=== PATIENT | female | born 2005 | race Caucasian/White ===

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

== ENCOUNTER 2023-10-24 21:51 | Emergency (ER) | payer MEDICAID, SELFPAY ==
--- NOTE | ~2023-10-24 | XR_ITS ---
EXAMINATION: XR CHEST CLINICAL INFORMATION: Pain with deep breath. COMPARISON: None available. TECHNIQUE: Frontal view of the chest was obtained. FINDINGS: No significant abnormality is noted involving the heart, lungs, mediastinum, bony thorax or soft tissues. XR/XR chest 1V IMPRESSION: Unremarkable examination.
[2023-10-24 22:23] VITALS: BP 118/72; BP 127/88; PULSE 84; PULSE 85; RESP 16; TEMP 37.2; O2SAT 97; BMI 29.0
[2023-10-24 22:45] LABS: Basophils Absolute Auto 0.1 X10*3/uL (0.0-0.2); Basophils Percent Auto 0.9 % (0-2); Eosinophils Absolute Auto 0.1 X10*3/uL (0.0-0.4); Eosinophils Percent Auto 2.2 % (0-4); Hematocrit 33.9 % (37.0-47.0); Imm Gran Abs Auto 0.02 X10*3/uL (0.00-0.03); Imm Gran Pct Auto 0.3 % (0.0-0.4); Lymphocytes Absolute Auto 2.6 X10*3/uL (1.2-4.9); MANUAL DIFF FLAG NO; Mean Corpuscular HGB Conc 32.4 g/dl (31.0-35.0); Mean Corpuscular Hemoglobin 27.2 pg (27.0-33.0); Mean Corpuscular Volume 83.9 fL (80.0-98.0); Mean Platelet Volume 10.7 fL (9.4-12.3); Monocytes Absolute Auto 0.6 X10*3/uL (0.1-1.2); Monocytes Percent Auto 8.6 % (2-11); Platelet Count 305 X10*3/uL (160-400); Red Blood Count 4.04 X10*6/uL (4.20-5.50); White Blood Count 6.4 X10*3/uL (4.8-10.8)
[2023-10-24 22:59] LABS: Alanine Aminotransferase 18 U/L (0-31); Alkaline Phosphatase 99 U/L (39-117); Anion Gap 14 (12-20); Aspartate Amino Transferase 21 U/L (5-31); Beta-Hydroxybutyrate 0.18 mmol/L (0.02-0.27); Bilirubin Total 0.6 mg/dL (0.0-1.0); Blood Urea Nitrogen 7 mg/dL (9-16); Calcium 9.4 mg/dL (8.4-10.2); Carbon Dioxide 23 mmol/L (22-29); Chloride 107 mmol/L (96-108); Creatinine Clr Calc Pharmacy 90.9; Estimated Glomerular Filt Rate > 60; Glucose Random 305 mg/dL (60-115); Potassium 4.6 mmol/L (3.3-5.1); Sodium 139 mmol/L (135-145); Total Protein 7.1 g/dL (6.5-8.0)
--- NOTE | 2023-10-25 00:20 | ED.GENADULT ---
HPI - General Adult General Chief complaint: Recheck/Abnormal Lab/Rx Stated complaint: out of insulin, BGL 246 Time Seen by Provider: 10/25/23 00:07 Source: patient Mode of arrival: ambulatory Limitations: no limitations History of Present Illness ED Provider: marisa QUINONEZ narrative: Patient is type 1 diabetic ran out of her Lantus 2 days ago and Humalog last night as he moved out of her mom's house in [place] and does not have any access to her medications patient has been feeling thirsty and urinating a lot PCP attempted to get her insulin but she did not cover Related Data Home Medications ?Medication ?Instructions ?Recorded ?Confirmed fluoxetine 10 mg tablet 30 mg PO DAILY 10/13/22 10/13/22 hydroxyzine HCl 25 mg tablet 25 mg PO DAILY 10/13/22 10/13/22 hydroxyzine pamoate 25 mg capsule 25 mg PO Q4H PRN Anxiety 10/13/22 10/13/22 (Vistaril) lamotrigine 25 mg tablet (Lamictal) 50 mg PO DAILY 10/13/22 10/13/22 lisinopril 10 mg tablet 10 mg PO DAILY 10/13/22 10/13/22 melatonin 5 mg tablet 5 mg PO BEDTIME PRN Sleep 10/13/22 10/13/22 Previous Rx's ?Medication ?Instructions ?Recorded alcohol swabs 1 pad topical QIDACHS #100 ea 10/16/22 blood sugar diagnostic (FreeStyle #100 ea 10/16/22 Lite Strips) blood-glucose meter (FreeStyle #1 ea 10/16/22 Lite Meter kit) cholecalciferol (vitamin D3) 25 25 mcg PO DAILY 30 days #30 tabs 10/16/22 mcg (1,000 unit) tablet (Vitamin D3) insulin glargine 100 unit/mL (3 35 unit (0.35 mL) subcut QAM #15 mL 10/16/22 mL) subcutaneous pen (Lantus Solostar U-100 Insulin) insulin lispro 100 unit/mL 1 sliding scale dose subcut 10/16/22 subcutaneous pen (Humalog KwikPen QIDACHS #15 mL (U-100) Insulin) lancets 28 gauge (FreeStyle #100 ea 10/16/22 Lancets) pen needle, diabetic 32 gauge x #100 ea 10/16/2205/18 insulin glargine 100 unit/mL 54 unit (0.54 mL) subcut DAILY #10 10/25/23 subcutaneous solution (Lantus mL U-100 Insulin) insulin lispro 100 unit/mL 1 sliding scale dose subcut 10/25/23 subcutaneous solution (Humalog USEASDIRECTD #10 mL U-100 Insulin) Allergies Allergy/AdvReac Type Severity Reaction Status Date / Time No Known Allergies Allergy Verified 10/24/23 22:28 Review of Systems Review of Systems: Yes all other systems are reviewed and are negative [facility] Social History Social History Household Members: Family Housing: Apartment Alcohol intake: never Patient Tobacco Use Status: Never used Tobacco Smoked in Last 30 Days: No Use of substances other than those prescribed or required for medical reasons: No Advance Directives: No Advance Directives Information Provided: No Patient : No service: No Current occupational status: unemployed Physical Exam ED Vital Signs: Vital Signs - 24 hr 10/24/23 22:23 10/25/23 00:34 10/25/23 00:40 Temperature 98.9 F 98 F Pulse Rate 85 78 Respiratory Rate 16 18 Blood Pressure 127/88 127/88 127/88 Pulse Oximetry 97 98 Oxygen Delivery Method Room Air BMI result Body Mass Index 29.0 Appearance: Alert. Oriented X3. No acute distress. Eyes: no pallor ENT: Pharynx normal. Oral Mucosa moist Neck: Normal inspection. Neck supple. CVS: Normal heart rate and rhythm. Pulses normal. Respiratory: No respiratory distress. Equal air entry bilateral, no wheezing/rales/rhonchi Abdomen: Soft and nontender. Bowel sounds are present, no mass palpable, no CVA tenderness Skin: Skin warm and dry. Normal skin color. Normal skin turgor. Extremities: No lower extremity edema. No calf tenderness Neuro: Oriented X 3. Medications Administered Discontinued Medications Generic Name Dose Route Start Last Admin Trade Name Freq PRN Reason Stop Dose Admin Insulin Glargine 54 unit 10/25/23 00:27 10/25/23 00:34 Insulin Glargine,Hum.Rec.Anlog 100 Unit/Ml 10 Ml Vial SUBCUT 10/25/23 00:28 54 unit ONCE ONE Administration Insulin Human Lispro 8 unit 10/25/23 00:27 10/25/23 00:34 Insulin Lispro 100 Unit/Ml 3 Ml Vial SUBCUT 10/25/23 00:28 8 unit ONCE ONE Administration Lisinopril 10 mg 10/25/23 00:29 10/25/23 00:34 Lisinopril 10 Mg Tablet PO 10/25/23 00:30 10 mg ONCE ONE Administration Protocol Medical Decision Making Medical Decision Making [facility] Narrative: Patient has hyperglycemia type 1 diabetes not ketoacidosis insulin was given in the ER and prescription was given to the patient to get the insulin Differential Diagnosis Differential Diagnoses: The differential diagnosis associated with the presentation includes Lab Data [facility] Lab Attestation statement: I reviewed the patient's lab results. 10/24/23 22:40 10/24/23 22:40 Labs: Lab Results 10/24/23 Range/Units 22:40 WBC 6.4 (4.8-10.8) X10*3/uL RBC 4.04 L (4.20-5.50) X10*6/uL Hgb 11.0 L (12.0-16.0) g/dl Hct 33.9 L (37.0-47.0) % MCV 83.9 (80.0-98.0) fL MCH 27.2 (27.0-33.0) pg MCHC 32.4 (31.0-35.0) g/dl RDW 14.0 (11.0-16.0) % Plt Count 305 (160-400) X10*3/uL MPV 10.7 (9.4-12.3) fL Immature Gran % (Auto) 0.3 (0.0-0.4) % Neut % (Auto) 47.0 (45-73) % Lymph % (Auto) 41.0 H (20-40) % [place] % (Auto) 8.6 (2-11) % Eos % (Auto) 2.2 (0-4) % Baso % (Auto) 0.9 (0-2) % Lymph # (Auto) 2.6 (1.2-4.9) X10*3/uL [place] # (Auto) 0.6 (0.1-1.2) X10*3/uL Eos # (Auto) 0.1 (0.0-0.4) X10*3/uL Baso # (Auto) 0.1 (0.0-0.2) X10*3/uL Abs Immat Gran (auto) 0.02 (0.00-0.03) X10*3/uL Absolute Neuts (auto) 3.0 (2.0-8.3) x10*3/uL Absolute Nucleated RBC 0.000 (0.0-0.012) X10*3/uL Nucleated RBC % (auto) 0.0 (0.0-0.2) /100WBC Sodium 139 (135-145) mmol/L Potassium 4.6 (3.3-5.1) mmol/L Chloride 107 (96-108) mmol/L Carbon Dioxide 23 (22-29) mmol/L Anion Gap 14 (12-20) BUN 7 L (9-16) mg/dL Creatinine 0.74 (0.5-1.4) mg/dL Estim Creat Clear Calc 90.9 Estimated GFR > 60 Random Glucose 305 H (60-115) mg/dL Calcium 9.4 (8.4-10.2) mg/dL Total Bilirubin 0.6 (0.0-1.0) mg/dL AST 21 (5-31) U/L ALT 18 (0-31) U/L Alkaline Phosphatase 99 (39-117) U/L Total Protein 7.1 (6.5-8.0) g/dL Albumin 4.0 (3.5-5.0) g/dL Beta-Hydroxybutyrate 0.18 (0.02-0.27) mmol/L Discharge Plan Discharge Clinical Impression: Diabetes mellitus with hyperglycemia Patient Disposition: Home, Self-Care Instructions: Diabetic Hyperglycemia (ED) Additional Instructions: Take your insulin and other medications as prescribed by your PCP Prescriptions: New insulin glargine [Lantus U-100 Insulin] 100 unit/mL solution 54 unit subcut DAILY Qty: 10 2RF insulin lispro [Humalog U-100 Insulin] 100 unit/mL solution 1 sliding scale dose subcut USEASDIRECTD Qty: 10 2RF Rx Instructions: BG <111 0 units, 111-150 - 0 units, 151-200 2 units, 201-250 4 units, 251-300 6 units, 301-350 8 units, >350 10 units No Action fluoxetine 10 mg Tablet 30 mg PO DAILY Hold Instructions: hasn't been taking lamotrigine [Lamictal] 25 mg Tablet 50 mg PO DAILY Hold Instructions: hasn't been taking lisinopril 10 mg Tablet 10 mg PO DAILY Hold Instructions: bp on lower side hold until follow up with PCP hydroxyzine HCl 25 mg Tablet 25 mg PO DAILY Hold Instructions: hasn't been taking hydroxyzine pamoate [Vistaril] 25 mg Capsule 25 mg PO Q4H PRN (Reason: Anxiety) Hold Instructions: hasn't been taking melatonin 5 mg Tablet 5 mg PO BEDTIME PRN (Reason: Sleep) cholecalciferol (vitamin D3) [Vitamin D3] 25 mcg (1,000 unit) Tablet 25 mcg PO DAILY 30 Days Qty: 30 0RF (DME) FreeStyle Lite Strips Strip Qty: 100 0RF Rx Instructions: Test four times a day or as directed. (DME) blood-glucose meter [FreeStyle Lite Meter] Kit Qty: 1 0RF Rx Instructions: As Directed alcohol swabs Pads, Medicated 1 pad TOPICAL QIDACHS Qty: 100 0RF Rx Instructions: Use four times a day or as directed. insulin lispro [Humalog KwikPen Insulin] 100 unit/mL insulin pen 1 sliding scale dose SUBCUT QIDACHS MDD 50 units Qty: 15 1RF Rx Instructions: Blood Sugar: <150 - 0 units 151-200 - 2 units 201-250 - 4 units 251-300 - 6 units 301-350 - 8 units >350 - 10 units (DME) pen needle, diabetic 32 gauge x 1/4 needle Qty: 100 0RF Rx Instructions: Use four times a day or as directed. (DME) lancets [FreeStyle Lancets] 28 gauge misc Qty: 100 0RF Rx Instructions: Test four times a day or as directed. insulin glargine [Lantus Solostar U-100 Insulin] 100 unit/mL (3 mL) Insulin Pen 35 unit SUBCUT QAM Qty: 15 1RF Interventions: ED Discharge Assessment Last Done: 10/25/23 00:40 Discharge Date/Time: 10/25/23 00:41 Print Language: [place] Citizen
[2023-10-25 00:34] VITALS: BP 127/88
[2023-10-25] MEDS: lisinopriL 10 MG TABLET PO (00:34)
[2023-10-25] MEDS: Insulin Glargine,Hum.rec.anlog 100 UNIT/ML 10 ML VIAL 54 UNIT SUBCUT (00:34)
[2023-10-25] MEDS: Insulin Lispro 100 UNIT/ML 3 ML VIAL 8 UNIT SUBCUT (00:34)
[2023-10-25 00:40] VITALS: BP 127/88; PULSE 78; RESP 18; TEMP 36.6; O2SAT 98
[2023-10-25 07:38] LABS: Estimated Average Glucose 214 mg/dL; Hemoglobin A1c % 9.1 % (<6.0)
== END 2023-10-25 00:41 | disposition home or self-care (01) ==
PROVIDERS: Emergency Provider Internal Medicine
DX: E11.65 Type 2 diabetes mellitus with hyperglycemia (principal); R07.1 Chest pain on breathing; Z79.899 Other long term (current) drug therapy
CPT/HCPCS: 36415; 71045; 80053; 82010; 83036; 85025; 99284

== ENCOUNTER 2024-04-30 03:24 | Inpatient (IN) | payer MEDICAID, SELFPAY ==
[2024-04-30] VITALS (7 sets, daily range): BP systolic 81–117; BP diastolic 46–82; PULSE 83–120; RESP 13–20; TEMP 36.6–37.1; O2SAT 95–100; BMI 28.9
--- NOTE | 2024-04-30 03:31 | ECG_ITS ---
Test Reason : HYPERGLYCEMIC Blood Pressure : / mmHG Vent. Rate : 123 BPM Atrial Rate : 123 BPM P-R Int : 132 ms QRS Dur : 078 ms QT Int : 316 ms P-R-T Axes : 058 055 035 degrees QTc Int : 452 ms Sinus tachycardia Otherwise normal ECG When compared with ECG of 13-OCT-2022 17:21, No significant change was found Referred By: Generic ED Physician Electronically Signed By:RORO CARLISLE
[2024-04-30 03:46] LABS: Glucose, Whole Blood 588 mg/dL (60-115)
[2024-04-30 03:51] LABS: Basophils Absolute Auto 0.1 X10*3/uL (0.0-0.2); Basophils Percent Auto 0.5 % (0-2); Eosinophils Absolute Auto 0.1 X10*3/uL (0.0-0.4); Eosinophils Percent Auto 0.6 % (0-4); Hematocrit 35.4 % (37.0-47.0); Hemoglobin 11.3 g/dl (12.0-16.0); Imm Gran Abs Auto 0.04 X10*3/uL (0.00-0.03); Imm Gran Pct Auto 0.3 % (0.0-0.4); Lymphocytes Absolute Auto 2.8 X10*3/uL (1.2-4.9); Lymphocytes Percent Auto 24.7 % (20-40); MANUAL DIFF FLAG NO; Mean Corpuscular HGB Conc 31.9 g/dl (31.0-35.0); Mean Corpuscular Hemoglobin 26.2 pg (27.0-33.0); Mean Corpuscular Volume 81.9 fL (80.0-98.0); Mean Platelet Volume 10.7 fL (9.4-12.3); Monocytes Percent Auto 8.7 % (2-11); Neutrophils Absolute Auto 7.5 x10*3/uL (2.0-8.3); Neutrophils Percent Auto 65.2 % (45-73); Platelet Count 377 X10*3/uL (160-400); Red Blood Count 4.32 X10*6/uL (4.20-5.50); Red Cell Distribution Width 14.3 % (11.0-16.0); White Blood Count 11.4 X10*3/uL (4.8-10.8)
[2024-04-30 03:53] LABS: Venous Blood Gas Refer to POC result
[2024-04-30 03:54] LABS: VBG Base Excess -11.6 mmol/L; VBG HCO3 13 mmol/L (22-26); VBG pCO2 27 mmHg; VBG pH 7.28 (7.32-7.43); VBG pO2 62 mmHg
[2024-04-30 04:05] LABS: Appearance Urine Clear; Color Urine Yellow; Glucose Urine UA >=1000 mg/dL (Negative); Leukocyte Esterase Urine Negative (Negative); Nitrite Urine Negative (Negative); Specific Gravity - Urine >= 1.030 (1.005-1.025); UMIC TRIGGER UACC YES; Urine Blood Negative (Negative); Urine Ketones >=160 mg/dL (Negative); Urine Protein Negative (Neg-Trace)
[2024-04-30 04:10] LABS: Bacteria Urine None Seen (None Seen); Hyaline Casts Urine 0-2 /LPF (0-2); RBC Urine 0-2 /HPF (0-2); Squamous Epithelial Cell Urine 0-2 /HPF (0-2); WBC Urine 0-5 /HPF (0-5)
--- NOTE | 2024-04-30 04:13 | ED.GENADULT ---
HPI - General Adult General Chief complaint: General Medical Stated complaint: Hyperglycemia, n/v, weak, dizzy Time Seen by Provider: 04/30/24 04:13 History of Present Illness ED Provider: Marie QUINONEZ narrative: The patient is a 18-year-old female with a history of type 1 diabetes. She takes lispro insulin and also Lantus insulin. The patient says that she was feeling me in her usual health yesterday during the day. She took her insulin as she usually does. She was not having any unusual readings on her blood sugars. She does not have a Dexcom device but has to check her blood sugars by fingerstick. Fairly late in the evening she measured her blood sugar and it was high. At 23:00 it was 400. She gave herself some additional rapid acting insulin and waited for awhile. However her blood sugar continued to remain quite high and ultimately she called an ambulance and was brought to the hospital. The patient is not able to identify any particular symptoms or events that might have predispose her too high blood sugars tonight. She says she has not had any fever, sweats, chills. No cough or sputum. No abdominal pain. She has had some nausea. She says that she feels some discomfort in both of her kidneys. She has had this kind of discomfort when she has had DKA before. The patient says she does not have an disability examiner at the moment. Related Data Home Medications ?Medication ?Instructions ?Recorded ?Confirmed fluoxetine 10 mg tablet 30 mg PO DAILY 10/13/22 10/13/22 hydroxyzine HCl 25 mg tablet 25 mg PO DAILY 10/13/22 10/13/22 hydroxyzine pamoate 25 mg capsule 25 mg PO Q4H PRN Anxiety 10/13/22 10/13/22 (Vistaril) lamotrigine 25 mg tablet (Lamictal) 50 mg PO DAILY 10/13/22 10/13/22 lisinopril 10 mg tablet 10 mg PO DAILY 10/13/22 10/13/22 melatonin 5 mg tablet 5 mg PO BEDTIME PRN Sleep 10/13/22 10/13/22 Previous Rx's ?Medication ?Instructions ?Recorded alcohol swabs 1 pad topical QIDACHS #100 ea 10/16/22 blood sugar diagnostic (FreeStyle #100 ea 10/16/22 Lite Strips) blood-glucose meter (FreeStyle #1 ea 10/16/22 Lite Meter kit) cholecalciferol (vitamin D3) 25 25 mcg PO DAILY 30 days #30 tabs 10/16/22 mcg (1,000 unit) tablet (Vitamin D3) insulin glargine 100 unit/mL (3 35 unit (0.35 mL) subcut QAM #15 mL 10/16/22 mL) subcutaneous pen (Lantus Solostar U-100 Insulin) insulin lispro 100 unit/mL 1 sliding scale dose subcut 10/16/22 subcutaneous pen (Humalog KwikPen QIDACHS #15 mL (U-100) Insulin) lancets 28 gauge (FreeStyle #100 ea 10/16/22 Lancets) pen needle, diabetic 32 gauge x #100 ea 10/16/2205/18 insulin glargine 100 unit/mL 54 unit (0.54 mL) subcut DAILY #10 10/25/23 subcutaneous solution (Lantus mL U-100 Insulin) insulin lispro 100 unit/mL 1 sliding scale dose subcut 10/25/23 subcutaneous solution (Humalog USEASDIRECTD #10 mL U-100 Insulin) Allergies Allergy/AdvReac Type Severity Reaction Status Date / Time No Known Allergies Allergy Verified 04/30/24 03:42 Review of Systems Review of Systems: Yes all other systems are reviewed and are negative [facility] Social History Social History Household Members: Family Housing: Apartment Alcohol intake: never Patient Tobacco Use Status: Never used Tobacco Smoked in Last 30 Days: No Use of substances other than those prescribed or required for medical reasons: No Advance Directives: No Advance Directives Information Provided: Yes Do you have a plan to hurt others: No Plan Patient : No service: No Current occupational status: unemployed Physical Exam ED Vital Signs: Vital Signs - 24 hr 04/30/24 03:38 04/30/24 06:21 04/30/24 08:50 Temperature 98.2 F 98.7 F 98.5 F Pulse Rate 120 H 106 H 113 H Respiratory Rate 16 20 18 Blood Pressure 117/82 96/57 L 92/49 L Pulse Oximetry 100 98 97 Oxygen Delivery Method Room Air Room Air Room Air 04/30/24 09:37 04/30/24 10:42 04/30/24 10:53 Temperature 97.9 F 98.7 F 98.0 F Pulse Rate 101 H 90 83 Respiratory Rate 18 18 13 Blood Pressure 81/47 L 96/51 L 93/46 L Pulse Oximetry 98 99 95 Oxygen Delivery Method Room Air Room Air Room Air 04/30/24 11:16 Temperature Pulse Rate Respiratory Rate Blood Pressure 98/63 Pulse Oximetry Oxygen Delivery Method BMI result Body Mass Index 28.9 Const Other: The patient is awake and alert. She looks slightly pale but not acutely ill otherwise. No Kussmaul breathing. HENMT Other: Face is symmetrical. Mucous membranes were not obviously dry. Posterior pharynx is unremarkable. Eyes Other: Pupils are round equal, conjunctivae clear, extraocular movements intact. Neck Neck: Yes full ROM and Yes no lymphadenopathy Resp Effort & Inspection: normal respiratory effort Auscultation: clear to auscultation bilaterally Cardio Rate: regular rate Heart sounds: S1 normal heart sound present and S2 normal heart sound present GI Other: The abdomen was soft and nontender. Back/Spine/Pelvis Other: No CVA percussion tenderness Skin Other: Skin is pale and dry Neuro Other: The patient is awake and alert. She looks somewhat fatigued but had a normal mental status. Cranial nerves are grossly intact. She moves her extremities normally. She seems grossly neurologically Extrem Other: No peripheral edema. No calf swelling or tenderness. No asymmetry. Medications Administered Generic Name Dose Route Start Last Admin Trade Name Freq PRN Reason Stop Dose Admin Insulin Human Regular 100 unit in 100 mls @ 6 mls/hr 04/30/24 04:30 04/30/24 08:51 Myxredlin IVCONT 0 unit/hr .[id number] CAROLINE 0 mls/hr Titration Protocol 6 UNIT/HR Discontinued Medications Generic Name Dose Route Start Last Admin Trade Name Freq PRN Reason Stop Dose Admin Lactated Ringer's 1,000 mls @ 999 mls/hr 04/30/24 04:30 04/30/24 05:53 Lr IV 04/30/24 05:30 Infused .Q1H1M CAROLINE Infusion Lactated Ringer's 1,000 mls @ 999 mls/hr 04/30/24 06:30 04/30/24 06:39 Lr IV 04/30/24 07:30 999 mls/hr .Q1H1M CAROLINE Administration Lactated Ringer's 1,000 mls @ 999 mls/hr 04/30/24 09:30 04/30/24 09:35 Lr IV 04/30/24 10:30 999 mls/hr .Q1H1M CAROLINE Administration Insulin Glargine 30 unit 04/30/24 09:41 04/30/24 10:40 Insulin Glargine,Hum.Rec.Anlog 100 Unit/Ml 10 Ml Vial SUBCUT 04/30/24 09:42 30 unit ONCE ONE Administration Insulin Human Lispro 8 unit 04/30/24 08:53 04/30/24 09:34 Insulin Lispro 100 Unit/Ml 3 Ml Vial SUBCUT 04/30/24 08:54 8 unit ONCE ONE Administration Insulin Human Regular 5 unit 04/30/24 04:17 04/30/24 04:43 Insulin Regular, Human 100 Unit/Ml 10 Ml Vial IVPUSH 04/30/24 04:18 5 unit ONCE ONE Administration Morphine Sulfate 4 mg 04/30/24 04:56 04/30/24 05:02 Morphine Sulfate 4 Mg/Ml Cartridge IVPUSH 04/30/24 04:57 4 mg ONCE ONE Administration Protocol Ondansetron HCl 4 mg 04/30/24 04:25 04/30/24 04:41 Ondansetron Hcl 4 Mg/2 Ml Vial IVPUSH 04/30/24 04:26 4 mg ONCE ONE Administration Medical Decision Making Medical Decision Making [facility] Narrative: The patient is a 18-year-old female with a history of type 2 diabetes who presents with hyperglycemia that she says started just a few hours prior to arrival. She has been feeling well during most of the day yesterday. She does not describe having any bizarre other infectious symptoms. She says that she feels similar to how she felt when she was hospitalized here last year for DKA although at that previous episode she was feeling worse than she is feeling tonight. Denies any change in her insulin regimen. The patient looks mildly unwell but not severely unwell. She was given IV fluids. Labs were suggestive of mild to moderate DKA. She was started on an insulin drip. Our ICU had no beds available for admission. She was therefore kept in the emergency room on an insulin drip for several hours in hopes of improvement. My overall impression was that neither her clinical appearance nor her laboratory values suggested a severe case of DKA that clearly would indicate a need for transfer to another hospital. The patient received a total of the 3 L of lactated Ringer's and her blood sugars improved significantly on an insulin drip. Repeat labs after several hours showed resolution of her anion gap with improvement in her carbon dioxide and her pH. Ultimately the patient's blood sugar came down as low as 169 by fingerstick. At that point I asked the insulin drip to be stopped. The patient had gotten a small amount of a D5 as part of the insulin drip protocol. Her blood sugar went up fairly quickly to 281. His that point she was given 6 units of lispro which she said was what she would give herself at home with NovoLog at that level. Additionally she has been given 30 units of Lantus insulin (this is a smaller dose than she typically gives herself. She says she normally himself 54 units once a day in the afternoon). Lab Data 04/30/24 03:47 04/30/24 07:17 Labs: Lab Results 04/30/24 04/30/24 04/30/24 Range/Units 03:40 03:47 03:50 WBC 11.4 H (4.8-10.8) X10*3/uL RBC 4.32 (4.20-5.50) X10*6/uL Hgb 11.3 L (12.0-16.0) g/dl Hct 35.4 L (37.0-47.0) % MCV 81.9 (80.0-98.0) fL MCH 26.2 L (27.0-33.0) pg MCHC 31.9 (31.0-35.0) g/dl RDW 14.3 (11.0-16.0) % Plt Count 377 (160-400) X10*3/uL MPV 10.7 (9.4-12.3) fL Immature Gran % (Auto) 0.3 (0.0-0.4) % Neut % (Auto) 65.2 (45-73) % Lymph % (Auto) 24.7 (20-40) % [place] % (Auto) 8.7 (2-11) % Eos % (Auto) 0.6 (0-4) % Baso % (Auto) 0.5 (0-2) % Lymph # (Auto) 2.8 (1.2-4.9) X10*3/uL [place] # (Auto) 1.0 (0.1-1.2) X10*3/uL Eos # (Auto) 0.1 (0.0-0.4) X10*3/uL Baso # (Auto) 0.1 (0.0-0.2) X10*3/uL Abs Immat Gran (auto) 0.04 H (0.00-0.03) X10*3/uL Absolute Neuts (auto) 7.5 (2.0-8.3) x10*3/uL Absolute Nucleated RBC 0.000 (0.0-0.012) X10*3/uL Nucleated RBC % (auto) 0.0 (0.0-0.2) /100WBC VBG pH 7.28 L (7.32-7.43) VBG pCO2 27 mmHg VBG pO2 62 mmHg VBG HCO3 13 L (22-26) mmol/L VBG O2 Saturation 87.0 % VBG Base Excess -11.6 mmol/L Sodium 131 L (135-145) mmol/L Potassium 5.1 (3.3-5.1) mmol/L Chloride 98 (96-108) mmol/L Carbon Dioxide 13 L (22-29) mmol/L Anion Gap 25 H (12-20) BUN 13 (9-16) mg/dL Creatinine 1.04 (0.5-1.4) mg/dL Estim Creat Clear Calc 64.4 Estimated GFR > 60 POC Glucose 588 H* (60-115) mg/dL Random Glucose 630 H* (60-115) mg/dL Calcium 9.0 (8.4-10.2) mg/dL Magnesium (1.6-2.6) mg/dL Total Bilirubin 0.7 (0.0-1.0) mg/dL AST 32 H (5-31) U/L ALT 17 (0-31) U/L Alkaline Phosphatase 102 (39-117) U/L C-Reactive Protein 0.80 H (< or = 0.50) mg/dL Total Protein 6.9 (6.5-8.0) g/dL Albumin 3.8 (3.5-5.0) g/dL Beta-Hydroxybutyrate 5.70 H (0.02-0.27) mmol/L Beta HCG, Quant < 2 mIU/mL Urine Color Urine Appearance Urine pH (5.0-9.0) Ur Specific [place] (1.005-1.025) Urine Protein (Neg-Trace) mg/dL Urine Glucose (UA) (Negative) mg/dL Urine Ketones (Negative) mg/dL Urine Blood (Negative) Urine Nitrite (Negative) Ur Leukocyte Esterase (Negative) Urine RBC (0-2) /HPF Urine WBC (0-5) /HPF Ur Squamous Epith Cells (0-2) /HPF Urine Bacteria (None Seen) Hyaline Casts (0-2) /LPF Urine Opiates Screen (Not Detect) Ur Buprenorphine Scrn (Not Detect) ng/mL Ur Oxycodone Screen (Not Detect) ng/mL Urine Methadone Screen (Not Detect) ng/mL Urine Fentanyl Screen (Not Detect) Ur Barbiturates Screen (Not Detect) Ur Phencyclidine Scrn (Not Detect) Ur Amphetamines Screen (Not Detect) U Benzodiazepines Scrn (Not Detect) Urine Cocaine Screen (Not Detect) U Marijuana (THC) Screen (Not Detect) Ethyl Alcohol < 10 mg/dL 04/30/24 04/30/24 04/30/24 Range/Units 03:59 04:43 05:47 WBC (4.8-10.8) X10*3/uL RBC (4.20-5.50) X10*6/uL Hgb (12.0-16.0) g/dl Hct (37.0-47.0) % MCV (80.0-98.0) fL MCH (27.0-33.0) pg MCHC (31.0-35.0) g/dl RDW (11.0-16.0) % Plt Count (160-400) X10*3/uL MPV (9.4-12.3) fL Immature Gran % (Auto) (0.0-0.4) % Neut % (Auto) (45-73) % Lymph % (Auto) (20-40) % [place] % (Auto) (2-11) % Eos % (Auto) (0-4) % Baso % (Auto) (0-2) % Lymph # (Auto) (1.2-4.9) X10*3/uL [place] # (Auto) (0.1-1.2) X10*3/uL Eos # (Auto) (0.0-0.4) X10*3/uL Baso # (Auto) (0.0-0.2) X10*3/uL Abs Immat Gran (auto) (0.00-0.03) X10*3/uL Absolute Neuts (auto) (2.0-8.3) x10*3/uL Absolute Nucleated RBC (0.0-0.012) X10*3/uL Nucleated RBC % (auto) (0.0-0.2) /100WBC VBG pH (7.32-7.43) VBG pCO2 mmHg VBG pO2 mmHg VBG HCO3 (22-26) mmol/L VBG O2 Saturation % VBG Base Excess mmol/L Sodium (135-145) mmol/L Potassium (3.3-5.1) mmol/L Chloride (96-108) mmol/L Carbon Dioxide (22-29) mmol/L Anion Gap (12-20) BUN (9-16) mg/dL Creatinine (0.5-1.4) mg/dL Estim Creat Clear Calc Estimated GFR POC Glucose 550 H* 340 H (60-115) mg/dL Random Glucose (60-115) mg/dL Calcium (8.4-10.2) mg/dL Magnesium (1.6-2.6) mg/dL Total Bilirubin (0.0-1.0) mg/dL AST (5-31) U/L ALT (0-31) U/L Alkaline Phosphatase (39-117) U/L C-Reactive Protein (< or = 0.50) mg/dL Total Protein (6.5-8.0) g/dL Albumin (3.5-5.0) g/dL Beta-Hydroxybutyrate (0.02-0.27) mmol/L Beta HCG, Quant mIU/mL Urine Color Yellow Urine Appearance Clear Urine pH 5.0 (5.0-9.0) Ur Specific [place] >= 1.030 H (1.005-1.025) Urine Protein Negative (Neg-Trace) mg/dL Urine Glucose (UA) >=1000 H (Negative) mg/dL Urine Ketones >=160 (Negative) mg/dL Urine Blood Negative (Negative) Urine Nitrite Negative (Negative) Ur Leukocyte Esterase Negative (Negative) Urine RBC 0-2 (0-2) /HPF Urine WBC 0-5 (0-5) /HPF Ur Squamous Epith Cells 0-2 (0-2) /HPF Urine Bacteria None Seen (None Seen) Hyaline Casts 0-2 (0-2) /LPF Urine Opiates Screen Not Detected (Not Detect) Ur Buprenorphine Scrn Not Detected (Not Detect) ng/mL Ur Oxycodone Screen Not Detected (Not Detect) ng/mL Urine Methadone Screen Not Detected (Not Detect) ng/mL Urine Fentanyl Screen Not Detected (Not Detect) Ur Barbiturates Screen Not Detected (Not Detect) Ur Phencyclidine Scrn Not Detected (Not Detect) Ur Amphetamines Screen Not Detected (Not Detect) U Benzodiazepines Scrn Not Detected (Not Detect) Urine Cocaine Screen Not Detected (Not Detect) U Marijuana (THC) Screen Not Detected (Not Detect) Ethyl Alcohol mg/dL 04/30/24 04/30/24 04/30/24 Range/Units 06:53 07:17 07:20 WBC (4.8-10.8) X10*3/uL RBC (4.20-5.50) X10*6/uL Hgb (12.0-16.0) g/dl Hct (37.0-47.0) % MCV (80.0-98.0) fL MCH (27.0-33.0) pg MCHC (31.0-35.0) g/dl RDW (11.0-16.0) % Plt Count (160-400) X10*3/uL MPV (9.4-12.3) fL Immature Gran % (Auto) (0.0-0.4) % Neut % (Auto) (45-73) % Lymph % (Auto) (20-40) % [place] % (Auto) (2-11) % Eos % (Auto) (0-4) % Baso % (Auto) (0-2) % Lymph # (Auto) (1.2-4.9) X10*3/uL [place] # (Auto) (0.1-1.2) X10*3/uL Eos # (Auto) (0.0-0.4) X10*3/uL Baso # (Auto) (0.0-0.2) X10*3/uL Abs Immat Gran (auto) (0.00-0.03) X10*3/uL Absolute Neuts (auto) (2.0-8.3) x10*3/uL Absolute Nucleated RBC (0.0-0.012) X10*3/uL Nucleated RBC % (auto) (0.0-0.2) /100WBC VBG pH 7.30 L (7.32-7.43) VBG pCO2 32 mmHg VBG pO2 49 mmHg VBG HCO3 16 L (22-26) mmol/L VBG O2 Saturation 76.0 % VBG Base Excess -8.9 mmol/L Sodium 135 (135-145) mmol/L Potassium 4.1 (3.3-5.1) mmol/L Chloride 105 (96-108) mmol/L Carbon Dioxide 16 L (22-29) mmol/L Anion Gap 18 (12-20) BUN 9 (9-16) mg/dL Creatinine 0.79 (0.5-1.4) mg/dL Estim Creat Clear Calc 84.9 Estimated GFR > 60 POC Glucose 221 H (60-115) mg/dL Random Glucose 201 H (60-115) mg/dL Calcium 8.7 (8.4-10.2) mg/dL Magnesium 1.5 L (1.6-2.6) mg/dL Total Bilirubin (0.0-1.0) mg/dL AST (5-31) U/L ALT (0-31) U/L Alkaline Phosphatase (39-117) U/L C-Reactive Protein (< or = 0.50) mg/dL Total Protein (6.5-8.0) g/dL Albumin (3.5-5.0) g/dL Beta-Hydroxybutyrate (0.02-0.27) mmol/L Beta HCG, Quant mIU/mL Urine Color Urine Appearance Urine pH (5.0-9.0) Ur Specific [place] (1.005-1.025) Urine Protein (Neg-Trace) mg/dL Urine Glucose (UA) (Negative) mg/dL Urine Ketones (Negative) mg/dL Urine Blood (Negative) Urine Nitrite (Negative) Ur Leukocyte Esterase (Negative) Urine RBC (0-2) /HPF Urine WBC (0-5) /HPF Ur Squamous Epith Cells (0-2) /HPF Urine Bacteria (None Seen) Hyaline Casts (0-2) /LPF Urine Opiates Screen (Not Detect) Ur Buprenorphine Scrn (Not Detect) ng/mL Ur Oxycodone Screen (Not Detect) ng/mL Urine Methadone Screen (Not Detect) ng/mL Urine Fentanyl Screen (Not Detect) Ur Barbiturates Screen (Not Detect) Ur Phencyclidine Scrn (Not Detect) Ur Amphetamines Screen (Not Detect) U Benzodiazepines Scrn (Not Detect) Urine Cocaine Screen (Not Detect) U Marijuana (THC) Screen (Not Detect) Ethyl Alcohol mg/dL 04/30/24 04/30/24 04/30/24 Range/Units 07:55 08:49 10:15 WBC (4.8-10.8) X10*3/uL RBC (4.20-5.50) X10*6/uL Hgb (12.0-16.0) g/dl Hct (37.0-47.0) % MCV (80.0-98.0) fL MCH (27.0-33.0) pg MCHC (31.0-35.0) g/dl RDW (11.0-16.0) % Plt Count (160-400) X10*3/uL MPV (9.4-12.3) fL Immature Gran % (Auto) (0.0-0.4) % Neut % (Auto) (45-73) % Lymph % (Auto) (20-40) % [place] % (Auto) (2-11) % Eos % (Auto) (0-4) % Baso % (Auto) (0-2) % Lymph # (Auto) (1.2-4.9) X10*3/uL [place] # (Auto) (0.1-1.2) X10*3/uL Eos # (Auto) (0.0-0.4) X10*3/uL Baso # (Auto) (0.0-0.2) X10*3/uL Abs Immat Gran (auto) (0.00-0.03) X10*3/uL Absolute Neuts (auto) (2.0-8.3) x10*3/uL Absolute Nucleated RBC (0.0-0.012) X10*3/uL Nucleated RBC % (auto) (0.0-0.2) /100WBC VBG pH (7.32-7.43) VBG pCO2 mmHg VBG pO2 mmHg VBG HCO3 (22-26) mmol/L VBG O2 Saturation % VBG Base Excess mmol/L Sodium (135-145) mmol/L Potassium (3.3-5.1) mmol/L Chloride (96-108) mmol/L Carbon Dioxide (22-29) mmol/L Anion Gap (12-20) BUN (9-16) mg/dL Creatinine (0.5-1.4) mg/dL Estim Creat Clear Calc Estimated GFR POC Glucose 169 H 281 H 241 H (60-115) mg/dL Random Glucose (60-115) mg/dL Calcium (8.4-10.2) mg/dL Magnesium (1.6-2.6) mg/dL Total Bilirubin (0.0-1.0) mg/dL AST (5-31) U/L ALT (0-31) U/L Alkaline Phosphatase (39-117) U/L C-Reactive Protein (< or = 0.50) mg/dL Total Protein (6.5-8.0) g/dL Albumin (3.5-5.0) g/dL Beta-Hydroxybutyrate (0.02-0.27) mmol/L Beta HCG, Quant mIU/mL Urine Color Urine Appearance Urine pH (5.0-9.0) Ur Specific [place] (1.005-1.025) Urine Protein (Neg-Trace) mg/dL Urine Glucose (UA) (Negative) mg/dL Urine Ketones (Negative) mg/dL Urine Blood (Negative) Urine Nitrite (Negative) Ur Leukocyte Esterase (Negative) Urine RBC (0-2) /HPF Urine WBC (0-5) /HPF Ur Squamous Epith Cells (0-2) /HPF Urine Bacteria (None Seen) Hyaline Casts (0-2) /LPF Urine Opiates Screen (Not Detect) Ur Buprenorphine Scrn (Not Detect) ng/mL Ur Oxycodone Screen (Not Detect) ng/mL Urine Methadone Screen (Not Detect) ng/mL Urine Fentanyl Screen (Not Detect) Ur Barbiturates Screen (Not Detect) Ur Phencyclidine Scrn (Not Detect) Ur Amphetamines Screen (Not Detect) U Benzodiazepines Scrn (Not Detect) Urine Cocaine Screen (Not Detect) U Marijuana (THC) Screen (Not Detect) Ethyl Alcohol mg/dL 04/30/24 Range/Units 11:14 WBC (4.8-10.8) X10*3/uL RBC (4.20-5.50) X10*6/uL Hgb (12.0-16.0) g/dl Hct (37.0-47.0) % MCV (80.0-98.0) fL MCH (27.0-33.0) pg MCHC (31.0-35.0) g/dl RDW (11.0-16.0) % Plt Count (160-400) X10*3/uL MPV (9.4-12.3) fL Immature Gran % (Auto) (0.0-0.4) % Neut % (Auto) (45-73) % Lymph % (Auto) (20-40) % [place] % (Auto) (2-11) % Eos % (Auto) (0-4) % Baso % (Auto) (0-2) % Lymph # (Auto) (1.2-4.9) X10*3/uL [place] # (Auto) (0.1-1.2) X10*3/uL Eos # (Auto) (0.0-0.4) X10*3/uL Baso # (Auto) (0.0-0.2) X10*3/uL Abs Immat Gran (auto) (0.00-0.03) X10*3/uL Absolute Neuts (auto) (2.0-8.3) x10*3/uL Absolute Nucleated RBC (0.0-0.012) X10*3/uL Nucleated RBC % (auto) (0.0-0.2) /100WBC VBG pH (7.32-7.43) VBG pCO2 mmHg VBG pO2 mmHg VBG HCO3 (22-26) mmol/L VBG O2 Saturation % VBG Base Excess mmol/L Sodium (135-145) mmol/L Potassium (3.3-5.1) mmol/L Chloride (96-108) mmol/L Carbon Dioxide (22-29) mmol/L Anion Gap (12-20) BUN (9-16) mg/dL Creatinine (0.5-1.4) mg/dL Estim Creat Clear Calc Estimated GFR POC Glucose 133 H (60-115) mg/dL Random Glucose (60-115) mg/dL Calcium (8.4-10.2) mg/dL Magnesium (1.6-2.6) mg/dL Total Bilirubin (0.0-1.0) mg/dL AST (5-31) U/L ALT (0-31) U/L Alkaline Phosphatase (39-117) U/L C-Reactive Protein (< or = 0.50) mg/dL Total Protein (6.5-8.0) g/dL Albumin (3.5-5.0) g/dL Beta-Hydroxybutyrate (0.02-0.27) mmol/L Beta HCG, Quant mIU/mL Urine Color Urine Appearance Urine pH (5.0-9.0) Ur Specific [place] (1.005-1.025) Urine Protein (Neg-Trace) mg/dL Urine Glucose (UA) (Negative) mg/dL Urine Ketones (Negative) mg/dL Urine Blood (Negative) Urine Nitrite (Negative) Ur Leukocyte Esterase (Negative) Urine RBC (0-2) /HPF Urine WBC (0-5) /HPF Ur Squamous Epith Cells (0-2) /HPF Urine Bacteria (None Seen) Hyaline Casts (0-2) /LPF Urine Opiates Screen (Not Detect) Ur Buprenorphine Scrn (Not Detect) ng/mL Ur Oxycodone Screen (Not Detect) ng/mL Urine Methadone Screen (Not Detect) ng/mL Urine Fentanyl Screen (Not Detect) Ur Barbiturates Screen (Not Detect) Ur Phencyclidine Scrn (Not Detect) Ur Amphetamines Screen (Not Detect) U Benzodiazepines Scrn (Not Detect) Urine Cocaine Screen (Not Detect) U Marijuana (THC) Screen (Not Detect) Ethyl Alcohol mg/dL Critical Care Time Critical Care Time Critical Care Time: Yes Total Critical Care Time: 35 Attestation: The patient was critically ill with a high probability of imminent or life-threatening deterioration. ?I spent greater than 30 minutes of discontinuous time evaluating the patient, delivering critical care at the bedside, discussing evaluating data with consultants. ?Critical care time does not include time spent performing separately billable procedures or teaching. ?Time spent performing critical care with 35 minutes. Discharge Plan Discharge Patient Disposition: Admitted As Inpatient Prescriptions: No Action insulin glargine [Lantus U-100 Insulin] 100 unit/mL solution 54 unit subcut DAILY Qty: 10 2RF insulin lispro [Humalog U-100 Insulin] 100 unit/mL solution 1 sliding scale dose subcut USEASDIRECTD Qty: 10 2RF Rx Instructions: BG <111 0 units, 111-150 - 0 units, 151-200 2 units, 201-250 4 units, 251-300 6 units, 301-350 8 units, >350 10 units fluoxetine 10 mg Tablet 30 mg PO DAILY lamotrigine [Lamictal] 25 mg Tablet 50 mg PO DAILY lisinopril 10 mg Tablet 10 mg PO DAILY hydroxyzine HCl 25 mg Tablet 25 mg PO DAILY hydroxyzine pamoate [Vistaril] 25 mg Capsule 25 mg PO Q4H PRN (Reason: Anxiety) melatonin 5 mg Tablet 5 mg PO BEDTIME PRN (Reason: Sleep) cholecalciferol (vitamin D3) [Vitamin D3] 25 mcg (1,000 unit) Tablet 25 mcg PO DAILY 30 Days Qty: 30 0RF (DME) FreeStyle Lite Strips Strip Qty: 100 0RF Rx Instructions: Test four times a day or as directed. (DME) blood-glucose meter [FreeStyle Lite Meter] Kit Qty: 1 0RF Rx Instructions: As Directed alcohol swabs Pads, Medicated 1 pad TOPICAL QIDACHS Qty: 100 0RF Rx Instructions: Use four times a day or as directed. insulin lispro [Humalog KwikPen Insulin] 100 unit/mL insulin pen 1 sliding scale dose SUBCUT QIDACHS MDD 50 units Qty: 15 1RF Rx Instructions: Blood Sugar: <150 - 0 units 151-200 - 2 units 201-250 - 4 units 251-300 - 6 units 301-350 - 8 units >350 - 10 units (DME) pen needle, diabetic 32 gauge x 1/4 needle Qty: 100 0RF Rx Instructions: Use four times a day or as directed. (DME) lancets [FreeStyle Lancets] 28 gauge misc Qty: 100 0RF Rx Instructions: Test four times a day or as directed. insulin glargine [Lantus Solostar U-100 Insulin] 100 unit/mL (3 mL) Insulin Pen 35 unit SUBCUT QAM Qty: 15 1RF Print Language: [place]ese
[2024-04-30 04:18] LABS: Alanine Aminotransferase 17 U/L (0-31); Albumin Level 3.8 g/dL (3.5-5.0); Alkaline Phosphatase 102 U/L (39-117); Anion Gap 25 (12-20); Aspartate Amino Transferase 32 U/L (5-31); Bilirubin Total 0.7 mg/dL (0.0-1.0); Blood Urea Nitrogen 13 mg/dL (9-16); Carbon Dioxide 13 mmol/L (22-29); Chloride 98 mmol/L (96-108); Creatinine Clr Calc Pharmacy 64.4; Estimated Glomerular Filt Rate > 60; Glucose Random 630 mg/dL (60-115); Potassium 5.1 mmol/L (3.3-5.1); Sodium 131 mmol/L (135-145); Total Protein 6.9 g/dL (6.5-8.0)
[2024-04-30] MEDS: ondansetron HCL 4 MG/2 ML VIAL IVPUSH (04:41)
[2024-04-30] MEDS: Insulin Regular, Human 100 UNIT/ML 10 ML VIAL IVPUSH (04:43)
[2024-04-30] MEDS: Lactated Ringers 1,000 ML 999 ML IV ×3 (04:48→09:35)
[2024-04-30] MEDS: Insulin Regular/NS 100 UNIT/100 ML PLAST..BAG 6 UNIT IVCONT (04:48)
[2024-04-30] MEDS: Morphine Sulfate 4 MG/ML CARTRIDGE IVPUSH (05:02)
[2024-04-30 05:10] LABS: Glucose, Whole Blood 550 mg/dL (60-115)
[2024-04-30 05:28] LABS: HCG Quantitative < 2 mIU/mL
[2024-04-30 05:51] LABS: Glucose, Whole Blood 340 mg/dL (60-115)
[2024-04-30 06:57] LABS: Glucose, Whole Blood 221 mg/dL (60-115)
[2024-04-30 07:25] LABS: Venous Blood Gas Refer to POC result
[2024-04-30 07:26] LABS: VBG Base Excess -8.9 mmol/L; VBG HCO3 16 mmol/L (22-26); VBG pCO2 32 mmHg; VBG pO2 49 mmHg
[2024-04-30 07:34] LABS: Ethanol < 10 mg/dL
[2024-04-30 07:59] LABS: Glucose, Whole Blood 169 mg/dL (60-115)
[2024-04-30 08:43] LABS: Anion Gap 18 (12-20); Blood Urea Nitrogen 9 mg/dL (9-16); Calcium 8.7 mg/dL (8.4-10.2); Carbon Dioxide 16 mmol/L (22-29); Chloride 105 mmol/L (96-108); Creatinine Clr Calc Pharmacy 84.9; Estimated Glomerular Filt Rate > 60; Glucose Random 201 mg/dL (60-115); Magnesium 1.5 mg/dL (1.6-2.6); Potassium 4.1 mmol/L (3.3-5.1); Sodium 135 mmol/L (135-145)
[2024-04-30 08:54] LABS: Glucose, Whole Blood 281 mg/dL (60-115)
[2024-04-30 09:29] LABS: Amphetamine Screen Urine Not Detected (Not Detect); Barbiturates, Urine Not Detected (Not Detect); Benzodiazepines Screen Urine Not Detected (Not Detect); Buprenorphine Scr Not Detected (Not Detect); Cannabinoid Screen Urine Not Detected (Not Detect); Cocaine Screen Urine Not Detected (Not Detect); Fentanyl, urine Not Detected (Not Detect); Methadone Screen, Urine Not Detected (Not Detect); Opiate Screen Urine Not Detected (Not Detect); Oxycodone Screen Urine Not Detected (Not Detect); Phencyclidine Screen Urine Not Detected (Not Detect)
[2024-04-30] MEDS: Insulin Lispro 100 UNIT/ML 3 ML VIAL 8 UNIT SUBCUT (09:34)
--- NOTE | 2024-04-30 09:36 | PC.NURSE ---
Pt had d5 1/2 NS running w/o an order for aprox 30 min 8:15-8:45. DR fernandes was aware. Insulin drip held entirely by and attempt to switch to SQ insulin. Pt has low BPs but no change in mentaiton. pain in lois flanks
[2024-04-30 10:18] LABS: Glucose, Whole Blood 241 mg/dL (60-115)
[2024-04-30] MEDS: Insulin Glargine,Hum.rec.anlog 100 UNIT/ML 10 ML VIAL 30 UNIT SUBCUT (10:40)
--- NOTE | 2024-04-30 10:41 | PC.NURSE ---
BPs improving. never any MS change. pt aware of plan for admission
[2024-04-30 11:18] LABS: Glucose, Whole Blood 133 mg/dL (60-115)
--- NOTE | 2024-04-30 12:22 | P.HPHOSP_ITS ---
History of Present Illness Date of Service: 04/30/24 Chief Complaint: hyperglycemia 18F PMH diabetes type 1 with proteinuria, mood disorder presented with nausea vomiting and hyperglycemia. Symptoms began day prior to admission, inability to take p.o., patient states she was taking her insulin regularly and did take her long-acting in the early afternoon. Was unable to control sugars with short- acting medication. So she came to the ED. in ED found to have diabetic ketoacidosis. Glucose of 630, carbon dioxide 13, pH 7.27, hydroxybutyrate 5.7. Patient was treated with insulin drip and anion gap closed, glucose better controlled, Review of Systems 2 Review of Systems: Yes all other systems are reviewed and are negative [facility] Medical History (Updated 04/30/24 @ 12:24 by Ruben Jimenez MD) Diabetes Social History Household Members: Family Housing: Apartment Alcohol intake: never Patient Tobacco Use Status: Never used Tobacco Smoked in Last 30 Days: No Use of substances other than those prescribed or required for medical reasons: No Advance Directives: No Advance Directives Information Provided: Yes Do you have a plan to hurt others: No Plan Patient : No service: No Current occupational status: unemployed Meds Allergies Allergy/AdvReac Type Severity Reaction Status Date / Time No Known Allergies Allergy Verified 04/30/24 03:42 Active Medications: Current Medications Glucose (Glucose Gel 15 Gm Gel..Gram.) 15 gm PO Q15M PRN; Protocol PRN Reason: per Hypoglycemia Standing Ord. Dextrose (D10) 250 mls @ 750 mls/hr IV Q15M PRN; Protocol PRN Reason: per Hypoglycemia Standing Ord. Lactated Ringer's (Lr) 1,000 mls @ 80 mls/hr IVCONT .[id number] REPLACED BY [facility] Insulin Glargine (Insulin Glargine,Hum.Rec.Anlog 100 Unit/Ml 10 Ml Vial) 25 unit SUBCUT BID REPLACED BY [facility] Insulin Human Lispro (Insulin Lispro 100 Unit/Ml 3 Ml Vial) 0 unit SUBCUT QIDACHS REPLACED BY [facility]; Protocol Home Medications ?Medication ?Instructions ?Recorded ?Confirmed ?Last Taken ?Type fluoxetine 10 mg tablet 30 mg PO DAILY 10/13/22 10/13/22 Unknown History hydroxyzine HCl 25 mg tablet 25 mg PO DAILY 10/13/22 10/13/22 Unknown History hydroxyzine pamoate 25 mg capsule 25 mg PO Q4H PRN Anxiety 10/13/22 10/13/22 Unknown History (Vistaril) lamotrigine 25 mg tablet (Lamictal) 50 mg PO DAILY 10/13/22 10/13/22 Unknown History lisinopril 10 mg tablet 10 mg PO DAILY 10/13/22 10/13/22 Unknown History melatonin 5 mg tablet 5 mg PO BEDTIME PRN Sleep 10/13/22 10/13/22 Unknown History insulin aspart U-100 100 unit/mL See Protocol subcut TID 04/30/24 Unknown History (3 mL) subcutaneous pen Physical Exam 2 Vital Signs and Narrative: Vital Signs: Last Vital Signs Temp 98.0 F 04/30/24 10:53 Pulse 83 04/30/24 10:53 Resp 13 04/30/24 10:53 BP 98/63 04/30/24 11:16 Pulse Ox 95 04/30/24 10:53 O2 Del Method Room Air 04/30/24 10:53 BMI result Body Mass Index 28.9 General: AO X 3, no acute distress Resp: CTA bilateral, no accessory muscles used CVS: S1,S2,RRR GI: soft, non tender, non distended Neuro: motor grossly intact, alert Psych: appropriate affect, appropriate insight Results Labs 04/30/24 03:47 04/30/24 07:17 Labs: Laboratory Results - last 24 hr 04/30/24 04/30/24 04/30/24 03:40 03:47 03:50 MCV 81.9 MCH 26.2 L MCHC 31.9 RDW 14.3 Plt Count 377 MPV 10.7 Immature Gran % (Auto) 0.3 Neut % (Auto) 65.2 Lymph % (Auto) 24.7 [place] % (Auto) 8.7 Eos % (Auto) 0.6 Baso % (Auto) 0.5 Lymph # (Auto) 2.8 [place] # (Auto) 1.0 Eos # (Auto) 0.1 Baso # (Auto) 0.1 Abs Immat Gran (auto) 0.04 H Absolute Neuts (auto) 7.5 Absolute Nucleated RBC 0.000 Nucleated RBC % (auto) 0.0 VBG pH 7.28 L VBG pCO2 27 VBG pO2 62 VBG HCO3 13 L VBG O2 Saturation 87.0 VBG Base Excess -11.6 Anion Gap 25 H Estim Creat Clear Calc 64.4 Estimated GFR > 60 POC Glucose 588 H* Random Glucose 630 H* Calcium 9.0 Magnesium Total Bilirubin 0.7 AST 32 H ALT 17 Alkaline Phosphatase 102 C-Reactive Protein 0.80 H Total Protein 6.9 Albumin 3.8 Beta-Hydroxybutyrate 5.70 H Beta HCG, Quant < 2 Urine Color Urine Appearance Urine pH Ur Specific [place] Urine Protein Urine Glucose (UA) Urine Ketones Urine Blood Urine Nitrite Ur Leukocyte Esterase Urine RBC Urine WBC Ur Squamous Epith Cells Urine Bacteria Hyaline Casts Urine Opiates Screen Ur Buprenorphine Scrn Ur Oxycodone Screen Urine Methadone Screen Urine Fentanyl Screen Ur Barbiturates Screen Ur Phencyclidine Scrn Ur Amphetamines Screen U Benzodiazepines Scrn Urine Cocaine Screen U Marijuana (THC) Screen Ethyl Alcohol < 10 04/30/24 04/30/24 04/30/24 03:59 04:43 05:47 MCV MCH MCHC RDW Plt Count MPV Immature Gran % (Auto) Neut % (Auto) Lymph % (Auto) [place] % (Auto) Eos % (Auto) Baso % (Auto) Lymph # (Auto) [place] # (Auto) Eos # (Auto) Baso # (Auto) Abs Immat Gran (auto) Absolute Neuts (auto) Absolute Nucleated RBC Nucleated RBC % (auto) VBG pH VBG pCO2 VBG pO2 VBG HCO3 VBG O2 Saturation VBG Base Excess Anion Gap Estim Creat Clear Calc Estimated GFR POC Glucose 550 H* 340 H Random Glucose Calcium Magnesium Total Bilirubin AST ALT Alkaline Phosphatase C-Reactive Protein Total Protein Albumin Beta-Hydroxybutyrate Beta HCG, Quant Urine Color Yellow Urine Appearance Clear Urine pH 5.0 Ur Specific [place] >= 1.030 H Urine Protein Negative Urine Glucose (UA) >=1000 H Urine Ketones >=160 Urine Blood Negative Urine Nitrite Negative Ur Leukocyte Esterase Negative Urine RBC 0-2 Urine WBC 0-5 Ur Squamous Epith Cells 0-2 Urine Bacteria None Seen Hyaline Casts 0-2 Urine Opiates Screen Not Detected Ur Buprenorphine Scrn Not Detected Ur Oxycodone Screen Not Detected Urine Methadone Screen Not Detected Urine Fentanyl Screen Not Detected Ur Barbiturates Screen Not Detected Ur Phencyclidine Scrn Not Detected Ur Amphetamines Screen Not Detected U Benzodiazepines Scrn Not Detected Urine Cocaine Screen Not Detected U Marijuana (THC) Screen Not Detected Ethyl Alcohol 04/30/24 04/30/24 04/30/24 06:53 07:17 07:20 MCV MCH MCHC RDW Plt Count MPV Immature Gran % (Auto) Neut % (Auto) Lymph % (Auto) [place] % (Auto) Eos % (Auto) Baso % (Auto) Lymph # (Auto) [place] # (Auto) Eos # (Auto) Baso # (Auto) Abs Immat Gran (auto) Absolute Neuts (auto) Absolute Nucleated RBC Nucleated RBC % (auto) VBG pH 7.30 L VBG pCO2 32 VBG pO2 49 VBG HCO3 16 L VBG O2 Saturation 76.0 VBG Base Excess -8.9 Anion Gap 18 Estim Creat Clear Calc 84.9 Estimated GFR > 60 POC Glucose 221 H Random Glucose 201 H Calcium 8.7 Magnesium 1.5 L Total Bilirubin AST ALT Alkaline Phosphatase C-Reactive Protein Total Protein Albumin Beta-Hydroxybutyrate Beta HCG, Quant Urine Color Urine Appearance Urine pH Ur Specific [place] Urine Protein Urine Glucose (UA) Urine Ketones Urine Blood Urine Nitrite Ur Leukocyte Esterase Urine RBC Urine WBC Ur Squamous Epith Cells Urine Bacteria Hyaline Casts Urine Opiates Screen Ur Buprenorphine Scrn Ur Oxycodone Screen Urine Methadone Screen Urine Fentanyl Screen Ur Barbiturates Screen Ur Phencyclidine Scrn Ur Amphetamines Screen U Benzodiazepines Scrn Urine Cocaine Screen U Marijuana (THC) Screen Ethyl Alcohol 04/30/24 04/30/24 04/30/24 07:55 08:49 10:15 MCV MCH MCHC RDW Plt Count MPV Immature Gran % (Auto) Neut % (Auto) Lymph % (Auto) [place] % (Auto) Eos % (Auto) Baso % (Auto) Lymph # (Auto) [place] # (Auto) Eos # (Auto) Baso # (Auto) Abs Immat Gran (auto) Absolute Neuts (auto) Absolute Nucleated RBC Nucleated RBC % (auto) VBG pH VBG pCO2 VBG pO2 VBG HCO3 VBG O2 Saturation VBG Base Excess Anion Gap Estim Creat Clear Calc Estimated GFR POC Glucose 169 H 281 H 241 H Random Glucose Calcium Magnesium Total Bilirubin AST ALT Alkaline Phosphatase C-Reactive Protein Total Protein Albumin Beta-Hydroxybutyrate Beta HCG, Quant Urine Color Urine Appearance Urine pH Ur Specific [place] Urine Protein Urine Glucose (UA) Urine Ketones Urine Blood Urine Nitrite Ur Leukocyte Esterase Urine RBC Urine WBC Ur Squamous Epith Cells Urine Bacteria Hyaline Casts Urine Opiates Screen Ur Buprenorphine Scrn Ur Oxycodone Screen Urine Methadone Screen Urine Fentanyl Screen Ur Barbiturates Screen Ur Phencyclidine Scrn Ur Amphetamines Screen U Benzodiazepines Scrn Urine Cocaine Screen U Marijuana (THC) Screen Ethyl Alcohol 04/30/24 11:14 MCV MCH MCHC RDW Plt Count MPV Immature Gran % (Auto) Neut % (Auto) Lymph % (Auto) [place] % (Auto) Eos % (Auto) Baso % (Auto) Lymph # (Auto) [place] # (Auto) Eos # (Auto) Baso # (Auto) Abs Immat Gran (auto) Absolute Neuts (auto) Absolute Nucleated RBC Nucleated RBC % (auto) VBG pH VBG pCO2 VBG pO2 VBG HCO3 VBG O2 Saturation VBG Base Excess Anion Gap Estim Creat Clear Calc Estimated GFR POC Glucose 133 H Random Glucose Calcium Magnesium Total Bilirubin AST ALT Alkaline Phosphatase C-Reactive Protein Total Protein Albumin Beta-Hydroxybutyrate Beta HCG, Quant Urine Color Urine Appearance Urine pH Ur Specific [place] Urine Protein Urine Glucose (UA) Urine Ketones Urine Blood Urine Nitrite Ur Leukocyte Esterase Urine RBC Urine WBC Ur Squamous Epith Cells Urine Bacteria Hyaline Casts Urine Opiates Screen Ur Buprenorphine Scrn Ur Oxycodone Screen Urine Methadone Screen Urine Fentanyl Screen Ur Barbiturates Screen Ur Phencyclidine Scrn Ur Amphetamines Screen U Benzodiazepines Scrn Urine Cocaine Screen U Marijuana (THC) Screen Ethyl Alcohol Assessment and Plan (1) Diabetes: Status: Acute Plan 18F PMH diabetes type 1 with proteinuria, mood disorder presented with nausea vomiting and hyperglycemia Diabetic ketoacidosis in type 1 diabetes Back on basal bolus insulin, monitor sugars closely, continue IV fluids Monitor BMP History of proteinuria Due to diabetes, lisinopril on hold for borderline hypotension Low risk for DVT, early ambulation Full code Quality Stroke Does the patient have a stroke diagnosis?: No VTE Prior VTE?: No VTE Risk Level:: Medical - low VTE Device Contraindication: Treatment Not Indicated VTE Drug Contraindication: Treatment Not Indicated
[2024-04-30] MEDS: Lactated Ringers 1,000 ML 80 ML IVCONT (12:46)
--- NOTE | 2024-04-30 15:13 | PM.DS ---
DS: Providers Provider Date of Service: 04/30/24 Date of admission: 04/30/24 12:21 Date of discharge: 04/30/24 Primary care physician: Unknown Physician DS: Diagnosis Discharge Diagnosis (1) Diabetes: Status: Acute DS: Summary Hospital Course Hospital Course: from initial hpi: 18F PMH diabetes type 1 with proteinuria, mood disorder presented with nausea vomiting and hyperglycemia. Symptoms began day prior to admission, inability to take p.o., patient states she was taking her insulin regularly and did take her long-acting in the early afternoon. Was unable to control sugars with short-acting medication. So she came to the ED. in ED found to have diabetic ketoacidosis. Glucose of 630, carbon dioxide 13, pH 7.27, hydroxybutyrate 5.7. Patient was treated with insulin drip and anion gap closed, glucose better controlled, hospital course: Patient was admitted for diabetic ketoacidosis and type 1 diabetes. She was put back on basal bolus insulin and IV fluids and sugars were monitored. Plan was to continue close monitoring of patient given low normal blood pressures and labile sugars and persistence of acidosis. However, patient decided to leave against medical advice. She was able to express understanding of the risks of doing so including . Time Attestation Discharge Coordination Time (in mins): 34 Quality: Safe Use of Opioids Does Pt have an Active Cancer Diagnosis on the Problem List?: No Quality: Stroke Does the patient have a stroke diagnosis?: No Physical Exam Vital Signs: Vital Signs: Last Vital Signs Temp 98.0 F 04/30/24 10:53 Pulse 83 04/30/24 10:53 Resp 13 04/30/24 10:53 BP 98/63 04/30/24 11:16 Pulse Ox 95 04/30/24 10:53 O2 Del Method Room Air 04/30/24 10:53 BMI result Body Mass Index 28.9 General: AO X 3, no acute distress Resp: CTA bilateral, no accessory muscles used CVS: S1,S2,RRR GI: soft, non tender, non distended Neuro: motor grossly intact, alert Psych: appropriate affect, appropriate insight DS: Data Data Completed and Pending Labs on day of discharge: Laboratory Results - last 24 hr 04/30/24 04/30/24 04/30/24 03:40 03:47 03:50 WBC 11.4 H RBC 4.32 Hgb 11.3 L Hct 35.4 L MCV 81.9 MCH 26.2 L MCHC 31.9 RDW 14.3 Plt Count 377 MPV 10.7 Immature Gran % (Auto) 0.3 Neut % (Auto) 65.2 Lymph % (Auto) 24.7 [place] % (Auto) 8.7 Eos % (Auto) 0.6 Baso % (Auto) 0.5 Lymph # (Auto) 2.8 [place] # (Auto) 1.0 Eos # (Auto) 0.1 Baso # (Auto) 0.1 Abs Immat Gran (auto) 0.04 H Absolute Neuts (auto) 7.5 Absolute Nucleated RBC 0.000 Nucleated RBC % (auto) 0.0 VBG pH 7.28 L VBG pCO2 27 VBG pO2 62 VBG HCO3 13 L VBG O2 Saturation 87.0 VBG Base Excess -11.6 Sodium 131 L Potassium 5.1 Chloride 98 Carbon Dioxide 13 L Anion Gap 25 H BUN 13 Creatinine 1.04 Estim Creat Clear Calc 64.4 Estimated GFR > 60 POC Glucose 588 H* Random Glucose 630 H* Calcium 9.0 Magnesium Total Bilirubin 0.7 AST 32 H ALT 17 Alkaline Phosphatase 102 C-Reactive Protein 0.80 H Total Protein 6.9 Albumin 3.8 Beta-Hydroxybutyrate 5.70 H Beta HCG, Quant < 2 Urine Color Urine Appearance Urine pH Ur Specific [place] Urine Protein Urine Glucose (UA) Urine Ketones Urine Blood Urine Nitrite Ur Leukocyte Esterase Urine RBC Urine WBC Ur Squamous Epith Cells Urine Bacteria Hyaline Casts Urine Opiates Screen Ur Buprenorphine Scrn Ur Oxycodone Screen Urine Methadone Screen Urine Fentanyl Screen Ur Barbiturates Screen Ur Phencyclidine Scrn Ur Amphetamines Screen U Benzodiazepines Scrn Urine Cocaine Screen U Marijuana (THC) Screen Ethyl Alcohol < 10 04/30/24 04/30/24 04/30/24 03:59 04:43 05:47 WBC RBC Hgb Hct MCV MCH MCHC RDW Plt Count MPV Immature Gran % (Auto) Neut % (Auto) Lymph % (Auto) [place] % (Auto) Eos % (Auto) Baso % (Auto) Lymph # (Auto) [place] # (Auto) Eos # (Auto) Baso # (Auto) Abs Immat Gran (auto) Absolute Neuts (auto) Absolute Nucleated RBC Nucleated RBC % (auto) VBG pH VBG pCO2 VBG pO2 VBG HCO3 VBG O2 Saturation VBG Base Excess Sodium Potassium Chloride Carbon Dioxide Anion Gap BUN Creatinine Estim Creat Clear Calc Estimated GFR POC Glucose 550 H* 340 H Random Glucose Calcium Magnesium Total Bilirubin AST ALT Alkaline Phosphatase C-Reactive Protein Total Protein Albumin Beta-Hydroxybutyrate Beta HCG, Quant Urine Color Yellow Urine Appearance Clear Urine pH 5.0 Ur Specific [place] >= 1.030 H Urine Protein Negative Urine Glucose (UA) >=1000 H Urine Ketones >=160 Urine Blood Negative Urine Nitrite Negative Ur Leukocyte Esterase Negative Urine RBC 0-2 Urine WBC 0-5 Ur Squamous Epith Cells 0-2 Urine Bacteria None Seen Hyaline Casts 0-2 Urine Opiates Screen Not Detected Ur Buprenorphine Scrn Not Detected Ur Oxycodone Screen Not Detected Urine Methadone Screen Not Detected Urine Fentanyl Screen Not Detected Ur Barbiturates Screen Not Detected Ur Phencyclidine Scrn Not Detected Ur Amphetamines Screen Not Detected U Benzodiazepines Scrn Not Detected Urine Cocaine Screen Not Detected U Marijuana (THC) Screen Not Detected Ethyl Alcohol 04/30/24 04/30/24 04/30/24 06:53 07:17 07:20 WBC RBC Hgb Hct MCV MCH MCHC RDW Plt Count MPV Immature Gran % (Auto) Neut % (Auto) Lymph % (Auto) [place] % (Auto) Eos % (Auto) Baso % (Auto) Lymph # (Auto) [place] # (Auto) Eos # (Auto) Baso # (Auto) Abs Immat Gran (auto) Absolute Neuts (auto) Absolute Nucleated RBC Nucleated RBC % (auto) VBG pH 7.30 L VBG pCO2 32 VBG pO2 49 VBG HCO3 16 L VBG O2 Saturation 76.0 VBG Base Excess -8.9 Sodium 135 Potassium 4.1 Chloride 105 Carbon Dioxide 16 L Anion Gap 18 BUN 9 Creatinine 0.79 Estim Creat Clear Calc 84.9 Estimated GFR > 60 POC Glucose 221 H Random Glucose 201 H Calcium 8.7 Magnesium 1.5 L Total Bilirubin AST ALT Alkaline Phosphatase C-Reactive Protein Total Protein Albumin Beta-Hydroxybutyrate Beta HCG, Quant Urine Color Urine Appearance Urine pH Ur Specific [place] Urine Protein Urine Glucose (UA) Urine Ketones Urine Blood Urine Nitrite Ur Leukocyte Esterase Urine RBC Urine WBC Ur Squamous Epith Cells Urine Bacteria Hyaline Casts Urine Opiates Screen Ur Buprenorphine Scrn Ur Oxycodone Screen Urine Methadone Screen Urine Fentanyl Screen Ur Barbiturates Screen Ur Phencyclidine Scrn Ur Amphetamines Screen U Benzodiazepines Scrn Urine Cocaine Screen U Marijuana (THC) Screen Ethyl Alcohol 04/30/24 04/30/24 04/30/24 07:55 08:49 10:15 WBC RBC Hgb Hct MCV MCH MCHC RDW Plt Count MPV Immature Gran % (Auto) Neut % (Auto) Lymph % (Auto) [place] % (Auto) Eos % (Auto) Baso % (Auto) Lymph # (Auto) [place] # (Auto) Eos # (Auto) Baso # (Auto) Abs Immat Gran (auto) Absolute Neuts (auto) Absolute Nucleated RBC Nucleated RBC % (auto) VBG pH VBG pCO2 VBG pO2 VBG HCO3 VBG O2 Saturation VBG Base Excess Sodium Potassium Chloride Carbon Dioxide Anion Gap BUN Creatinine Estim Creat Clear Calc Estimated GFR POC Glucose 169 H 281 H 241 H Random Glucose Calcium Magnesium Total Bilirubin AST ALT Alkaline Phosphatase C-Reactive Protein Total Protein Albumin Beta-Hydroxybutyrate Beta HCG, Quant Urine Color Urine Appearance Urine pH Ur Specific [place] Urine Protein Urine Glucose (UA) Urine Ketones Urine Blood Urine Nitrite Ur Leukocyte Esterase Urine RBC Urine WBC Ur Squamous Epith Cells Urine Bacteria Hyaline Casts Urine Opiates Screen Ur Buprenorphine Scrn Ur Oxycodone Screen Urine Methadone Screen Urine Fentanyl Screen Ur Barbiturates Screen Ur Phencyclidine Scrn Ur Amphetamines Screen U Benzodiazepines Scrn Urine Cocaine Screen U Marijuana (THC) Screen Ethyl Alcohol 04/30/24 11:14 WBC RBC Hgb Hct MCV MCH MCHC RDW Plt Count MPV Immature Gran % (Auto) Neut % (Auto) Lymph % (Auto) [place] % (Auto) Eos % (Auto) Baso % (Auto) Lymph # (Auto) [place] # (Auto) Eos # (Auto) Baso # (Auto) Abs Immat Gran (auto) Absolute Neuts (auto) Absolute Nucleated RBC Nucleated RBC % (auto) VBG pH VBG pCO2 VBG pO2 VBG HCO3 VBG O2 Saturation VBG Base Excess Sodium Potassium Chloride Carbon Dioxide Anion Gap BUN Creatinine Estim Creat Clear Calc Estimated GFR POC Glucose 133 H Random Glucose Calcium Magnesium Total Bilirubin AST ALT Alkaline Phosphatase C-Reactive Protein Total Protein Albumin Beta-Hydroxybutyrate Beta HCG, Quant Urine Color Urine Appearance Urine pH Ur Specific [place] Urine Protein Urine Glucose (UA) Urine Ketones Urine Blood Urine Nitrite Ur Leukocyte Esterase Urine RBC Urine WBC Ur Squamous Epith Cells Urine Bacteria Hyaline Casts Urine Opiates Screen Ur Buprenorphine Scrn Ur Oxycodone Screen Urine Methadone Screen Urine Fentanyl Screen Ur Barbiturates Screen Ur Phencyclidine Scrn Ur Amphetamines Screen U Benzodiazepines Scrn Urine Cocaine Screen U Marijuana (THC) Screen Ethyl Alcohol Discharge Plan Discharge Anticipated Discharge Date/Time: 04/30/24 15:12 Patient Disposition: Left Against Medical Advice Discharge Diagnosis: dka Referrals: Physician,Unknown J [Primary Care Provider] - 1 Week Discharge Medications: Continued insulin glargine [Lantus U-100 Insulin] 100 unit/mL solution 54 unit subcut DAILY Qty: 10 2RF insulin lispro [Humalog U-100 Insulin] 100 unit/mL solution 1 sliding scale dose subcut USEASDIRECTD Qty: 10 2RF Rx Instructions: BG <111 0 units, 111-150 - 0 units, 151-200 2 units, 201-250 4 units, 251-300 6 units, 301-350 8 units, >350 10 units insulin aspart U-100 100 unit/mL (3 mL) insulin pen See Protocol subcut TID Protocol: Insulin Correction Scale Less than or equal to 110 ---- Give (units): 0 111 to 150 Give (units): 0 151 to 200 Give (units): 2 201 to 250 Give (units): 4 251 to 300 Give (units): 6 301 to 350 Give (units): 8 Greater than 350 Give (units): 10 Call MD if Blood Glucose > : 350 fluoxetine 10 mg Tablet 30 mg PO DAILY lamotrigine [Lamictal] 25 mg Tablet 50 mg PO DAILY lisinopril 10 mg Tablet 10 mg PO DAILY hydroxyzine HCl 25 mg Tablet 25 mg PO DAILY hydroxyzine pamoate [Vistaril] 25 mg Capsule 25 mg PO Q4H PRN (Reason: Anxiety) melatonin 5 mg Tablet 5 mg PO BEDTIME PRN (Reason: Sleep) cholecalciferol (vitamin D3) [Vitamin D3] 25 mcg (1,000 unit) Tablet 25 mcg PO DAILY 30 Days Qty: 30 0RF (DME) FreeStyle Lite Strips Strip Qty: 100 0RF Rx Instructions: Test four times a day or as directed. (DME) blood-glucose meter [FreeStyle Lite Meter] Kit Qty: 1 0RF Rx Instructions: As Directed alcohol swabs Pads, Medicated 1 pad TOPICAL QIDACHS Qty: 100 0RF Rx Instructions: Use four times a day or as directed. insulin lispro [Humalog KwikPen Insulin] 100 unit/mL insulin pen 1 sliding scale dose SUBCUT QIDACHS MDD 50 units Qty: 15 1RF Rx Instructions: Blood Sugar: <150 - 0 units 151-200 - 2 units 201-250 - 4 units 251-300 - 6 units 301-350 - 8 units >350 - 10 units (DME) pen needle, diabetic 32 gauge x 1/4 needle Qty: 100 0RF Rx Instructions: Use four times a day or as directed. (DME) lancets [FreeStyle Lancets] 28 gauge misc Qty: 100 0RF Rx Instructions: Test four times a day or as directed. Discharge Orders: Discharge Order (Routine); Ordered 04/30/24 Ordered By: Ruben Jimenez Diet: Diabetic diet Activity on Discharge: As tolerated Print Language: [place] Care Plan Goals: Manage diabetes Health Concerns: dka Plan of Treatment: insulin, montior sugars Assessment: see above
--- NOTE | 2024-04-30 15:26 | PC.NURSE ---
While this RN was in OR patient eloped from the ED. It's believed that both IVs were removed by patient (evidence in sharps container). Pt had been improving and Dr Jimenez was enroute to the bedside to discuss plan of care.
--- NOTE | 2024-04-30 15:57 | PHA.MEDREC ---
Pharmacy Consult ? Medication Reconciliation Pharmacy has tried the medication reconciliation, however patient left [facility] without telling any one.
== END 2024-04-30 15:30 | disposition left against medical advice (07) | DRG 420 ==
LOC: HO.ED 11:45 → HO.EDOVER 12:33 → HO.S3 15:02 → HO.EDOVER 15:18
PROVIDERS: Admitting Provider Internal Medicine; Emergency Provider Emergency Medicine; Visit Provider Internal Medicine
DX: E10.10 Type 1 diabetes mellitus with ketoacidosis without coma (principal); Z79.4 Long term (current) use of insulin; Z79.899 Other long term (current) drug therapy
CPT/HCPCS: 36415; 80048; 80053; 80307; 81001; 82010; 82803; 82947; 83735; 84702; 85025; 86140; 93005; 99285; J2270; J2405; J7120

== ENCOUNTER → 2024-04-30 03:31 | Outpatient (BNV) | payer MEDICAID, SELFPAY | PROVIDERS: Admitting Provider Internal Medicine; Emergency Provider Emergency Medicine; Visit Provider Internal Medicine | DX: I44.0 Atrioventricular block, first degree (principal) | CPT/HCPCS: 93010 ==

== ENCOUNTER → 2024-04-30 04:34 | Outpatient (BNV) | payer MEDICAID, SELFPAY | PROVIDERS: Emergency Provider Emergency Medicine; Visit Provider Internal Medicine | DX: E10.29 Type 1 diabetes mellitus with other diabetic kidney complication (principal); R80.9 Proteinuria, unspecified | CPT/HCPCS: 99223 ==

== ENCOUNTER 2024-05-03 22:39 | Emergency (ER) | payer MEDICAID, SELFPAY ==
--- NOTE | ~2024-05-03 | CT_ITS ---
EXAMINATION: CT ABDOMEN AND PELVIS WITHOUT CONTRAST CLINICAL INFORMATION: Right flank pain. COMPARISON: None available. TECHNIQUE: Multidetector volumetric imaging was performed from the superior aspect of the liver through the pubic symphysis. Sagittal and coronal reformatted images were obtained on the technologist's workstation. This CT examination was performed using dose optimization techniques as appropriate, variously including the following: *Automated exposure control *Adjustment of mA and/or kV according to patient size (this includes techniques or standardized protocols for targeted exams where dose is matched to indication/reason for exam; i.e. extremities or head) *Use of iterative reconstruction technique DLP: 385 mGy-cm FINDINGS: LUNG BASES: The visualized lung bases are unremarkable. LIVER, GALLBLADDER, AND BILIARY TREE: The liver is normal in size, shape, and attenuation. No focal hepatic lesion or biliary ductal dilatation is present. The gallbladder is unremarkable with no evidence of radiopaque gallstones, gallbladder wall thickening, or obvious pericholecystic inflammatory changes. PANCREAS: Unremarkable. SPLEEN: Unremarkable. ADRENAL GLANDS: Unremarkable. KIDNEYS AND URETERS: The kidneys are normal in size, shape, and attenuation. No hydronephrosis, hydroureter, or calculi seen. No perinephric stranding. BLADDER: The urinary bladder is mildly distended. GASTROINTESTINAL TRACT: The small and large bowel are unremarkable. The appendix is unremarkable. ABDOMINAL WALL: No significant hernia is appreciated. LYMPH NODES: Normal. VASCULAR: Unremarkable. PELVIC VISCERA: Unremarkable. OSSEOUS STRUCTURES: Unremarkable. CT/CT abdomen pelvis wo IV con IMPRESSION: 1. Mildly distended urinary bladder. 2. Otherwise, unremarkable examination. Fleischner guidelines were followed. Electronically signed by: Burt Faulkner MD 05/04/2024 01:59 AM EST
[2024-05-03 22:45] VITALS: BP 110/74; PULSE 108; O2SAT 98
[2024-05-03 22:50] VITALS: BP 107/67; PULSE 101; RESP 20; TEMP 36.8; O2SAT 100; BMI 29.7
[2024-05-03 23:44] LABS: Venous Blood Gas Refer to POC result
[2024-05-03 23:45] LABS: MANUAL DIFF FLAG NO
[2024-05-03 23:46] LABS: Appearance Urine Clear; Color Urine Yellow; Glucose Urine UA >=1000 mg/dL (Negative); Leukocyte Esterase Urine Small (1+) (Negative); Nitrite Urine Negative (Negative); PH 5.5 (5.0-9.0); Specific Gravity - Urine >= 1.030 (1.005-1.025); UMIC TRIGGER UACC YES; Urine Blood Negative (Negative); Urine Ketones 80 mg/dL (Negative); Urine Protein Negative (Neg-Trace)
[2024-05-03 23:47] LABS: UPreg QC Valid YES; Urine Pregnancy NEGATIVE (NEGATIVE)
[2024-05-03 23:48] LABS: VBG Base Excess -6.4 mmol/L; VBG HCO3 17 mmol/L (22-26); VBG pCO2 27 mmHg; VBG pH 7.39 (7.32-7.43); VBG pO2 143 mmHg
[2024-05-03 23:51] LABS: Basophils Absolute Auto 0.1 X10*3/uL (0.0-0.2); Basophils Percent Auto 0.6 % (0-2); Eosinophils Absolute Auto 0.1 X10*3/uL (0.0-0.4); Eosinophils Percent Auto 0.7 % (0-4); Hematocrit 35.8 % (37.0-47.0); Hemoglobin 10.9 g/dl (12.0-16.0); Imm Gran Abs Auto 0.04 X10*3/uL (0.00-0.03); Imm Gran Pct Auto 0.5 % (0.0-0.4); Lymphocytes Absolute Auto 2.3 X10*3/uL (1.2-4.9); Lymphocytes Percent Auto 27.2 % (20-40); Mean Corpuscular HGB Conc 30.4 g/dl (31.0-35.0); Mean Corpuscular Hemoglobin 25.9 pg (27.0-33.0); Mean Platelet Volume 10.8 fL (9.4-12.3); Monocytes Absolute Auto 0.6 X10*3/uL (0.1-1.2); Monocytes Percent Auto 7.2 % (2-11); Neutrophils Absolute Auto 5.3 x10*3/uL (2.0-8.3); Neutrophils Percent Auto 63.8 % (45-73); Platelet Count 293 X10*3/uL (160-400); Red Blood Count 4.21 X10*6/uL (4.20-5.50); Red Cell Distribution Width 14.6 % (11.0-16.0); White Blood Count 8.3 X10*3/uL (4.8-10.8)
[2024-05-03 23:53] LABS: Bacteria Urine None Seen (None Seen); Hyaline Casts Urine 0-2 /LPF (0-2); RBC Urine 0-2 /HPF (0-2); Squamous Epithelial Cell Urine 0-2 /HPF (0-2); UACC Culture Trigger YES; WBC Urine 21-50 /HPF (0-5)
[2024-05-04] VITALS: BP 98/61; PULSE 107; RESP 18; TEMP 36.7; O2SAT 100
--- NOTE | 2024-05-04 00:06 | ED_ITS ---
HPI - General Adult General Chief complaint: General Medical Stated complaint: HYPERGLYCEMIA, R FLANK PAIN PER EMS Time Seen by Provider: 05/04/24 00:06 Source: patient Mode of arrival: ambulatory Limitations: no limitations History of Present Illness ED Provider: HPI narrative: Patient is type 1 diabetic on insulin with previous history of TKA noticed pain in the right flank area in the evening today with no history of kidney stone no dysuria no frequency no fever no chills checked her blood sugar was reading high took 10 insulin units of insulin at home prior to arrival when EMS reached POC was 533 in the ER it was 450 per patient her blood sugar been fairly normal earlier in the morning it was 110 and she took her Lantus 54 units as usual denies any diarrhea complaints patient did not eat much today or yesterday Related Data Home Medications ?Medication ?Instructions ?Recorded ?Confirmed fluoxetine 10 mg tablet 30 mg PO DAILY 10/13/22 10/13/22 hydroxyzine HCl 25 mg tablet 25 mg PO DAILY 10/13/22 10/13/22 hydroxyzine pamoate 25 mg capsule 25 mg PO Q4H PRN Anxiety 10/13/22 10/13/22 (Vistaril) lamotrigine 25 mg tablet (Lamictal) 50 mg PO DAILY 10/13/22 10/13/22 lisinopril 10 mg tablet 10 mg PO DAILY 10/13/22 10/13/22 melatonin 5 mg tablet 5 mg PO BEDTIME PRN Sleep 10/13/22 10/13/22 insulin aspart U-100 100 unit/mL See Protocol subcut TID 04/30/24 (3 mL) subcutaneous pen Previous Rx's ?Medication ?Instructions ?Recorded alcohol swabs 1 pad topical QIDACHS #100 ea 10/16/22 blood sugar diagnostic (FreeStyle #100 ea 10/16/22 Lite Strips) blood-glucose meter (FreeStyle #1 ea 10/16/22 Lite Meter kit) cholecalciferol (vitamin D3) 25 25 mcg PO DAILY 30 days #30 tabs 10/16/22 mcg (1,000 unit) tablet (Vitamin D3) insulin lispro 100 unit/mL 1 sliding scale dose subcut 10/16/22 subcutaneous pen (Humalog KwikPen QIDACHS #15 mL (U-100) Insulin) lancets 28 gauge (FreeStyle #100 ea 10/16/22 Lancets) pen needle, diabetic 32 gauge x #100 ea 10/16/22 1/4 insulin glargine 100 unit/mL 54 unit (0.54 mL) subcut DAILY #10 10/25/23 subcutaneous solution (Lantus mL U-100 Insulin) insulin lispro 100 unit/mL 1 sliding scale dose subcut 10/25/23 subcutaneous solution (Humalog USEASDIRECTD #10 mL U-100 Insulin) nitrofurantoin 100 mg PO BID 7 days #14 caps 05/04/24 monohydrate/macrocrystals 100 mg capsule (Macrobid) Allergies Allergy/AdvReac Type Severity Reaction Status Date / Time No Known Allergies Allergy Verified 05/03/24 22:54 Review of Systems 2 Review of Systems: Yes all other systems are reviewed and are negative [facility] Past Medical History Medical History Diabetes Social History Social History Household Members: Family Housing: Apartment Alcohol intake: never Patient Tobacco Use Status: Never used Tobacco Smoked in Last 30 Days: No Use of substances other than those prescribed or required for medical reasons: No Advance Directives: No Advance Directives Information Provided: Yes Do you have a plan to hurt others: No Plan service: No Current occupational status: unemployed Physical Exam ED Vital Signs: Vital Signs - 24 hr 05/03/24 22:50 05/04/24 00:00 05/04/24 00:18 Temperature 98.3 F 98.0 F Pulse Rate 101 H 107 H 105 H Respiratory Rate 20 18 16 Blood Pressure 107/67 98/61 119/68 Pulse Oximetry 100 100 98 Oxygen Delivery Method Room Air Room Air Room Air 05/04/24 02:00 05/04/24 03:35 Temperature 98.2 F 98.2 F Pulse Rate 98 98 Respiratory Rate 16 16 Blood Pressure 110/63 110/63 Pulse Oximetry 96 96 Oxygen Delivery Method Room Air Room Air BMI result Body Mass Index 29.7 Appearance: Alert. Oriented X3. No acute distress. Eyes: PERRLA, No Nystagmus ENT: Pharynx normal. Oral Mucosa moist Neck: Normal inspection. Neck supple. CVS: Normal heart rate and rhythm. Pulses normal. Respiratory: No respiratory distress. Equal air entry bilateral, no wheezing/rales/rhonchi Abdomen: Soft and nontender. Bowel sounds are present, no mass palpable, right CVA tenderness Skin: Skin warm and dry. Normal skin color. Normal skin turgor. Extremities: No lower extremity edema. No calf tenderness Neuro: Oriented X 3. No motor deficit. No sensory deficit.No cerebellar signs , cranial nerves II-XII intact Medications Administered Discontinued Medications Generic Name Dose Route Start Last Admin Trade Name Blaine PRN Reason Stop Dose Admin Sodium Chloride 1,000 mls @ 999 mls/hr 05/04/24 00:07 05/04/24 01:15 Ns IV 05/04/24 01:07 Infused .Q1H1M ONE Infusion Insulin Human Lispro 14 unit 05/04/24 00:07 05/04/24 00:12 Insulin Lispro 100 Unit/Ml 3 Ml Vial SUBCUT 05/04/24 00:08 14 unit ONCE ONE Administration Ketorolac Tromethamine 30 mg 05/04/24 01:31 05/04/24 01:37 Ketorolac Tromethamine 30 Mg/Ml Vial IVPUSH 05/04/24 01:32 30 mg ONCE ONE Administration Nitrofurantoin Macrocrystals 100 mg 05/04/24 01:31 05/04/24 01:37 Nitrofurantoin Monohyd/M-Cryst 100 Mg Capsule PO 05/04/24 01:32 100 mg ONCE ONE Administration Medical Decision Making Medical Decision Making [facility] Narrative: Patient has hyperglycemia not in DKA received IV fluids feeling much better will discharge patient home S slight increased WBCs in the urine no bacteria will treat her for UTI CT scan of the abdomen is negative Admission/Observation Consideration of admission/observation: Escalation of care including admission/observation considered Lab Data [facility] Lab Attestation statement: I reviewed the patient's lab results. 05/03/24 23:42 05/04/24 02:27 Labs: Lab Results 05/03/24 05/03/24 05/03/24 Range/Units 23:36 23:37 23:42 WBC 8.3 (4.8-10.8) X10*3/uL RBC 4.21 (4.20-5.50) X10*6/uL Hgb 10.9 L (12.0-16.0) g/dl Hct 35.8 L (37.0-47.0) % MCV 85.0 (80.0-98.0) fL MCH 25.9 L (27.0-33.0) pg MCHC 30.4 L (31.0-35.0) g/dl RDW 14.6 (11.0-16.0) % Plt Count 293 (160-400) X10*3/uL MPV 10.8 (9.4-12.3) fL Immature Gran % (Auto) 0.5 H (0.0-0.4) % Neut % (Auto) 63.8 (45-73) % Lymph % (Auto) 27.2 (20-40) % Trego % (Auto) 7.2 (2-11) % Eos % (Auto) 0.7 (0-4) % Baso % (Auto) 0.6 (0-2) % Lymph # (Auto) 2.3 (1.2-4.9) X10*3/uL Trego # (Auto) 0.6 (0.1-1.2) X10*3/uL Eos # (Auto) 0.1 (0.0-0.4) X10*3/uL Baso # (Auto) 0.1 (0.0-0.2) X10*3/uL Abs Immat Gran (auto) 0.04 H (0.00-0.03) X10*3/uL Absolute Neuts (auto) 5.3 (2.0-8.3) x10*3/uL Absolute Nucleated RBC 0.000 (0.0-0.012) X10*3/uL Nucleated RBC % (auto) 0.0 (0.0-0.2) /100WBC VBG pH 7.39 (7.32-7.43) VBG pCO2 27 mmHg VBG pO2 143 mmHg VBG HCO3 17 L (22-26) mmol/L VBG O2 Saturation 99.0 % VBG Base Excess -6.4 mmol/L Sodium 132 L (135-145) mmol/L Potassium 4.9 (3.3-5.1) mmol/L Chloride 103 (96-108) mmol/L Carbon Dioxide 16 L (22-29) mmol/L Anion Gap 18 (12-20) BUN 7 L (9-16) mg/dL Creatinine 0.75 (0.5-1.4) mg/dL Estim Creat Clear Calc 90.7 Estimated GFR > 60 POC Glucose (60-115) mg/dL Random Glucose 450 H* (60-115) mg/dL Calcium 8.3 L (8.4-10.2) mg/dL Magnesium 1.7 (1.6-2.6) mg/dL Total Bilirubin 0.9 (0.0-1.0) mg/dL AST 60 H (5-31) U/L ALT 51 H (0-31) U/L Alkaline Phosphatase 103 (39-117) U/L Total Protein 6.7 (6.5-8.0) g/dL Albumin 3.6 (3.5-5.0) g/dL Lipase 12 (8-78) U/L Beta-Hydroxybutyrate 4.39 H (0.02-0.27) mmol/L Urine Color Yellow Urine Appearance Clear Urine pH 5.5 (5.0-9.0) Ur Specific Egnar >= 1.030 H (1.005-1.025) Urine Protein Negative (Neg-Trace) mg/dL Urine Glucose (UA) >=1000 H (Negative) mg/dL Urine Ketones 80 (Negative) mg/dL Urine Blood Negative (Negative) Urine Nitrite Negative (Negative) Ur Leukocyte Esterase Small (1+) H (Negative) Urine RBC 0-2 (0-2) /HPF Urine WBC 21-50 H (0-5) /HPF Ur Squamous Epith Cells 0-2 (0-2) /HPF Urine Bacteria None Seen (None Seen) Hyaline Casts 0-2 (0-2) /LPF Urine Test NEGATIVE (NEGATIVE) 05/04/24 05/04/24 Range/Units 01:20 02:27 WBC (4.8-10.8) X10*3/uL RBC (4.20-5.50) X10*6/uL Hgb (12.0-16.0) g/dl Hct (37.0-47.0) % MCV (80.0-98.0) fL MCH (27.0-33.0) pg MCHC (31.0-35.0) g/dl RDW (11.0-16.0) % Plt Count (160-400) X10*3/uL MPV (9.4-12.3) fL Immature Gran % (Auto) (0.0-0.4) % Neut % (Auto) (45-73) % Lymph % (Auto) (20-40) % Trego % (Auto) (2-11) % Eos % (Auto) (0-4) % Baso % (Auto) (0-2) % Lymph # (Auto) (1.2-4.9) X10*3/uL Trego # (Auto) (0.1-1.2) X10*3/uL Eos # (Auto) (0.0-0.4) X10*3/uL Baso # (Auto) (0.0-0.2) X10*3/uL Abs Immat Gran (auto) (0.00-0.03) X10*3/uL Absolute Neuts (auto) (2.0-8.3) x10*3/uL Absolute Nucleated RBC (0.0-0.012) X10*3/uL Nucleated RBC % (auto) (0.0-0.2) /100WBC VBG pH (7.32-7.43) VBG pCO2 mmHg VBG pO2 mmHg VBG HCO3 (22-26) mmol/L VBG O2 Saturation % VBG Base Excess mmol/L Sodium 140 (135-145) mmol/L Potassium 3.9 D (3.3-5.1) mmol/L Chloride 112 H (96-108) mmol/L Carbon Dioxide 16 L (22-29) mmol/L Anion Gap 16 (12-20) BUN 7 L (9-16) mg/dL Creatinine 0.57 (0.5-1.4) mg/dL Estim Creat Clear Calc 119.3 Estimated GFR > 60 POC Glucose 200 H (60-115) mg/dL Random Glucose 136 H (60-115) mg/dL Calcium 8.2 L (8.4-10.2) mg/dL Magnesium (1.6-2.6) mg/dL Total Bilirubin (0.0-1.0) mg/dL AST (5-31) U/L ALT (0-31) U/L Alkaline Phosphatase (39-117) U/L Total Protein (6.5-8.0) g/dL Albumin (3.5-5.0) g/dL Lipase (8-78) U/L Beta-Hydroxybutyrate (0.02-0.27) mmol/L Urine Color Urine Appearance Urine pH (5.0-9.0) Ur Specific Egnar (1.005-1.025) Urine Protein (Neg-Trace) mg/dL Urine Glucose (UA) (Negative) mg/dL Urine Ketones (Negative) mg/dL Urine Blood (Negative) Urine Nitrite (Negative) Ur Leukocyte Esterase (Negative) Urine RBC (0-2) /HPF Urine WBC (0-5) /HPF Ur Squamous Epith Cells (0-2) /HPF Urine Bacteria (None Seen) Hyaline Casts (0-2) /LPF Urine Test (NEGATIVE) Radiology Impression Discussion of test interpretation with radiology: I have reviewed the radiologist's reading. Radiologist Impression: [place] [id number] CT Scan Report Signed Patient: Ben Higginbotham MR#: [id number] : 2005 Acct:[id number] Age/Sex: 18 / F ADM Date: 05/03/24 Loc: .ED Attending Dr: Ordering Physician: Gonsalo Zuñiga MD Date of Service: 05/04/24 Procedure(s): CT abdomen pelvis wo IV con Accession Number(s): [id number] cc: Physician,Unknown ; Gonsalo Zuñiga MD~ EXAMINATION: CT ABDOMEN AND PELVIS WITHOUT CONTRAST CLINICAL INFORMATION: Right flank pain. COMPARISON: None available. TECHNIQUE: Multidetector volumetric imaging was performed from the superior aspect of the liver through the pubic symphysis. Sagittal and coronal reformatted images were obtained on the technologist's workstation. This CT examination was performed using dose optimization techniques as appropriate, variously including the following: *Automated exposure control *Adjustment of mA and/or kV according to patient size (this includes techniques or standardized protocols for targeted exams where dose is matched to indication/reason for exam; i.e. extremities or head) *Use of iterative reconstruction technique DLP: 385 mGy-cm FINDINGS: LUNG BASES: The visualized lung bases are unremarkable. LIVER, GALLBLADDER, AND BILIARY TREE: The liver is normal in size, shape, and attenuation. No focal hepatic lesion or biliary ductal dilatation is present. The gallbladder is unremarkable with no evidence of radiopaque gallstones, gallbladder wall thickening, or obvious pericholecystic inflammatory changes. PANCREAS: Unremarkable. SPLEEN: Unremarkable. ADRENAL GLANDS: Unremarkable. KIDNEYS AND URETERS: The kidneys are normal in size, shape, and attenuation. No hydronephrosis, hydroureter, or calculi seen. No perinephric stranding. BLADDER: The urinary bladder is mildly distended. GASTROINTESTINAL TRACT: The small and large bowel are unremarkable. The appendix is unremarkable. ABDOMINAL WALL: No significant hernia is appreciated. LYMPH NODES: Normal. VASCULAR: Unremarkable. PELVIC VISCERA: Unremarkable. OSSEOUS STRUCTURES: Unremarkable. CT/CT abdomen pelvis wo IV con IMPRESSION: 1. Mildly distended urinary bladder. 2. Otherwise, unremarkable examination. Fleischner guidelines were followed. Electronically signed by: Burt Faulkner MD 05/04/2024 01:59 AM [facility] Discharge Plan Discharge Clinical Impression: Diabetes, UTI (urinary tract infection) Patient Disposition: Home, Self-Care Instructions: Urinary Tract Infection in Women (DC), Diabetic Hyperglycemia (ED) Additional Instructions: Drink plenty of fluids Take your insulin on time Antibiotic as prescribed for possible UTI pending culture Prescriptions: New nitrofurantoin monohyd/m-cryst [Macrobid] 100 mg capsule 100 mg PO BID 7 Days Qty: 14 0RF Rx Instructions: must administer with a meal/food No Action insulin glargine [Lantus U-100 Insulin] 100 unit/mL solution 54 unit subcut DAILY Qty: 10 2RF insulin lispro [Humalog U-100 Insulin] 100 unit/mL solution 1 sliding scale dose subcut USEASDIRECTD Qty: 10 2RF Rx Instructions: BG <111 0 units, 111-150 - 0 units, 151-200 2 units, 201-250 4 units, 251-300 6 units, 301-350 8 units, >350 10 units insulin aspart U-100 100 unit/mL (3 mL) insulin pen See Protocol subcut TID Protocol: Insulin Correction Scale Less than or equal to 110 ---- Give (units): 0 111 to 150 Give (units): 0 151 to 200 Give (units): 2 201 to 250 Give (units): 4 251 to 300 Give (units): 6 301 to 350 Give (units): 8 Greater than 350 Give (units): 10 Call MD if Blood Glucose > : 350 fluoxetine 10 mg Tablet 30 mg PO DAILY lamotrigine [Lamictal] 25 mg Tablet 50 mg PO DAILY lisinopril 10 mg Tablet 10 mg PO DAILY hydroxyzine HCl 25 mg Tablet 25 mg PO DAILY hydroxyzine pamoate [Vistaril] 25 mg Capsule 25 mg PO Q4H PRN (Reason: Anxiety) melatonin 5 mg Tablet 5 mg PO BEDTIME PRN (Reason: Sleep) cholecalciferol (vitamin D3) [Vitamin D3] 25 mcg (1,000 unit) Tablet 25 mcg PO DAILY 30 Days Qty: 30 0RF (DME) FreeStyle Lite Strips Strip Qty: 100 0RF Rx Instructions: Test four times a day or as directed. (DME) blood-glucose meter [FreeStyle Lite Meter] Kit Qty: 1 0RF Rx Instructions: As Directed alcohol swabs Pads, Medicated 1 pad TOPICAL QIDACHS Qty: 100 0RF Rx Instructions: Use four times a day or as directed. insulin lispro [Humalog KwikPen Insulin] 100 unit/mL insulin pen 1 sliding scale dose SUBCUT QIDACHS MDD 50 units Qty: 15 1RF Rx Instructions: Blood Sugar: <150 - 0 units 151-200 - 2 units 201-250 - 4 units 251-300 - 6 units 301-350 - 8 units >350 - 10 units (DME) pen needle, diabetic 32 gauge x 1/4 needle Qty: 100 0RF Rx Instructions: Use four times a day or as directed. (DME) lancets [FreeStyle Lancets] 28 gauge misc Qty: 100 0RF Rx Instructions: Test four times a day or as directed. Interventions: ED Discharge Assessment Last Done: 05/04/24 03:35 Discharge Date/Time: 05/04/24 04:30 Print Language: Thai
[2024-05-04 00:08] LABS: Alanine Aminotransferase 51 U/L (0-31); Albumin Level 3.6 g/dL (3.5-5.0); Alkaline Phosphatase 103 U/L (39-117); Anion Gap 18 (12-20); Aspartate Amino Transferase 60 U/L (5-31); Bilirubin Total 0.9 mg/dL (0.0-1.0); Blood Urea Nitrogen 7 mg/dL (9-16); Calcium 8.3 mg/dL (8.4-10.2); Carbon Dioxide 16 mmol/L (22-29); Chloride 103 mmol/L (96-108); Creatinine Clr Calc Pharmacy 90.7; Estimated Glomerular Filt Rate > 60; Glucose Random 450 mg/dL (60-115); Lipase 12 U/L (8-78); Magnesium 1.7 mg/dL (1.6-2.6); Potassium 4.9 mmol/L (3.3-5.1); Sodium 132 mmol/L (135-145); Total Protein 6.7 g/dL (6.5-8.0)
[2024-05-04] MEDS: Insulin Lispro 100 UNIT/ML 3 ML VIAL 14 UNIT SUBCUT (00:12)
[2024-05-04] MEDS: 0.9 % Sodium Chloride 1,000 ML 999 ML IV (00:13)
[2024-05-04 00:18] VITALS: BP 119/68; PULSE 105; RESP 16; O2SAT 98
[2024-05-04 00:49] LABS: Beta-Hydroxybutyrate 4.39 mmol/L (0.02-0.27)
[2024-05-04 01:24] LABS: Glucose, Whole Blood 200 mg/dL (60-115)
[2024-05-04] MEDS: Ketorolac Tromethamine 30 MG/ML VIAL IVPUSH (01:37)
[2024-05-04] MEDS: Nitrofurantoin Monohyd/M-Cryst 100 MG CAPSULE PO (01:37)
[2024-05-04 02:00] VITALS: BP 110/63; PULSE 98; RESP 16; TEMP 36.8; O2SAT 96
[2024-05-04 02:48] LABS: Anion Gap 16 (12-20); Blood Urea Nitrogen 7 mg/dL (9-16); Calcium 8.2 mg/dL (8.4-10.2); Carbon Dioxide 16 mmol/L (22-29); Chloride 112 mmol/L (96-108); Creatinine Clr Calc Pharmacy 119.3; Estimated Glomerular Filt Rate > 60; Glucose Random 136 mg/dL (60-115); Potassium 3.9 mmol/L (3.3-5.1); Sodium 140 mmol/L (135-145)
[2024-05-04 03:35] VITALS: BP 110/63; PULSE 98; RESP 16; TEMP 36.8; O2SAT 96
[2024-05-06 08:12] LABS: Glucose, Whole Blood 404 mg/dL (60-115)
== END 2024-05-04 04:30 | disposition home or self-care (01) ==
PROVIDERS: Emergency Provider Internal Medicine
DX: N39.0 Urinary tract infection, site not specified (principal); E11.9 Type 2 diabetes mellitus without complications; R10.9 Unspecified abdominal pain; Z79.899 Other long term (current) drug therapy
CPT/HCPCS: 36415; 74176; 80048; 80053; 81001; 81025; 82010; 82803; 82947; 83690; 83735; 85025; 87086; 96361; 96374; 99284; J1885

== ENCOUNTER 2024-05-12 13:12 | Inpatient (IN) | payer MEDICAID, SELFPAY ==
[2024-05-12] VITALS (15 sets, daily range): BP systolic 95–133; BP diastolic 41–79; PULSE 85–130; RESP 16–22; TEMP 36.6–37.3; O2SAT 96–99; BMI 26.2; BMI 27.3
--- NOTE | 2024-05-12 13:30 | ECG_ITS ---
Test Reason : TACHY Blood Pressure : / mmHG Vent. Rate : 120 BPM Atrial Rate : 120 BPM P-R Int : 130 ms QRS Dur : 072 ms QT Int : 334 ms P-R-T Axes : 056 039 036 degrees QTc Int : 472 ms Sinus tachycardia Otherwise normal ECG When compared with ECG of 30-APR-2024 03:48, No significant change was found Referred By: Generic ED Physician Electronically Signed By:ANEESH LEW MD
[2024-05-12 13:31] LABS: Glucose, Whole Blood 420 mg/dL (60-115)
[2024-05-12 13:39] LABS: MANUAL DIFF FLAG NO
[2024-05-12 13:42] LABS: Basophils Percent Auto 0.3 % (0-2); Hematocrit 39.1 % (37.0-47.0); Hemoglobin 12.1 g/dl (12.0-16.0); Imm Gran Abs Auto 0.05 X10*3/uL (0.00-0.03); Imm Gran Pct Auto 0.5 % (0.0-0.4); Lymphocytes Absolute Auto 0.6 X10*3/uL (1.2-4.9); Lymphocytes Percent Auto 6.1 % (20-40); Mean Corpuscular HGB Conc 30.9 g/dl (31.0-35.0); Mean Corpuscular Hemoglobin 26.8 pg (27.0-33.0); Mean Corpuscular Volume 86.5 fL (80.0-98.0); Mean Platelet Volume 10.7 fL (9.4-12.3); Monocytes Absolute Auto 0.4 X10*3/uL (0.1-1.2); Monocytes Percent Auto 3.8 % (2-11); Neutrophils Absolute Auto 9.2 x10*3/uL (2.0-8.3); Neutrophils Percent Auto 89.3 % (45-73); Platelet Count 359 X10*3/uL (160-400); Red Blood Count 4.52 X10*6/uL (4.20-5.50); Red Cell Distribution Width 15.3 % (11.0-16.0); White Blood Count 10.3 X10*3/uL (4.8-10.8)
[2024-05-12 14:11] LABS: Alanine Aminotransferase 33 U/L (0-31); Albumin Level 4.3 g/dL (3.5-5.0); Alkaline Phosphatase 129 U/L (39-117); Aspartate Amino Transferase 43 U/L (5-31); Beta-Hydroxybutyrate 5.62 mmol/L (0.02-0.27); Bilirubin Total 0.6 mg/dL (0.0-1.0); Blood Urea Nitrogen 9 mg/dL (9-16); Calcium 9.2 mg/dL (8.4-10.2); Creatinine Clr Calc Pharmacy 56.6; Estimated Glomerular Filt Rate > 60; Total Protein 7.9 g/dL (6.5-8.0)
[2024-05-12 14:21] LABS: Anion Gap 27 (12-20); Carbon Dioxide 9 mmol/L (22-29); Chloride 105 mmol/L (96-108); Glucose Random 435 mg/dL (60-115); Potassium 3.9 mmol/L (3.3-5.1); Sodium 137 mmol/L (135-145)
--- NOTE | 2024-05-12 14:29 | PC.NURSE ---
Pt presents to ED via EMS from home, reports since this morning she has had N/V, chest pain and feeling unwell, started around 7AM. Is type 1 diabetic with hx of DKA, feels similar now. Alert and oriented, breathing slightly tachypneic, skin clammy and pale. Sinus tach on monitor.
[2024-05-12 14:32] LABS: Influenza A PCR NEGATIVE (Negative); Influenza B PCR NEGATIVE (Negative); Resp Syncy Virus RNA Qual PCR NEGATIVE (Negative); SARS COV2 PCR INHOUSE NEGATIVE (Negative)
--- NOTE | 2024-05-12 14:41 | ED_ITS ---
HPI - General Adult General Chief complaint: General Medical Stated complaint: N/V,CP,ANXIETY [place] [facility] Time Seen by Provider: 05/12/24 14:35 Source: patient and EMS Mode of arrival: EMS Limitations: no limitations History of Present Illness ED Provider: DR. Wang HPI narrative: 19-year-old female PMH significant for DM type 1 with proteinuria, mood disorder, DKA presented this morning with overall not feeling well generalized body ache and weakness, chest pain. Patient normally control her diabetes with Lantus 54 units daily and NovoLog using sliding scale. No coughing, no fever, no chills, no UTI symptoms, no abdominal pain. Related Data Home Medications ?Medication ?Instructions ?Recorded ?Confirmed fluoxetine 10 mg tablet 30 mg PO DAILY 10/13/22 10/13/22 hydroxyzine HCl 25 mg tablet 25 mg PO DAILY 10/13/22 10/13/22 hydroxyzine pamoate 25 mg capsule 25 mg PO Q4H PRN Anxiety 10/13/22 10/13/22 (Vistaril) lamotrigine 25 mg tablet (Lamictal) 50 mg PO DAILY 10/13/22 10/13/22 lisinopril 10 mg tablet 10 mg PO DAILY 10/13/22 10/13/22 melatonin 5 mg tablet 5 mg PO BEDTIME PRN Sleep 10/13/22 10/13/22 insulin aspart U-100 100 unit/mL See Protocol subcut TID 04/30/24 (3 mL) subcutaneous pen Previous Rx's ?Medication ?Instructions ?Recorded alcohol swabs 1 pad topical QIDACHS #100 ea 10/16/22 blood sugar diagnostic (FreeStyle #100 ea 10/16/22 Lite Strips) blood-glucose meter (FreeStyle #1 ea 10/16/22 Lite Meter kit) cholecalciferol (vitamin D3) 25 25 mcg PO DAILY 30 days #30 tabs 10/16/22 mcg (1,000 unit) tablet (Vitamin D3) insulin lispro 100 unit/mL 1 sliding scale dose subcut 10/16/22 subcutaneous pen (Humalog KwikPen QIDACHS #15 mL (U-100) Insulin) lancets 28 gauge (FreeStyle #100 ea 10/16/22 Lancets) pen needle, diabetic 32 gauge x #100 ea 10/16/2205/18 insulin glargine 100 unit/mL 54 unit (0.54 mL) subcut DAILY #10 10/25/23 subcutaneous solution (Lantus mL U-100 Insulin) insulin lispro 100 unit/mL 1 sliding scale dose subcut 10/25/23 subcutaneous solution (Humalog USEASDIRECTD #10 mL U-100 Insulin) nitrofurantoin 100 mg PO BID 7 days #14 caps 05/04/24 monohydrate/macrocrystals 100 mg capsule (Macrobid) Allergies Allergy/AdvReac Type Severity Reaction Status Date / Time No Known Allergies Allergy Verified 05/12/24 13:26 Review of Systems 2 Review of Systems: All other systems are reviewed and are negative Constitutional: Reports as per HPI and Reports no additional constitutional complaints Eyes: Reports as per HPI and Reports no additional eye complaints Reports system reviewed and no additional complaints, except as documented Cardiovascular: Reports as per HPI and Reports no additional cardiovascular complaints Respiratory: Reports as per HPI and Reports no additional respiratory complaints Gastrointestinal: Reports as per HPI and Reports no additional gastrointestinal complaints Genitourinary: Reports no additional female genitourinary complaints Musculoskeletal: Reports no additional musculoskeletal complaints Skin/Breast: Reports system reviewed and no additional complaints, except as docu Psychiatric: Reports no additional psychiatric complaints Endocrine: Reports no additional endocrine complaints Hematologic/Lymphatic: Reports no additional hematologic/lymphatic complaints Allergic/Immunologic: Reports no additional allergic/immunologic complaints Reports system reviewed and no additional complaints, except as documented and Reports Abnormal speech present [facility] Past Medical History Medical History Diabetes Social History Social History Household Members: Family Housing: Apartment Alcohol intake: never Patient Tobacco Use Status: Never used Tobacco Smoked in Last 30 Days: No Use of substances other than those prescribed or required for medical reasons: No Advance Directives: No Advance Directives Information Provided: No service: No Current occupational status: unemployed Physical Exam ED Vital Signs: Vital Signs - 24 hr 05/12/24 13:16 05/12/24 14:28 05/12/24 15:10 Temperature 98 F Pulse Rate 130 H 120 H 121 H Respiratory Rate 22 H 22 H 20 Blood Pressure 133/71 102/54 L 100/59 L Pulse Oximetry 97 98 97 Oxygen Delivery Method Room Air Room Air Room Air BMI result Body Mass Index 26.2 Vital signs have been reviewed and appear to be correct. Blood pressure elevated. Heart rate normal. Respiratory rate normal. Temperature normal. Oxygen saturation normal. Appearance: Alert. Oriented X3. No acute distress. Head: Normal external exam. Normocephalic. Atraumatic. No Burnett signs noted. No raccoon eyes noted Eyes: PERRLA. EOMI. Conjunctiva and sclera normal. Eyelids normal. ENT: TM's Normal. Pharynx normal. Uvula midline. Dry mucous membranes. No trismus noted. No drooling noted. No muffled voice noted. Neck: Normal inspection. Neck supple. FROM. No adenopathy. Thyroid Normal. No meningeal signs. No neck mass noted. CVS: Normal heart rate and rhythm. Heart sound normal. No murmurs noted. Pulses normal throughout. Respiratory: No respiratory distress. Painless inspiration. Breath sounds normal. No wheezes/rales/rhonchi noted. Chest nontender. No accessory muscle usage noted or decreased air movement noted. Abdomen: Soft and nontender. Bowel sounds normal in all 4 quadrants. No distention noted. No organomegaly noted. No visible injury noted. Back: No CVA tenderness. Full range of motion noted. Skin: Skin warm and dry. Normal skin color. Normal skin turgor. No rashes/lesions/lacerations noted. Extremities: No lower extremity edema. Extremities exhibit normal range of motion. Extremities nontender. Neuro: Oriented X 3. Cranial nerve exam: II-XII are grossly intact No motor deficit. No sensory deficit. Reflexes normal. Course Reevaluation(s) Reevaluation #1: DKA. Will start on D5 LR, BS is 150 and start on insulin drip. Will admit to ICU. Time: 15:56 Medications Administered Generic Name Dose Route Start Last Admin Trade Name Freq PRN Reason Stop Dose Admin Insulin Human Regular 100 unit in 100 mls @ 6 mls/hr 05/12/24 14:45 05/12/24 15:37 Myxredlin IVCONT Not Given .[id number] CAROLINE Protocol 6 UNIT/HR Discontinued Medications Generic Name Dose Route Start Last Admin Trade Name Freq PRN Reason Stop Dose Admin Sodium Chloride 1,000 mls @ 999 mls/hr 05/12/24 14:39 05/12/24 15:08 Ns IV 05/12/24 15:39 999 mls/hr .Q1H1M ONE Administration Insulin Human Regular 6 unit 05/12/24 14:39 05/12/24 15:36 Insulin Regular, Human 100 Unit/Ml 3 Ml Vial 0.1 unit/kg (6 unit) 05/12/24 14:40 Not Given IVPUSH ONCE ONE Medical Decision Making Differential Diagnosis Differential Diagnoses: The differential diagnosis associated with the presentation includes (Hyperglycemia, DKA, electrolyte derangement, severe dehydration, severe anemia, UTI, pneumonia.) Admission/Observation Consideration of admission/observation: Escalation of care including admission/observation considered Consult Healthcare Provider Management of the patient was discussed with: [employer] (Dr. Osborne) Lab Data MDM Lab Attestation statement: I reviewed the patient's lab results. 05/12/24 13:36 05/12/24 15:06 Labs: Lab Results 05/12/24 05/12/24 05/12/24 Range/Units 13:28 13:35 13:36 WBC 10.3 (4.8-10.8) X10*3/uL RBC 4.52 (4.20-5.50) X10*6/uL Hgb 12.1 (12.0-16.0) g/dl Hct 39.1 (37.0-47.0) % MCV 86.5 (80.0-98.0) fL MCH 26.8 L (27.0-33.0) pg MCHC 30.9 L (31.0-35.0) g/dl RDW 15.3 (11.0-16.0) % Plt Count 359 (160-400) X10*3/uL MPV 10.7 (9.4-12.3) fL Immature Gran % (Auto) 0.5 H (0.0-0.4) % Neut % (Auto) 89.3 H (45-73) % Lymph % (Auto) 6.1 L (20-40) % [place] % (Auto) 3.8 (2-11) % Eos % (Auto) 0.0 (0-4) % Baso % (Auto) 0.3 (0-2) % Lymph # (Auto) 0.6 L (1.2-4.9) X10*3/uL [place] # (Auto) 0.4 (0.1-1.2) X10*3/uL Eos # (Auto) 0.0 (0.0-0.4) X10*3/uL Baso # (Auto) 0.0 (0.0-0.2) X10*3/uL Abs Immat Gran (auto) 0.05 H (0.00-0.03) X10*3/uL Absolute Neuts (auto) 9.2 H (2.0-8.3) x10*3/uL Absolute Nucleated RBC 0.000 (0.0-0.012) X10*3/uL Nucleated RBC % (auto) 0.0 (0.0-0.2) /100WBC VBG pH (7.32-7.43) VBG pCO2 mmHg VBG pO2 mmHg VBG HCO3 (22-26) mmol/L VBG O2 Saturation % VBG Base Excess mmol/L Sodium 137 (135-145) mmol/L Potassium 3.9 (3.3-5.1) mmol/L Chloride 105 (96-108) mmol/L Carbon Dioxide 9 L* D (22-29) mmol/L Anion Gap 27 H (12-20) BUN 9 (9-16) mg/dL Creatinine 1.12 (0.5-1.4) mg/dL Estim Creat Clear Calc 56.6 Estimated GFR > 60 POC Glucose 420 H* (60-115) mg/dL Random Glucose 435 H* (60-115) mg/dL Calcium 9.2 D (8.4-10.2) mg/dL Total Bilirubin 0.6 (0.0-1.0) mg/dL AST 43 H (5-31) U/L ALT 33 H (0-31) U/L Alkaline Phosphatase 129 H (39-117) U/L Total Protein 7.9 (6.5-8.0) g/dL Albumin 4.3 (3.5-5.0) g/dL Beta-Hydroxybutyrate 5.62 H (0.02-0.27) mmol/L Urine Color Urine Appearance Urine pH (5.0-9.0) Ur Specific [place] (1.005-1.025) Urine Protein (Neg-Trace) mg/dL Urine Glucose (UA) (Negative) mg/dL Urine Ketones (Negative) mg/dL Urine Blood (Negative) Urine Nitrite (Negative) Ur Leukocyte Esterase (Negative) Urine RBC (0-2) /HPF Urine WBC (0-5) /HPF Ur Squamous Epith Cells (0-2) /HPF Urine Bacteria (None Seen) Hyaline Casts (0-2) /LPF Influenza Type A (PCR) (Negative) Influenza Type B (PCR) (Negative) RSV RNA Qual (PCR) (Negative) SARS-CoV-2 RNA (RT-PCR) (Negative) 05/12/24 05/12/24 05/12/24 Range/Units 13:47 14:50 14:51 WBC (4.8-10.8) X10*3/uL RBC (4.20-5.50) X10*6/uL Hgb (12.0-16.0) g/dl Hct (37.0-47.0) % MCV (80.0-98.0) fL MCH (27.0-33.0) pg MCHC (31.0-35.0) g/dl RDW (11.0-16.0) % Plt Count (160-400) X10*3/uL MPV (9.4-12.3) fL Immature Gran % (Auto) (0.0-0.4) % Neut % (Auto) (45-73) % Lymph % (Auto) (20-40) % [place] % (Auto) (2-11) % Eos % (Auto) (0-4) % Baso % (Auto) (0-2) % Lymph # (Auto) (1.2-4.9) X10*3/uL [place] # (Auto) (0.1-1.2) X10*3/uL Eos # (Auto) (0.0-0.4) X10*3/uL Baso # (Auto) (0.0-0.2) X10*3/uL Abs Immat Gran (auto) (0.00-0.03) X10*3/uL Absolute Neuts (auto) (2.0-8.3) x10*3/uL Absolute Nucleated RBC (0.0-0.012) X10*3/uL Nucleated RBC % (auto) (0.0-0.2) /100WBC VBG pH 7.28 L (7.32-7.43) VBG pCO2 21 mmHg VBG pO2 157 mmHg VBG HCO3 10 L (22-26) mmol/L VBG O2 Saturation 99.0 % VBG Base Excess -13.9 mmol/L Sodium (135-145) mmol/L Potassium (3.3-5.1) mmol/L Chloride (96-108) mmol/L Carbon Dioxide (22-29) mmol/L Anion Gap (12-20) BUN (9-16) mg/dL Creatinine (0.5-1.4) mg/dL Estim Creat Clear Calc Estimated GFR POC Glucose (60-115) mg/dL Random Glucose (60-115) mg/dL Calcium (8.4-10.2) mg/dL Total Bilirubin (0.0-1.0) mg/dL AST (5-31) U/L ALT (0-31) U/L Alkaline Phosphatase (39-117) U/L Total Protein (6.5-8.0) g/dL Albumin (3.5-5.0) g/dL Beta-Hydroxybutyrate (0.02-0.27) mmol/L Urine Color Yellow Urine Appearance Clear Urine pH 5.0 (5.0-9.0) Ur Specific [place] >= 1.030 H (1.005-1.025) Urine Protein Trace (Neg-Trace) mg/dL Urine Glucose (UA) >=1000 H (Negative) mg/dL Urine Ketones >=160 (Negative) mg/dL Urine Blood Negative (Negative) Urine Nitrite Negative (Negative) Ur Leukocyte Esterase Trace H (Negative) Urine RBC 0-2 (0-2) /HPF Urine WBC 6-10 H (0-5) /HPF Ur Squamous Epith Cells 0-2 (0-2) /HPF Urine Bacteria None Seen (None Seen) Hyaline Casts 0-2 (0-2) /LPF Influenza Type A (PCR) NEGATIVE (Negative) Influenza Type B (PCR) NEGATIVE (Negative) RSV RNA Qual (PCR) NEGATIVE (Negative) SARS-CoV-2 RNA (RT-PCR) NEGATIVE (Negative) 05/12/24 05/12/24 05/12/24 Range/Units 14:52 14:54 15:02 WBC (4.8-10.8) X10*3/uL RBC (4.20-5.50) X10*6/uL Hgb (12.0-16.0) g/dl Hct (37.0-47.0) % MCV (80.0-98.0) fL MCH (27.0-33.0) pg MCHC (31.0-35.0) g/dl RDW (11.0-16.0) % Plt Count (160-400) X10*3/uL MPV (9.4-12.3) fL Immature Gran % (Auto) (0.0-0.4) % Neut % (Auto) (45-73) % Lymph % (Auto) (20-40) % [place] % (Auto) (2-11) % Eos % (Auto) (0-4) % Baso % (Auto) (0-2) % Lymph # (Auto) (1.2-4.9) X10*3/uL [place] # (Auto) (0.1-1.2) X10*3/uL Eos # (Auto) (0.0-0.4) X10*3/uL Baso # (Auto) (0.0-0.2) X10*3/uL Abs Immat Gran (auto) (0.00-0.03) X10*3/uL Absolute Neuts (auto) (2.0-8.3) x10*3/uL Absolute Nucleated RBC (0.0-0.012) X10*3/uL Nucleated RBC % (auto) (0.0-0.2) /100WBC VBG pH (7.32-7.43) VBG pCO2 mmHg VBG pO2 mmHg VBG HCO3 (22-26) mmol/L VBG O2 Saturation % VBG Base Excess mmol/L Sodium (135-145) mmol/L Potassium (3.3-5.1) mmol/L Chloride (96-108) mmol/L Carbon Dioxide (22-29) mmol/L Anion Gap (12-20) BUN (9-16) mg/dL Creatinine (0.5-1.4) mg/dL Estim Creat Clear Calc Estimated GFR POC Glucose 184 H 174 H 156 H (60-115) mg/dL Random Glucose (60-115) mg/dL Calcium (8.4-10.2) mg/dL Total Bilirubin (0.0-1.0) mg/dL AST (5-31) U/L ALT (0-31) U/L Alkaline Phosphatase (39-117) U/L Total Protein (6.5-8.0) g/dL Albumin (3.5-5.0) g/dL Beta-Hydroxybutyrate (0.02-0.27) mmol/L Urine Color Urine Appearance Urine pH (5.0-9.0) Ur Specific [place] (1.005-1.025) Urine Protein (Neg-Trace) mg/dL Urine Glucose (UA) (Negative) mg/dL Urine Ketones (Negative) mg/dL Urine Blood (Negative) Urine Nitrite (Negative) Ur Leukocyte Esterase (Negative) Urine RBC (0-2) /HPF Urine WBC (0-5) /HPF Ur Squamous Epith Cells (0-2) /HPF Urine Bacteria (None Seen) Hyaline Casts (0-2) /LPF Influenza Type A (PCR) (Negative) Influenza Type B (PCR) (Negative) RSV RNA Qual (PCR) (Negative) SARS-CoV-2 RNA (RT-PCR) (Negative) 05/12/24 Range/Units 15:06 WBC (4.8-10.8) X10*3/uL RBC (4.20-5.50) X10*6/uL Hgb (12.0-16.0) g/dl Hct (37.0-47.0) % MCV (80.0-98.0) fL MCH (27.0-33.0) pg MCHC (31.0-35.0) g/dl RDW (11.0-16.0) % Plt Count (160-400) X10*3/uL MPV (9.4-12.3) fL Immature Gran % (Auto) (0.0-0.4) % Neut % (Auto) (45-73) % Lymph % (Auto) (20-40) % [place] % (Auto) (2-11) % Eos % (Auto) (0-4) % Baso % (Auto) (0-2) % Lymph # (Auto) (1.2-4.9) X10*3/uL [place] # (Auto) (0.1-1.2) X10*3/uL Eos # (Auto) (0.0-0.4) X10*3/uL Baso # (Auto) (0.0-0.2) X10*3/uL Abs Immat Gran (auto) (0.00-0.03) X10*3/uL Absolute Neuts (auto) (2.0-8.3) x10*3/uL Absolute Nucleated RBC (0.0-0.012) X10*3/uL Nucleated RBC % (auto) (0.0-0.2) /100WBC VBG pH (7.32-7.43) VBG pCO2 mmHg VBG pO2 mmHg VBG HCO3 (22-26) mmol/L VBG O2 Saturation % VBG Base Excess mmol/L Sodium 137 (135-145) mmol/L Potassium 3.9 (3.3-5.1) mmol/L Chloride 108 (96-108) mmol/L Carbon Dioxide 10 L* (22-29) mmol/L Anion Gap 23 H (12-20) BUN 8 L (9-16) mg/dL Creatinine 0.89 (0.5-1.4) mg/dL Estim Creat Clear Calc 71.2 Estimated GFR > 60 POC Glucose (60-115) mg/dL Random Glucose 159 H (60-115) mg/dL Calcium 9.5 (8.4-10.2) mg/dL Total Bilirubin (0.0-1.0) mg/dL AST (5-31) U/L ALT (0-31) U/L Alkaline Phosphatase (39-117) U/L Total Protein (6.5-8.0) g/dL Albumin (3.5-5.0) g/dL Beta-Hydroxybutyrate (0.02-0.27) mmol/L Urine Color Urine Appearance Urine pH (5.0-9.0) Ur Specific [place] (1.005-1.025) Urine Protein (Neg-Trace) mg/dL Urine Glucose (UA) (Negative) mg/dL Urine Ketones (Negative) mg/dL Urine Blood (Negative) Urine Nitrite (Negative) Ur Leukocyte Esterase (Negative) Urine RBC (0-2) /HPF Urine WBC (0-5) /HPF Ur Squamous Epith Cells (0-2) /HPF Urine Bacteria (None Seen) Hyaline Casts (0-2) /LPF Influenza Type A (PCR) (Negative) Influenza Type B (PCR) (Negative) RSV RNA Qual (PCR) (Negative) SARS-CoV-2 RNA (RT-PCR) (Negative) Independent Interpretation I performed an independent interpretation of an: Plain X-Ray (Chest: No acute intrathoracic pathology.) Radiology Impression Discussion of test interpretation with radiology: I have reviewed the radiologist's reading. Critical Care Time Critical Care Time Critical Care Time: Yes Total Critical Care Time: 60 Attestation: The patient was critically ill with a high probability of imminent or life- threatening deterioration. I spent greater than 30 minutes of discontinuous time evaluating the patient, delivering critical care at the bedside, discussing evaluating data with consultants. Critical care time does not include time spent performing separately billable procedures or teaching. Time spent performing critical care was 60 minutes. Discharge Plan Discharge Clinical Impression: Diabetic ketoacidosis Patient Disposition: Admitted As Inpatient Print Language: Sami
[2024-05-12 14:56] LABS: Appearance Urine Clear; Color Urine Yellow; Glucose Urine UA >=1000 mg/dL (Negative); Leukocyte Esterase Urine Trace (Negative); Nitrite Urine Negative (Negative); Specific Gravity - Urine >= 1.030 (1.005-1.025); UMIC TRIGGER UACC YES; Urine Blood Negative (Negative); Urine Ketones >=160 mg/dL (Negative); Urine Protein Trace mg/dL (Neg-Trace)
[2024-05-12 14:57] LABS: VBG Base Excess -13.9 mmol/L; VBG HCO3 10 mmol/L (22-26); VBG pCO2 21 mmHg; VBG pH 7.28 (7.32-7.43); VBG pO2 157 mmHg
[2024-05-12 14:57] LABS: Venous Blood Gas Refer to POC result
[2024-05-12 15:01] LABS: Bacteria Urine None Seen (None Seen); Hyaline Casts Urine 0-2 /LPF (0-2); RBC Urine 0-2 /HPF (0-2); Squamous Epithelial Cell Urine 0-2 /HPF (0-2); UACC Culture Trigger YES
[2024-05-12 15:03] LABS: Glucose, Whole Blood 184 mg/dL (60-115)
[2024-05-12 15:06] LABS: Glucose, Whole Blood 174 mg/dL (60-115)
[2024-05-12 15:06] LABS: Glucose, Whole Blood 156 mg/dL (60-115)
[2024-05-12] MEDS: 0.9 % Sodium Chloride 1,000 ML 999 ML IV (15:08)
--- NOTE | 2024-05-12 15:19 | PC.NURSE ---
This RN had assessed BGL on pts arrival to ER and found to be in 400s, consistent with EMS BGL. Upon reassessment of BGLs prior to insulin drip noted to have significant drop to 100s. Assessed X3 with different glucometers. Pt denied taking any insulin while here, does not have insulin pump. Pt reports last insulin was around 12p today, 10 units. Pt remains alert and oriented, no new complaints.
[2024-05-12 15:30] LABS: Anion Gap 23 (12-20); Blood Urea Nitrogen 8 mg/dL (9-16); Calcium 9.5 mg/dL (8.4-10.2); Carbon Dioxide 10 mmol/L (22-29); Chloride 108 mmol/L (96-108); Creatinine Clr Calc Pharmacy 71.2; Estimated Glomerular Filt Rate > 60; Glucose Random 159 mg/dL (60-115); Potassium 3.9 mmol/L (3.3-5.1); Sodium 137 mmol/L (135-145)
[2024-05-12] MEDS: Dextrose 5 % and Lactated Ring 1,000 ML 150 ML IVCONT ×2 (15:58→21:32)
[2024-05-12] MEDS: Heparin Sodium,Porcine 5,000 UNIT/ML VIAL 5000 UNIT SUBCUT ×2 (16:06→22:39)
[2024-05-12] MEDS: cefTRIAXone sodium 1 GM VIAL IVPUSH (16:22)
[2024-05-12] MEDS: Potassium Chloride/H20 10 MEQ/100 ML PIGGYBACK 100 MEQ IV ×4 (16:25→20:36)
[2024-05-12 16:53] LABS: Glucose, Whole Blood 91 mg/dL (60-115)
[2024-05-12 16:59] LABS: Glucose, Whole Blood 91 mg/dL (60-115)
--- NOTE | 2024-05-12 17:19 | PHA.MEDREC ---
Addendum entered by Skye Hatch RPh 05/12/24 18:09: reviewed by [facility]. Original Note: Pharmacy Consult ? Medication Reconciliation Pharmacy has completed the medication reconciliation. Spoke to pt to confirm meds. Per pt, hasn't taken lisinopril in 6 months because of a change in provider care. Left off med rec since has not taken in several months, but patient endorses taking it for kidney protection.
[2024-05-12 17:50] LABS: VBG HCO3 19 mmol/L (22-26); VBG pCO2 32 mmHg; VBG pH 7.39 (7.32-7.43); VBG pO2 61 mmHg
[2024-05-12 17:51] LABS: Venous Blood Gas Refer to POC result
[2024-05-12 18:03] LABS: Glucose, Whole Blood 80 mg/dL (60-115)
[2024-05-12 18:04] LABS: Anion Gap 13 (12-20); Blood Urea Nitrogen 7 mg/dL (9-16); Calcium 8.5 mg/dL (8.4-10.2); Carbon Dioxide 19 mmol/L (22-29); Chloride 112 mmol/L (96-108); Creatinine Clr Calc Pharmacy 93.8; Estimated Glomerular Filt Rate > 60; Glucose Random 90 mg/dL (60-115); Potassium 4.3 mmol/L (3.3-5.1); Sodium 140 mmol/L (135-145)
[2024-05-12 18:07] LABS: Lactic Acid 1.7 mmol/L (0.5-2.0)
[2024-05-12] MEDS: Dextrose 10 % 1,000 ML 150 ML IVCONT (18:24)
[2024-05-12 19:04] LABS: Glucose, Whole Blood 120 mg/dL (60-115)
--- NOTE | 2024-05-12 19:51 | P.HPCC_ITS ---
History of Present Illness Date of Service: 05/12/24 Attending physician on admission: Reuben Osborne Chief Complaint: Generalized weakness ?The patient is a? 19-year-old female past medical history of type 1 diabetes mellitus with? proteinuria diagnosed 1 years old,? mood disorder and? multiple visits to the emergency department due to hypoglycemia in the last couple of days.? Presented today to the emergency department with generalized body ache and weakness. ? Laboratory data was consistent for DKA serum bicarb was 9, anion gap 27, serum glucose 435, beta hydroxybutyrate 5.62, positive ketones in her urine.? Urine was also positive for UTI ?ED course:? patient was given 1 L bolus and 6 units IV push of insulin. ? Insulin drip was ordered,? but unable to start due to patient? blood glucose dropping to 80.? ?Will be admitted to ICU for management of DKA, possibly requiring insulin drip? Review of Systems 2 Review of Systems: Yes all other systems are reviewed and are negative PMF Past Medical History Medical History (Updated 05/12/24 @ 20:19 by Cheyenne Peck NP) Type 1 diabetes mellitus with proteinuria Diabetes Social History Social History Household Members: Family Housing: Apartment Do you presently have visiting nurse or other home services: No Alcohol intake: never Patient Tobacco Use Status: Never used Tobacco Smoked in Last 30 Days: No Patient Interested in Nicotine Replacement: No Patient Given Instructions on How to Stop Smoking: No Second Hand Smoke Exposure: No Use of substances other than those prescribed or required for medical reasons: No Currently Displaying Signs/Symptoms of Drug Intoxication Withdrawal: No Any prior treatment program specific to substance use: No Have you been hit, kicked, punched, or otherwise hurt by someone within the past year? If so, by whom?: No Do you feel safe in your current relationship?: No Current Relationship Is there a partner from a previous relationship who is making you feel unsafe now?: No Are you made to feel afraid or neglected: No Advance Directives: No Advance Directives Information Provided: No Do you have a plan to hurt others: No Plan Recently lost weight without trying: No How much weight loss: Not applicable Eating poorly because of decreased appetite: No Nutrition screen score: 0 Patient : No : No Poor oral hygiene: No service: No Current occupational status: unemployed Meds Allergies Allergy/AdvReac Type Severity Reaction Status Date / Time No Known Allergies Allergy Verified 05/12/24 13:26 Active Medications: Current Medications Ceftriaxone Sodium (Ceftriaxone Sodium 1 Gm Vial) 1 gm IVPUSH Q24H [facility] Last Admin: 05/12/24 16:22 Dose: 1 gm Heparin Sodium (Porcine) (Heparin Sodium,Porcine 5,000 Unit/Ml Vial) 5,000 unit SUBCUT Q8H [facility] Last Admin: 05/12/24 16:06 Dose: 5,000 unit Insulin Human Regular (Myxredlin) 100 unit in 100 mls @ 6 mls/hr IVCONT .[id number] [facility]; Protocol Last Admin: 05/12/24 15:37 Dose: Not Given Dextrose (D10) 250 mls @ 750 mls/hr IV Q30M PRN PRN Reason: BG <70 Potassium Chloride (Potassium Chloride/H20) 10 meq in 100 mls @ 100 mls/hr IV Q1H [facility] Stop: 05/12/24 19:59 Last Admin: 05/12/24 19:20 Dose: 100 mls/hr Dextrose (D10) 1,000 mls @ 150 mls/hr IVCONT .[id number] [facility] Last Admin: 05/12/24 18:24 Dose: 150 mls/hr Home Medications ?Medication ?Instructions ?Recorded ?Confirmed ?Last Taken ?Type melatonin 5 mg tablet 5 mg PO BEDTIME PRN Sleep 10/13/22 05/12/24 Unknown History acetaminophen 325 mg tablet 650 mg PO Q6H PRN Pain 05/12/24 05/12/24 Unknown History (Tylenol) ibuprofen 200 mg tablet 400 mg PO Q8H PRN Pain 05/12/24 05/12/24 Unknown History insulin aspart U-100 100 unit/mL 1 sliding scale dose subcut TIDAC 05/12/24 05/12/24 05/12/24 History (3 mL) subcutaneous pen insulin glargine 100 unit/mL (3 54 unit subcut DAILY@1200 05/12/24 05/12/24 Unknown History mL) subcutaneous pen (Lantus Solostar U-100 Insulin) Physical Exam 2 Vital Signs: Vital Signs: Last Vital Signs Temp 99.2 F 05/12/24 17:00 Pulse 96 05/12/24 18:56 Resp 17 05/12/24 18:56 BP 101/59 L 05/12/24 18:56 Pulse Ox 98 05/12/24 18:56 O2 Del Method Room Air 05/12/24 18:56 BMI result Body Mass Index 27.3 ?General:? Alert oriented x3 no acute distress.? Speaking full sentences.? Speech is well articulated, thought process is coherent.? Following all commands. ?HEENT:? Head is normocephalic, atraumatic, pupils equal round reactive to light accommodation bilaterally.? Extraocular movements appear intact.? Buccal mucosa is dry, Neck is supple. ?Cardiac:? Sinus tach, Clear S1-S2, no murmurs rubs or gallops. ?Pulmonary:? Clear to auscultation, no wheezes, rales or rhonchi. ?Abdomen:? ?Abdomen soft, non-tender, non-distended. Normal bowel sounds. No pulsatile mass. No hepatosplenomegaly. ?Musculoskeletal:? Moving all 4 extremities upon request a major joints, there is no crepitus or tenderness.? The strength is 5/5 bilaterally and throughout all 4 extremities.? Gait not assessed at this point. ?Neurologic:? cranial nerves 2-12 are grossly intact.? No focal deficits noted.Motor strength as above.?? ?Skin:? Intact, no lesions, edema, erythema, clubbing or cyanosis.? No ulcers. Vascular:? 2+ pulses upper and lower extremities distally.? Results Labs 05/13/24 05:10 05/14/24 07:42 Labs: Laboratory Results - last 24 hr 05/12/24 05/12/24 05/12/24 13:28 13:35 13:36 MCV 86.5 MCH 26.8 L MCHC 30.9 L RDW 15.3 Plt Count 359 MPV 10.7 Immature Gran % (Auto) 0.5 H Neut % (Auto) 89.3 H Lymph % (Auto) 6.1 L Crowley % (Auto) 3.8 Eos % (Auto) 0.0 Baso % (Auto) 0.3 Lymph # (Auto) 0.6 L Crowley # (Auto) 0.4 Eos # (Auto) 0.0 Baso # (Auto) 0.0 Abs Immat Gran (auto) 0.05 H Absolute Neuts (auto) 9.2 H Absolute Nucleated RBC 0.000 Nucleated RBC % (auto) 0.0 VBG pH VBG pCO2 VBG pO2 VBG HCO3 VBG O2 Saturation VBG Base Excess Anion Gap 27 H Estim Creat Clear Calc 56.6 Estimated GFR > 60 POC Glucose 420 H* Random Glucose 435 H* Lactic Acid Calcium 9.2 D Total Bilirubin 0.6 AST 43 H ALT 33 H Alkaline Phosphatase 129 H Total Protein 7.9 Albumin 4.3 Beta-Hydroxybutyrate 5.62 H Urine Color Urine Appearance Urine pH Ur Specific Industry Urine Protein Urine Glucose (UA) Urine Ketones Urine Blood Urine Nitrite Ur Leukocyte Esterase Urine RBC Urine WBC Ur Squamous Epith Cells Urine Bacteria Hyaline Casts Influenza Type A (PCR) Influenza Type B (PCR) RSV RNA Qual (PCR) SARS-CoV-2 RNA (RT-PCR) 05/12/24 05/12/24 05/12/24 13:47 14:50 14:51 MCV MCH MCHC RDW Plt Count MPV Immature Gran % (Auto) Neut % (Auto) Lymph % (Auto) Crowley % (Auto) Eos % (Auto) Baso % (Auto) Lymph # (Auto) Crowley # (Auto) Eos # (Auto) Baso # (Auto) Abs Immat Gran (auto) Absolute Neuts (auto) Absolute Nucleated RBC Nucleated RBC % (auto) VBG pH 7.28 L VBG pCO2 21 VBG pO2 157 VBG HCO3 10 L VBG O2 Saturation 99.0 VBG Base Excess -13.9 Anion Gap Estim Creat Clear Calc Estimated GFR POC Glucose Random Glucose Lactic Acid Calcium Total Bilirubin AST ALT Alkaline Phosphatase Total Protein Albumin Beta-Hydroxybutyrate Urine Color Yellow Urine Appearance Clear Urine pH 5.0 Ur Specific Industry >= 1.030 H Urine Protein Trace Urine Glucose (UA) >=1000 H Urine Ketones >=160 Urine Blood Negative Urine Nitrite Negative Ur Leukocyte Esterase Trace H Urine RBC 0-2 Urine WBC 6-10 H Ur Squamous Epith Cells 0-2 Urine Bacteria None Seen Hyaline Casts 0-2 Influenza Type A (PCR) NEGATIVE Influenza Type B (PCR) NEGATIVE RSV RNA Qual (PCR) NEGATIVE SARS-CoV-2 RNA (RT-PCR) NEGATIVE 05/12/24 05/12/24 05/12/24 14:52 14:54 15:02 MCV MCH MCHC RDW Plt Count MPV Immature Gran % (Auto) Neut % (Auto) Lymph % (Auto) Crowley % (Auto) Eos % (Auto) Baso % (Auto) Lymph # (Auto) Crowley # (Auto) Eos # (Auto) Baso # (Auto) Abs Immat Gran (auto) Absolute Neuts (auto) Absolute Nucleated RBC Nucleated RBC % (auto) VBG pH VBG pCO2 VBG pO2 VBG HCO3 VBG O2 Saturation VBG Base Excess Anion Gap Estim Creat Clear Calc Estimated GFR POC Glucose 184 H 174 H 156 H Random Glucose Lactic Acid Calcium Total Bilirubin AST ALT Alkaline Phosphatase Total Protein Albumin Beta-Hydroxybutyrate Urine Color Urine Appearance Urine pH Ur Specific Industry Urine Protein Urine Glucose (UA) Urine Ketones Urine Blood Urine Nitrite Ur Leukocyte Esterase Urine RBC Urine WBC Ur Squamous Epith Cells Urine Bacteria Hyaline Casts Influenza Type A (PCR) Influenza Type B (PCR) RSV RNA Qual (PCR) SARS-CoV-2 RNA (RT-PCR) 05/12/24 05/12/24 05/12/24 15:06 15:47 16:56 MCV MCH MCHC RDW Plt Count MPV Immature Gran % (Auto) Neut % (Auto) Lymph % (Auto) Crowley % (Auto) Eos % (Auto) Baso % (Auto) Lymph # (Auto) Crowley # (Auto) Eos # (Auto) Baso # (Auto) Abs Immat Gran (auto) Absolute Neuts (auto) Absolute Nucleated RBC Nucleated RBC % (auto) VBG pH VBG pCO2 VBG pO2 VBG HCO3 VBG O2 Saturation VBG Base Excess Anion Gap 23 H Estim Creat Clear Calc 71.2 Estimated GFR > 60 POC Glucose 91 91 Random Glucose 159 H Lactic Acid Calcium 9.5 Total Bilirubin AST ALT Alkaline Phosphatase Total Protein Albumin Beta-Hydroxybutyrate Urine Color Urine Appearance Urine pH Ur Specific Industry Urine Protein Urine Glucose (UA) Urine Ketones Urine Blood Urine Nitrite Ur Leukocyte Esterase Urine RBC Urine WBC Ur Squamous Epith Cells Urine Bacteria Hyaline Casts Influenza Type A (PCR) Influenza Type B (PCR) RSV RNA Qual (PCR) SARS-CoV-2 RNA (RT-PCR) 05/12/24 05/12/24 05/12/24 17:42 17:46 17:59 MCV MCH MCHC RDW Plt Count MPV Immature Gran % (Auto) Neut % (Auto) Lymph % (Auto) Crowley % (Auto) Eos % (Auto) Baso % (Auto) Lymph # (Auto) Crowley # (Auto) Eos # (Auto) Baso # (Auto) Abs Immat Gran (auto) Absolute Neuts (auto) Absolute Nucleated RBC Nucleated RBC % (auto) VBG pH 7.39 VBG pCO2 32 VBG pO2 61 VBG HCO3 19 L VBG O2 Saturation 91.0 VBG Base Excess -4.0 Anion Gap 13 Estim Creat Clear Calc 93.8 Estimated GFR > 60 POC Glucose 80 Random Glucose 90 Lactic Acid 1.7 Calcium 8.5 D Total Bilirubin AST ALT Alkaline Phosphatase Total Protein Albumin Beta-Hydroxybutyrate Urine Color Urine Appearance Urine pH Ur Specific Industry Urine Protein Urine Glucose (UA) Urine Ketones Urine Blood Urine Nitrite Ur Leukocyte Esterase Urine RBC Urine WBC Ur Squamous Epith Cells Urine Bacteria Hyaline Casts Influenza Type A (PCR) Influenza Type B (PCR) RSV RNA Qual (PCR) SARS-CoV-2 RNA (RT-PCR) 05/12/24 19:00 MCV MCH MCHC RDW Plt Count MPV Immature Gran % (Auto) Neut % (Auto) Lymph % (Auto) Crowley % (Auto) Eos % (Auto) Baso % (Auto) Lymph # (Auto) Crowley # (Auto) Eos # (Auto) Baso # (Auto) Abs Immat Gran (auto) Absolute Neuts (auto) Absolute Nucleated RBC Nucleated RBC % (auto) VBG pH VBG pCO2 VBG pO2 VBG HCO3 VBG O2 Saturation VBG Base Excess Anion Gap Estim Creat Clear Calc Estimated GFR POC Glucose 120 H Random Glucose Lactic Acid Calcium Total Bilirubin AST ALT Alkaline Phosphatase Total Protein Albumin Beta-Hydroxybutyrate Urine Color Urine Appearance Urine pH Ur Specific Industry Urine Protein Urine Glucose (UA) Urine Ketones Urine Blood Urine Nitrite Ur Leukocyte Esterase Urine RBC Urine WBC Ur Squamous Epith Cells Urine Bacteria Hyaline Casts Influenza Type A (PCR) Influenza Type B (PCR) RSV RNA Qual (PCR) SARS-CoV-2 RNA (RT-PCR) Assessment and Plan (1) Diabetic ketoacidosis: Status: Acute (2) Type 1 diabetes mellitus with proteinuria: Status: Acute Plan 19-year-old female past medical history of type 1 diabetes mellitus with? proteinuria and? mood disorder admitted to ICU for management of DKA and UTI Neuro:? no acute issues?? Cardiac:? no acute issues Pulmonary:? no acute issues?? Renal:? ?No acute issues ?No acute issues GI:?? ?No acute issues Endo:??? type 1 diabetes with proteinuria /diabetic ketoacidosis-? patient in DKA likely from UTI,? she is compliant with insulin medication at home.? Insulin drip was held due to blood glucose dropping to 80. Will repeat chemistries.? We will initiate insulin drip if gap still not close.?Will hold lisinorpil due to soft BPs ID:? ? UTI:? no evidence of severe sepsis,? lactic is negative.? Will treat with ceftriaxone.? Urine and blood cultures are pending Heme/Onc:? No acute issues. Psych:? No acute issues. Miscellaneous:? No acute issues. Prophylaxis: subQ heparin Diet: ? NPO? with sips of water ice chips Critical care time: does not qualify for critical care? CODE: FULL
[2024-05-12 20:16] LABS: VBG Base Excess -5.7 mmol/L; VBG HCO3 18 mmol/L (22-26); VBG pCO2 30 mmHg; VBG pH 7.38 (7.32-7.43); VBG pO2 70 mmHg
[2024-05-12 20:17] LABS: Venous Blood Gas Refer to POC result
[2024-05-12 20:34] LABS: Anion Gap 12 (12-20); Blood Urea Nitrogen 5 mg/dL (9-16); Calcium 8.2 mg/dL (8.4-10.2); Carbon Dioxide 17 mmol/L (22-29); Chloride 111 mmol/L (96-108); Creatinine Clr Calc Pharmacy 92.5; Estimated Glomerular Filt Rate > 60; Glucose Random 206 mg/dL (60-115); Potassium 4.9 mmol/L (3.3-5.1); Sodium 135 mmol/L (135-145)
[2024-05-12 20:59] LABS: Glucose, Whole Blood 297 mg/dL (60-115)
[2024-05-12] MEDS: Insulin Regular/NS 100 UNIT/100 ML PLAST..BAG IVCONT (20:59)
[2024-05-12 22:00] LABS: Barbiturates, Urine Not Detected (Not Detect); Benzodiazepines Screen Urine Not Detected (Not Detect); Buprenorphine Scr Not Detected (Not Detect); Cannabinoid Screen Urine POSITIVE (Not Detect); Cocaine Screen Urine Not Detected (Not Detect); Fentanyl, urine Not Detected (Not Detect); Methadone Screen, Urine Not Detected (Not Detect); Opiate Screen Urine Not Detected (Not Detect); Oxycodone Screen Urine Not Detected (Not Detect); Phencyclidine Screen Urine Not Detected (Not Detect)
[2024-05-12 22:07] LABS: Glucose, Whole Blood 421 mg/dL (60-115)
[2024-05-12 22:08] LABS: Amphetamine Screen Urine Not Detected (Not Detect)
[2024-05-12] MEDS: Melatonin 3 MG TABLET 6 MG PO (22:39)
[2024-05-12 23:08] LABS: Glucose, Whole Blood 386 mg/dL (60-115)
[2024-05-13] VITALS (15 sets, daily range): BP systolic 95–114; BP diastolic 46–68; PULSE 78–110; RESP 15–20; TEMP 36.5–37.4; O2SAT 96–99; BMI 27.3
[2024-05-13 00:04] LABS: Glucose, Whole Blood 310 mg/dL (60-115)
[2024-05-13 01:04] LABS: Glucose, Whole Blood 439 mg/dL (60-115)
[2024-05-13 02:04] LABS: Glucose, Whole Blood 260 mg/dL (60-115)
[2024-05-13 03:19] LABS: Glucose, Whole Blood 164 mg/dL (60-115)
[2024-05-13 04:13] LABS: Glucose, Whole Blood 186 mg/dL (60-115)
[2024-05-13 05:06] LABS: Glucose, Whole Blood 280 mg/dL (60-115)
[2024-05-13] MEDS: Dextrose 5 % and Lactated Ring 1,000 ML 100 ML IVCONT (05:11)
[2024-05-13 05:17] LABS: VBG HCO3 18 mmol/L (22-26); VBG pCO2 24 mmHg; VBG pH 7.48 (7.32-7.43); VBG pO2 73 mmHg
[2024-05-13 05:19] LABS: Venous Blood Gas Refer to POC result
[2024-05-13 05:24] LABS: Basophils Absolute Auto 0.1 X10*3/uL (0.0-0.2); Basophils Percent Auto 0.6 % (0-2); Eosinophils Absolute Auto 0.1 X10*3/uL (0.0-0.4); Eosinophils Percent Auto 0.8 % (0-4); Hematocrit 30.8 % (37.0-47.0); Hemoglobin 9.7 g/dl (12.0-16.0); Imm Gran Abs Auto 0.03 X10*3/uL (0.00-0.03); Imm Gran Pct Auto 0.4 % (0.0-0.4); Lymphocytes Absolute Auto 2.8 X10*3/uL (1.2-4.9); Lymphocytes Percent Auto 33.7 % (20-40); MANUAL DIFF FLAG NO; Mean Corpuscular HGB Conc 31.5 g/dl (31.0-35.0); Mean Corpuscular Hemoglobin 26.6 pg (27.0-33.0); Mean Corpuscular Volume 84.4 fL (80.0-98.0); Mean Platelet Volume 10.5 fL (9.4-12.3); Monocytes Absolute Auto 0.8 X10*3/uL (0.1-1.2); Neutrophils Absolute Auto 4.6 x10*3/uL (2.0-8.3); Neutrophils Percent Auto 54.5 % (45-73); Platelet Count 276 X10*3/uL (160-400); Red Blood Count 3.65 X10*6/uL (4.20-5.50); Red Cell Distribution Width 15.6 % (11.0-16.0); White Blood Count 8.4 X10*3/uL (4.8-10.8)
[2024-05-13 05:42] LABS: Albumin Level 3.2 g/dL (3.5-5.0); Anion Gap 12 (12-20); Blood Urea Nitrogen 5 mg/dL (9-16); Calcium 8.4 mg/dL (8.4-10.2); Carbon Dioxide 19 mmol/L (22-29); Chloride 110 mmol/L (96-108); Creatinine Clr Calc Pharmacy 93.8; Estimated Glomerular Filt Rate > 60; Glucose Random 304 mg/dL (60-115); Magnesium 1.7 mg/dL (1.6-2.6); Phosphorus 2.2 mg/dL (2.7-4.5); Sodium 137 mmol/L (135-145)
[2024-05-13 06:11] LABS: Glucose, Whole Blood 220 mg/dL (60-115)
[2024-05-13 07:07] LABS: Glucose, Whole Blood 151 mg/dL (60-115)
[2024-05-13 08:05] LABS: Glucose, Whole Blood 130 mg/dL (60-115)
[2024-05-13] MEDS: Potassium Phosphate/NS 15 MMOL/250 ML PLAST..BAG 62.5 MMOL IV (08:13)
[2024-05-13] MEDS: Heparin Sodium,Porcine 5,000 UNIT/ML VIAL 5000 UNIT SUBCUT ×3 (08:14→23:19)
[2024-05-13] MEDS: Insulin Glargine,Hum.rec.anlog 100 UNIT/ML 10 ML VIAL 40 UNIT SUBCUT (08:37)
--- NOTE | 2024-05-13 09:59 | MHC.CM.PN ---
Pt receiving care in ICU for DKA: presently staying with her sister in [place] but will d/c back to [place] with her mother at d/c. Pt has a provider in [place] and has no barriers to DM management. Family to transport. CM to follow.
--- NOTE | 2024-05-13 10:29 | PM.CCPN ---
Subjective Subjective Date of Service: 05/13/24 Critical Care Time (minutes): 35 Comment: Better, gap closed. Turned off insulin drip at 08:00 o'clock this morning, switch to subcutaneous Lantus Physical Exam Vital Signs: Vital Signs: Last Vital Signs Temp 98.0 F 05/13/24 08:00 Pulse 81 05/13/24 10:00 Resp 16 05/13/24 10:00 BP 106/54 L 05/13/24 10:00 Pulse Ox 97 05/13/24 10:00 O2 Del Method Room Air 05/13/24 10:00 BMI result Body Mass Index 27.3 General: Not in acute distress Nutritional Appearance: well nourished and overweight Eyes: appearance normal, both eyes and all related structures; Alignment and Position: alignment normal and position normal Neck: No lymphadenopathy, no thyromegaly Resp: bilateral air entry equal, no added sounds present Cardio: Regular rate, regular rhythm; Heart sounds: S1 normal heart sound present and S2 normal heart sound present GI: soft, nontender, no guarding, no hepatosplenomegaly : bladder normal to inspection, bladder normal to palpation, no renal angle tenderness Skin: no rashes or lesions noted and elasticity normal Neuro: oriented to person, oriented to place, oriented to time and moves all extremities Objective Data Labs 05/13/24 05:10 05/13/24 05:10 Labs: Laboratory Results - last 24 hr 05/12/24 05/12/24 05/12/24 13:28 13:35 13:36 WBC 10.3 RBC 4.52 Hgb 12.1 Hct 39.1 MCV 86.5 MCH 26.8 L MCHC 30.9 L RDW 15.3 Plt Count 359 MPV 10.7 Immature Gran % (Auto) 0.5 H Neut % (Auto) 89.3 H Lymph % (Auto) 6.1 L Ransom % (Auto) 3.8 Eos % (Auto) 0.0 Baso % (Auto) 0.3 Lymph # (Auto) 0.6 L [place] # (Auto) 0.4 Eos # (Auto) 0.0 Baso # (Auto) 0.0 Abs Immat Gran (auto) 0.05 H Absolute Neuts (auto) 9.2 H Absolute Nucleated RBC 0.000 Nucleated RBC % (auto) 0.0 VBG pH VBG pCO2 VBG pO2 VBG HCO3 VBG O2 Saturation VBG Base Excess Sodium 137 Potassium 3.9 Chloride 105 Carbon Dioxide 9 L* D Anion Gap 27 H BUN 9 Creatinine 1.12 Estim Creat Clear Calc 56.6 Estimated GFR > 60 POC Glucose 420 H* Random Glucose 435 H* Lactic Acid Calcium 9.2 D Phosphorus Magnesium Total Bilirubin 0.6 AST 43 H ALT 33 H Alkaline Phosphatase 129 H Total Protein 7.9 Albumin 4.3 Beta-Hydroxybutyrate 5.62 H Urine Color Urine Appearance Urine pH Ur Specific [place] Urine Protein Urine Glucose (UA) Urine Ketones Urine Blood Urine Nitrite Ur Leukocyte Esterase Urine RBC Urine WBC Ur Squamous Epith Cells Urine Bacteria Hyaline Casts Urine Opiates Screen Ur Buprenorphine Scrn Ur Oxycodone Screen Urine Methadone Screen Urine Fentanyl Screen Ur Barbiturates Screen Ur Phencyclidine Scrn Ur Amphetamines Screen U Benzodiazepines Scrn Urine Cocaine Screen U Marijuana (THC) Screen Influenza Type A (PCR) Influenza Type B (PCR) RSV RNA Qual (PCR) SARS-CoV-2 RNA (RT-PCR) 05/12/24 05/12/24 05/12/24 13:47 14:50 14:51 WBC RBC Hgb Hct MCV MCH MCHC RDW Plt Count MPV Immature Gran % (Auto) Neut % (Auto) Lymph % (Auto) Ransom % (Auto) Eos % (Auto) Baso % (Auto) Lymph # (Auto) Ransom # (Auto) Eos # (Auto) Baso # (Auto) Abs Immat Gran (auto) Absolute Neuts (auto) Absolute Nucleated RBC Nucleated RBC % (auto) VBG pH 7.28 L VBG pCO2 21 VBG pO2 157 VBG HCO3 10 L VBG O2 Saturation 99.0 VBG Base Excess -13.9 Sodium Potassium Chloride Carbon Dioxide Anion Gap BUN Creatinine Estim Creat Clear Calc Estimated GFR POC Glucose Random Glucose Lactic Acid Calcium Phosphorus Magnesium Total Bilirubin AST ALT Alkaline Phosphatase Total Protein Albumin Beta-Hydroxybutyrate Urine Color Yellow Urine Appearance Clear Urine pH 5.0 Ur Specific [place] >= 1.030 H Urine Protein Trace Urine Glucose (UA) >=1000 H Urine Ketones >=160 Urine Blood Negative Urine Nitrite Negative Ur Leukocyte Esterase Trace H Urine RBC 0-2 Urine WBC 6-10 H Ur Squamous Epith Cells 0-2 Urine Bacteria None Seen Hyaline Casts 0-2 Urine Opiates Screen Ur Buprenorphine Scrn Ur Oxycodone Screen Urine Methadone Screen Urine Fentanyl Screen Ur Barbiturates Screen Ur Phencyclidine Scrn Ur Amphetamines Screen U Benzodiazepines Scrn Urine Cocaine Screen U Marijuana (THC) Screen Influenza Type A (PCR) NEGATIVE Influenza Type B (PCR) NEGATIVE RSV RNA Qual (PCR) NEGATIVE SARS-CoV-2 RNA (RT-PCR) NEGATIVE 05/12/24 05/12/24 05/12/24 14:52 14:54 15:02 WBC RBC Hgb Hct MCV MCH MCHC RDW Plt Count MPV Immature Gran % (Auto) Neut % (Auto) Lymph % (Auto) Ransom % (Auto) Eos % (Auto) Baso % (Auto) Lymph # (Auto) [place] # (Auto) Eos # (Auto) Baso # (Auto) Abs Immat Gran (auto) Absolute Neuts (auto) Absolute Nucleated RBC Nucleated RBC % (auto) VBG pH VBG pCO2 VBG pO2 VBG HCO3 VBG O2 Saturation VBG Base Excess Sodium Potassium Chloride Carbon Dioxide Anion Gap BUN Creatinine Estim Creat Clear Calc Estimated GFR POC Glucose 184 H 174 H 156 H Random Glucose Lactic Acid Calcium Phosphorus Magnesium Total Bilirubin AST ALT Alkaline Phosphatase Total Protein Albumin Beta-Hydroxybutyrate Urine Color Urine Appearance Urine pH Ur Specific [place] Urine Protein Urine Glucose (UA) Urine Ketones Urine Blood Urine Nitrite Ur Leukocyte Esterase Urine RBC Urine WBC Ur Squamous Epith Cells Urine Bacteria Hyaline Casts Urine Opiates Screen Ur Buprenorphine Scrn Ur Oxycodone Screen Urine Methadone Screen Urine Fentanyl Screen Ur Barbiturates Screen Ur Phencyclidine Scrn Ur Amphetamines Screen U Benzodiazepines Scrn Urine Cocaine Screen U Marijuana (THC) Screen Influenza Type A (PCR) Influenza Type B (PCR) RSV RNA Qual (PCR) SARS-CoV-2 RNA (RT-PCR) 05/12/24 05/12/24 05/12/24 15:06 15:47 16:56 WBC RBC Hgb Hct MCV MCH MCHC RDW Plt Count MPV Immature Gran % (Auto) Neut % (Auto) Lymph % (Auto) Ransom % (Auto) Eos % (Auto) Baso % (Auto) Lymph # (Auto) [place] # (Auto) Eos # (Auto) Baso # (Auto) Abs Immat Gran (auto) Absolute Neuts (auto) Absolute Nucleated RBC Nucleated RBC % (auto) VBG pH VBG pCO2 VBG pO2 VBG HCO3 VBG O2 Saturation VBG Base Excess Sodium 137 Potassium 3.9 Chloride 108 Carbon Dioxide 10 L* Anion Gap 23 H BUN 8 L Creatinine 0.89 Estim Creat Clear Calc 71.2 Estimated GFR > 60 POC Glucose 91 91 Random Glucose 159 H Lactic Acid Calcium 9.5 Phosphorus Magnesium Total Bilirubin AST ALT Alkaline Phosphatase Total Protein Albumin Beta-Hydroxybutyrate Urine Color Urine Appearance Urine pH Ur Specific [place] Urine Protein Urine Glucose (UA) Urine Ketones Urine Blood Urine Nitrite Ur Leukocyte Esterase Urine RBC Urine WBC Ur Squamous Epith Cells Urine Bacteria Hyaline Casts Urine Opiates Screen Ur Buprenorphine Scrn Ur Oxycodone Screen Urine Methadone Screen Urine Fentanyl Screen Ur Barbiturates Screen Ur Phencyclidine Scrn Ur Amphetamines Screen U Benzodiazepines Scrn Urine Cocaine Screen U Marijuana (THC) Screen Influenza Type A (PCR) Influenza Type B (PCR) RSV RNA Qual (PCR) SARS-CoV-2 RNA (RT-PCR) 05/12/24 05/12/24 05/12/24 17:42 17:46 17:59 WBC RBC Hgb Hct MCV MCH MCHC RDW Plt Count MPV Immature Gran % (Auto) Neut % (Auto) Lymph % (Auto) R[place] % (Auto) Eos % (Auto) Baso % (Auto) Lymph # (Auto) [place] # (Auto) Eos # (Auto) Baso # (Auto) Abs Immat Gran (auto) Absolute Neuts (auto) Absolute Nucleated RBC Nucleated RBC % (auto) VBG pH 7.39 VBG pCO2 32 VBG pO2 61 VBG HCO3 19 L VBG O2 Saturation 91.0 VBG Base Excess -4.0 Sodium 140 Potassium 4.3 Chloride 112 H Carbon Dioxide 19 L Anion Gap 13 BUN 7 L Creatinine 0.69 Estim Creat Clear Calc 93.8 Estimated GFR > 60 POC Glucose 80 Random Glucose 90 Lactic Acid 1.7 Calcium 8.5 D Phosphorus Magnesium Total Bilirubin AST ALT Alkaline Phosphatase Total Protein Albumin Beta-Hydroxybutyrate Urine Color Urine Appearance Urine pH Ur Specific [place] Urine Protein Urine Glucose (UA) Urine Ketones Urine Blood Urine Nitrite Ur Leukocyte Esterase Urine RBC Urine WBC Ur Squamous Epith Cells Urine Bacteria Hyaline Casts Urine Opiates Screen Ur Buprenorphine Scrn Ur Oxycodone Screen Urine Methadone Screen Urine Fentanyl Screen Ur Barbiturates Screen Ur Phencyclidine Scrn Ur Amphetamines Screen U Benzodiazepines Scrn Urine Cocaine Screen U Marijuana (THC) Screen Influenza Type A (PCR) Influenza Type B (PCR) RSV RNA Qual (PCR) SARS-CoV-2 RNA (RT-PCR) 05/12/24 05/12/24 05/12/24 19:00 20:06 20:11 WBC RBC Hgb Hct MCV MCH MCHC RDW Plt Count MPV Immature Gran % (Auto) Neut % (Auto) Lymph % (Auto) [place] % (Auto) Eos % (Auto) Baso % (Auto) Lymph # (Auto) [place] # (Auto) Eos # (Auto) Baso # (Auto) Abs Immat Gran (auto) Absolute Neuts (auto) Absolute Nucleated RBC Nucleated RBC % (auto) VBG pH 7.38 VBG pCO2 30 VBG pO2 70 VBG HCO3 18 L VBG O2 Saturation 95.0 VBG Base Excess -5.7 Sodium 135 Potassium 4.9 Chloride 111 H Carbon Dioxide 17 L Anion Gap 12 BUN 5 L Creatinine 0.70 Estim Creat Clear Calc 92.5 Estimated GFR > 60 POC Glucose 120 H Random Glucose 206 H Lactic Acid Calcium 8.2 L Phosphorus Magnesium Total Bilirubin AST ALT Alkaline Phosphatase Total Protein Albumin Beta-Hydroxybutyrate Urine Color Urine Appearance Urine pH Ur Specific [place] Urine Protein Urine Glucose (UA) Urine Ketones Urine Blood Urine Nitrite Ur Leukocyte Esterase Urine RBC Urine WBC Ur Squamous Epith Cells Urine Bacteria Hyaline Casts Urine Opiates Screen Ur Buprenorphine Scrn Ur Oxycodone Screen Urine Methadone Screen Urine Fentanyl Screen Ur Barbiturates Screen Ur Phencyclidine Scrn Ur Amphetamines Screen U Benzodiazepines Scrn Urine Cocaine Screen U Marijuana (THC) Screen Influenza Type A (PCR) Influenza Type B (PCR) RSV RNA Qual (PCR) SARS-CoV-2 RNA (RT-PCR) 05/12/24 05/12/24 05/12/24 20:56 21:13 22:03 WBC RBC Hgb Hct MCV MCH MCHC RDW Plt Count MPV Immature Gran % (Auto) Neut % (Auto) Lymph % (Auto) [place] % (Auto) Eos % (Auto) Baso % (Auto) Lymph # (Auto) [place] # (Auto) Eos # (Auto) Baso # (Auto) Abs Immat Gran (auto) Absolute Neuts (auto) Absolute Nucleated RBC Nucleated RBC % (auto) VBG pH VBG pCO2 VBG pO2 VBG HCO3 VBG O2 Saturation VBG Base Excess Sodium Potassium Chloride Carbon Dioxide Anion Gap BUN Creatinine Estim Creat Clear Calc Estimated GFR POC Glucose 297 H 421 H* Random Glucose Lactic Acid Calcium Phosphorus Magnesium Total Bilirubin AST ALT Alkaline Phosphatase Total Protein Albumin Beta-Hydroxybutyrate Urine Color Urine Appearance Urine pH Ur Specific [place] Urine Protein Urine Glucose (UA) Urine Ketones Urine Blood Urine Nitrite Ur Leukocyte Esterase Urine RBC Urine WBC Ur Squamous Epith Cells Urine Bacteria Hyaline Casts Urine Opiates Screen Not Detected Ur Buprenorphine Scrn Not Detected Ur Oxycodone Screen Not Detected Urine Methadone Screen Not Detected Urine Fentanyl Screen Not Detected Ur Barbiturates Screen Not Detected Ur Phencyclidine Scrn Not Detected Ur Amphetamines Screen Not Detected U Benzodiazepines Scrn Not Detected Urine Cocaine Screen Not Detected U Marijuana (THC) Screen POSITIVE H Influenza Type A (PCR) Influenza Type B (PCR) RSV RNA Qual (PCR) SARS-CoV-2 RNA (RT-PCR) 05/12/24 05/13/24 05/13/24 23:05 00:00 01:00 WBC RBC Hgb Hct MCV MCH MCHC RDW Plt Count MPV Immature Gran % (Auto) Neut % (Auto) Lymph % (Auto) [place] % (Auto) Eos % (Auto) Baso % (Auto) Lymph # (Auto) [place] # (Auto) Eos # (Auto) Baso # (Auto) Abs Immat Gran (auto) Absolute Neuts (auto) Absolute Nucleated RBC Nucleated RBC % (auto) VBG pH VBG pCO2 VBG pO2 VBG HCO3 VBG O2 Saturation VBG Base Excess Sodium Potassium Chloride Carbon Dioxide Anion Gap BUN Creatinine Estim Creat Clear Calc Estimated GFR POC Glucose 386 H* 310 H 439 H* Random Glucose Lactic Acid Calcium Phosphorus Magnesium Total Bilirubin AST ALT Alkaline Phosphatase Total Protein Albumin Beta-Hydroxybutyrate Urine Color Urine Appearance Urine pH Ur Specific [place] Urine Protein Urine Glucose (UA) Urine Ketones Urine Blood Urine Nitrite Ur Leukocyte Esterase Urine RBC Urine WBC Ur Squamous Epith Cells Urine Bacteria Hyaline Casts Urine Opiates Screen Ur Buprenorphine Scrn Ur Oxycodone Screen Urine Methadone Screen Urine Fentanyl Screen Ur Barbiturates Screen Ur Phencyclidine Scrn Ur Amphetamines Screen U Benzodiazepines Scrn Urine Cocaine Screen U Marijuana (THC) Screen Influenza Type A (PCR) Influenza Type B (PCR) RSV RNA Qual (PCR) SARS-CoV-2 RNA (RT-PCR) 05/13/24 05/13/24 05/13/24 02:00 03:14 04:03 WBC RBC Hgb Hct MCV MCH MCHC RDW Plt Count MPV Immature Gran % (Auto) Neut % (Auto) Lymph % (Auto) [place] % (Auto) Eos % (Auto) Baso % (Auto) Lymph # (Auto) [place] # (Auto) Eos # (Auto) Baso # (Auto) Abs Immat Gran (auto) Absolute Neuts (auto) Absolute Nucleated RBC Nucleated RBC % (auto) VBG pH VBG pCO2 VBG pO2 VBG HCO3 VBG O2 Saturation VBG Base Excess Sodium Potassium Chloride Carbon Dioxide Anion Gap BUN Creatinine Estim Creat Clear Calc Estimated GFR POC Glucose 260 H 164 H 186 H Random Glucose Lactic Acid Calcium Phosphorus Magnesium Total Bilirubin AST ALT Alkaline Phosphatase Total Protein Albumin Beta-Hydroxybutyrate Urine Color Urine Appearance Urine pH Ur Specific [place] Urine Protein Urine Glucose (UA) Urine Ketones Urine Blood Urine Nitrite Ur Leukocyte Esterase Urine RBC Urine WBC Ur Squamous Epith Cells Urine Bacteria Hyaline Casts Urine Opiates Screen Ur Buprenorphine Scrn Ur Oxycodone Screen Urine Methadone Screen Urine Fentanyl Screen Ur Barbiturates Screen Ur Phencyclidine Scrn Ur Amphetamines Screen U Benzodiazepines Scrn Urine Cocaine Screen U Marijuana (THC) Screen Influenza Type A (PCR) Influenza Type B (PCR) RSV RNA Qual (PCR) SARS-CoV-2 RNA (RT-PCR) 05/13/24 05/13/24 05/13/24 05:02 05:05 05:10 WBC 8.4 RBC 3.65 L Hgb 9.7 L Hct 30.8 L D MCV 84.4 MCH 26.6 L MCHC 31.5 RDW 15.6 Plt Count 276 MPV 10.5 Immature Gran % (Auto) 0.4 Neut % (Auto) 54.5 Lymph % (Auto) 33.7 [place] % (Auto) 10.0 Eos % (Auto) 0.8 Baso % (Auto) 0.6 Lymph # (Auto) 2.8 [place] # (Auto) 0.8 Eos # (Auto) 0.1 Baso # (Auto) 0.1 Abs Immat Gran (auto) 0.03 Absolute Neuts (auto) 4.6 Absolute Nucleated RBC 0.000 Nucleated RBC % (auto) 0.0 VBG pH 7.48 H VBG pCO2 24 VBG pO2 73 VBG HCO3 18 L VBG O2 Saturation 98.0 VBG Base Excess -4.0 Sodium 137 Potassium 4.0 Chloride 110 H Carbon Dioxide 19 L Anion Gap 12 BUN 5 L Creatinine 0.69 Estim Creat Clear Calc 93.8 Estimated GFR > 60 POC Glucose 280 H Random Glucose 304 H Lactic Acid Calcium 8.4 Phosphorus 2.2 L Magnesium 1.7 Total Bilirubin AST ALT Alkaline Phosphatase Total Protein Albumin 3.2 L Beta-Hydroxybutyrate Urine Color Urine Appearance Urine pH Ur Specific [place] Urine Protein Urine Glucose (UA) Urine Ketones Urine Blood Urine Nitrite Ur Leukocyte Esterase Urine RBC Urine WBC Ur Squamous Epith Cells Urine Bacteria Hyaline Casts Urine Opiates Screen Ur Buprenorphine Scrn Ur Oxycodone Screen Urine Methadone Screen Urine Fentanyl Screen Ur Barbiturates Screen Ur Phencyclidine Scrn Ur Amphetamines Screen U Benzodiazepines Scrn Urine Cocaine Screen U Marijuana (THC) Screen Influenza Type A (PCR) Influenza Type B (PCR) RSV RNA Qual (PCR) SARS-CoV-2 RNA (RT-PCR) 05/13/24 05/13/24 05/13/24 06:06 07:03 08:01 WBC RBC Hgb Hct MCV MCH MCHC RDW Plt Count MPV Immature Gran % (Auto) Neut % (Auto) Lymph % (Auto) [place] % (Auto) Eos % (Auto) Baso % (Auto) Lymph # (Auto) [place] # (Auto) Eos # (Auto) Baso # (Auto) Abs Immat Gran (auto) Absolute Neuts (auto) Absolute Nucleated RBC Nucleated RBC % (auto) VBG pH VBG pCO2 VBG pO2 VBG HCO3 VBG O2 Saturation VBG Base Excess Sodium Potassium Chloride Carbon Dioxide Anion Gap BUN Creatinine Estim Creat Clear Calc Estimated GFR POC Glucose 220 H 151 H 130 H Random Glucose Lactic Acid Calcium Phosphorus Magnesium Total Bilirubin AST ALT Alkaline Phosphatase Total Protein Albumin Beta-Hydroxybutyrate Urine Color Urine Appearance Urine pH Ur Specific [place] Urine Protein Urine Glucose (UA) Urine Ketones Urine Blood Urine Nitrite Ur Leukocyte Esterase Urine RBC Urine WBC Ur Squamous Epith Cells Urine Bacteria Hyaline Casts Urine Opiates Screen Ur Buprenorphine Scrn Ur Oxycodone Screen Urine Methadone Screen Urine Fentanyl Screen Ur Barbiturates Screen Ur Phencyclidine Scrn Ur Amphetamines Screen U Benzodiazepines Scrn Urine Cocaine Screen U Marijuana (THC) Screen Influenza Type A (PCR) Influenza Type B (PCR) RSV RNA Qual (PCR) SARS-CoV-2 RNA (RT-PCR) Progress Note: A&P Assessment and plan (1) Diabetic ketoacidosis: Status: Acute (2) Diabetes: Status: Acute (3) Diabetic ketoacidosis: Status: Acute Plan DKA: Uncontrolled type 1 diabetes mellitus: Admitted to the hospital for the management of DKA possibly secondary to urinary tract infection Her anion gap closed this morning, insulin drip was switched to subcu insulin. She is on 54 units of subcutaneous insulin at home, we gave her 40 units of Lantus this morning. We will repeat a BMP if the gap looks okay and sugars looks okay for next couple of hours we will transfer her to floor. Urinary tract infection: UA showing 6-10 WBCs, cultures pending On empiric ceftriaxone Quality Stroke Does the patient have a stroke diagnosis?: No VTE Prior VTE?: No VTE Risk Level:: Medical - moderate - high VTE Device Contraindication: Treatment Not Indicated VTE Drug Contraindication: N/A - Med Ordered
[2024-05-13 11:07] LABS: Glucose, Whole Blood 151 mg/dL (60-115)
[2024-05-13 11:07] LABS: Anion Gap 13 (12-20); Blood Urea Nitrogen 5 mg/dL (9-16); Calcium 8.1 mg/dL (8.4-10.2); Carbon Dioxide 20 mmol/L (22-29); Chloride 111 mmol/L (96-108); Creatinine Clr Calc Pharmacy 102.7; Estimated Glomerular Filt Rate > 60; Glucose Random 181 mg/dL (60-115); Sodium 140 mmol/L (135-145)
[2024-05-13] MEDS: Insulin Lispro 100 UNIT/ML 3 ML VIAL SUBCUT ×3 (11:18→20:57)
[2024-05-13 14:11] LABS: Glucose, Whole Blood 189 mg/dL (60-115)
[2024-05-13] MEDS: Lactated Ringers 1,000 ML 125 ML IVCONT ×2 (15:29→23:19)
[2024-05-13] MEDS: cefTRIAXone sodium 1 GM VIAL IVPUSH (15:29)
[2024-05-13 16:40] LABS: Glucose, Whole Blood 278 mg/dL (60-115)
[2024-05-13 20:56] LABS: Glucose, Whole Blood 168 mg/dL (60-115)
[2024-05-14 03:31] VITALS: BP 106/63; PULSE 71; RESP 18; TEMP 36.6; O2SAT 98
[2024-05-14] MEDS: Lactated Ringers 1,000 ML 125 ML IVCONT (06:25)
[2024-05-14 07:21] VITALS: BP 108/73; PULSE 65; RESP 16; TEMP 36.4; O2SAT 97
[2024-05-14 07:30] LABS: Glucose, Whole Blood 137 mg/dL (60-115)
[2024-05-14] MEDS: Insulin Lispro 100 UNIT/ML 3 ML VIAL SUBCUT (07:46)
[2024-05-14] MEDS: Heparin Sodium,Porcine 5,000 UNIT/ML VIAL 5000 UNIT SUBCUT (07:47)
[2024-05-14] MEDS: Insulin Glargine,Hum.rec.anlog 100 UNIT/ML 10 ML VIAL 40 UNIT SUBCUT (07:47)
[2024-05-14 08:33] LABS: Anion Gap 13 (12-20); Blood Urea Nitrogen 7 mg/dL (9-16); Calcium 8.3 mg/dL (8.4-10.2); Carbon Dioxide 22 mmol/L (22-29); Chloride 110 mmol/L (96-108); Creatinine Clr Calc Pharmacy 115.6; Estimated Glomerular Filt Rate > 60; Glucose Random 134 mg/dL (60-115); Potassium 3.7 mmol/L (3.3-5.1); Sodium 141 mmol/L (135-145)
--- NOTE | 2024-05-14 08:49 | P.DS_ITS ---
DS: Providers Provider Date of Service: 05/14/24 Date of admission: 05/12/24 15:44 Primary care physician: None Physician DS: Diagnosis Discharge Diagnosis (1) Diabetic ketoacidosis: Status: Acute (2) Diabetes: Status: Acute DS: Summary Hospital Course Hospital Course: admission hpi from critical care MD Chief Complaint: Generalized weakness ?The patient is a? 19-year-old female past medical history of type 1 diabetes mellitus with? proteinuria diagnosed 1 years old,? mood disorder and? multiple visits to the emergency department due to hypoglycemia in the last couple of days.? Presented today to the emergency department with generalized body ache and weakness. ? Laboratory data was consistent for DKA serum bicarb was 9, anion gap 27, serum glucose 435, beta hydroxybutyrate 5.62, positive ketones in her urine.? Urine was also positive for UTI ?ED course:? patient was given 1 L bolus and 6 units IV push of insulin. ? Insulin drip was ordered,? but unable to start due to patient? blood glucose dropping to 80.? ?Will be admitted to ICU for management of DKA, possibly requiring insulin drip? Hospital course: The patient was admitted to the ICU for management of DKA, possibly precipitated by a UTI, requiring an insulin drip along with IV fluids. By the following day, the anion gap had closed, and the DKA resolved. The patient was restarted on long-acting insulin (Lantus) and is now tolerating a regular diet. Upon discharge, she will resume her home insulin regimen. Regarding the UTI, she was treated with ceftriaxone, and the urine culture is negative. She will transition to oral Ceftin for 5 days. Time Attestation Discharge Coordination Time (in mins): 35 Quality: Safe Use of Opioids Does Pt have an Active Cancer Diagnosis on the Problem List?: No Quality: Stroke Does the patient have a stroke diagnosis?: No Physical Exam Vital Signs: Vital Signs: Last Vital Signs Temp 97.5 F 05/14/24 07:21 Pulse 65 05/14/24 07:21 Resp 16 05/14/24 07:21 BP 108/73 05/14/24 07:21 Pulse Ox 97 05/14/24 07:21 O2 Del Method Room Air 05/14/24 07:21 BMI result Body Mass Index 27.3 Const: Other: General: AO X 3, no acute distress Resp: CTA bilateral CVS: S1,S2,RRR GI: +BS, NT, no distention Skin: No rash Neuro: motor grossly intact Psych: appropriate affect DS: Data Data Completed and Pending Labs on day of discharge: Laboratory Results - last 24 hr 05/13/24 05/13/24 05/13/24 10:32 11:04 14:02 Hold Purple Top SEE NOTE Sodium 140 Potassium 4.0 Chloride 111 H Carbon Dioxide 20 L Anion Gap 13 BUN 5 L Creatinine 0.63 Estim Creat Clear Calc 102.7 Estimated GFR > 60 POC Glucose 151 H 189 H Random Glucose 181 H Calcium 8.1 L 05/13/24 05/13/24 05/14/24 16:36 20:53 07:24 Hold Purple Top Sodium Potassium Chloride Carbon Dioxide Anion Gap BUN Creatinine Estim Creat Clear Calc Estimated GFR POC Glucose 278 H 168 H 137 H Random Glucose Calcium 05/14/24 07:42 Hold Purple Top Sodium 141 Potassium 3.7 Chloride 110 H Carbon Dioxide 22 Anion Gap 13 BUN 7 L Creatinine 0.56 Estim Creat Clear Calc 115.6 Estimated GFR > 60 POC Glucose Random Glucose 134 H Calcium 8.3 L Preliminary micro results at discharge 05/12/24 16:19 Blood Culture - Preliminary Blood - Venous No growth after 24 hours. 05/12/24 16:08 Blood Culture - Preliminary Blood - Venous No growth after 24 hours. Discharge Plan Discharge Anticipated Discharge Date/Time: 05/14/24 08:48 Patient Disposition: Home, Self-Care Discharge Diagnosis: DKA Referrals: Physician,None [Primary Care Provider] - 1 Week Discharge Medications: New cefuroxime axetil 250 mg tablet 250 mg PO BID 3 Days Qty: 6 0RF Continued melatonin 5 mg Tablet 5 mg PO BEDTIME PRN (Reason: Sleep) (DME) FreeStyle Lite Strips Strip Qty: 100 0RF Rx Instructions: Test four times a day or as directed. (DME) blood-glucose meter [FreeStyle Lite Meter] Kit Qty: 1 0RF Rx Instructions: As Directed (DME) pen needle, diabetic 32 gauge x 1/4 needle Qty: 100 0RF Rx Instructions: Use four times a day or as directed. (DME) lancets [FreeStyle Lancets] 28 gauge misc Qty: 100 0RF Rx Instructions: Test four times a day or as directed. insulin aspart U-100 100 unit/mL (3 mL) insulin pen 1 sliding scale dose subcut TIDAC insulin glargine [Lantus Solostar U-100 Insulin] 100 unit/mL (3 mL) insulin pen 54 unit subcut DAILY@1200 acetaminophen [Tylenol] 325 mg Tablet 650 mg PO Q6H PRN (Reason: Pain) ibuprofen 200 mg Tablet 400 mg PO Q8H PRN (Reason: Pain) Diet: Advance to usual diet Activity on Discharge: As tolerated Stand Alone Forms: Patient Portal Discharge page Print Language: Micronesian Care Plan Goals: recovery from dka and control of diabetes Health Concerns: type 1 diabetes, dka Plan of Treatment: resume your insulin regimen at home as directed follow up with your doctor Assessment: see above
--- NOTE | 2024-05-14 10:41 | MHC.CM.PN ---
PT DCD HOME SELF CARE
[2024-05-14 11:15] LABS: Glucose, Whole Blood 108 mg/dL (60-115)
== END 2024-05-14 12:06 | disposition home or self-care (01) | DRG 420 ==
LOC: HO.ED 14:51 → HO.EDOVER 16:01 → HO.ICU 16:05 → HO.S3 05-13 12:33
PROVIDERS: Internal Medicine Critical Care Medicine; Registered Nurse Community Health; Admitting Provider Internal Medicine Pulmonary Disease; Emergency Provider Emergency Medicine; Visit Provider Internal Medicine
DX: E10.10 Type 1 diabetes mellitus with ketoacidosis without coma (principal); Z20.822 Contact with and (suspected) exposure to COVID-19; Z79.899 Other long term (current) drug therapy
CPT/HCPCS: 0241U; 36415; 80048; 80053; 80307; 81001; 82010; 82040; 82803; 82947; 83605; 83735; 84100; 85025; 87040; 87086; 93005; 99285; J0696; J1644; J3480; J7120

== ENCOUNTER → 2024-05-12 13:30 | Outpatient (BNV) | payer MEDICAID, SELFPAY | PROVIDERS: Admitting Provider Internal Medicine Pulmonary Disease; Emergency Provider Emergency Medicine; Visit Provider Internal Medicine Cardiovascular Disease | DX: R00.0 Tachycardia, unspecified (principal) | CPT/HCPCS: 93010 ==

== ENCOUNTER → 2024-05-12 15:44 | Outpatient (BNV) | payer MEDICAID, SELFPAY | PROVIDERS: Admitting Provider Internal Medicine Pulmonary Disease; Emergency Provider Emergency Medicine; Visit Provider Internal Medicine Critical Care Medicine | DX: E10.29 Type 1 diabetes mellitus with other diabetic kidney complication (principal); R80.9 Proteinuria, unspecified | CPT/HCPCS: 99223; 99291 ==

== ENCOUNTER → 2024-05-12 15:44 | Outpatient (BNV) | payer MEDICAID, SELFPAY | PROVIDERS: Admitting Provider Internal Medicine Pulmonary Disease; Emergency Provider Emergency Medicine; Visit Provider Internal Medicine | DX: E11.10 Type 2 diabetes mellitus with ketoacidosis without coma (principal) | CPT/HCPCS: 99239 ==

== ENCOUNTER 2024-05-21 00:56 | Emergency (ER) | payer MEDICAID, SELFPAY ==
[2024-05-21 01:02] VITALS: BP 132/79; PULSE 109; RESP 18; TEMP 36.8; O2SAT 97
[2024-05-21 01:06] VITALS: BP 128/98; PULSE 118; O2SAT 99
[2024-05-21 01:08] VITALS: BMI 28.2
[2024-05-21 01:28] LABS: MANUAL DIFF FLAG NO
[2024-05-21 01:30] LABS: Basophils Percent Auto 0.5 % (0-2); Eosinophils Absolute Auto 0.1 X10*3/uL (0.0-0.4); Eosinophils Percent Auto 1.5 % (0-4); Hematocrit 38.8 % (37.0-47.0); Hemoglobin 12.7 g/dl (12.0-16.0); Imm Gran Abs Auto 0.02 X10*3/uL (0.00-0.03); Imm Gran Pct Auto 0.2 % (0.0-0.4); Lymphocytes Absolute Auto 2.7 X10*3/uL (1.2-4.9); Lymphocytes Percent Auto 32.9 % (20-40); Mean Corpuscular HGB Conc 32.7 g/dl (31.0-35.0); Mean Corpuscular Hemoglobin 26.6 pg (27.0-33.0); Mean Corpuscular Volume 81.2 fL (80.0-98.0); Monocytes Absolute Auto 1.2 X10*3/uL (0.1-1.2); Monocytes Percent Auto 14.4 % (2-11); Neutrophils Absolute Auto 4.1 x10*3/uL (2.0-8.3); Neutrophils Percent Auto 50.5 % (45-73); Platelet Count 356 X10*3/uL (160-400); Red Blood Count 4.78 X10*6/uL (4.20-5.50); Red Cell Distribution Width 14.9 % (11.0-16.0); White Blood Count 8.2 X10*3/uL (4.8-10.8)
[2024-05-21 01:52] LABS: Alanine Aminotransferase 41 U/L (0-31); Albumin Level 4.2 g/dL (3.5-5.0); Anion Gap 16 (12-20); Aspartate Amino Transferase 49 U/L (5-31); Bilirubin Total 0.4 mg/dL (0.0-1.0); Blood Urea Nitrogen 15 mg/dL (9-16); Calcium 9.5 mg/dL (8.4-10.2); Carbon Dioxide 22 mmol/L (22-29); Chloride 105 mmol/L (96-108); Creatinine Clr Calc Pharmacy 80.2; Estimated Glomerular Filt Rate > 60; Glucose Random 77 mg/dL (60-115); Potassium 3.5 mmol/L (3.3-5.1); Sodium 139 mmol/L (135-145); Total Protein 7.9 g/dL (6.5-8.0)
[2024-05-21 02:14] LABS: Influenza A PCR NEGATIVE (Negative); Influenza B PCR NEGATIVE (Negative); Resp Syncy Virus RNA Qual PCR NEGATIVE (Negative); SARS COV2 PCR INHOUSE NEGATIVE (Negative)
[2024-05-21 02:43] LABS: Alkaline Phosphatase 125 U/L (39-117)
[2024-05-21 03:03] VITALS: BP 139/94; PULSE 105; RESP 20; TEMP 36.8; O2SAT 98
[2024-05-21 03:05] LABS: Glucose, Whole Blood 53 mg/dL (60-115)
--- NOTE | 2024-05-21 03:15 | PC.NURSE ---
Tech made RN aware pts POC 53. Pt offered orange juice, pt refused due to n/v, and abd pain symptoms. made aware. pending orders
[2024-05-21 03:18] LABS: Appearance Urine Clear; Color Urine Yellow; Glucose Urine UA 500 mg/dL (Negative); Leukocyte Esterase Urine Moderate (2+) (Negative); Nitrite Urine Negative (Negative); PH 5.5 (5.0-9.0); Specific Gravity - Urine 1.025 (1.005-1.025); UMIC TRIGGER UACC YES; Urine Blood Negative (Negative); Urine Ketones Trace mg/dL (Negative); Urine Protein 100 (2+) mg/dL (Neg-Trace)
[2024-05-21 03:19] LABS: UPreg QC Valid YES; Urine Pregnancy NEGATIVE (NEGATIVE)
--- NOTE | 2024-05-21 03:22 | ED_ITS ---
HPI - Abdominal Pain General Chief Complaint: Abdominal Pain Stated Complaint: V x3days Worsened, LUQ pain, diabetic, headache Time Seen by Provider: 05/21/24 02:45 Source: patient Mode of arrival: ambulatory Limitations: no limitations History of Present Illness ED Provider: HPI narrative: Patient is type 1 diabetic on insulin comes here for 3 days of nausea vomiting with diffuse abdominal pain blood sugar been under control no diarrhea no fever denies any urinary complaint on arrival patient's blood sugar was 53 Related Data Home Medications ?Medication ?Instructions ?Recorded ?Confirmed melatonin 5 mg tablet 5 mg PO BEDTIME PRN Sleep 10/13/22 05/12/24 acetaminophen 325 mg tablet 650 mg PO Q6H PRN Pain 05/12/24 05/12/24 (Tylenol) ibuprofen 200 mg tablet 400 mg PO Q8H PRN Pain 05/12/24 05/12/24 insulin aspart U-100 100 unit/mL 1 sliding scale dose subcut TIDAC 05/12/24 05/12/24 (3 mL) subcutaneous pen insulin glargine 100 unit/mL (3 54 unit subcut DAILY@1200 05/12/24 05/12/24 mL) subcutaneous pen (Lantus Solostar U-100 Insulin) Previous Rx's ?Medication ?Instructions ?Recorded blood sugar diagnostic (FreeStyle #100 ea 10/16/22 Lite Strips) blood-glucose meter (FreeStyle #1 ea 10/16/22 Lite Meter kit) lancets 28 gauge (FreeStyle #100 ea 10/16/22 Lancets) pen needle, diabetic 32 gauge x #100 ea 10/16/2205/18 cefuroxime axetil 250 mg tablet 250 mg PO BID 3 days #6 tabs 05/14/24 cefuroxime axetil 250 mg tablet 250 mg PO BID 7 days #14 tabs 05/21/24 ondansetron 4 mg disintegrating 4 mg PO Q6-8H PRN nausea and 05/21/24 tablet vomiting #10 tabs Allergies Allergy/AdvReac Type Severity Reaction Status Date / Time No Known Allergies Allergy Verified 05/21/24 01:13 Review of Systems Review of Systems Yes all other systems are reviewed and are negative PMFSH Past Medical History Medical History Type 1 diabetes mellitus with proteinuria Diabetes Social History Social History Household Members: Family Housing: Apartment Do you presently have visiting nurse or other home services: No Alcohol intake: never Patient Tobacco Use Status: Never used Tobacco Smoked in Last 30 Days: No Second Hand Smoke Exposure: No Use of substances other than those prescribed or required for medical reasons: No Advance Directives: No Advance Directives Information Provided: Yes Patient : No service: No Current occupational status: unemployed Physical Exam ED Vital Signs: Vital Signs - 24 hr 05/21/24 01:02 05/21/24 03:03 05/21/24 04:22 Temperature 98.2 F 98.2 F 98.2 F Pulse Rate 109 H 105 H 89 Respiratory Rate 18 20 16 Blood Pressure 132/79 139/94 H 126/89 Pulse Oximetry 97 98 97 Oxygen Delivery Method Room Air Room Air Room Air 05/21/24 06:31 Temperature 97.9 F Pulse Rate 90 Respiratory Rate 14 Blood Pressure 107/69 Pulse Oximetry 98 Oxygen Delivery Method Room Air BMI result Body Mass Index 28.2 Appearance: Alert. Oriented X3. No acute distress. Eyes: No pallor or icterus ENT: Pharynx normal. Oral Mucosa moist Neck: Normal inspection. Neck supple. CVS: Normal heart rate and rhythm. Pulses normal. Respiratory: No respiratory distress. Equal air entry bilateral, no wheezing/rales/rhonchi Abdomen: Soft and mild diffuse tenderness. Bowel sounds are present, no mass palpable, no CVA tenderness Skin: Skin warm and dry. Normal skin color. Normal skin turgor. Extremities: No lower extremity edema. No calf tenderness Neuro: Oriented X 3. No motor deficit. No sensory deficit.No cerebellar signs , cranial nerves II-XII intact Medical Decision Making Medical Decision Making [facility] Narrative: Patient diabetic with acute nausea vomiting with UTI not ketotic no anion gap symptoms improved after IV fluids patient has had food in the ER feeling much better will discharge patient Differential Diagnosis Differential Diagnoses: The differential diagnosis associated with the presentation includes Diabetic acidosis/viral gastritis/pancreatitis/UTI Lab Data [facility] Lab Attestation statement: I reviewed the patient's lab results. 05/21/24 01:24 05/21/24 01:24 Labs: Lab Results 05/21/24 05/21/24 05/21/24 Range/Units 01:24 01:31 03:01 WBC 8.2 (4.8-10.8) X10*3/uL RBC 4.78 D (4.20-5.50) X10*6/uL Hgb 12.7 D (12.0-16.0) g/dl Hct 38.8 D (37.0-47.0) % MCV 81.2 (80.0-98.0) fL MCH 26.6 L (27.0-33.0) pg MCHC 32.7 (31.0-35.0) g/dl RDW 14.9 (11.0-16.0) % Plt Count 356 D (160-400) X10*3/uL MPV 10.0 (9.4-12.3) fL Immature Gran % (Auto) 0.2 (0.0-0.4) % Neut % (Auto) 50.5 (45-73) % Lymph % (Auto) 32.9 (20-40) % Morrill % (Auto) 14.4 H (2-11) % Eos % (Auto) 1.5 (0-4) % Baso % (Auto) 0.5 (0-2) % Lymph # (Auto) 2.7 (1.2-4.9) X10*3/uL Morrill # (Auto) 1.2 (0.1-1.2) X10*3/uL Eos # (Auto) 0.1 (0.0-0.4) X10*3/uL Baso # (Auto) 0.0 (0.0-0.2) X10*3/uL Abs Immat Gran (auto) 0.02 (0.00-0.03) X10*3/uL Absolute Neuts (auto) 4.1 (2.0-8.3) x10*3/uL Absolute Nucleated RBC 0.000 (0.0-0.012) X10*3/uL Nucleated RBC % (auto) 0.0 (0.0-0.2) /100WBC Sodium 139 (135-145) mmol/L Potassium 3.5 (3.3-5.1) mmol/L Chloride 105 (96-108) mmol/L Carbon Dioxide 22 (22-29) mmol/L Anion Gap 16 (12-20) BUN 15 (9-16) mg/dL Creatinine 0.82 (0.5-1.4) mg/dL Estim Creat Clear Calc 80.2 Estimated GFR > 60 POC Glucose 53 L* (60-115) mg/dL Random Glucose 77 (60-115) mg/dL Calcium 9.5 D (8.4-10.2) mg/dL Total Bilirubin 0.4 (0.0-1.0) mg/dL AST 49 H (5-31) U/L ALT 41 H (0-31) U/L Alkaline Phosphatase 125 H (39-117) U/L Total Protein 7.9 (6.5-8.0) g/dL Albumin 4.2 (3.5-5.0) g/dL Urine Color Urine Appearance Urine pH (5.0-9.0) Ur Specific Snow (1.005-1.025) Urine Protein (Neg-Trace) mg/dL Urine Glucose (UA) (Negative) mg/dL Urine Ketones (Negative) mg/dL Urine Blood (Negative) Urine Nitrite (Negative) Ur Leukocyte Esterase (Negative) Urine RBC (0-2) /HPF Urine WBC (0-5) /HPF Ur Squamous Epith Cells (0-2) /HPF Urine Bacteria (None Seen) Hyaline Casts (0-2) /LPF Urine Test (NEGATIVE) Influenza Type A (PCR) NEGATIVE (Negative) Influenza Type B (PCR) NEGATIVE (Negative) RSV RNA Qual (PCR) NEGATIVE (Negative) SARS-CoV-2 RNA (RT-PCR) NEGATIVE (Negative) 05/21/24 05/21/24 05/21/24 Range/Units 03:11 03:12 03:40 WBC (4.8-10.8) X10*3/uL RBC (4.20-5.50) X10*6/uL Hgb (12.0-16.0) g/dl Hct (37.0-47.0) % MCV (80.0-98.0) fL MCH (27.0-33.0) pg MCHC (31.0-35.0) g/dl RDW (11.0-16.0) % Plt Count (160-400) X10*3/uL MPV (9.4-12.3) fL Immature Gran % (Auto) (0.0-0.4) % Neut % (Auto) (45-73) % Lymph % (Auto) (20-40) % Morrill % (Auto) (2-11) % Eos % (Auto) (0-4) % Baso % (Auto) (0-2) % Lymph # (Auto) (1.2-4.9) X10*3/uL Morrill # (Auto) (0.1-1.2) X10*3/uL Eos # (Auto) (0.0-0.4) X10*3/uL Baso # (Auto) (0.0-0.2) X10*3/uL Abs Immat Gran (auto) (0.00-0.03) X10*3/uL Absolute Neuts (auto) (2.0-8.3) x10*3/uL Absolute Nucleated RBC (0.0-0.012) X10*3/uL Nucleated RBC % (auto) (0.0-0.2) /100WBC Sodium (135-145) mmol/L Potassium (3.3-5.1) mmol/L Chloride (96-108) mmol/L Carbon Dioxide (22-29) mmol/L Anion Gap (12-20) BUN (9-16) mg/dL Creatinine (0.5-1.4) mg/dL Estim Creat Clear Calc Estimated GFR POC Glucose 64 (60-115) mg/dL Random Glucose (60-115) mg/dL Calcium (8.4-10.2) mg/dL Total Bilirubin (0.0-1.0) mg/dL AST (5-31) U/L ALT (0-31) U/L Alkaline Phosphatase (39-117) U/L Total Protein (6.5-8.0) g/dL Albumin (3.5-5.0) g/dL Urine Color Yellow Urine Appearance Clear Urine pH 5.5 (5.0-9.0) Ur Specific Snow 1.025 (1.005-1.025) Urine Protein 100 (2+) H (Neg-Trace) mg/dL Urine Glucose (UA) 500 H (Negative) mg/dL Urine Ketones Trace (Negative) mg/dL Urine Blood Negative (Negative) Urine Nitrite Negative (Negative) Ur Leukocyte Esterase Moderate (2+) H (Negative) Urine RBC 0-2 (0-2) /HPF Urine WBC 11-20 H (0-5) /HPF Ur Squamous Epith Cells 0-2 (0-2) /HPF Urine Bacteria None Seen (None Seen) Hyaline Casts 3-5 (0-2) /LPF Urine Test NEGATIVE (NEGATIVE) Influenza Type A (PCR) (Negative) Influenza Type B (PCR) (Negative) RSV RNA Qual (PCR) (Negative) SARS-CoV-2 RNA (RT-PCR) (Negative) 05/21/24 Range/Units 06:30 WBC (4.8-10.8) X10*3/uL RBC (4.20-5.50) X10*6/uL Hgb (12.0-16.0) g/dl Hct (37.0-47.0) % MCV (80.0-98.0) fL MCH (27.0-33.0) pg MCHC (31.0-35.0) g/dl RDW (11.0-16.0) % Plt Count (160-400) X10*3/uL MPV (9.4-12.3) fL Immature Gran % (Auto) (0.0-0.4) % Neut % (Auto) (45-73) % Lymph % (Auto) (20-40) % Morrill % (Auto) (2-11) % Eos % (Auto) (0-4) % Baso % (Auto) (0-2) % Lymph # (Auto) (1.2-4.9) X10*3/uL Morrill # (Auto) (0.1-1.2) X10*3/uL Eos # (Auto) (0.0-0.4) X10*3/uL Baso # (Auto) (0.0-0.2) X10*3/uL Abs Immat Gran (auto) (0.00-0.03) X10*3/uL Absolute Neuts (auto) (2.0-8.3) x10*3/uL Absolute Nucleated RBC (0.0-0.012) X10*3/uL Nucleated RBC % (auto) (0.0-0.2) /100WBC Sodium (135-145) mmol/L Potassium (3.3-5.1) mmol/L Chloride (96-108) mmol/L Carbon Dioxide (22-29) mmol/L Anion Gap (12-20) BUN (9-16) mg/dL Creatinine (0.5-1.4) mg/dL Estim Creat Clear Calc Estimated GFR POC Glucose 138 H (60-115) mg/dL Random Glucose (60-115) mg/dL Calcium (8.4-10.2) mg/dL Total Bilirubin (0.0-1.0) mg/dL AST (5-31) U/L ALT (0-31) U/L Alkaline Phosphatase (39-117) U/L Total Protein (6.5-8.0) g/dL Albumin (3.5-5.0) g/dL Urine Color Urine Appearance Urine pH (5.0-9.0) Ur Specific Snow (1.005-1.025) Urine Protein (Neg-Trace) mg/dL Urine Glucose (UA) (Negative) mg/dL Urine Ketones (Negative) mg/dL Urine Blood (Negative) Urine Nitrite (Negative) Ur Leukocyte Esterase (Negative) Urine RBC (0-2) /HPF Urine WBC (0-5) /HPF Ur Squamous Epith Cells (0-2) /HPF Urine Bacteria (None Seen) Hyaline Casts (0-2) /LPF Urine Test (NEGATIVE) Influenza Type A (PCR) (Negative) Influenza Type B (PCR) (Negative) RSV RNA Qual (PCR) (Negative) SARS-CoV-2 RNA (RT-PCR) (Negative) Medications Administered Discontinued Medications Generic Name Dose Route Start Last Admin Trade Name [place] PRN Reason Stop Dose Admin Ceftriaxone Sodium 1 gm 05/21/24 03:43 05/21/24 03:54 Ceftriaxone Sodium 1 Gm Vial IVPUSH 05/21/24 03:44 1 gm ONCE ONE Administration Sodium Chloride 1,000 mls @ 999 mls/hr 05/21/24 03:35 05/21/24 04:35 Ns IV 05/21/24 04:35 Infused .Q1H1M ONE Infusion Ondansetron HCl 4 mg 05/21/24 03:35 05/21/24 03:54 Ondansetron Hcl 4 Mg/2 Ml Vial IVPUSH 05/21/24 03:36 4 mg ONCE ONE Administration Discharge Plan Discharge Clinical Impression: Acute nausea with nonbilious vomiting, UTI (urinary tract infection) Patient Disposition: Home, Self-Care Instructions: Urinary Tract Infection in Women (DC), Acute Nausea and Vomiting (ED) Additional Instructions: Drink plenty of fluids Check blood sugar as directed and take your insulin Take Medicine for nausea and urinary tract infection 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 (DME) blood-glucose meter [FreeStyle Lite Meter] Kit Qty: 1 0RF Rx Instructions: As Directed (DME) pen needle, diabetic 32 gauge x 1/4 needle Qty: 100 0RF Rx Instructions: Use four times a day or as directed. (DME) lancets [FreeStyle Lancets] 28 gauge misc Qty: 100 0RF Rx Instructions: Test four times a day or as directed. insulin aspart U-100 100 unit/mL (3 mL) insulin pen 1 sliding scale dose subcut TIDAC insulin glargine [Lantus Solostar U-100 Insulin] 100 unit/mL (3 mL) insulin pen 54 unit subcut DAILY@1200 acetaminophen [Tylenol] 325 mg Tablet 650 mg PO Q6H PRN (Reason: Pain) ibuprofen 200 mg Tablet 400 mg PO Q8H PRN (Reason: Pain) cefuroxime axetil 250 mg tablet 250 mg PO BID 3 Days Qty: 6 0RF Referrals: Anaid Dawson MD [Physician] - 1 week Print Language: Vietnamese
[2024-05-21 03:23] LABS: Bacteria Urine None Seen (None Seen); RBC Urine 0-2 /HPF (0-2); Squamous Epithelial Cell Urine 0-2 /HPF (0-2); UACC Culture Trigger YES
[2024-05-21 03:45] LABS: Glucose, Whole Blood 64 mg/dL (60-115)
[2024-05-21] MEDS: 0.9 % Sodium Chloride 1,000 ML 999 ML IV (03:54)
[2024-05-21] MEDS: cefTRIAXone sodium 1 GM VIAL IVPUSH (03:54)
[2024-05-21] MEDS: ondansetron HCL 4 MG/2 ML VIAL IVPUSH (03:54)
[2024-05-21 04:22] VITALS: BP 126/89; PULSE 89; RESP 16; TEMP 36.8; O2SAT 97
[2024-05-21 06:31] VITALS: BP 107/69; PULSE 90; RESP 14; TEMP 36.6; O2SAT 98
[2024-05-21 06:34] LABS: Glucose, Whole Blood 138 mg/dL (60-115)
[2024-05-21 07:03] VITALS: BP 107/69; PULSE 90; RESP 14; TEMP 36.6; O2SAT 98
== END 2024-05-21 07:06 | disposition home or self-care (01) ==
PROVIDERS: Emergency Provider Internal Medicine
DX: N39.0 Urinary tract infection, site not specified (principal); R10.9 Unspecified abdominal pain; R11.2 Nausea with vomiting, unspecified; R51.9 Headache, unspecified; Z03.818 Encounter for observation for suspected exposure to other biological agents ruled out; Z79.899 Other long term (current) drug therapy
CPT/HCPCS: 0241U; 36415; 80053; 81001; 81025; 82947; 85025; 87086; 96361; 96374; 96375; 99284; 99285; J0696; J2405

== ENCOUNTER 2024-05-25 13:25 | Inpatient (IN) | payer MEDICAID, SELFPAY ==
[2024-05-25] VITALS (10 sets, daily range): BP systolic 87–117; BP diastolic 44–63; PULSE 112–138; RESP 15–26; TEMP 36.7–37.4; O2SAT 96–100; BMI 26.7
--- NOTE | ~2024-05-25 | XR_ITS ---
CLINICAL HISTORY: Chest pain, shortness on breath and tachycardia 1 view chest x-ray Comparison: CR/CT/SR - XR CHEST 1V - 10/24/23 22:45 EDT Findings: No consolidation or effusion. Heart size is normal. No acute fracture. IMPRESSION: 1. No acute findings. This document has been electronically signed by: Marie Siddiqi MD on 05/26/2024 07:03:40
[2024-05-25 14:02] LABS: Glucose, Whole Blood > 600 mg/dL (60-115)
[2024-05-25 14:02] LABS: Glucose, Whole Blood > 600 mg/dL (60-115)
--- NOTE | 2024-05-25 14:02 | PC.NURSE ---
pt is alert and oriented, skin appropriate for ethnicity, respirations even and unlabored, pt reports that she was getting high readings on the monitor at home, gave her self 15units of insulin at 1200, pt reports having a headache/vomiting and nausea at started at 1000/chest pain/tightness with deep inspirations/bilateral rib/side pain/ sinus tach on the monitor at low 130's, checked the pt's poc and the monitor was reading high, rechecked and still reading high, monitor passes the QTc check
--- NOTE | 2024-05-25 14:07 | ECG_ITS ---
Test Reason : TACHY Blood Pressure : */* mmHG Vent. Rate : 133 BPM Atrial Rate : 133 BPM P-R Int : 130 ms QRS Dur : 74 ms QT Int : 290 ms P-R-T Axes : 70 68 40 degrees QTcB Int : 431 ms Sinus tachycardia Otherwise normal ECG When compared with ECG of 12-May-2024 13:49, No significant change was found Referred By: Generic ED Physician Electronically Signed By: RORO CARLISLE
[2024-05-25 14:53] LABS: MANUAL DIFF FLAG NO
[2024-05-25 14:55] LABS: Basophils Absolute Auto 0.1 X10*3/uL (0.0-0.2); Basophils Percent Auto 0.5 % (0-2); Hematocrit 38.1 % (37.0-47.0); Hemoglobin 11.9 g/dl (12.0-16.0); Imm Gran Abs Auto 0.13 X10*3/uL (0.00-0.03); Lymphocytes Absolute Auto 1.2 X10*3/uL (1.2-4.9); Lymphocytes Percent Auto 9.2 % (20-40); Mean Corpuscular HGB Conc 31.2 g/dl (31.0-35.0); Mean Corpuscular Hemoglobin 27.2 pg (27.0-33.0); Mean Corpuscular Volume 87.2 fL (80.0-98.0); Mean Platelet Volume 10.8 fL (9.4-12.3); Monocytes Absolute Auto 0.6 X10*3/uL (0.1-1.2); Monocytes Percent Auto 4.7 % (2-11); Neutrophils Absolute Auto 11.3 x10*3/uL (2.0-8.3); Neutrophils Percent Auto 84.6 % (45-73); Platelet Count 493 X10*3/uL (160-400); Red Blood Count 4.37 X10*6/uL (4.20-5.50); Red Cell Distribution Width 15.1 % (11.0-16.0); White Blood Count 13.3 X10*3/uL (4.8-10.8)
[2024-05-25 14:56] LABS: Glucose, Whole Blood > 600 mg/dL (60-115)
[2024-05-25 15:00] LABS: VBG Base Excess -18.8 mmol/L; VBG HCO3 8 mmol/L (22-26); VBG pCO2 26 mmHg; VBG pH 7.12 (7.32-7.43); VBG pO2 56 mmHg
[2024-05-25 15:00] LABS: Appearance Urine Clear; Color Urine Yellow; Glucose Urine UA >=1000 mg/dL (Negative); Leukocyte Esterase Urine Moderate (2+) (Negative); Nitrite Urine Negative (Negative); Specific Gravity - Urine 1.025 (1.005-1.025); UMIC TRIGGER UACC YES; Urine Blood Negative (Negative); Urine Ketones >=160 mg/dL (Negative); Urine Protein Negative (Neg-Trace)
[2024-05-25 15:01] LABS: Venous Blood Gas Refer to POC result
[2024-05-25 15:03] LABS: Bacteria Urine None Seen (None Seen); RBC Urine 0-2 /HPF (0-2); Squamous Epithelial Cell Urine 0-2 /HPF (0-2); UACC Culture Trigger YES; WBC Urine 21-50 /HPF (0-5)
[2024-05-25 15:22] LABS: Alanine Aminotransferase 31 U/L (0-31); Anion Gap 28 (12-20); Aspartate Amino Transferase 40 U/L (5-31); Beta-Hydroxybutyrate 6.39 mmol/L (0.02-0.27); Bilirubin Total 0.5 mg/dL (0.0-1.0); Blood Urea Nitrogen 12 mg/dL (9-16); Calcium 8.9 mg/dL (8.4-10.2); Carbon Dioxide 9 mmol/L (22-29); Chloride 103 mmol/L (96-108); Creatinine Clr Calc Pharmacy 53.7; Estimated Glomerular Filt Rate 57; Glucose Random 653 mg/dL (60-115); Lipase 9 U/L (8-78); Potassium 5.8 mmol/L (3.3-5.1); Sodium 134 mmol/L (135-145); Total Protein 7.7 g/dL (6.5-8.0)
[2024-05-25 15:29] LABS: Troponin-I High Sensitivity < 2.7 ng/L (<3.5-17.0)
[2024-05-25 15:36] LABS: Influenza A PCR NEGATIVE (Negative); Influenza B PCR NEGATIVE (Negative); Resp Syncy Virus RNA Qual PCR NEGATIVE (Negative); SARS COV2 PCR INHOUSE NEGATIVE (Negative)
--- NOTE | 2024-05-25 15:59 | ED_ITS ---
HPI - General Adult General Chief complaint: Recheck/Abnormal Lab/Rx Stated complaint: BS READING HIGH PER EMS Time Seen by Provider: 05/25/24 15:58 Source: patient Limitations: no limitations History of Present Illness ED Provider: Roxanna Benitez PA-C HPI narrative: 19-year-old female with a history of type 1 diabetes, prior DKA, presents with hyperglycemia. Patient noted her blood sugars were elevated today. Associated concur nausea /vomiting. Patient denies recent cough or cold symptoms, fever, dysuria. Patient states she has been using her prescribed insulins as directed. Related Data Home Medications ?Medication ?Instructions ?Recorded ?Confirmed melatonin 5 mg tablet 5 mg PO BEDTIME PRN Sleep 10/13/22 05/12/24 acetaminophen 325 mg tablet 650 mg PO Q6H PRN Pain 05/12/24 05/12/24 (Tylenol) ibuprofen 200 mg tablet 400 mg PO Q8H PRN Pain 05/12/24 05/12/24 insulin aspart U-100 100 unit/mL 1 sliding scale dose subcut TIDAC 05/12/24 05/12/24 (3 mL) subcutaneous pen insulin glargine 100 unit/mL (3 54 unit subcut DAILY@1200 05/12/24 05/12/24 mL) subcutaneous pen (Lantus Solostar U-100 Insulin) Previous Rx's ?Medication ?Instructions ?Recorded blood sugar diagnostic (FreeStyle #100 ea 10/16/22 Lite Strips) blood-glucose meter (FreeStyle #1 ea 10/16/22 Lite Meter kit) lancets 28 gauge (FreeStyle #100 ea 10/16/22 Lancets) pen needle, diabetic 32 gauge x #100 ea 10/16/22 1/4 cefuroxime axetil 250 mg tablet 250 mg PO BID 3 days #6 tabs 05/14/24 cefuroxime axetil 250 mg tablet 250 mg PO BID 7 days #14 tabs 05/21/24 ondansetron 4 mg disintegrating 4 mg PO Q6-8H PRN nausea and 05/21/24 tablet vomiting #10 tabs Allergies Allergy/AdvReac Type Severity Reaction Status Date / Time No Known Allergies Allergy Verified 05/25/24 13:47 Review of Systems 2 Review of Systems: Yes all other systems are reviewed and are negative Constitutional: Constitutional: Denies fatigue and Denies fever(s) Cardiovascular: Cardiovascular: Denies chest pain and Denies dyspnea Respiratory: Respiratory: Denies cough and Denies dyspnea Gastrointestinal: Gastrointestinal: Denies abdominal pain, Denies diarrhea, Reports nausea and Reports vomiting Genitourinary: Genitourinary: Denies dysuria Endocrine: Endocrine: Denies fatigue [facility] Past Medical History Attestation statement: The following information was validated with the patient. Medical History Type 1 diabetes mellitus with proteinuria Diabetes Social History Social History Household Members: Family Housing: Apartment Do you presently have visiting nurse or other home services: No Alcohol intake: never Patient Tobacco Use Status: Never used Tobacco Smoked in Last 30 Days: No Second Hand Smoke Exposure: No Use of substances other than those prescribed or required for medical reasons: No Advance Directives: No Advance Directives Information Provided: Yes Do you have a plan to hurt others: No Plan service: No Current occupational status: unemployed Physical Exam ED Vital Signs: Vital Signs - 24 hr 05/25/24 13:42 05/25/24 14:00 05/25/24 16:31 Temperature 98.2 F 98.1 F Pulse Rate 130 H 130 H 138 H Respiratory Rate 22 H 20 Blood Pressure 104/51 L 117/44 L Pulse Oximetry 100 98 Oxygen Delivery Method Room Air Room Air 05/25/24 16:36 05/25/24 17:21 05/25/24 18:00 Temperature 99.4 F Pulse Rate 135 H 134 H Respiratory Rate 20 24 H Blood Pressure 104/51 L 116/63 Pulse Oximetry 100 97 Oxygen Delivery Method Room Air Room Air 05/25/24 19:09 05/25/24 20:54 05/25/24 22:16 Temperature 98.2 F 98.1 F Pulse Rate 123 H 125 H 112 H Respiratory Rate 26 H 15 16 Blood Pressure 99/56 L 96/54 L 94/54 L Pulse Oximetry 99 100 100 Oxygen Delivery Method Room Air Room Air Room Air 05/25/24 22:55 05/26/24 00:58 05/26/24 01:47 Temperature 98.7 F 98.4 F Pulse Rate 120 H 112 H 108 H Respiratory Rate 23 H 14 14 Blood Pressure 87/45 L 93/62 106/60 Pulse Oximetry 96 100 100 Oxygen Delivery Method Room Air Room Air Room Air BMI result Body Mass Index 26.7 Const Other: Alert, ill-appearing, actively vomiting, appears older than stated age Orientation/consciousness: patient oriented x3 HENMT Other: Dry oral mucosa, dry cracked lips Resp Other: Nonlabored respiration Cardio Other: Normal peripheral perfusion Skin Other: Warm dry no rash Neuro General: patient oriented x3, no focal motor deficits and CN's II-XI intact bilaterally Psych Other: Cooperative Course Course Course Narrative: the patient's sliding scale insulin if needed insulin lispro [Humalog KwikPen Insulin] 100 unit/mL insulin pen 1 sliding scale dose SUBCUT QIDACHS MDD 50 units Qty: 15 1RF Rx Instructions: Blood Sugar: <150 - 0 units 151-200 - 2 units 201-250 - 4 units 251-300 - 6 units 301-350 - 8 units >350 - 10 units Reevaluation(s) Reevaluation #1: after further discussion with both of my attending's, we have decided to start a bicarb drip with D5W, at a rate of 150 mEq per hour. The hope is that the patient can go to the floor, I will repeat her labs 1 last time after her therapy has been initiated. To note, her magnesium and calcium are also low, ordering 2 g of calcium gluconate and 2 g of magnesium IV. We will implement sliding-scale insulin based on any change caused by the use of the D5W. Time: 02:43 Reevaluation #2: Speaking with the hospitalist Dr. Vazquez, I had repeated another VBG after the patient had been on the bicarb drip for approximately 40 minutes, her pH is 7.42, bicarb is 34.... This seems like a rapid adjustment, Dr. Vazquez is going to be placing orders for repeat labs, she is accepting the patient under her care at this time Time: 04:38 Consultations Consultation #1: Reaching out to Dr. Diaz, the [employer], he is in agreement with the treatment the patient has received thus far. I have relate to him that I discontinued her fluid, including the D5 and the insulin drip. He recommends giving 40 units of subcutaneous Lantus, and start a bicarb drip, formulated with sterile water, given at a rate of 150 mEq per hour. He feels the patient should be able to go to the floor at this time, and that we should repeat labs and an hour. The patient can eat and drink as tolerated. Time: 22:52 Consultation #2: Message seeing Dr. Diaz again, I was told that it is hospital policy that the patient can not go to the floor on a bicarb drip mixed with sterile water, they would have to be mixed with D5W. He indicates that this is not accurate, the people do not get moved to ICU strictly based on need for a bicarb drip. We are now reaching out to hospital leadership for further guidance on this matter. We are also reaching out to pharmacy. Time: 23:40 Consultation #3: I messaged Dr. Diaz with information from pharmacy leadership, pharmacy themselves are not able to mixed the bicarb drip with sterile water, this is exclusively an ICU task. I am waiting to hear back from Dr. Diaz about the next step Time: 12:34 Medications Administered Generic Name Dose Route Start Last Admin Trade Name Freq PRN Reason Stop Dose Admin Sodium Bicarbonate 150 meq/ 1,000 mls @ 50 mls/hr 05/26/24 02:30 05/26/24 02:38 Dextrose IV 50 mls/hr .Q20H CAROLINE Administration Discontinued Medications Generic Name Dose Route Start Last Admin Trade Name Freq PRN Reason Stop Dose Admin Ceftriaxone Sodium 2 gm 05/25/24 16:45 05/25/24 17:48 Ceftriaxone Sodium 2 Gm Vial IVPUSH 05/25/24 16:46 2 gm ONCE ONE Administration Sodium Chloride 1,000 mls @ 999 mls/hr 05/25/24 16:00 05/25/24 18:37 Ns IV 05/25/24 17:00 Infused .Q1H1M CAROLINE Infusion Insulin Human Regular 100 unit in 100 mls @ 5 mls/hr 05/25/24 16:00 05/25/24 16:22 Myxredlin IVCONT 5 unit/hr .Q20H CAROLINE 5 mls/hr Administration Protocol 5 UNIT/HR Sodium Chloride 1,000 mls @ 999 mls/hr 05/25/24 17:30 05/25/24 18:37 Ns IV 05/25/24 18:30 Infused .Q1H1M CAROLINE Infusion Insulin Human Regular 100 unit in 100 mls @ 0 mls/hr 05/25/24 17:45 05/25/24 22:05 Myxredlin IVCONT 0 unit/hr .Q0M CAROLINE 0 mls/hr Titration Protocol Per Protocol Sodium Chloride 1,000 mls @ 999 mls/hr 05/25/24 18:00 05/25/24 18:30 Ns IV 05/25/24 19:00 999 mls/hr .Q1H1M CAROLINE Administration Dextrose/Sodium Chloride 1,000 mls @ 100 mls/hr 05/25/24 19:15 05/25/24 19:12 D51/2ns IVCONT 100 mls/hr .Q10H CAROLINE Administration Sodium Chloride 500 mls @ 150 mls/hr 05/25/24 20:00 05/25/24 20:13 Ns IV 05/25/24 23:19 150 mls/hr .Q3H20M CAROLINE Administration Dextrose/Sodium Chloride 1,000 mls @ 200 mls/hr 05/25/24 20:45 05/25/24 20:47 D51/2ns IVCONT 200 mls/hr .Q5H CAROLINE Administration Sodium Chloride 1,000 mls @ 999 mls/hr 05/25/24 23:35 05/26/24 01:35 Ns IV 05/26/24 00:35 Infused .Q1H1M STA Infusion Sodium Chloride 1,000 mls @ 999 mls/hr 05/25/24 23:35 05/26/24 01:40 Ns IV 05/26/24 00:35 Infused .Q1H1M STA Infusion Magnesium Sulfate 2 gm in 50 mls @ 25 mls/hr 05/26/24 02:11 05/26/24 02:18 Magnesium Sulfate/H2o IV 05/26/24 04:10 25 mls/hr ONCE ONE Administration Calcium Gluconate 2 gm in 100 mls @ 50 mls/hr 05/26/24 02:13 05/26/24 02:19 Calcium Gluconate IV 05/26/24 04:12 50 mls/hr ONCE ONE Administration Insulin Glargine 40 unit 05/25/24 23:30 05/26/24 00:05 Insulin Glargine,Hum.Rec.Anlog 100 Unit/Ml 10 Ml Vial SUBCUT 05/25/24 23:31 40 unit ONCE ONE Administration Insulin Human Regular 10 unit 05/25/24 15:59 05/25/24 16:21 Insulin Regular, Human 100 Unit/Ml 10 Ml Vial IVPUSH 05/25/24 16:00 10 unit ONCE ONE Administration Ketorolac Tromethamine 15 mg 05/25/24 17:41 05/25/24 17:57 Ketorolac Tromethamine 15 Mg/Ml Vial IVPUSH 05/25/24 17:42 15 mg ONCE ONE Administration Ondansetron HCl 4 mg 05/25/24 16:05 05/25/24 16:17 Ondansetron Hcl 4 Mg/2 Ml Vial IVPUSH 05/25/24 16:06 4 mg ONCE ONE Administration Procedures Procedure Narrative Procedure Narrative: Ultrasound-guided IV 18 gauge 1-3/4 inch IV placed in the right upper extremity. Adequate blood return, the line flushes well secured with Tegaderm Medical Decision Making Medical Decision Making MDM Narrative: 19-year-old female with a history of type 1 diabetes, prior DKA, presents with hyperglycemia. Patient noted her blood sugars were elevated today. Associated concur nausea /vomiting. Patient denies recent cough or cold symptoms, fever, dysuria. Patient states she has been using her prescribed insulins as directed. Problem: Poorly controlled diabetes History: Per patient I have considered the following differential diagnoses: Hyperglycemia, infection, HHS, DKA, electrolyte abnormality Plan: Patient has been here for over an hour at the time that I started assessing her. Screening labs including a venous blood gas and UA were obtained, the patient is in DKA. We will start aggressive IV fluid therapy with normal saline, we will be giving 10 units of regular insulin followed by placing the patient on an insulin drip at 5 units/hour. I will keep close track of her labs, I will be obtaining Q1h POC, electrolytes and VBG . It appears her urine may be infected, she states she was recently treated for urinary tract infection, I will obtain a rectal temperature it is 99.4. We will be adding blood cultures, lactic acid and starting ceftriaxone. EKG was already obtained as well, her heart rate is 140. It is sinus tachycardia. Patient also complains of bilateral rib pain since she has been vomiting, we will give Toradol. Giving Zofran as an antiemetic. I have independently reviewed the following tests: Initial Labs: Leukocytosis with left shift, not anemic, urine appears infected, 1st blood sugar 653, gap 28, CO2 9, K+ 5.8, Cr 1.19, Mg2+2.0 (see chart for all of the repeat electrolytes, POC glucose and venous blood gases) EKG: Sinus tachycardia with a rate of 133, no ischemic changes no ectopy QTC 431 Lab Data 05/25/24 14:44 05/26/24 01:47 Labs: Lab Results 05/25/24 05/25/24 05/25/24 Range/Units 13:52 13:55 14:44 WBC 13.3 H (4.8-10.8) X10*3/uL RBC 4.37 (4.20-5.50) X10*6/uL Hgb 11.9 L (12.0-16.0) g/dl Hct 38.1 (37.0-47.0) % MCV 87.2 D (80.0-98.0) fL MCH 27.2 (27.0-33.0) pg MCHC 31.2 (31.0-35.0) g/dl RDW 15.1 (11.0-16.0) % Plt Count 493 H D (160-400) X10*3/uL MPV 10.8 (9.4-12.3) fL Immature Gran % (Auto) 1.0 H (0.0-0.4) % Neut % (Auto) 84.6 H (45-73) % Lymph % (Auto) 9.2 L (20-40) % [place] % (Auto) 4.7 (2-11) % Eos % (Auto) 0.0 (0-4) % Baso % (Auto) 0.5 (0-2) % Lymph # (Auto) 1.2 (1.2-4.9) X10*3/uL [place] # (Auto) 0.6 (0.1-1.2) X10*3/uL Eos # (Auto) 0.0 (0.0-0.4) X10*3/uL Baso # (Auto) 0.1 (0.0-0.2) X10*3/uL Abs Immat Gran (auto) 0.13 H (0.00-0.03) X10*3/uL Absolute Neuts (auto) 11.3 H (2.0-8.3) x10*3/uL Absolute Nucleated RBC 0.000 (0.0-0.012) X10*3/uL Nucleated RBC % (auto) 0.0 (0.0-0.2) /100WBC VBG pH (7.32-7.43) VBG pCO2 mmHg VBG pO2 mmHg VBG HCO3 (22-26) mmol/L VBG O2 Saturation % VBG Base Excess mmol/L Sodium 134 L (135-145) mmol/L Potassium 5.8 H D (3.3-5.1) mmol/L Chloride 103 (96-108) mmol/L Carbon Dioxide 9 L* D (22-29) mmol/L Anion Gap 28 H (12-20) BUN 12 (9-16) mg/dL Creatinine 1.19 (0.5-1.4) mg/dL Estim Creat Clear Calc 53.7 Estimated GFR 57 POC Glucose > 600 H* > 600 H* (60-115) mg/dL Random Glucose 653 H* (60-115) mg/dL Lactic Acid (0.5-2.0) mmol/L Lactic Acid F/U @ 2Hr (0.5-2.0) mmol/L Lactic Acid F/U @ 4Hr (0.5-2.0) mmol/L Calcium 8.9 D (8.4-10.2) mg/dL Magnesium 2.0 (1.6-2.6) mg/dL Total Bilirubin 0.5 (0.0-1.0) mg/dL AST 40 H (5-31) U/L ALT 31 (0-31) U/L Alkaline Phosphatase 142 H (39-117) U/L Troponin I High Sens < 2.7 (<3.5-17.0) ng/L Total Protein 7.7 (6.5-8.0) g/dL Albumin 4.0 (3.5-5.0) g/dL Lipase 9 (8-78) U/L Beta-Hydroxybutyrate 6.39 H (0.02-0.27) mmol/L Urine Color Urine Appearance Urine pH (5.0-9.0) Ur Specific [place] (1.005-1.025) Urine Protein (Neg-Trace) mg/dL Urine Glucose (UA) (Negative) mg/dL Urine Ketones (Negative) mg/dL Urine Blood (Negative) Urine Nitrite (Negative) Ur Leukocyte Esterase (Negative) Urine RBC (0-2) /HPF Urine WBC (0-5) /HPF Ur Squamous Epith Cells (0-2) /HPF Urine Bacteria (None Seen) Hyaline Casts (0-2) /LPF Influenza Type A (PCR) NEGATIVE (Negative) Influenza Type B (PCR) NEGATIVE (Negative) RSV RNA Qual (PCR) NEGATIVE (Negative) SARS-CoV-2 RNA (RT-PCR) NEGATIVE (Negative) 05/25/24 05/25/24 05/25/24 Range/Units 14:50 14:52 14:53 WBC (4.8-10.8) X10*3/uL RBC (4.20-5.50) X10*6/uL Hgb (12.0-16.0) g/dl Hct (37.0-47.0) % MCV (80.0-98.0) fL MCH (27.0-33.0) pg MCHC (31.0-35.0) g/dl RDW (11.0-16.0) % Plt Count (160-400) X10*3/uL MPV (9.4-12.3) fL Immature Gran % (Auto) (0.0-0.4) % Neut % (Auto) (45-73) % Lymph % (Auto) (20-40) % [place] % (Auto) (2-11) % Eos % (Auto) (0-4) % Baso % (Auto) (0-2) % Lymph # (Auto) (1.2-4.9) X10*3/uL [place] # (Auto) (0.1-1.2) X10*3/uL Eos # (Auto) (0.0-0.4) X10*3/uL Baso # (Auto) (0.0-0.2) X10*3/uL Abs Immat Gran (auto) (0.00-0.03) X10*3/uL Absolute Neuts (auto) (2.0-8.3) x10*3/uL Absolute Nucleated RBC (0.0-0.012) X10*3/uL Nucleated RBC % (auto) (0.0-0.2) /100WBC VBG pH 7.12 L* (7.32-7.43) VBG pCO2 26 mmHg VBG pO2 56 mmHg VBG HCO3 8 L (22-26) mmol/L VBG O2 Saturation 70.0 % VBG Base Excess -18.8 mmol/L Sodium (135-145) mmol/L Potassium (3.3-5.1) mmol/L Chloride (96-108) mmol/L Carbon Dioxide (22-29) mmol/L Anion Gap (12-20) BUN (9-16) mg/dL Creatinine (0.5-1.4) mg/dL Estim Creat Clear Calc Estimated GFR POC Glucose > 600 H* (60-115) mg/dL Random Glucose (60-115) mg/dL Lactic Acid (0.5-2.0) mmol/L Lactic Acid F/U @ 2Hr (0.5-2.0) mmol/L Lactic Acid F/U @ 4Hr (0.5-2.0) mmol/L Calcium (8.4-10.2) mg/dL Magnesium (1.6-2.6) mg/dL Total Bilirubin (0.0-1.0) mg/dL AST (5-31) U/L ALT (0-31) U/L Alkaline Phosphatase (39-117) U/L Troponin I High Sens (<3.5-17.0) ng/L Total Protein (6.5-8.0) g/dL Albumin (3.5-5.0) g/dL Lipase (8-78) U/L Beta-Hydroxybutyrate (0.02-0.27) mmol/L Urine Color Yellow Urine Appearance Clear Urine pH 5.0 (5.0-9.0) Ur Specific [place] 1.025 (1.005-1.025) Urine Protein Negative (Neg-Trace) mg/dL Urine Glucose (UA) >=1000 H (Negative) mg/dL Urine Ketones >=160 (Negative) mg/dL Urine Blood Negative (Negative) Urine Nitrite Negative (Negative) Ur Leukocyte Esterase Moderate (2+) H (Negative) Urine RBC 0-2 (0-2) /HPF Urine WBC 21-50 H (0-5) /HPF Ur Squamous Epith Cells 0-2 (0-2) /HPF Urine Bacteria None Seen (None Seen) Hyaline Casts 3-5 (0-2) /LPF Influenza Type A (PCR) (Negative) Influenza Type B (PCR) (Negative) RSV RNA Qual (PCR) (Negative) SARS-CoV-2 RNA (RT-PCR) (Negative) 05/25/24 05/25/24 05/25/24 Range/Units 16:16 17:19 17:21 WBC (4.8-10.8) X10*3/uL RBC (4.20-5.50) X10*6/uL Hgb (12.0-16.0) g/dl Hct (37.0-47.0) % MCV (80.0-98.0) fL MCH (27.0-33.0) pg MCHC (31.0-35.0) g/dl RDW (11.0-16.0) % Plt Count (160-400) X10*3/uL MPV (9.4-12.3) fL Immature Gran % (Auto) (0.0-0.4) % Neut % (Auto) (45-73) % Lymph % (Auto) (20-40) % [place] % (Auto) (2-11) % Eos % (Auto) (0-4) % Baso % (Auto) (0-2) % Lymph # (Auto) (1.2-4.9) X10*3/uL [place] # (Auto) (0.1-1.2) X10*3/uL Eos # (Auto) (0.0-0.4) X10*3/uL Baso # (Auto) (0.0-0.2) X10*3/uL Abs Immat Gran (auto) (0.00-0.03) X10*3/uL Absolute Neuts (auto) (2.0-8.3) x10*3/uL Absolute Nucleated RBC (0.0-0.012) X10*3/uL Nucleated RBC % (auto) (0.0-0.2) /100WBC VBG pH (7.32-7.43) VBG pCO2 mmHg VBG pO2 mmHg VBG HCO3 (22-26) mmol/L VBG O2 Saturation % VBG Base Excess mmol/L Sodium (135-145) mmol/L Potassium (3.3-5.1) mmol/L Chloride (96-108) mmol/L Carbon Dioxide (22-29) mmol/L Anion Gap (12-20) BUN (9-16) mg/dL Creatinine (0.5-1.4) mg/dL Estim Creat Clear Calc Estimated GFR POC Glucose 565 H* 485 H* (60-115) mg/dL Random Glucose (60-115) mg/dL Lactic Acid 5.3 H* (0.5-2.0) mmol/L Lactic Acid F/U @ 2Hr (0.5-2.0) mmol/L Lactic Acid F/U @ 4Hr (0.5-2.0) mmol/L Calcium (8.4-10.2) mg/dL Magnesium (1.6-2.6) mg/dL Total Bilirubin (0.0-1.0) mg/dL AST (5-31) U/L ALT (0-31) U/L Alkaline Phosphatase (39-117) U/L Troponin I High Sens (<3.5-17.0) ng/L Total Protein (6.5-8.0) g/dL Albumin (3.5-5.0) g/dL Lipase (8-78) U/L Beta-Hydroxybutyrate (0.02-0.27) mmol/L Urine Color Urine Appearance Urine pH (5.0-9.0) Ur Specific [place] (1.005-1.025) Urine Protein (Neg-Trace) mg/dL Urine Glucose (UA) (Negative) mg/dL Urine Ketones (Negative) mg/dL Urine Blood (Negative) Urine Nitrite (Negative) Ur Leukocyte Esterase (Negative) Urine RBC (0-2) /HPF Urine WBC (0-5) /HPF Ur Squamous Epith Cells (0-2) /HPF Urine Bacteria (None Seen) Hyaline Casts (0-2) /LPF Influenza Type A (PCR) (Negative) Influenza Type B (PCR) (Negative) RSV RNA Qual (PCR) (Negative) SARS-CoV-2 RNA (RT-PCR) (Negative) 05/25/24 05/25/24 05/25/24 Range/Units 17:46 18:28 18:45 WBC (4.8-10.8) X10*3/uL RBC (4.20-5.50) X10*6/uL Hgb (12.0-16.0) g/dl Hct (37.0-47.0) % MCV (80.0-98.0) fL MCH (27.0-33.0) pg MCHC (31.0-35.0) g/dl RDW (11.0-16.0) % Plt Count (160-400) X10*3/uL MPV (9.4-12.3) fL Immature Gran % (Auto) (0.0-0.4) % Neut % (Auto) (45-73) % Lymph % (Auto) (20-40) % [place] % (Auto) (2-11) % Eos % (Auto) (0-4) % Baso % (Auto) (0-2) % Lymph # (Auto) (1.2-4.9) X10*3/uL [place] # (Auto) (0.1-1.2) X10*3/uL Eos # (Auto) (0.0-0.4) X10*3/uL Baso # (Auto) (0.0-0.2) X10*3/uL Abs Immat Gran (auto) (0.00-0.03) X10*3/uL Absolute Neuts (auto) (2.0-8.3) x10*3/uL Absolute Nucleated RBC (0.0-0.012) X10*3/uL Nucleated RBC % (auto) (0.0-0.2) /100WBC VBG pH 7.09 L* (7.32-7.43) VBG pCO2 17 mmHg VBG pO2 50 mmHg VBG HCO3 5 L (22-26) mmol/L VBG O2 Saturation 66.0 % VBG Base Excess -22.3 mmol/L Sodium 140 (135-145) mmol/L Potassium 4.8 (3.3-5.1) mmol/L Chloride 112 H (96-108) mmol/L Carbon Dioxide 5 L* D (22-29) mmol/L Anion Gap 28 H (12-20) BUN 12 (9-16) mg/dL Creatinine 1.07 (0.5-1.4) mg/dL Estim Creat Clear Calc 59.8 Estimated GFR > 60 POC Glucose 287 H (60-115) mg/dL Random Glucose 484 H* (60-115) mg/dL Lactic Acid (0.5-2.0) mmol/L Lactic Acid F/U @ 2Hr (0.5-2.0) mmol/L Lactic Acid F/U @ 4Hr (0.5-2.0) mmol/L Calcium 8.5 (8.4-10.2) mg/dL Magnesium (1.6-2.6) mg/dL Total Bilirubin (0.0-1.0) mg/dL AST (5-31) U/L ALT (0-31) U/L Alkaline Phosphatase (39-117) U/L Troponin I High Sens (<3.5-17.0) ng/L Total Protein (6.5-8.0) g/dL Albumin (3.5-5.0) g/dL Lipase (8-78) U/L Beta-Hydroxybutyrate (0.02-0.27) mmol/L Urine Color Urine Appearance Urine pH (5.0-9.0) Ur Specific [place] (1.005-1.025) Urine Protein (Neg-Trace) mg/dL Urine Glucose (UA) (Negative) mg/dL Urine Ketones (Negative) mg/dL Urine Blood (Negative) Urine Nitrite (Negative) Ur Leukocyte Esterase (Negative) Urine RBC (0-2) /HPF Urine WBC (0-5) /HPF Ur Squamous Epith Cells (0-2) /HPF Urine Bacteria (None Seen) Hyaline Casts (0-2) /LPF Influenza Type A (PCR) (Negative) Influenza Type B (PCR) (Negative) RSV RNA Qual (PCR) (Negative) SARS-CoV-2 RNA (RT-PCR) (Negative) 05/25/24 05/25/24 05/25/24 Range/Units 19:25 19:38 19:43 WBC (4.8-10.8) X10*3/uL RBC (4.20-5.50) X10*6/uL Hgb (12.0-16.0) g/dl Hct (37.0-47.0) % MCV (80.0-98.0) fL MCH (27.0-33.0) pg MCHC (31.0-35.0) g/dl RDW (11.0-16.0) % Plt Count (160-400) X10*3/uL MPV (9.4-12.3) fL Immature Gran % (Auto) (0.0-0.4) % Neut % (Auto) (45-73) % Lymph % (Auto) (20-40) % [place] % (Auto) (2-11) % Eos % (Auto) (0-4) % Baso % (Auto) (0-2) % Lymph # (Auto) (1.2-4.9) X10*3/uL [place] # (Auto) (0.1-1.2) X10*3/uL Eos # (Auto) (0.0-0.4) X10*3/uL Baso # (Auto) (0.0-0.2) X10*3/uL Abs Immat Gran (auto) (0.00-0.03) X10*3/uL Absolute Neuts (auto) (2.0-8.3) x10*3/uL Absolute Nucleated RBC (0.0-0.012) X10*3/uL Nucleated RBC % (auto) (0.0-0.2) /100WBC VBG pH 7.16 L* (7.32-7.43) VBG pCO2 21 mmHg VBG pO2 43 mmHg VBG HCO3 8 L (22-26) mmol/L VBG O2 Saturation 62.0 % VBG Base Excess -18.6 mmol/L Sodium 138 (135-145) mmol/L Potassium 4.9 (3.3-5.1) mmol/L Chloride 117 H (96-108) mmol/L Carbon Dioxide 8 L* D (22-29) mmol/L Anion Gap 18 (12-20) BUN 8 L (9-16) mg/dL Creatinine 0.80 (0.5-1.4) mg/dL Estim Creat Clear Calc 80.0 Estimated GFR > 60 POC Glucose 204 H (60-115) mg/dL Random Glucose 222 H (60-115) mg/dL Lactic Acid (0.5-2.0) mmol/L Lactic Acid F/U @ 2Hr 5.7 H* (0.5-2.0) mmol/L Lactic Acid F/U @ 4Hr (0.5-2.0) mmol/L Calcium 7.6 L D (8.4-10.2) mg/dL Magnesium 1.7 (1.6-2.6) mg/dL Total Bilirubin (0.0-1.0) mg/dL AST (5-31) U/L ALT (0-31) U/L Alkaline Phosphatase (39-117) U/L Troponin I High Sens (<3.5-17.0) ng/L Total Protein (6.5-8.0) g/dL Albumin (3.5-5.0) g/dL Lipase (8-78) U/L Beta-Hydroxybutyrate (0.02-0.27) mmol/L Urine Color Urine Appearance Urine pH (5.0-9.0) Ur Specific [place] (1.005-1.025) Urine Protein (Neg-Trace) mg/dL Urine Glucose (UA) (Negative) mg/dL Urine Ketones (Negative) mg/dL Urine Blood (Negative) Urine Nitrite (Negative) Ur Leukocyte Esterase (Negative) Urine RBC (0-2) /HPF Urine WBC (0-5) /HPF Ur Squamous Epith Cells (0-2) /HPF Urine Bacteria (None Seen) Hyaline Casts (0-2) /LPF Influenza Type A (PCR) (Negative) Influenza Type B (PCR) (Negative) RSV RNA Qual (PCR) (Negative) SARS-CoV-2 RNA (RT-PCR) (Negative) 05/25/24 05/25/24 05/25/24 Range/Units 20:09 20:51 20:54 WBC (4.8-10.8) X10*3/uL RBC (4.20-5.50) X10*6/uL Hgb (12.0-16.0) g/dl Hct (37.0-47.0) % MCV (80.0-98.0) fL MCH (27.0-33.0) pg MCHC (31.0-35.0) g/dl RDW (11.0-16.0) % Plt Count (160-400) X10*3/uL MPV (9.4-12.3) fL Immature Gran % (Auto) (0.0-0.4) % Neut % (Auto) (45-73) % Lymph % (Auto) (20-40) % [place] % (Auto) (2-11) % Eos % (Auto) (0-4) % Baso % (Auto) (0-2) % Lymph # (Auto) (1.2-4.9) X10*3/uL [place] # (Auto) (0.1-1.2) X10*3/uL Eos # (Auto) (0.0-0.4) X10*3/uL Baso # (Auto) (0.0-0.2) X10*3/uL Abs Immat Gran (auto) (0.00-0.03) X10*3/uL Absolute Neuts (auto) (2.0-8.3) x10*3/uL Absolute Nucleated RBC (0.0-0.012) X10*3/uL Nucleated RBC % (auto) (0.0-0.2) /100WBC VBG pH 7.31 L (7.32-7.43) VBG pCO2 17 mmHg VBG pO2 46 mmHg VBG HCO3 9 L (22-26) mmol/L VBG O2 Saturation 76.0 % VBG Base Excess -14.5 mmol/L Sodium 135 (135-145) mmol/L Potassium 4.5 (3.3-5.1) mmol/L Chloride 116 H (96-108) mmol/L Carbon Dioxide 9 L* (22-29) mmol/L Anion Gap 15 (12-20) BUN 6 L (9-16) mg/dL Creatinine 0.77 (0.5-1.4) mg/dL Estim Creat Clear Calc 83.0 Estimated GFR > 60 POC Glucose 175 H (60-115) mg/dL Random Glucose 170 H (60-115) mg/dL Lactic Acid (0.5-2.0) mmol/L Lactic Acid F/U @ 2Hr (0.5-2.0) mmol/L Lactic Acid F/U @ 4Hr (0.5-2.0) mmol/L Calcium 7.5 L (8.4-10.2) mg/dL Magnesium 1.7 (1.6-2.6) mg/dL Total Bilirubin (0.0-1.0) mg/dL AST (5-31) U/L ALT (0-31) U/L Alkaline Phosphatase (39-117) U/L Troponin I High Sens (<3.5-17.0) ng/L Total Protein (6.5-8.0) g/dL Albumin (3.5-5.0) g/dL Lipase (8-78) U/L Beta-Hydroxybutyrate (0.02-0.27) mmol/L Urine Color Urine Appearance Urine pH (5.0-9.0) Ur Specific [place] (1.005-1.025) Urine Protein (Neg-Trace) mg/dL Urine Glucose (UA) (Negative) mg/dL Urine Ketones (Negative) mg/dL Urine Blood (Negative) Urine Nitrite (Negative) Ur Leukocyte Esterase (Negative) Urine RBC (0-2) /HPF Urine WBC (0-5) /HPF Ur Squamous Epith Cells (0-2) /HPF Urine Bacteria (None Seen) Hyaline Casts (0-2) /LPF Influenza Type A (PCR) (Negative) Influenza Type B (PCR) (Negative) RSV RNA Qual (PCR) (Negative) SARS-CoV-2 RNA (RT-PCR) (Negative) 05/25/24 05/25/24 05/25/24 Range/Units 21:05 22:06 22:10 WBC (4.8-10.8) X10*3/uL RBC (4.20-5.50) X10*6/uL Hgb (12.0-16.0) g/dl Hct (37.0-47.0) % MCV (80.0-98.0) fL MCH (27.0-33.0) pg MCHC (31.0-35.0) g/dl RDW (11.0-16.0) % Plt Count (160-400) X10*3/uL MPV (9.4-12.3) fL Immature Gran % (Auto) (0.0-0.4) % Neut % (Auto) (45-73) % Lymph % (Auto) (20-40) % [place] % (Auto) (2-11) % Eos % (Auto) (0-4) % Baso % (Auto) (0-2) % Lymph # (Auto) (1.2-4.9) X10*3/uL [place] # (Auto) (0.1-1.2) X10*3/uL Eos # (Auto) (0.0-0.4) X10*3/uL Baso # (Auto) (0.0-0.2) X10*3/uL Abs Immat Gran (auto) (0.00-0.03) X10*3/uL Absolute Neuts (auto) (2.0-8.3) x10*3/uL Absolute Nucleated RBC (0.0-0.012) X10*3/uL Nucleated RBC % (auto) (0.0-0.2) /100WBC VBG pH (7.32-7.43) VBG pCO2 mmHg VBG pO2 mmHg VBG HCO3 (22-26) mmol/L VBG O2 Saturation % VBG Base Excess mmol/L Sodium (135-145) mmol/L Potassium (3.3-5.1) mmol/L Chloride (96-108) mmol/L Carbon Dioxide (22-29) mmol/L Anion Gap (12-20) BUN (9-16) mg/dL Creatinine (0.5-1.4) mg/dL Estim Creat Clear Calc Estimated GFR POC Glucose 144 H 116 H (60-115) mg/dL Random Glucose (60-115) mg/dL Lactic Acid (0.5-2.0) mmol/L Lactic Acid F/U @ 2Hr (0.5-2.0) mmol/L Lactic Acid F/U @ 4Hr 4.6 H* (0.5-2.0) mmol/L Calcium (8.4-10.2) mg/dL Magnesium (1.6-2.6) mg/dL Total Bilirubin (0.0-1.0) mg/dL AST (5-31) U/L ALT (0-31) U/L Alkaline Phosphatase (39-117) U/L Troponin I High Sens (<3.5-17.0) ng/L Total Protein (6.5-8.0) g/dL Albumin (3.5-5.0) g/dL Lipase (8-78) U/L Beta-Hydroxybutyrate (0.02-0.27) mmol/L Urine Color Urine Appearance Urine pH (5.0-9.0) Ur Specific [place] (1.005-1.025) Urine Protein (Neg-Trace) mg/dL Urine Glucose (UA) (Negative) mg/dL Urine Ketones (Negative) mg/dL Urine Blood (Negative) Urine Nitrite (Negative) Ur Leukocyte Esterase (Negative) Urine RBC (0-2) /HPF Urine WBC (0-5) /HPF Ur Squamous Epith Cells (0-2) /HPF Urine Bacteria (None Seen) Hyaline Casts (0-2) /LPF Influenza Type A (PCR) (Negative) Influenza Type B (PCR) (Negative) RSV RNA Qual (PCR) (Negative) SARS-CoV-2 RNA (RT-PCR) (Negative) 05/25/24 05/25/24 05/25/24 Range/Units 23:14 23:53 23:57 WBC (4.8-10.8) X10*3/uL RBC (4.20-5.50) X10*6/uL Hgb (12.0-16.0) g/dl Hct (37.0-47.0) % MCV (80.0-98.0) fL MCH (27.0-33.0) pg MCHC (31.0-35.0) g/dl RDW (11.0-16.0) % Plt Count (160-400) X10*3/uL MPV (9.4-12.3) fL Immature Gran % (Auto) (0.0-0.4) % Neut % (Auto) (45-73) % Lymph % (Auto) (20-40) % [place] % (Auto) (2-11) % Eos % (Auto) (0-4) % Baso % (Auto) (0-2) % Lymph # (Auto) (1.2-4.9) X10*3/uL [place] # (Auto) (0.1-1.2) X10*3/uL Eos # (Auto) (0.0-0.4) X10*3/uL Baso # (Auto) (0.0-0.2) X10*3/uL Abs Immat Gran (auto) (0.00-0.03) X10*3/uL Absolute Neuts (auto) (2.0-8.3) x10*3/uL Absolute Nucleated RBC (0.0-0.012) X10*3/uL Nucleated RBC % (auto) (0.0-0.2) /100WBC VBG pH 7.35 (7.32-7.43) VBG pCO2 22 mmHg VBG pO2 50 mmHg VBG HCO3 12 L (22-26) mmol/L VBG O2 Saturation 84.0 % VBG Base Excess -11.0 mmol/L Sodium 135 (135-145) mmol/L Potassium 5.0 (3.3-5.1) mmol/L Chloride 115 H (96-108) mmol/L Carbon Dioxide 12 L (22-29) mmol/L Anion Gap 13 (12-20) BUN 5 L (9-16) mg/dL Creatinine 0.74 (0.5-1.4) mg/dL Estim Creat Clear Calc 86.4 Estimated GFR > 60 POC Glucose 147 H (60-115) mg/dL Random Glucose 204 H (60-115) mg/dL Lactic Acid (0.5-2.0) mmol/L Lactic Acid F/U @ 2Hr (0.5-2.0) mmol/L Lactic Acid F/U @ 4Hr (0.5-2.0) mmol/L Calcium 7.5 L (8.4-10.2) mg/dL Magnesium 1.6 (1.6-2.6) mg/dL Total Bilirubin (0.0-1.0) mg/dL AST (5-31) U/L ALT (0-31) U/L Alkaline Phosphatase (39-117) U/L Troponin I High Sens (<3.5-17.0) ng/L Total Protein (6.5-8.0) g/dL Albumin (3.5-5.0) g/dL Lipase (8-78) U/L Beta-Hydroxybutyrate (0.02-0.27) mmol/L Urine Color Urine Appearance Urine pH (5.0-9.0) Ur Specific [place] (1.005-1.025) Urine Protein (Neg-Trace) mg/dL Urine Glucose (UA) (Negative) mg/dL Urine Ketones (Negative) mg/dL Urine Blood (Negative) Urine Nitrite (Negative) Ur Leukocyte Esterase (Negative) Urine RBC (0-2) /HPF Urine WBC (0-5) /HPF Ur Squamous Epith Cells (0-2) /HPF Urine Bacteria (None Seen) Hyaline Casts (0-2) /LPF Influenza Type A (PCR) (Negative) Influenza Type B (PCR) (Negative) RSV RNA Qual (PCR) (Negative) SARS-CoV-2 RNA (RT-PCR) (Negative) 05/26/24 05/26/24 05/26/24 Range/Units 00:18 01:22 01:47 WBC (4.8-10.8) X10*3/uL RBC (4.20-5.50) X10*6/uL Hgb (12.0-16.0) g/dl Hct (37.0-47.0) % MCV (80.0-98.0) fL MCH (27.0-33.0) pg MCHC (31.0-35.0) g/dl RDW (11.0-16.0) % Plt Count (160-400) X10*3/uL MPV (9.4-12.3) fL Immature Gran % (Auto) (0.0-0.4) % Neut % (Auto) (45-73) % Lymph % (Auto) (20-40) % [place] % (Auto) (2-11) % Eos % (Auto) (0-4) % Baso % (Auto) (0-2) % Lymph # (Auto) (1.2-4.9) X10*3/uL [place] # (Auto) (0.1-1.2) X10*3/uL Eos # (Auto) (0.0-0.4) X10*3/uL Baso # (Auto) (0.0-0.2) X10*3/uL Abs Immat Gran (auto) (0.00-0.03) X10*3/uL Absolute Neuts (auto) (2.0-8.3) x10*3/uL Absolute Nucleated RBC (0.0-0.012) X10*3/uL Nucleated RBC % (auto) (0.0-0.2) /100WBC VBG pH (7.32-7.43) VBG pCO2 mmHg VBG pO2 mmHg VBG HCO3 (22-26) mmol/L VBG O2 Saturation % VBG Base Excess mmol/L Sodium 137 (135-145) mmol/L Potassium 4.2 (3.3-5.1) mmol/L Chloride 117 H (96-108) mmol/L Carbon Dioxide 9 L* D (22-29) mmol/L Anion Gap 15 (12-20) BUN 5 L (9-16) mg/dL Creatinine 0.67 (0.5-1.4) mg/dL Estim Creat Clear Calc 95.5 Estimated GFR > 60 POC Glucose 208 H 194 H (60-115) mg/dL Random Glucose 203 H (60-115) mg/dL Lactic Acid (0.5-2.0) mmol/L Lactic Acid F/U @ 2Hr (0.5-2.0) mmol/L Lactic Acid F/U @ 4Hr (0.5-2.0) mmol/L Calcium 6.9 L D (8.4-10.2) mg/dL Magnesium 1.4 L* (1.6-2.6) mg/dL Total Bilirubin (0.0-1.0) mg/dL AST (5-31) U/L ALT (0-31) U/L Alkaline Phosphatase (39-117) U/L Troponin I High Sens (<3.5-17.0) ng/L Total Protein (6.5-8.0) g/dL Albumin (3.5-5.0) g/dL Lipase (8-78) U/L Beta-Hydroxybutyrate (0.02-0.27) mmol/L Urine Color Urine Appearance Urine pH (5.0-9.0) Ur Specific [place] (1.005-1.025) Urine Protein (Neg-Trace) mg/dL Urine Glucose (UA) (Negative) mg/dL Urine Ketones (Negative) mg/dL Urine Blood (Negative) Urine Nitrite (Negative) Ur Leukocyte Esterase (Negative) Urine RBC (0-2) /HPF Urine WBC (0-5) /HPF Ur Squamous Epith Cells (0-2) /HPF Urine Bacteria (None Seen) Hyaline Casts (0-2) /LPF Influenza Type A (PCR) (Negative) Influenza Type B (PCR) (Negative) RSV RNA Qual (PCR) (Negative) SARS-CoV-2 RNA (RT-PCR) (Negative) 05/26/24 05/26/24 05/26/24 Range/Units 02:29 03:44 03:58 WBC (4.8-10.8) X10*3/uL RBC (4.20-5.50) X10*6/uL Hgb (12.0-16.0) g/dl Hct (37.0-47.0) % MCV (80.0-98.0) fL MCH (27.0-33.0) pg MCHC (31.0-35.0) g/dl RDW (11.0-16.0) % Plt Count (160-400) X10*3/uL MPV (9.4-12.3) fL Immature Gran % (Auto) (0.0-0.4) % Neut % (Auto) (45-73) % Lymph % (Auto) (20-40) % [place] % (Auto) (2-11) % Eos % (Auto) (0-4) % Baso % (Auto) (0-2) % Lymph # (Auto) (1.2-4.9) X10*3/uL [place] # (Auto) (0.1-1.2) X10*3/uL Eos # (Auto) (0.0-0.4) X10*3/uL Baso # (Auto) (0.0-0.2) X10*3/uL Abs Immat Gran (auto) (0.00-0.03) X10*3/uL Absolute Neuts (auto) (2.0-8.3) x10*3/uL Absolute Nucleated RBC (0.0-0.012) X10*3/uL Nucleated RBC % (auto) (0.0-0.2) /100WBC VBG pH 7.42 (7.32-7.43) VBG pCO2 52 mmHg VBG pO2 52 mmHg VBG HCO3 34 H (22-26) mmol/L VBG O2 Saturation 85.0 % VBG Base Excess 9.1 mmol/L Sodium (135-145) mmol/L Potassium (3.3-5.1) mmol/L Chloride (96-108) mmol/L Carbon Dioxide (22-29) mmol/L Anion Gap (12-20) BUN (9-16) mg/dL Creatinine (0.5-1.4) mg/dL Estim Creat Clear Calc Estimated GFR POC Glucose 189 H 211 H (60-115) mg/dL Random Glucose (60-115) mg/dL Lactic Acid (0.5-2.0) mmol/L Lactic Acid F/U @ 2Hr (0.5-2.0) mmol/L Lactic Acid F/U @ 4Hr (0.5-2.0) mmol/L Calcium (8.4-10.2) mg/dL Magnesium (1.6-2.6) mg/dL Total Bilirubin (0.0-1.0) mg/dL AST (5-31) U/L ALT (0-31) U/L Alkaline Phosphatase (39-117) U/L Troponin I High Sens (<3.5-17.0) ng/L Total Protein (6.5-8.0) g/dL Albumin (3.5-5.0) g/dL Lipase (8-78) U/L Beta-Hydroxybutyrate (0.02-0.27) mmol/L Urine Color Urine Appearance Urine pH (5.0-9.0) Ur Specific [place] (1.005-1.025) Urine Protein (Neg-Trace) mg/dL Urine Glucose (UA) (Negative) mg/dL Urine Ketones (Negative) mg/dL Urine Blood (Negative) Urine Nitrite (Negative) Ur Leukocyte Esterase (Negative) Urine RBC (0-2) /HPF Urine WBC (0-5) /HPF Ur Squamous Epith Cells (0-2) /HPF Urine Bacteria (None Seen) Hyaline Casts (0-2) /LPF Influenza Type A (PCR) (Negative) Influenza Type B (PCR) (Negative) RSV RNA Qual (PCR) (Negative) SARS-CoV-2 RNA (RT-PCR) (Negative) Critical Care Time Critical Care Time Critical Care Time: Yes Total Critical Care Time: 60 Attestation: I Roxanna Benitez PA-C have personally implemented 60 minutes of critical care time not including the placement of lines or other procedures. Discharge Plan Discharge Clinical Impression: DKA (diabetic ketoacidosis), Urinary tract infection Patient Disposition: Admitted As Inpatient Print Language: [place]
[2024-05-25] MEDS: 0.9 % Sodium Chloride 1,000 ML 999 ML IV ×3 (16:17→18:30)
[2024-05-25] MEDS: ondansetron HCL 4 MG/2 ML VIAL IVPUSH (16:17)
[2024-05-25] MEDS: Insulin Regular, Human 100 UNIT/ML 10 ML VIAL 10 UNIT IVPUSH (16:21)
[2024-05-25] MEDS: Insulin Regular/NS 100 UNIT/100 ML PLAST..BAG IVCONT ×2 (16:22)
[2024-05-25 16:26] LABS: Alkaline Phosphatase 142 U/L (39-117)
[2024-05-25 16:39] LABS: Glucose, Whole Blood 565 mg/dL (60-115)
[2024-05-25 17:34] LABS: Glucose, Whole Blood 485 mg/dL (60-115)
[2024-05-25] MEDS: cefTRIAXone sodium 2 GM VIAL IVPUSH (17:48)
[2024-05-25 17:54] LABS: Lactic Acid 5.3 mmol/L (0.5-2.0)
[2024-05-25] MEDS: Ketorolac Tromethamine 15 MG/ML VIAL IVPUSH (17:57)
[2024-05-25 18:18] LABS: Anion Gap 28 (12-20); Blood Urea Nitrogen 12 mg/dL (9-16); Calcium 8.5 mg/dL (8.4-10.2); Carbon Dioxide 5 mmol/L (22-29); Chloride 112 mmol/L (96-108); Creatinine Clr Calc Pharmacy 59.8; Estimated Glomerular Filt Rate > 60; Glucose Random 484 mg/dL (60-115); Potassium 4.8 mmol/L (3.3-5.1); Sodium 140 mmol/L (135-145)
[2024-05-25 18:35] LABS: Glucose, Whole Blood 287 mg/dL (60-115)
[2024-05-25 18:53] LABS: VBG Base Excess -22.3 mmol/L; VBG HCO3 5 mmol/L (22-26); VBG pCO2 17 mmHg; VBG pH 7.09 (7.32-7.43); VBG pO2 50 mmHg
[2024-05-25 18:59] LABS: Venous Blood Gas Refer to POC result
[2024-05-25] MEDS: Dextrose 5 % and 0.45 % NaCl 1,000 ML 100 ML IVCONT (19:12)
[2024-05-25 19:28] LABS: Glucose, Whole Blood 204 mg/dL (60-115)
[2024-05-25 19:29] LABS: Reflex Lactate? Lactic Acid Added
[2024-05-25 19:51] LABS: VBG Base Excess -18.6 mmol/L; VBG HCO3 8 mmol/L (22-26); VBG pCO2 21 mmHg; VBG pH 7.16 (7.32-7.43); VBG pO2 43 mmHg
[2024-05-25 19:51] LABS: Venous Blood Gas Refer to POC result
[2024-05-25 20:10] LABS: Anion Gap 18 (12-20); Blood Urea Nitrogen 8 mg/dL (9-16); Calcium 7.6 mg/dL (8.4-10.2); Carbon Dioxide 8 mmol/L (22-29); Chloride 117 mmol/L (96-108); Estimated Glomerular Filt Rate > 60; Glucose Random 222 mg/dL (60-115); Magnesium 1.7 mg/dL (1.6-2.6); Potassium 4.9 mmol/L (3.3-5.1); Sodium 138 mmol/L (135-145); ~Lactic Acid-LAB USE ONLY 5.7 mmol/L (0.5-2.0)
[2024-05-25 20:12] LABS: Glucose, Whole Blood 175 mg/dL (60-115)
[2024-05-25] MEDS: 0.9 % Sodium Chloride 500 ML 150 ML IV (20:13)
--- NOTE | 2024-05-25 20:21 | MHC.EDTECH ---
Facesheet faxed to [facility] @2019
[2024-05-25] MEDS: Dextrose 5 % and 0.45 % NaCl 1,000 ML 200 ML IVCONT (20:47)
[2024-05-25 20:59] LABS: VBG Base Excess -14.5 mmol/L; VBG HCO3 9 mmol/L (22-26); VBG pCO2 17 mmHg; VBG pH 7.31 (7.32-7.43); VBG pO2 46 mmHg
[2024-05-25 21:00] LABS: Venous Blood Gas Refer to POC result
[2024-05-25 21:09] LABS: Glucose, Whole Blood 144 mg/dL (60-115)
--- NOTE | 2024-05-25 21:23 | PC.NURSE ---
this rn assumed care of pt @ 1900. pt medicated according to mar pt alert and oriented hourly poc checks remain in place 2100 poc check 144 pa made aware per pa no new orders at this time continue poc checks and current rates
[2024-05-25 21:29] LABS: Anion Gap 15 (12-20); Blood Urea Nitrogen 6 mg/dL (9-16); Calcium 7.5 mg/dL (8.4-10.2); Carbon Dioxide 9 mmol/L (22-29); Chloride 116 mmol/L (96-108); Estimated Glomerular Filt Rate > 60; Glucose Random 170 mg/dL (60-115); Magnesium 1.7 mg/dL (1.6-2.6); Potassium 4.5 mmol/L (3.3-5.1); Sodium 135 mmol/L (135-145)
[2024-05-25 21:44] LABS: Reflex Lactate? 2 Y
[2024-05-25 22:13] LABS: Glucose, Whole Blood 116 mg/dL (60-115)
--- NOTE | 2024-05-25 22:13 | PC.NURSE ---
@22.5 this rn paused insulin, dextrose and ns gtt per order of jonathan ruiz. chargeback analyst aware pt to remain hourly poc checks
[2024-05-25 22:27] LABS: ~Lactic Acid-LAB USE ONLY 4.6 mmol/L (0.5-2.0)
--- NOTE | 2024-05-25 22:56 | PC.NURSE ---
jonathan gabrielle made aware of bp of 87/45 no new orders at this time
[2024-05-25 23:18] LABS: Glucose, Whole Blood 147 mg/dL (60-115)
[2024-05-26] VITALS (9 sets, daily range): BP systolic 90–113; BP diastolic 50–69; PULSE 86–112; RESP 14–18; TEMP 36.3–36.9; O2SAT 98–100; BMI 33.0
[2024-05-26 00:03] LABS: VBG HCO3 12 mmol/L (22-26); VBG pCO2 22 mmHg; VBG pH 7.35 (7.32-7.43); VBG pO2 50 mmHg
[2024-05-26] MEDS: Insulin Glargine,Hum.rec.anlog 100 UNIT/ML 10 ML VIAL 40 UNIT SUBCUT (00:05)
[2024-05-26] MEDS: 0.9 % Sodium Chloride 1,000 ML 999 ML IV ×2 (00:05)
[2024-05-26 00:09] LABS: Venous Blood Gas Refer to POC result
[2024-05-26 00:13] LABS: Anion Gap 13 (12-20); Blood Urea Nitrogen 5 mg/dL (9-16); Calcium 7.5 mg/dL (8.4-10.2); Carbon Dioxide 12 mmol/L (22-29); Chloride 115 mmol/L (96-108); Creatinine Clr Calc Pharmacy 86.4; Estimated Glomerular Filt Rate > 60; Glucose Random 204 mg/dL (60-115); Magnesium 1.6 mg/dL (1.6-2.6); Sodium 135 mmol/L (135-145)
[2024-05-26 00:22] LABS: Glucose, Whole Blood 208 mg/dL (60-115)
[2024-05-26 01:27] LABS: Glucose, Whole Blood 194 mg/dL (60-115)
[2024-05-26 02:11] LABS: Anion Gap 15 (12-20); Blood Urea Nitrogen 5 mg/dL (9-16); Calcium 6.9 mg/dL (8.4-10.2); Carbon Dioxide 9 mmol/L (22-29); Chloride 117 mmol/L (96-108); Creatinine Clr Calc Pharmacy 95.5; Estimated Glomerular Filt Rate > 60; Glucose Random 203 mg/dL (60-115); Magnesium 1.4 mg/dL (1.6-2.6); Potassium 4.2 mmol/L (3.3-5.1); Sodium 137 mmol/L (135-145)
[2024-05-26] MEDS: Magnesium Sulfate/H2O 2 GM/50 ML PIGGYBACK IV (02:18)
[2024-05-26] MEDS: Calcium Gluconate/NaCl,Iso-Osm 2 GM/100 ML PLAST..BAG IV (02:19)
[2024-05-26 02:35] LABS: Glucose, Whole Blood 189 mg/dL (60-115)
[2024-05-26] MEDS: Sodium Bicarbonate 8.4% 150 MEQ in Dextrose 5 % 850 ML 50 MEQ IV (02:38)
[2024-05-26 03:56] LABS: Glucose, Whole Blood 211 mg/dL (60-115)
[2024-05-26 04:02] LABS: VBG Base Excess 9.1 mmol/L; VBG HCO3 34 mmol/L (22-26); VBG pCO2 52 mmHg; VBG pH 7.42 (7.32-7.43); VBG pO2 52 mmHg
[2024-05-26 04:07] LABS: Venous Blood Gas Refer to POC result
--- NOTE | 2024-05-26 04:45 | PC.NURSE ---
pt continues reporting pain jonathan ruiz made aware prior to leaving shift. per gabrielle verbal order with read back placed for ketorolac 15mg ivp order visually confirmed with jonathan ruiz
[2024-05-26] MEDS: Ketorolac Tromethamine 15 MG/ML VIAL IVPUSH ×2 (04:50→14:43)
[2024-05-26 05:09] LABS: Glucose, Whole Blood 237 mg/dL (60-115)
--- NOTE | 2024-05-26 05:18 | P.HPHOSP_ITS ---
History of Present Illness Date of Service: 05/26/24 Attending physician on admission: Tomasz Roy Chief Complaint: Left flank pain Ben Higginbotham is a 19 years old woman with past medical history significant for type 1 diabetes mellitus and multiple hospitalization due to DKA presents to the emergency department complaining of multiple symptoms including chest tightness, shortness on breath, vomiting, blurry vision, headache and left flank pain. She denied any acute urinary symptoms, fevers, chills or cough. She stated that the last time she used Lantus was Monday at noon and uses sliding scale of NovoLog. She denied tobacco smoking, alcohol use or illicit drug use. In the ED, she was found to have mild tachycardia 130, tachypnea and hypotension (87/45). Blood workup was remarkable for leukocytosis of 13.3. Hemoglobin is 11.9 and platelets 493. Initial blood workup was significant for glucose 653, bicarb 5, lactic acidosis of 5.7 and elevated anion gap, 28. This also hypomagnesemia and hypocalcemia. Urinalysis consistent with urinary tract infection. ECG showed sinus tachycardia with a heart rate 133 bpm without ischemic changes. ED tx: See ED medication tab. Review of Systems 2 Review of Systems: All 12 systems were reviewed and normal except as noted in HPI. [facility] Medical History Type 1 diabetes mellitus with proteinuria Diabetes Social History Household Members: Family Housing: Apartment Do you presently have visiting nurse or other home services: No Alcohol intake: never Patient Tobacco Use Status: Never used Tobacco Smoked in Last 30 Days: No Second Hand Smoke Exposure: No Use of substances other than those prescribed or required for medical reasons: No Advance Directives: No Advance Directives Information Provided: Yes Do you have a plan to hurt others: No Plan service: No Current occupational status: unemployed Meds Allergies Allergy/AdvReac Type Severity Reaction Status Date / Time No Known Allergies Allergy Verified 05/25/24 13:47 Active Medications: Current Medications Acetaminophen (Acetaminophen 325 Mg Tablet) 975 mg PO Q6H PRN PRN Reason: Pain, Mild 1-3,fever,headache Calcium Carbonate (Calcium Carbonate 750 Mg Tab.Chew) 750 mg PO Q4H PRN PRN Reason: Heartburn Enoxaparin Sodium (Enoxaparin Sodium 40 Mg/0.4 Ml Syringe) 40 mg SUBCUT Q24H [facility] Glucose (Glucose Gel 15 Gm Gel..Gram.) 15 gm PO Q15M PRN; Protocol PRN Reason: per Hypoglycemia Standing Ord. Sodium Bicarbonate 150 meq/ (Dextrose) 1,000 mls @ 50 mls/hr IV .Q20H [facility] Last Admin: 05/26/24 02:38 Dose: 50 mls/hr Dextrose (D10) 250 mls @ 750 mls/hr IV Q15M PRN; Protocol PRN Reason: per Hypoglycemia Standing Ord. Insulin Glargine (Insulin Glargine,Hum.Rec.Anlog 100 Unit/Ml 10 Ml Vial) 54 unit SUBCUT BEDTIME CAROLINE Insulin Human Lispro (Insulin Lispro 100 Unit/Ml 3 Ml Vial) 0 unit SUBCUT QIDACHS [facility]; Protocol Magnesium Hydroxide (Milk Of Magnesia 30 Ml Oral.Susp) 30 ml PO DAILY PRN PRN Reason: Constipation Melatonin (Melatonin 3 Mg Tablet) 6 mg PO BEDTIME PRN PRN Reason: Insomnia Ondansetron HCl (Ondansetron Hcl 4 Mg/2 Ml Vial) 4 mg IVPUSH Q8H PRN PRN Reason: Nausea and Vomiting Sodium Chloride (0.9 % Sodium Chloride Flush 3 Ml Syringe) 3 ml IVFLUSH QSHIFT [facility] Home Medications ?Medication ?Instructions ?Recorded ?Confirmed ?Last Taken ?Type melatonin 5 mg tablet 5 mg PO BEDTIME PRN Sleep 10/13/22 05/12/24 Unknown History acetaminophen 325 mg tablet 650 mg PO Q6H PRN Pain 05/12/24 05/12/24 Unknown History (Tylenol) ibuprofen 200 mg tablet 400 mg PO Q8H PRN Pain 05/12/24 05/12/24 Unknown History insulin aspart U-100 100 unit/mL 1 sliding scale dose subcut TIDAC 05/12/24 05/12/24 05/12/24 History (3 mL) subcutaneous pen insulin glargine 100 unit/mL (3 54 unit subcut DAILY@1200 05/12/24 05/12/24 Unknown History mL) subcutaneous pen (Lantus Solostar U-100 Insulin) Physical Exam 2 Vital Signs and Narrative: Vital Signs: Last Vital Signs Temp 98.2 F 05/26/24 04:33 Pulse 112 H 05/26/24 04:33 Resp 17 05/26/24 04:33 BP 107/65 05/26/24 04:33 Pulse Ox 100 05/26/24 04:33 O2 Del Method Room Air 05/26/24 04:33 BMI result Body Mass Index 26.7 Constitutional - Awake and Alert, No apparent distress. Cooperative. Pleasant. Afebrile. HEEENT - PERRL, EOMI Heart - S1S2, RRR, No murmurs. Lungs - Normal lung expansion, Normal respiratory effort, No respiratory distress, CTA bilaterally Abdomen - Nondistended, left flank tenderness. No rebound. No garding. - No CVA tenderness Extremities - no calf tenderness bilaterally, no swelling Musculoskeletal - Normal inspection, normal ROM Skin - Warm/Dry Neurological - Alert & oriented x3, CN II-XII in tact, 5/5 strength BUE and BLE Psychological - Appropriate affect Results Labs 05/26/24 05:20 05/26/24 05:20 Labs: Laboratory Results - last 24 hr 05/25/24 05/25/24 05/25/24 13:52 13:55 14:44 MCV 87.2 D MCH 27.2 MCHC 31.2 RDW 15.1 Plt Count 493 H D MPV 10.8 Immature Gran % (Auto) 1.0 H Neut % (Auto) 84.6 H Lymph % (Auto) 9.2 L [place] % (Auto) 4.7 Eos % (Auto) 0.0 Baso % (Auto) 0.5 Lymph # (Auto) 1.2 [place] # (Auto) 0.6 Eos # (Auto) 0.0 Baso # (Auto) 0.1 Abs Immat Gran (auto) 0.13 H Absolute Neuts (auto) 11.3 H Absolute Nucleated RBC 0.000 Nucleated RBC % (auto) 0.0 VBG pH VBG pCO2 VBG pO2 VBG HCO3 VBG O2 Saturation VBG Base Excess Anion Gap 28 H Estim Creat Clear Calc 53.7 Estimated GFR 57 POC Glucose > 600 H* > 600 H* Random Glucose 653 H* Lactic Acid Lactic Acid F/U @ 2Hr Lactic Acid F/U @ 4Hr Calcium 8.9 D Magnesium 2.0 Total Bilirubin 0.5 AST 40 H ALT 31 Alkaline Phosphatase 142 H Troponin I High Sens < 2.7 Total Protein 7.7 Albumin 4.0 Lipase 9 Beta-Hydroxybutyrate 6.39 H Urine Color Urine Appearance Urine pH Ur Specific [place] Urine Protein Urine Glucose (UA) Urine Ketones Urine Blood Urine Nitrite Ur Leukocyte Esterase Urine RBC Urine WBC Ur Squamous Epith Cells Urine Bacteria Hyaline Casts Influenza Type A (PCR) NEGATIVE Influenza Type B (PCR) NEGATIVE RSV RNA Qual (PCR) NEGATIVE SARS-CoV-2 RNA (RT-PCR) NEGATIVE 05/25/24 05/25/24 05/25/24 14:50 14:52 14:53 MCV MCH MCHC RDW Plt Count MPV Immature Gran % (Auto) Neut % (Auto) Lymph % (Auto) [place] % (Auto) Eos % (Auto) Baso % (Auto) Lymph # (Auto) [place] # (Auto) Eos # (Auto) Baso # (Auto) Abs Immat Gran (auto) Absolute Neuts (auto) Absolute Nucleated RBC Nucleated RBC % (auto) VBG pH 7.12 L* VBG pCO2 26 VBG pO2 56 VBG HCO3 8 L VBG O2 Saturation 70.0 VBG Base Excess -18.8 Anion Gap Estim Creat Clear Calc Estimated GFR POC Glucose > 600 H* Random Glucose Lactic Acid Lactic Acid F/U @ 2Hr Lactic Acid F/U @ 4Hr Calcium Magnesium Total Bilirubin AST ALT Alkaline Phosphatase Troponin I High Sens Total Protein Albumin Lipase Beta-Hydroxybutyrate Urine Color Yellow Urine Appearance Clear Urine pH 5.0 Ur Specific [place] 1.025 Urine Protein Negative Urine Glucose (UA) >=1000 H Urine Ketones >=160 Urine Blood Negative Urine Nitrite Negative Ur Leukocyte Esterase Moderate (2+) H Urine RBC 0-2 Urine WBC 21-50 H Ur Squamous Epith Cells 0-2 Urine Bacteria None Seen Hyaline Casts 3-5 Influenza Type A (PCR) Influenza Type B (PCR) RSV RNA Qual (PCR) SARS-CoV-2 RNA (RT-PCR) 05/25/24 05/25/24 05/25/24 16:16 17:19 17:21 MCV MCH MCHC RDW Plt Count MPV Immature Gran % (Auto) Neut % (Auto) Lymph % (Auto) [place] % (Auto) Eos % (Auto) Baso % (Auto) Lymph # (Auto) [place] # (Auto) Eos # (Auto) Baso # (Auto) Abs Immat Gran (auto) Absolute Neuts (auto) Absolute Nucleated RBC Nucleated RBC % (auto) VBG pH VBG pCO2 VBG pO2 VBG HCO3 VBG O2 Saturation VBG Base Excess Anion Gap Estim Creat Clear Calc Estimated GFR POC Glucose 565 H* 485 H* Random Glucose Lactic Acid 5.3 H* Lactic Acid F/U @ 2Hr Lactic Acid F/U @ 4Hr Calcium Magnesium Total Bilirubin AST ALT Alkaline Phosphatase Troponin I High Sens Total Protein Albumin Lipase Beta-Hydroxybutyrate Urine Color Urine Appearance Urine pH Ur Specific [place] Urine Protein Urine Glucose (UA) Urine Ketones Urine Blood Urine Nitrite Ur Leukocyte Esterase Urine RBC Urine WBC Ur Squamous Epith Cells Urine Bacteria Hyaline Casts Influenza Type A (PCR) Influenza Type B (PCR) RSV RNA Qual (PCR) SARS-CoV-2 RNA (RT-PCR) 05/25/24 05/25/24 05/25/24 17:46 18:28 18:45 MCV MCH MCHC RDW Plt Count MPV Immature Gran % (Auto) Neut % (Auto) Lymph % (Auto) [place] % (Auto) Eos % (Auto) Baso % (Auto) Lymph # (Auto) [place] # (Auto) Eos # (Auto) Baso # (Auto) Abs Immat Gran (auto) Absolute Neuts (auto) Absolute Nucleated RBC Nucleated RBC % (auto) VBG pH 7.09 L* VBG pCO2 17 VBG pO2 50 VBG HCO3 5 L VBG O2 Saturation 66.0 VBG Base Excess -22.3 Anion Gap 28 H Estim Creat Clear Calc 59.8 Estimated GFR > 60 POC Glucose 287 H Random Glucose 484 H* Lactic Acid Lactic Acid F/U @ 2Hr Lactic Acid F/U @ 4Hr Calcium 8.5 Magnesium Total Bilirubin AST ALT Alkaline Phosphatase Troponin I High Sens Total Protein Albumin Lipase Beta-Hydroxybutyrate Urine Color Urine Appearance Urine pH Ur Specific [place] Urine Protein Urine Glucose (UA) Urine Ketones Urine Blood Urine Nitrite Ur Leukocyte Esterase Urine RBC Urine WBC Ur Squamous Epith Cells Urine Bacteria Hyaline Casts Influenza Type A (PCR) Influenza Type B (PCR) RSV RNA Qual (PCR) SARS-CoV-2 RNA (RT-PCR) 05/25/24 05/25/24 05/25/24 19:25 19:38 19:43 MCV MCH MCHC RDW Plt Count MPV Immature Gran % (Auto) Neut % (Auto) Lymph % (Auto) [place] % (Auto) Eos % (Auto) Baso % (Auto) Lymph # (Auto) [place] # (Auto) Eos # (Auto) Baso # (Auto) Abs Immat Gran (auto) Absolute Neuts (auto) Absolute Nucleated RBC Nucleated RBC % (auto) VBG pH 7.16 L* VBG pCO2 21 VBG pO2 43 VBG HCO3 8 L VBG O2 Saturation 62.0 VBG Base Excess -18.6 Anion Gap 18 Estim Creat Clear Calc 80.0 Estimated GFR > 60 POC Glucose 204 H Random Glucose 222 H Lactic Acid Lactic Acid F/U @ 2Hr 5.7 H* Lactic Acid F/U @ 4Hr Calcium 7.6 L D Magnesium 1.7 Total Bilirubin AST ALT Alkaline Phosphatase Troponin I High Sens Total Protein Albumin Lipase Beta-Hydroxybutyrate Urine Color Urine Appearance Urine pH Ur Specific [place] Urine Protein Urine Glucose (UA) Urine Ketones Urine Blood Urine Nitrite Ur Leukocyte Esterase Urine RBC Urine WBC Ur Squamous Epith Cells Urine Bacteria Hyaline Casts Influenza Type A (PCR) Influenza Type B (PCR) RSV RNA Qual (PCR) SARS-CoV-2 RNA (RT-PCR) 05/25/24 05/25/24 05/25/24 20:09 20:51 20:54 MCV MCH MCHC RDW Plt Count MPV Immature Gran % (Auto) Neut % (Auto) Lymph % (Auto) [place] % (Auto) Eos % (Auto) Baso % (Auto) Lymph # (Auto) [place] # (Auto) Eos # (Auto) Baso # (Auto) Abs Immat Gran (auto) Absolute Neuts (auto) Absolute Nucleated RBC Nucleated RBC % (auto) VBG pH 7.31 L VBG pCO2 17 VBG pO2 46 VBG HCO3 9 L VBG O2 Saturation 76.0 VBG Base Excess -14.5 Anion Gap 15 Estim Creat Clear Calc 83.0 Estimated GFR > 60 POC Glucose 175 H Random Glucose 170 H Lactic Acid Lactic Acid F/U @ 2Hr Lactic Acid F/U @ 4Hr Calcium 7.5 L Magnesium 1.7 Total Bilirubin AST ALT Alkaline Phosphatase Troponin I High Sens Total Protein Albumin Lipase Beta-Hydroxybutyrate Urine Color Urine Appearance Urine pH Ur Specific [place] Urine Protein Urine Glucose (UA) Urine Ketones Urine Blood Urine Nitrite Ur Leukocyte Esterase Urine RBC Urine WBC Ur Squamous Epith Cells Urine Bacteria Hyaline Casts Influenza Type A (PCR) Influenza Type B (PCR) RSV RNA Qual (PCR) SARS-CoV-2 RNA (RT-PCR) 05/25/24 05/25/24 05/25/24 21:05 22:06 22:10 MCV MCH MCHC RDW Plt Count MPV Immature Gran % (Auto) Neut % (Auto) Lymph % (Auto) [place] % (Auto) Eos % (Auto) Baso % (Auto) Lymph # (Auto) [place] # (Auto) Eos # (Auto) Baso # (Auto) Abs Immat Gran (auto) Absolute Neuts (auto) Absolute Nucleated RBC Nucleated RBC % (auto) VBG pH VBG pCO2 VBG pO2 VBG HCO3 VBG O2 Saturation VBG Base Excess Anion Gap Estim Creat Clear Calc Estimated GFR POC Glucose 144 H 116 H Random Glucose Lactic Acid Lactic Acid F/U @ 2Hr Lactic Acid F/U @ 4Hr 4.6 H* Calcium Magnesium Total Bilirubin AST ALT Alkaline Phosphatase Troponin I High Sens Total Protein Albumin Lipase Beta-Hydroxybutyrate Urine Color Urine Appearance Urine pH Ur Specific [place] Urine Protein Urine Glucose (UA) Urine Ketones Urine Blood Urine Nitrite Ur Leukocyte Esterase Urine RBC Urine WBC Ur Squamous Epith Cells Urine Bacteria Hyaline Casts Influenza Type A (PCR) Influenza Type B (PCR) RSV RNA Qual (PCR) SARS-CoV-2 RNA (RT-PCR) 05/25/24 05/25/24 05/25/24 23:14 23:53 23:57 MCV MCH MCHC RDW Plt Count MPV Immature Gran % (Auto) Neut % (Auto) Lymph % (Auto) [place] % (Auto) Eos % (Auto) Baso % (Auto) Lymph # (Auto) [place] # (Auto) Eos # (Auto) Baso # (Auto) Abs Immat Gran (auto) Absolute Neuts (auto) Absolute Nucleated RBC Nucleated RBC % (auto) VBG pH 7.35 VBG pCO2 22 VBG pO2 50 VBG HCO3 12 L VBG O2 Saturation 84.0 VBG Base Excess -11.0 Anion Gap 13 Estim Creat Clear Calc 86.4 Estimated GFR > 60 POC Glucose 147 H Random Glucose 204 H Lactic Acid Lactic Acid F/U @ 2Hr Lactic Acid F/U @ 4Hr Calcium 7.5 L Magnesium 1.6 Total Bilirubin AST ALT Alkaline Phosphatase Troponin I High Sens Total Protein Albumin Lipase Beta-Hydroxybutyrate Urine Color Urine Appearance Urine pH Ur Specific [place] Urine Protein Urine Glucose (UA) Urine Ketones Urine Blood Urine Nitrite Ur Leukocyte Esterase Urine RBC Urine WBC Ur Squamous Epith Cells Urine Bacteria Hyaline Casts Influenza Type A (PCR) Influenza Type B (PCR) RSV RNA Qual (PCR) SARS-CoV-2 RNA (RT-PCR) 05/26/24 05/26/24 05/26/24 00:18 01:22 01:47 MCV MCH MCHC RDW Plt Count MPV Immature Gran % (Auto) Neut % (Auto) Lymph % (Auto) [place] % (Auto) Eos % (Auto) Baso % (Auto) Lymph # (Auto) [place] # (Auto) Eos # (Auto) Baso # (Auto) Abs Immat Gran (auto) Absolute Neuts (auto) Absolute Nucleated RBC Nucleated RBC % (auto) VBG pH VBG pCO2 VBG pO2 VBG HCO3 VBG O2 Saturation VBG Base Excess Anion Gap 15 Estim Creat Clear Calc 95.5 Estimated GFR > 60 POC Glucose 208 H 194 H Random Glucose 203 H Lactic Acid Lactic Acid F/U @ 2Hr Lactic Acid F/U @ 4Hr Calcium 6.9 L D Magnesium 1.4 L* Total Bilirubin AST ALT Alkaline Phosphatase Troponin I High Sens Total Protein Albumin Lipase Beta-Hydroxybutyrate Urine Color Urine Appearance Urine pH Ur Specific [place] Urine Protein Urine Glucose (UA) Urine Ketones Urine Blood Urine Nitrite Ur Leukocyte Esterase Urine RBC Urine WBC Ur Squamous Epith Cells Urine Bacteria Hyaline Casts Influenza Type A (PCR) Influenza Type B (PCR) RSV RNA Qual (PCR) SARS-CoV-2 RNA (RT-PCR) 05/26/24 05/26/24 05/26/24 02:29 03:44 03:58 MCV MCH MCHC RDW Plt Count MPV Immature Gran % (Auto) Neut % (Auto) Lymph % (Auto) [place] % (Auto) Eos % (Auto) Baso % (Auto) Lymph # (Auto) [place] # (Auto) Eos # (Auto) Baso # (Auto) Abs Immat Gran (auto) Absolute Neuts (auto) Absolute Nucleated RBC Nucleated RBC % (auto) VBG pH 7.42 VBG pCO2 52 VBG pO2 52 VBG HCO3 34 H VBG O2 Saturation 85.0 VBG Base Excess 9.1 Anion Gap Estim Creat Clear Calc Estimated GFR POC Glucose 189 H 211 H Random Glucose Lactic Acid Lactic Acid F/U @ 2Hr Lactic Acid F/U @ 4Hr Calcium Magnesium Total Bilirubin AST ALT Alkaline Phosphatase Troponin I High Sens Total Protein Albumin Lipase Beta-Hydroxybutyrate Urine Color Urine Appearance Urine pH Ur Specific [place] Urine Protein Urine Glucose (UA) Urine Ketones Urine Blood Urine Nitrite Ur Leukocyte Esterase Urine RBC Urine WBC Ur Squamous Epith Cells Urine Bacteria Hyaline Casts Influenza Type A (PCR) Influenza Type B (PCR) RSV RNA Qual (PCR) SARS-CoV-2 RNA (RT-PCR) 05/26/24 05:02 MCV MCH MCHC RDW Plt Count MPV Immature Gran % (Auto) Neut % (Auto) Lymph % (Auto) [place] % (Auto) Eos % (Auto) Baso % (Auto) Lymph # (Auto) [place] # (Auto) Eos # (Auto) Baso # (Auto) Abs Immat Gran (auto) Absolute Neuts (auto) Absolute Nucleated RBC Nucleated RBC % (auto) VBG pH VBG pCO2 VBG pO2 VBG HCO3 VBG O2 Saturation VBG Base Excess Anion Gap Estim Creat Clear Calc Estimated GFR POC Glucose 237 H Random Glucose Lactic Acid Lactic Acid F/U @ 2Hr Lactic Acid F/U @ 4Hr Calcium Magnesium Total Bilirubin AST ALT Alkaline Phosphatase Troponin I High Sens Total Protein Albumin Lipase Beta-Hydroxybutyrate Urine Color Urine Appearance Urine pH Ur Specific [place] Urine Protein Urine Glucose (UA) Urine Ketones Urine Blood Urine Nitrite Ur Leukocyte Esterase Urine RBC Urine WBC Ur Squamous Epith Cells Urine Bacteria Hyaline Casts Influenza Type A (PCR) Influenza Type B (PCR) RSV RNA Qual (PCR) SARS-CoV-2 RNA (RT-PCR) Assessment and Plan (1) DKA (diabetic ketoacidosis): Qualifiers: Diabetes mellitus type: type 1 Diabetes mellitus complication detail: w [facility] coma Qualified Code(s): E10.10 - Type 1 diabetes mellitus with ketoacidosis without coma Status: Acute (2) Urinary tract infection: Qualifiers: Urinary tract infection type: acute cystitis Hematuria presence: w [facility] hematuria Qualified Code(s): N30.00 - Acute cystitis without hematuria Status: Acute (3) Lactic acidosis: Status: Acute Plan Ben Higginbotham is a 19 y/o woman admitted with: * s/p DKA. Admit to hospitalist service. Telemetry. Patient is already tolerating diet. Continue Lantus, insulin with meals and insulin sliding scale. Check BMP, magnesium and phos every 4 hours. * Metabolic acidosis, likely multifactorial: Lactic acidosis and DKA . Rechecked bicarb level now. Will consider to discontinue bicarb infusion if bicarb level * Lactic acidosis, likely secondary to above. Sepsis criteria (+); however likely secondary to above. Blood and urine culture obtained -will follow results. Continue ceftriaxone. Continue to monitor lactic acid. * UTI. Continue ceftriaxone. UC pending. DVT prophylaxis: Lovenox Code status: Full Patient will need hospitalization for at least 2 midnights to continue treatment post DKA with IV fluids (bicarb infusion), insulin and close monitoring of glucose. Quality Stroke Does the patient have a stroke diagnosis?: No VTE Prior VTE?: No VTE Risk Level:: Medical - moderate - high VTE Device Contraindication: N/A - Device Ordered VTE Drug Contraindication: N/A - Med Ordered
[2024-05-26 05:27] LABS: MANUAL DIFF FLAG NO
[2024-05-26 05:28] LABS: Basophils Absolute Auto 0.1 X10*3/uL (0.0-0.2); Basophils Percent Auto 0.5 % (0-2); Eosinophils Absolute Auto 0.1 X10*3/uL (0.0-0.4); Eosinophils Percent Auto 0.9 % (0-4); Hemoglobin 9.6 g/dl (12.0-16.0); Imm Gran Abs Auto 0.11 X10*3/uL (0.00-0.03); Imm Gran Pct Auto 0.7 % (0.0-0.4); Lymphocytes Absolute Auto 3.4 X10*3/uL (1.2-4.9); Lymphocytes Percent Auto 22.1 % (20-40); Mean Corpuscular Hemoglobin 26.8 pg (27.0-33.0); Mean Corpuscular Volume 86.6 fL (80.0-98.0); Mean Platelet Volume 10.2 fL (9.4-12.3); Monocytes Absolute Auto 1.3 X10*3/uL (0.1-1.2); Monocytes Percent Auto 8.6 % (2-11); Neutrophils Absolute Auto 10.3 x10*3/uL (2.0-8.3); Neutrophils Percent Auto 67.2 % (45-73); Platelet Count 397 X10*3/uL (160-400); Red Blood Count 3.58 X10*6/uL (4.20-5.50); Red Cell Distribution Width 15.5 % (11.0-16.0); White Blood Count 15.3 X10*3/uL (4.8-10.8)
[2024-05-26 05:44] LABS: Anion Gap 12 (12-20); Blood Urea Nitrogen 5 mg/dL (9-16); Calcium 8.2 mg/dL (8.4-10.2); Carbon Dioxide 13 mmol/L (22-29); Chloride 114 mmol/L (96-108); Estimated Glomerular Filt Rate > 60; Glucose Random 264 mg/dL (60-115); Phosphorus 2.3 mg/dL (2.7-4.5); Potassium 4.1 mmol/L (3.3-5.1); Sodium 135 mmol/L (135-145)
[2024-05-26 05:49] LABS: Lactic Acid 3.5 mmol/L (0.5-2.0)
[2024-05-26] MEDS: Insulin Lispro 100 UNIT/ML 3 ML VIAL SUBCUT ×4 (06:19→17:05)
--- NOTE | 2024-05-26 06:23 | PC.NURSE ---
sliding scale insulin given 8units per protocol for glucose of 264 charted in mar accordingly pt denies pain repositioned back to bed for sleep
[2024-05-26 06:37] LABS: Cancel Lactic Acid Canceled
[2024-05-26] MEDS: Sodium,Potassium Phosphates POWD.PACK 1 PACKET PO (06:42)
[2024-05-26 07:54] LABS: Glucose, Whole Blood 124 mg/dL (60-115)
--- NOTE | 2024-05-26 08:13 | PC.NURSE ---
Pt poc @ [phone], this RN reached out to MD Freda about 5 units insulin ordered + sliding scale insulin order. Verbal order to d/c 5 units and just use sliding scale. Pt medicated per MAR with sliding scale insulin. Resting quietly in bed, all needs met at this time.
[2024-05-26] MEDS: cefTRIAXone sodium 1 GM VIAL IVPUSH ×2 (08:44→21:18)
[2024-05-26] MEDS: Enoxaparin Sodium 40 MG/0.4 ML SYRINGE SUBCUT (08:46)
--- NOTE | 2024-05-26 08:56 | PC.NURSE ---
Pt up in bed eating breakfast. BP noted to be 90s/50s, asymptomatic at this time. MD Bryan made aware of BP, plan for LR bolus. call pacheco within reach, all needs met at this time.
[2024-05-26] MEDS: Lactated Ringers 1,000 ML 999 ML IV (09:49)
--- NOTE | 2024-05-26 10:13 | PM.EVENT ---
Event Note Date of Service: 05/26/24 Event Note: Patient seen and examined, admitted this morning for DKA, metabolic acidosis, pt is feelin better, tolerating regular diet. BP on low so 19/F with Type 1 DM, suspected not-compliant with meds, leading to frequent hospitalization here with DKA, and UTI DKA -GAP resolved -still with metablic acidosis, non-gap type -continue insulin regimen with Lantus and sliding scal -IVF with LR and Bicab Metabolic acidosis, likely multifactorial: Lactic acidosis, DKA and Hypercholoremic metabolic acidosis -repeat Bicab if treanding up stop bicab infusion -LR for fluid replacement Acute Lactic acidosis, likely secondary to above UTI, sepsis--Ceftriaxone and follow cultue Transient Hypotension, not due to sepsis, d/t hypovolemia from UTI Lovenox for dvt prophylaxis Time Spent With Patient Time: Total time managing care of this patient today ____ minutes.
[2024-05-26 11:03] LABS: Phosphorus 1.9 mg/dL (2.7-4.5)
[2024-05-26 11:08] LABS: Lactic Acid 3.7 mmol/L (0.5-2.0)
[2024-05-26] MEDS: Lactated Ringers 1,000 ML 150 ML IVCONT ×3 (11:20→23:54)
--- NOTE | 2024-05-26 11:34 | PHA.MEDREC ---
Addendum entered by Skye Hatch RPh 05/26/24 11:47: reviewed by [facility]. Original Note: Pharmacy Consult ? Medication Reconciliation Pharmacy has completed the medication reconciliation. Spoke to pt to confirm meds.
[2024-05-26 12:08] LABS: Anion Gap 9 (12-20); Blood Urea Nitrogen 4 mg/dL (9-16); Calcium 7.6 mg/dL (8.4-10.2); Carbon Dioxide 17 mmol/L (22-29); Chloride 116 mmol/L (96-108); Creatinine Clr Calc Pharmacy 90.1; Estimated Glomerular Filt Rate > 60; Glucose Random 150 mg/dL (60-115); Potassium 3.9 mmol/L (3.3-5.1); Sodium 138 mmol/L (135-145)
[2024-05-26 12:48] LABS: Reflex Lactate? Lactic Acid Added
[2024-05-26 13:13] LABS: Glucose, Whole Blood 124 mg/dL (60-115)
[2024-05-26 13:57] LABS: ~Lactic Acid-LAB USE ONLY 3.3 mmol/L (0.5-2.0)
[2024-05-26 14:16] LABS: Cancel Lactic Acid Canceled
[2024-05-26 14:22] LABS: Reflex Lactate? 2 N
[2024-05-26 16:34] LABS: Glucose, Whole Blood 152 mg/dL (60-115)
[2024-05-26 16:50] LABS: Anion Gap 9 (12-20); Carbon Dioxide 20 mmol/L (22-29); Chloride 114 mmol/L (96-108); Sodium 139 mmol/L (135-145)
[2024-05-26] MEDS: Insulin Glargine,Hum.rec.anlog 100 UNIT/ML 10 ML VIAL 54 UNIT SUBCUT (17:25)
[2024-05-26] MEDS: Acetaminophen 325 MG TABLET 975 MG PO (17:26)
[2024-05-26 20:45] LABS: Glucose, Whole Blood 103 mg/dL (60-115)
[2024-05-26] MEDS: 0.9 % Sodium Chloride Flush 3 ML SYRINGE IVFLUSH (21:14)
[2024-05-26] MEDS: Morphine Sulfate 2 MG/ML CARTRIDGE IVPUSH (21:15)
[2024-05-26] MEDS: Flu Vacc TS2024-25(6mos up)/PF 0.5 ML SYRINGE IM (21:25)
[2024-05-27 01:34] VITALS: BP 118/79; PULSE 87
[2024-05-27] MEDS: Morphine Sulfate 2 MG/ML CARTRIDGE IVPUSH (01:36)
[2024-05-27 01:48] LABS: Glucose, Whole Blood 35 mg/dL (60-115)
[2024-05-27 02:07] LABS: Glucose, Whole Blood 62 mg/dL (60-115)
[2024-05-27] MEDS: Dextrose 10 % 250 ML 750 ML IV ×2 (02:20→12:02)
[2024-05-27 02:48] VITALS: BP 120/81; PULSE 85; RESP 16; TEMP 36.4; O2SAT 99
[2024-05-27 02:50] LABS: Glucose, Whole Blood 144 mg/dL (60-115)
[2024-05-27 06:10] LABS: Glucose, Whole Blood 112 mg/dL (60-115)
[2024-05-27] MEDS: Acetaminophen 325 MG TABLET 975 MG PO ×2 (06:25→13:51)
[2024-05-27] MEDS: Lactated Ringers 1,000 ML 150 ML IVCONT (06:55)
[2024-05-27 07:35] VITALS: BP 125/90; PULSE 85; RESP 16; TEMP 36.1; O2SAT 99
[2024-05-27 07:39] LABS: Glucose, Whole Blood 78 mg/dL (60-115)
[2024-05-27] MEDS: Enoxaparin Sodium 40 MG/0.4 ML SYRINGE SUBCUT (08:26)
[2024-05-27] MEDS: cefTRIAXone sodium 1 GM VIAL IVPUSH ×2 (08:34→21:10)
--- NOTE | 2024-05-27 09:09 | MHC.CM.PN ---
Addendum entered by Rhonda Burnette 05/27/24 09:48: T/W called [facility] to schedule an appointment sooner than September/2024. The patient does not have any appoint scheduled. She has a new appointment scheduled December 23, 2024 @ 11am, with Trinidad Bishop NP. Original Note: Patient lives with her Sister. She is independent with all functional mobility. Patient has a new PCP, an appt is scheduled 10/[address] [facility]. A new [employer] appt is scheduled 12/06. A new HCP has been documented. HCP is her Sister. DP home self care. Pt will arrange for transportation home. CM will follow for discharge.
[2024-05-27 10:12] LABS: MANUAL DIFF FLAG NO
[2024-05-27 10:14] LABS: Basophils Percent Auto 0.6 % (0-2); Eosinophils Absolute Auto 0.2 X10*3/uL (0.0-0.4); Eosinophils Percent Auto 3.1 % (0-4); Hematocrit 29.9 % (37.0-47.0); Hemoglobin 9.4 g/dl (12.0-16.0); Imm Gran Abs Auto 0.03 X10*3/uL (0.00-0.03); Imm Gran Pct Auto 0.5 % (0.0-0.4); Lymphocytes Absolute Auto 2.5 X10*3/uL (1.2-4.9); Mean Corpuscular HGB Conc 31.4 g/dl (31.0-35.0); Mean Corpuscular Hemoglobin 27.2 pg (27.0-33.0); Mean Corpuscular Volume 86.4 fL (80.0-98.0); Mean Platelet Volume 10.4 fL (9.4-12.3); Monocytes Absolute Auto 0.5 X10*3/uL (0.1-1.2); Monocytes Percent Auto 8.6 % (2-11); Neutrophils Absolute Auto 2.9 x10*3/uL (2.0-8.3); Neutrophils Percent Auto 46.2 % (45-73); Platelet Count 335 X10*3/uL (160-400); Red Blood Count 3.46 X10*6/uL (4.20-5.50); Red Cell Distribution Width 16.1 % (11.0-16.0); White Blood Count 6.2 X10*3/uL (4.8-10.8)
[2024-05-27 10:35] LABS: Anion Gap 9 (12-20); Blood Urea Nitrogen 8 mg/dL (9-16); Carbon Dioxide 23 mmol/L (22-29); Chloride 115 mmol/L (96-108); Creatinine Clr Calc Pharmacy 118.9; Estimated Glomerular Filt Rate > 60; Glucose Random 87 mg/dL (60-115); Magnesium 1.5 mg/dL (1.6-2.6); Potassium 3.7 mmol/L (3.3-5.1); Sodium 143 mmol/L (135-145)
--- NOTE | 2024-05-27 11:10 | P.DS_ITS ---
DS: Providers Provider Date of Service: 05/27/24 Date of admission: 05/26/24 05:12 Date of discharge: 05/27/24 Primary care physician: Caren Physician DS: Diagnosis Discharge Diagnosis (1) DKA (diabetic ketoacidosis): Status: Acute (2) Urinary tract infection: Status: Acute (3) Lactic acidosis: Status: Acute DS: Summary Hospital Course Hospital Course: admission hpi Chief Complaint: Left flank pain Ben Higginbotham is a 19 years old woman with past medical history significant for type 1 diabetes mellitus and multiple hospitalization due to DKA presents to the emergency department complaining of multiple symptoms including chest tightness, shortness on breath, vomiting, blurry vision, headache and left flank pain. She denied any acute urinary symptoms, fevers, chills or cough. She stated that the last time she used Lantus was Monday at noon and uses sliding scale of NovoLog. She denied tobacco smoking, alcohol use or illicit drug use. In the ED, she was found to have mild tachycardia 130, tachypnea and hypotension (87/45). Blood workup was remarkable for leukocytosis of 13.3. Hemoglobin is 11.9 and platelets 493. Initial blood workup was significant for glucose 653, bicarb 5, lactic acidosis of 5.7 and elevated anion gap, 28. This also hypomagnesemia and hypocalcemia. Urinalysis consistent with urinary tract infection. ECG showed sinus tachycardia with a heart rate 133 bpm without ischemic changes. ED tx: See ED medication tab. Hospital course: Patient presented with right flank pain, no fever and found to have uti, and DKA..Urine culture has been negative. Her DKA treated with insulin and IVF and now resolved, this is second admission for DKA in short time and raising concern about compliance with medication. At this point her vitals are stable, WBC normal, she will finish course of antibiotics and resume usual insulin at home and needs to follow up with PCP Time Attestation Discharge Coordination Time (in mins): 35 Quality: Safe Use of Opioids Does Pt have an Active Cancer Diagnosis on the Problem List?: No Quality: Stroke Does the patient have a stroke diagnosis?: No Physical Exam Vital Signs: Vital Signs: Last Vital Signs Temp 97.0 F 05/27/24 07:35 Pulse 85 05/27/24 07:35 Resp 16 05/27/24 07:35 BP 125/90 H 05/27/24 07:35 Pulse Ox 99 05/27/24 07:35 O2 Del Method Room Air 05/27/24 07:35 BMI result Body Mass Index 33.0 Const: Other: General: AO X 3, no acute distress Resp: CTA bilateral CVS: S1,S2,RRR GI: +BS, NT, no distention Skin: No rash Neuro: motor grossly intact Psych: appropriate affect DS: Data Data Completed and Pending Labs on day of discharge: Laboratory Results - last 24 hr 05/26/24 05/26/24 05/26/24 10:44 13:07 13:18 WBC RBC Hgb Hct MCV MCH MCHC RDW Plt Count MPV Immature Gran % (Auto) Neut % (Auto) Lymph % (Auto) [place] % (Auto) Eos % (Auto) Baso % (Auto) Lymph # (Auto) [place] # (Auto) Eos # (Auto) Baso # (Auto) Abs Immat Gran (auto) Absolute Neuts (auto) Absolute Nucleated RBC Nucleated RBC % (auto) Sodium 138 Potassium 3.9 Chloride 116 H Carbon Dioxide 17 L Anion Gap 9 L BUN 4 L Creatinine 0.71 Estim Creat Clear Calc 90.1 Estimated GFR > 60 POC Glucose 124 H Random Glucose 150 H Lactic Acid F/U @ 2Hr 3.3 H* Calcium 7.6 L D Magnesium 05/26/24 05/26/24 05/26/24 15:51 16:30 20:38 WBC RBC Hgb Hct MCV MCH MCHC RDW Plt Count MPV Immature Gran % (Auto) Neut % (Auto) Lymph % (Auto) [place] % (Auto) Eos % (Auto) Baso % (Auto) Lymph # (Auto) [place] # (Auto) Eos # (Auto) Baso # (Auto) Abs Immat Gran (auto) Absolute Neuts (auto) Absolute Nucleated RBC Nucleated RBC % (auto) Sodium 139 Potassium 4.0 Chloride 114 H Carbon Dioxide 20 L Anion Gap 9 L BUN Creatinine Estim Creat Clear Calc Estimated GFR POC Glucose 152 H 103 Random Glucose Lactic Acid F/U @ 2Hr Calcium Magnesium 05/27/24 05/27/24 05/27/24 01:43 02:03 02:42 WBC RBC Hgb Hct MCV MCH MCHC RDW Plt Count MPV Immature Gran % (Auto) Neut % (Auto) Lymph % (Auto) [place] % (Auto) Eos % (Auto) Baso % (Auto) Lymph # (Auto) [place] # (Auto) Eos # (Auto) Baso # (Auto) Abs Immat Gran (auto) Absolute Neuts (auto) Absolute Nucleated RBC Nucleated RBC % (auto) Sodium Potassium Chloride Carbon Dioxide Anion Gap BUN Creatinine Estim Creat Clear Calc Estimated GFR POC Glucose 35 L* 62 144 H Random Glucose Lactic Acid F/U @ 2Hr Calcium Magnesium 05/27/24 05/27/24 05/27/24 06:06 07:22 09:45 WBC 6.2 RBC 3.46 L Hgb 9.4 L Hct 29.9 L MCV 86.4 MCH 27.2 MCHC 31.4 RDW 16.1 H Plt Count 335 MPV 10.4 Immature Gran % (Auto) 0.5 H Neut % (Auto) 46.2 Lymph % (Auto) 41.0 H [place] % (Auto) 8.6 Eos % (Auto) 3.1 Baso % (Auto) 0.6 Lymph # (Auto) 2.5 [place] # (Auto) 0.5 Eos # (Auto) 0.2 Baso # (Auto) 0.0 Abs Immat Gran (auto) 0.03 Absolute Neuts (auto) 2.9 Absolute Nucleated RBC 0.000 Nucleated RBC % (auto) 0.0 Sodium 143 Potassium 3.7 Chloride 115 H Carbon Dioxide 23 Anion Gap 9 L BUN 8 L Creatinine 0.60 Estim Creat Clear Calc 118.9 Estimated GFR > 60 POC Glucose 112 78 Random Glucose 87 Lactic Acid F/U @ 2Hr Calcium 8.0 L Magnesium 1.5 L Preliminary micro results at discharge 05/25/24 17:46 Blood Culture - Preliminary Blood - Venous No growth after 24 hours. 05/25/24 17:21 Blood Culture - Preliminary Blood - Venous No growth after 24 hours. Discharge Plan Discharge Anticipated Discharge Date/Time: 05/27/24 11:12 Patient Disposition: Home, Self-Care Discharge Diagnosis: DKA Referrals: Trinidad Bishop [Other] - 1 Week (Appointment December 23 @ 11:00 am) Discharge Medications: No Action ondansetron 4 mg tablet,disintegrating 4 mg PO Q8H PRN (Reason: nausea and vomiting) melatonin 5 mg Tablet 5 mg PO BEDTIME PRN (Reason: Sleep) (DME) FreeStyle Lite Strips Strip Qty: 100 0RF Rx Instructions: Test four times a day or as directed. (DME) blood-glucose meter [FreeStyle Lite Meter] Kit Qty: 1 0RF Rx Instructions: As Directed (DME) pen needle, diabetic 32 gauge x 1/4 needle Qty: 100 0RF Rx Instructions: Use four times a day or as directed. (DME) lancets [FreeStyle Lancets] 28 gauge misc Qty: 100 0RF Rx Instructions: Test four times a day or as directed. insulin aspart U-100 100 unit/mL (3 mL) insulin pen 1 sliding scale dose subcut TIDAC insulin glargine [Lantus Solostar U-100 Insulin] 100 unit/mL (3 mL) insulin pen 54 unit subcut DAILY@1200 acetaminophen [Tylenol] 325 mg Tablet 650 mg PO Q6H PRN (Reason: Pain) ibuprofen 200 mg Tablet 400 mg PO Q8H PRN (Reason: Pain) cefuroxime axetil 250 mg tablet 250 mg PO BID 3 Days Qty: 6 0RF Rx Instructions: END DATE: 05/28/24 Diet: Diabetic diet Activity on Discharge: As tolerated Stand Alone Forms: Patient Portal Discharge page Print Language: Welsh
[2024-05-27 11:37] LABS: Glucose, Whole Blood 54 mg/dL (60-115)
[2024-05-27] MEDS: Glucose Gel 15 GM GEL..GRAM. PO (11:37)
[2024-05-27 11:54] LABS: Glucose, Whole Blood 50 mg/dL (60-115)
--- NOTE | 2024-05-27 12:09 | PC.NURSE ---
FBS low this afternoon. MD notified, Glucose Gel given, MD wants IV given IV Running, See eMAR flowsheet.
[2024-05-27 12:23] LABS: Glucose, Whole Blood 199 mg/dL (60-115)
[2024-05-27 14:11] LABS: Glucose, Whole Blood 139 mg/dL (60-115)
[2024-05-27 16:00] VITALS: BP 127/83; PULSE 87; RESP 18; TEMP 36.6; O2SAT 98
[2024-05-27 16:14] LABS: Glucose, Whole Blood 112 mg/dL (60-115)
[2024-05-27 19:10] VITALS: BP 128/85; PULSE 77; RESP 18; TEMP 36.2; O2SAT 98
[2024-05-27 19:59] LABS: Glucose, Whole Blood 125 mg/dL (60-115)
[2024-05-27] MEDS: Insulin Glargine,Hum.rec.anlog 100 UNIT/ML 10 ML VIAL 20 UNIT SUBCUT (21:09)
[2024-05-27 23:59] LABS: Glucose, Whole Blood 125 mg/dL (60-115)
[2024-05-28 02:27] LABS: Glucose, Whole Blood 44 mg/dL (60-115)
[2024-05-28 02:27] LABS: Glucose, Whole Blood 45 mg/dL (60-115)
[2024-05-28] MEDS: Dextrose 10 % 250 ML 750 ML IV (02:30)
[2024-05-28 02:58] LABS: Glucose, Whole Blood 207 mg/dL (60-115)
--- NOTE | 2024-05-28 03:05 | PM.EVENT ---
Event Note Date of Service: 05/28/24 Event Note: Reported hypoglycemia. Improved with IV dextrose. Will reduce bedtime basal insulin Time Spent With Patient Time: Total time managing care of this patient today ____ minutes.
[2024-05-28 03:22] VITALS: BP 122/87; PULSE 64; RESP 18; TEMP 36.2; O2SAT 100
[2024-05-28 04:06] LABS: Glucose, Whole Blood 180 mg/dL (60-115)
[2024-05-28 07:34] LABS: Glucose, Whole Blood 145 mg/dL (60-115)
[2024-05-28 07:39] VITALS: BP 133/83; PULSE 77; RESP 12; TEMP 36.1; O2SAT 97
[2024-05-28] MEDS: 0.9 % Sodium Chloride Flush 3 ML SYRINGE IVFLUSH ×3 (08:31→22:13)
[2024-05-28] MEDS: cefTRIAXone sodium 1 GM VIAL IVPUSH ×2 (08:32→22:11)
--- NOTE | 2024-05-28 09:39 | PC.NURSE ---
Lab called to draw patients workup. Phleb did not let nursing know this AM that patient was not drawn. aware.
--- NOTE | 2024-05-28 10:18 | P.PNIM_ITS ---
Subjective Subjective Date of Service: 05/28/24 Interval History: Pt had low blood sugar overnight despite lantus significantly lowered She is otherwise doing well today Physical Exam 2 Vital Signs: Vital Signs: Last Vital Signs Temp 96.9 F 05/28/24 07:39 Pulse 77 05/28/24 07:39 Resp 12 05/28/24 07:39 BP 133/83 05/28/24 07:39 Pulse Ox 97 05/28/24 07:39 O2 Del Method Room Air 05/28/24 07:39 BMI result Body Mass Index 33.0 General: AO X 3, no acute distress Resp: CTA bilateral CVS: S1,S2,RRR GI: +BS, NT, no distention Skin: No rash Neuro: motor grossly intact Psych: appropriate affect Objective Data Active Medications Acetaminophen (Acetaminophen 325 Mg Tablet) 975 mg PO Q6H PRN PRN Reason: Pain, Mild 1-3,fever,headache Last Admin: 05/27/24 13:51 Dose: 975 mg Documented By: DAVID Calcium Carbonate (Calcium Carbonate 750 Mg Tab.Chew) 750 mg PO Q4H PRN PRN Reason: Heartburn Ceftriaxone Sodium (Ceftriaxone Sodium 1 Gm Vial) 1 gm IVPUSH Q12H [facility] Last Admin: 05/28/24 08:32 Dose: 1 gm Documented By: DAVID Enoxaparin Sodium (Enoxaparin Sodium 40 Mg/0.4 Ml Syringe) 40 mg SUBCUT Q24H [facility] Last Admin: 05/28/24 08:31 Dose: Not Given Documented By: DAVID Non-Admin Reason: Patient Refused Glucose (Glucose Gel 15 Gm Gel..Gram.) 15 gm PO Q15M PRN; Protocol PRN Reason: per Hypoglycemia Standing Ord. Last Admin: 05/27/24 11:37 Dose: 15 gm Dextrose (D10) 250 mls @ 750 mls/hr IV Q15M PRN; Protocol PRN Reason: per Hypoglycemia Standing Ord. Last Infusion: 05/28/24 02:54 Dose: Infused Documented By: CAROLE Insulin Glargine (Insulin Glargine,Hum.Rec.Anlog 100 Unit/Ml 10 Ml Vial) 15 unit SUBCUT BEDTIME [facility] Insulin Human Lispro (Insulin Lispro 100 Unit/Ml 3 Ml Vial) 0 unit SUBCUT QIDACHS [facility]; Protocol Last Admin: 05/28/24 07:29 Dose: Not Given Documented By: DAVID Non-Admin Reason: No Insulin Coverage Ketorolac Tromethamine (Ketorolac Tromethamine 15 Mg/Ml Vial) 15 mg IVPUSH Q6H PRN PRN Reason: Pain, Severe (Pain Scale 7-10) Last Admin: 05/26/24 14:43 Dose: 15 mg Documented By: CHRIST Magnesium Hydroxide (Milk Of Magnesia 30 Ml Oral.Susp) 30 ml PO DAILY PRN PRN Reason: Constipation Melatonin (Melatonin 3 Mg Tablet) 6 mg PO BEDTIME PRN PRN Reason: Insomnia Morphine Sulfate (Morphine Sulfate 2 Mg/Ml Cartridge) 2 mg IVPUSH Q4H PRN; Protocol PRN Reason: Pain, Severe (Pain Scale 7-10) Last Admin: 05/27/24 01:36 Dose: 2 mg Documented By: CAROLE Ondansetron HCl (Ondansetron Hcl 4 Mg/2 Ml Vial) 4 mg IVPUSH Q8H PRN PRN Reason: Nausea and Vomiting Sodium Chloride (0.9 % Sodium Chloride Flush 3 Ml Syringe) 3 ml IVFSH [facility] Last Admin: 05/28/24 08:31 Dose: 3 ml Documented By: DAVID Labs 05/27/24 09:45 05/27/24 09:45 Labs: Laboratory Results - last 24 hr 05/27/24 05/27/24 05/27/24 09:45 11:26 11:50 Anion Gap 9 L Estim Creat Clear Calc 118.9 Estimated GFR > 60 POC Glucose 54 L* 50 L* Random Glucose 87 Calcium 8.0 L Magnesium 1.5 L 05/27/24 05/27/24 05/27/24 12:19 14:07 16:10 Anion Gap Estim Creat Clear Calc Estimated GFR POC Glucose 199 H 139 H 112 Random Glucose Calcium Magnesium 05/27/24 05/27/24 05/28/24 19:55 23:51 02:06 Anion Gap Estim Creat Clear Calc Estimated GFR POC Glucose 125 H 125 H 44 L* Random Glucose Calcium Magnesium 05/28/24 05/28/24 05/28/24 02:23 02:52 04:02 Anion Gap Estim Creat Clear Calc Estimated GFR POC Glucose 45 L* 207 H 180 H Random Glucose Calcium Magnesium 05/28/24 07:26 Anion Gap Estim Creat Clear Calc Estimated GFR POC Glucose 145 H Random Glucose Calcium Magnesium Microbiology Microbiology Results: Microbiology 05/25/24 17:46 Blood Culture - Preliminary Blood - Venous No growth after 48 hours. 05/25/24 17:21 Blood Culture - Preliminary Blood - Venous No growth after 48 hours. Assessment and Plan (1) Type 1 diabetes mellitus with proteinuria: Status: Acute (2) DKA (diabetic ketoacidosis): Status: Acute Plan with type 1 DM here with DKA, UTI DKA -resolved -now labile -Adjusting insulin Acute lactic acidosis--not d/t sepsis UTI--ceftraxone, ceftin at discharge DVT prophylaxis: Lovenox Code status: Full Quality Stroke Does the patient have a stroke diagnosis?: No VTE Prior VTE?: No VTE Risk Level:: Medical - moderate - high VTE Device Contraindication: N/A - Device Ordered VTE Drug Contraindication: N/A - Med Ordered
[2024-05-28 11:18] LABS: Glucose, Whole Blood 105 mg/dL (60-115)
[2024-05-28 11:24] VITALS: BP 115/74; PULSE 76; RESP 16; TEMP 36.4; O2SAT 97
[2024-05-28 11:25] LABS: Anion Gap 8 (12-20); Blood Urea Nitrogen 6 mg/dL (9-16); Calcium 8.2 mg/dL (8.4-10.2); Carbon Dioxide 26 mmol/L (22-29); Chloride 109 mmol/L (96-108); Creatinine Clr Calc Pharmacy 145.6; Estimated Glomerular Filt Rate > 60; Glucose Random 114 mg/dL (60-115); Potassium 3.7 mmol/L (3.3-5.1); Sodium 139 mmol/L (135-145)
--- NOTE | 2024-05-28 13:41 | MHC.CM.PN ---
Per MD rounds, Patient is not cleared to discharge today. She continues with labile BGL. Per MD she may be ready for discharge tomorrow. DP home self care. Pts sister will provide transportation home.
[2024-05-28 15:39] VITALS: BP 117/70; PULSE 78; RESP 18; TEMP 36.2; O2SAT 97
[2024-05-28 16:11] LABS: Glucose, Whole Blood 168 mg/dL (60-115)
[2024-05-28 16:16] LABS: Estimated Average Glucose 214 mg/dL; Hemoglobin A1C 187.5394 umol/L; Hemoglobin A1c % 9.1 % (<6.0); Total Hemoglobin (HGBA1C) 2452.3671 umol/L
[2024-05-28] MEDS: Insulin Lispro 100 UNIT/ML 3 ML VIAL SUBCUT ×2 (16:19→22:12)
[2024-05-28] MEDS: Morphine Sulfate 2 MG/ML CARTRIDGE IVPUSH (20:39)
[2024-05-28 20:41] LABS: Glucose, Whole Blood 215 mg/dL (60-115)
[2024-05-28] MEDS: Insulin Glargine,Hum.rec.anlog 100 UNIT/ML 10 ML VIAL 15 UNIT SUBCUT (22:12)
[2024-05-28 23:34] VITALS: BP 134/92; PULSE 89; RESP 18; TEMP 36.7; O2SAT 99
[2024-05-28] MEDS: diphenhydrAMINE HCL 25 MG CAPSULE PO (23:58)
[2024-05-29 04:03] VITALS: BP 121/79; PULSE 99; RESP 16; TEMP 36.4; O2SAT 99
[2024-05-29 04:15] LABS: Glucose, Whole Blood 142 mg/dL (60-115)
[2024-05-29 05:55] LABS: Glucose, Whole Blood 43 mg/dL (60-115)
--- NOTE | 2024-05-29 06:03 | PM.EVENT ---
Event Note Date of Service: 05/29/24 Event Note: Nurse reported hypoglycemia. Will reduce basal insulin. Time Spent With Patient Time: Total time managing care of this patient today ____ minutes.
[2024-05-29 06:13] LABS: Glucose, Whole Blood 54 mg/dL (60-115)
[2024-05-29] MEDS: Dextrose 10 % 250 ML 750 ML IV ×2 (06:20→11:14)
--- NOTE | 2024-05-29 06:23 | PC.NURSE ---
Addendum entered by Maria Luisa Sparks RN 05/29/24 06:49: repeat blood glucose post D10 was 166. MD aware. Original Note: blood glucose checked at 0400 and was 142, checked again at 0550 per patients request and was 43. Patient asymptomatic, snacks given, Dr Crane notified, adviced to give D10, Lantus dose decreased. Patient received a snack with HS Lantus. Unable to scan D10, pharmacy aware. Administration overrode and in progress.
[2024-05-29 06:48] LABS: Glucose, Whole Blood 166 mg/dL (60-115)
[2024-05-29] MEDS: 0.9 % Sodium Chloride Flush 3 ML SYRINGE IVFLUSH ×3 (07:35→20:51)
[2024-05-29] MEDS: cefTRIAXone sodium 1 GM VIAL IVPUSH (07:35)
[2024-05-29 07:48] VITALS: BP 122/75; PULSE 98; RESP 16; TEMP 36; O2SAT 98
[2024-05-29 07:55] LABS: Glucose, Whole Blood 72 mg/dL (60-115)
--- NOTE | 2024-05-29 09:53 | P.PNIM_ITS ---
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 Physical Exam 2 Vital Signs: Vital Signs: Last Vital Signs Temp 96.8 F 05/29/24 07:48 Pulse 98 05/29/24 07:48 Resp 16 05/29/24 07:48 BP 122/75 05/29/24 07:48 Pulse Ox 98 05/29/24 07:48 O2 Del Method Room Air 05/29/24 07:48 BMI result Body Mass Index 33.0 General: AO X 3, no acute distress Resp: CTA bilateral CVS: S1,S2,RRR GI: +BS, NT, no distention Skin: No rash Neuro: motor grossly intact Psych: appropriate affect Const: Other: General: AO X 3, no acute distress Resp: CTA bilateral CVS: S1,S2,RRR GI: +BS, NT, no distention Skin: No rash Neuro: motor grossly intact Psych: appropriate affect Objective Data Active Medications Acetaminophen (Acetaminophen 325 Mg Tablet) 975 mg PO Q6H PRN PRN Reason: Pain, Mild 1-3,fever,headache Last Admin: 05/27/24 13:51 Dose: 975 mg Documented By: DAVID Calcium Carbonate (Calcium Carbonate 750 Mg Tab.Chew) 750 mg PO Q4H PRN PRN Reason: Heartburn Enoxaparin Sodium (Enoxaparin Sodium 40 Mg/0.4 Ml Syringe) 40 mg SUBCUT Q24H [facility]OLINE Last Admin: 05/29/24 07:32 Dose: Not Given Documented By: MANJINDER Non-Admin Reason: Patient Refused Glucose (Glucose Gel 15 Gm Gel..Gram.) 15 gm PO Q15M PRN; Protocol PRN Reason: per Hypoglycemia Standing Ord. Last Admin: 05/27/24 11:37 Dose: 15 gm Dextrose (D10) 250 mls @ 750 mls/hr IV Q15M PRN; Protocol PRN Reason: per Hypoglycemia Standing Ord. Last Infusion: 05/29/24 06:43 Dose: Infused Documented By: BETHANY Insulin Glargine (Insulin Glargine,Hum.Rec.Anlog 100 Unit/Ml 10 Ml Vial) 7 unit SUBCUT BEDTIME CAROLINE Insulin Human Lispro (Insulin Lispro 100 Unit/Ml 3 Ml Vial) 0 unit SUBCUT [facility]IDACHS [facility]; Protocol Last Admin: 05/29/24 07:35 Dose: Not Given Documented By: MANJINDER Non-Admin Reason: No Insulin Coverage Ketorolac Tromethamine (Ketorolac Tromethamine 15 Mg/Ml Vial) 15 mg IVPUSH Q6H PRN PRN Reason: Pain, Severe (Pain Scale 7-10) Last Admin: 05/26/24 14:43 Dose: 15 mg Documented By: CHRIST Magnesium Hydroxide (Milk Of Magnesia 30 Ml Oral.Susp) 30 ml PO DAILY PRN PRN Reason: Constipation Melatonin (Melatonin 3 Mg Tablet) 6 mg PO BEDTIME PRN PRN Reason: Insomnia Ondansetron HCl (Ondansetron Hcl 4 Mg/2 Ml Vial) 4 mg IVPUSH Q8H PRN PRN Reason: Nausea and Vomiting Sodium Chloride (0.9 % Sodium Chloride Flush 3 Ml Syringe) 3 ml IVFLUSH [facility] Last Admin: 05/29/24 07:35 Dose: 3 ml Documented By: MANJINDER Labs 05/27/24 09:45 05/28/24 10:51 Labs: Laboratory Results - last 24 hr 05/27/24 05/28/24 05/28/24 09:45 10:51 11:14 Anion Gap 8 L Estim Creat Clear Calc 145.6 Estimated GFR > 60 POC Glucose 105 Random Glucose 114 Estimat Average Glucose 214 Hemoglobin A1c % 9.1 H Calcium 8.2 L 05/28/24 05/28/24 05/29/24 16:05 20:33 04:11 Anion Gap Estim Creat Clear Calc Estimated GFR POC Glucose 168 H 215 H 142 H Random Glucose Estimat Average Glucose Hemoglobin A1c % Calcium 05/29/24 05/29/24 05/29/24 05:50 06:08 06:44 Anion Gap Estim Creat Clear Calc Estimated GFR POC Glucose 43 L* 54 L* 166 H Random Glucose Estimat Average Glucose Hemoglobin A1c % Calcium 05/29/24 07:51 Anion Gap Estim Creat Clear Calc Estimated GFR POC Glucose 72 Random Glucose Estimat Average Glucose Hemoglobin A1c % Calcium Assessment and Plan (1) Type 1 diabetes mellitus with proteinuria: Status: Acute (2) DKA (diabetic ketoacidosis): Status: Acute (3) Urinary tract infection: Status: Acute Plan with type 1 DM here with DKA, UTI DKA -resolved -now labile, with hypoglycemia overnight -reducing insuling signficantly today, she's eating normal size meals Acute lactic acidosis--not d/t sepsis UTI--cultures negative, treat for 7 days, can change to oral ceftin now DVT prophylaxis: Lovenox Code status: Full Continue monitoring of blood sugars, in light of hypoglycema Quality Stroke Does the patient have a stroke diagnosis?: No VTE Prior VTE?: No VTE Risk Level:: Medical - moderate - high VTE Device Contraindication: N/A - Device Ordered VTE Drug Contraindication: N/A - Med Ordered
[2024-05-29 11:13] LABS: Glucose, Whole Blood 33 mg/dL (60-115)
--- NOTE | 2024-05-29 11:23 | MHC.CM.PN ---
Per MD rounds no discharge today. BGL continues to fluxuate. DP Home with family support and transportation.
--- NOTE | 2024-05-29 11:57 | PC.NURSE ---
poc 33, notified and D10 IV given, patient refused glucose gel so orange juice with sugar also given, poc recheck 172
[2024-05-29 12:00] VITALS: BP 118/72; PULSE 87; RESP 16; TEMP 36.4; O2SAT 97
[2024-05-29 12:04] LABS: Glucose, Whole Blood 172 mg/dL (60-115)
[2024-05-29 15:41] VITALS: BP 130/68; PULSE 76; RESP 16; TEMP 35.9; O2SAT 93
[2024-05-29 16:14] LABS: Glucose, Whole Blood 57 mg/dL (60-115)
[2024-05-29 16:29] LABS: Glucose, Whole Blood 60 mg/dL (60-115)
[2024-05-29 16:52] LABS: Glucose, Whole Blood 92 mg/dL (60-115)
[2024-05-29 17:13] LABS: Glucose, Whole Blood 108 mg/dL (60-115)
[2024-05-29 17:42] LABS: Glucose, Whole Blood 110 mg/dL (60-115)
[2024-05-29 18:56] LABS: Alanine Aminotransferase 83 U/L (0-31); Albumin Level 3.5 g/dL (3.5-5.0); Alkaline Phosphatase 127 U/L (39-117); Anion Gap 7 (12-20); Aspartate Amino Transferase 138 U/L (5-31); Bilirubin Direct 0.1 mg/dL (0.0-0.5); Bilirubin Total 0.3 mg/dL (0.0-1.0); Blood Urea Nitrogen 10 mg/dL (9-16); Calcium 9.1 mg/dL (8.4-10.2); Carbon Dioxide 28 mmol/L (22-29); Chloride 108 mmol/L (96-108); Creatinine Clr Calc Pharmacy 137.2; Estimated Glomerular Filt Rate > 60; Glucose Random 92 mg/dL (60-115); Potassium 4.9 mmol/L (3.3-5.1); Sodium 138 mmol/L (135-145); Total Protein 6.6 g/dL (6.5-8.0)
[2024-05-29 19:09] LABS: Insulin 52 uU/mL (2-29)
[2024-05-29 19:45] LABS: Glucose, Whole Blood 102 mg/dL (60-115)
[2024-05-29 20:00] VITALS: BP 120/84; PULSE 90; RESP 18; TEMP 36.6; O2SAT 97
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
[2024-05-29 23:43] LABS: Glucose, Whole Blood 104 mg/dL (60-115)
[2024-05-30 02:37] VITALS: BP 106/64; PULSE 84; RESP 18; TEMP 36.4; O2SAT 97
[2024-05-30 02:41] LABS: Glucose, Whole Blood 137 mg/dL (60-115)
[2024-05-30 05:50] LABS: Glucose, Whole Blood 214 mg/dL (60-115)
[2024-05-30 06:18] LABS: Anion Gap 11 (12-20); Blood Urea Nitrogen 14 mg/dL (9-16); Calcium 9.3 mg/dL (8.4-10.2); Carbon Dioxide 26 mmol/L (22-29); Chloride 104 mmol/L (96-108); Estimated Glomerular Filt Rate > 60; Glucose Random 218 mg/dL (60-115); Potassium 4.4 mmol/L (3.3-5.1); Sodium 137 mmol/L (135-145)
--- NOTE | 2024-05-30 07:04 | P.CDIM_ITS ---
PROVIDER RESPONSE TEXT: To clarify, the appropriate diagnosis supported by the clinical indicators: Sepsis is/was present and is a clinical diagnosis based on QUERY TEXT: PHYSICIAN'S DOCUMENTATION REQUEST Date of Query: 05/28/2024 10:18 AM EST Patient Name: Ben Higginbotham Admit Date: 05/26/2024 Dear Grayson Bryan MD, A review of the medical record indicates additional documentation may be needed. Please review below and update the documentation accordingly. Documentation on Event note dated 05/26/24 included the diagnosis of sepsis. The patient's infectious clinical indicators include: WBC 13.3 LA 5.7 pulse 130 BP 87/45 UTI, IV Ceftriaxone Recognized standard criteria for this condition and other infectious definitions includes: Sepsis Systemic manifestations of infection, with 2 or more SIRS criteria which include: Fever > 100.4?F or hypothermia < 96.8?F Leukocytosis - WBC > 12,000 or leukopenia, WBC < 4,000, or > 10% bands Tachycardia- > 90 beats/minute Tachypnea- RR > 20 breaths/minute or PaCO2 < 32mmHg Source: [employer]ck Manual 2013 Documentation should include the known or suspected organism, and the underlying infection, such as U TI or pneumonia Severe Sepsis Sepsis with associated acute organ dysfunction, such as renal or respiratory failure Documentation should indicate the association between the sepsis and the organ dysfunction Septic Shock Severe sepsis with associated with circulatory failure, evidenced by hypotension and hypoperfusion Based on the above information and the recognized standard for sepsis, could you please clarify if th is diagnoses is still accurate and reflective of the patient's condition to ensure quality of the medical record. Sepsis is/was present and is a clinical diagnosis based on After study, Sepsis has been ruled out Other (explain) Clinically unable to determine (explain) Thank you, Sophie Reid RN Use of terms such as suspected, likely, concern for, or probable (associated with a specific diagnosi s that is being evaluated, monitored, or treated as if it exists) are acceptable and can be coded in the inpatient se tting, when documented at the time of discharge. Please use your independent medical judgment in providing your response. THIS QUERY IS PART OF THE PERMANENT MEDICAL RECORD
[2024-05-30 07:27] LABS: Glucose, Whole Blood 240 mg/dL (60-115)
[2024-05-30 07:29] VITALS: BP 110/70; PULSE 80; RESP 17; TEMP 36.2; O2SAT 98
[2024-05-30] MEDS: Enoxaparin Sodium 40 MG/0.4 ML SYRINGE SUBCUT (07:47)
[2024-05-30] MEDS: Insulin Lispro 100 UNIT/ML 3 ML VIAL SUBCUT (07:48)
[2024-05-30 08:04] LABS: Insulin 27 uU/mL (2-29)
[2024-05-30] MEDS: Insulin Glargine,Hum.rec.anlog 100 UNIT/ML 10 ML VIAL 35 UNIT SUBCUT (08:52)
[2024-05-30 11:11] LABS: Glucose, Whole Blood 139 mg/dL (60-115)
[2024-05-30 11:38] VITALS: BP 108/56; PULSE 88; RESP 12; TEMP 36.5; O2SAT 98
[2024-05-30 13:45] LABS: Glucose, Whole Blood 212 mg/dL (60-115)
--- NOTE | 2024-05-30 14:37 | MHC.CM.PN ---
DP: PT HAS BEEN MEDICALLY CLEARED FOR DC HOME, NO SERVICES. MARCO PAEZE BOOKED FOR 3:30 PM. RN AWARE.
[2024-05-30 15:19] VITALS: BP 121/65; PULSE 100; RESP 18; TEMP 36.4; O2SAT 97
== END 2024-05-30 15:20 | disposition home or self-care (01) | DRG 720 ==
LOC: HO.ED 22:05 → HO.EDOVER 05-26 05:25 → HO.S3 05-26 13:54
PROVIDERS: Family Medicine; Physician Assistant Medical; Admitting Provider Internal Medicine; Emergency Provider Emergency Medicine; Visit Provider Internal Medicine
DX: A41.9 Sepsis, unspecified organism (principal); E10.10 Type 1 diabetes mellitus with ketoacidosis without coma; E10.649 Type 1 diabetes mellitus with hypoglycemia without coma; I95.9 Hypotension, unspecified; E83.51 Hypocalcemia; E86.1 Hypovolemia; Z23 Encounter for immunization; E83.42 Hypomagnesemia; Z20.822 Contact with and (suspected) exposure to COVID-19
CPT/HCPCS: 0241U; 36415; 71045; 80048; 80051; 80053; 80076; 81001; 81003; 82010; 82803; 82947; 83036; 83525; 83605; 83690; 83735; 84100; 84484; 85025; 87040; 87086; 90656; 93005; 99285; J0613; J0696; J1650; J1885; J2270; J2405; J3475; J7120

== ENCOUNTER → 2024-05-25 14:07 | Outpatient (BNV) | payer MEDICAID, SELFPAY | PROVIDERS: Admitting Provider Internal Medicine; Emergency Provider Emergency Medicine; Visit Provider Internal Medicine | DX: R00.0 Tachycardia, unspecified (principal) | CPT/HCPCS: 93010 ==

== ENCOUNTER 2024-05-26 05:12 | Outpatient (BNV) | payer MEDICAID, SELFPAY | END 2024-05-26 06:32 | PROVIDERS: Admitting Provider Internal Medicine; Emergency Provider Emergency Medicine; Visit Provider Radiology Diagnostic Radiology | DX: R07.9 Chest pain, unspecified (principal) | CPT/HCPCS: 71045 ==

== ENCOUNTER → 2024-05-26 05:12 | Outpatient (BNV) | payer MEDICAID, SELFPAY | PROVIDERS: Admitting Provider Internal Medicine; Emergency Provider Emergency Medicine; Visit Provider Internal Medicine | DX: E10.10 Type 1 diabetes mellitus with ketoacidosis without coma (principal); N30.00 Acute cystitis without hematuria; E87.20 Acidosis, unspecified | CPT/HCPCS: 99223; 99499 ==

== ENCOUNTER 2024-06-08 21:57 | Inpatient (IN) | payer MEDICAID, SELFPAY ==
--- NOTE | ~2024-06-08 | US_ITS ---
EXAMINATION: US KIDNEY BILATERAL HISTORY: B/L Flank Pain, Please Assess Renal Pathology TECHNIQUE: Real-time grayscale ultrasound imaging of the kidneys was performed and images were reviewed. COMPARISON: Correlation is made with an abdominal ultrasound dated 10/14/2022. FINDINGS: Right kidney: The right kidney measures 11.1 x 4.4 x 5.6 cm. Renal parenchymal echotexture and thickness are normal. There are no masses. There is no hydronephrosis or renal calculi. Left Kidney: The left kidney measures 10.4 x 5.5 x 4.1 cm. Renal parenchymal echotexture and thickness are normal. There is a tiny 3 mm cyst in the interpolar region. There is no hydronephrosis or renal calculi. US/US renal BI IMPRESSION: 3 mm left renal cyst. No hydronephrosis. Electronically signed by: Magno Nguyen MD 06/10/2024 02:51 PM [facility]
--- NOTE | ~2024-06-08 | CT_ITS ---
CLINICAL HISTORY: R CP, low 02, tachycardic, IVDU CT angiography chest with contrast. 3D Postprocessing. Comparison: None Findings: The heart size is normal. RV/LV ratio is normal. Unremarkable thoracic aorta and great vessels. No aneurysm. Evaluation of the pulmonary arteries is limited by the timing of the contrast bolus. No central or proximal segmental pulmonary embolus identified. The visualized thyroid and mediastinum are unremarkable. No consolidation or effusion. Limited evaluation of the upper abdominal contents demonstrates hepatic steatosis. No acute fractures. IMPRESSION: Limited pulmonary angiogram due to the timing of the contrast bolus. No central or proximal segmental pulmonary embolus identified. Hepatic steatosis This document has been electronically signed by: Gregory Jean MD, PHD on 06/09/2024 04:42:38
[2024-06-08 22:23] VITALS: BP 170/106; PULSE 130; O2SAT 100
[2024-06-08 22:25] LABS: Glucose, Whole Blood 518 mg/dL (60-115)
[2024-06-08 22:31] VITALS: BP 130/53; PULSE 137; RESP 28; TEMP 36.7; O2SAT 97; BMI 28.1
--- NOTE | 2024-06-08 22:33 | ECG_ITS ---
Test Reason : hyperglycemia/tachycardia Blood Pressure : */* mmHG Vent. Rate : 136 BPM Atrial Rate : 136 BPM P-R Int : 134 ms QRS Dur : 74 ms QT Int : 296 ms P-R-T Axes : 62 54 49 degrees QTcB Int : 445 ms Sinus tachycardia Cannot rule out Anterior infarct , age undetermined Abnormal ECG When compared with ECG of 25-May-2024 14:11, No significant change was found Referred By: Generic ED Physician Electronically Signed By: ANEESH LEW MD
[2024-06-08 22:46] LABS: Basophils Absolute Auto 0.1 X10*3/uL (0.0-0.2); Basophils Percent Auto 0.5 % (0-2); Eosinophils Percent Auto 0.1 % (0-4); Hematocrit 37.3 % (37.0-47.0); Hemoglobin 11.3 g/dl (12.0-16.0); Imm Gran Abs Auto 0.07 X10*3/uL (0.00-0.03); Imm Gran Pct Auto 0.6 % (0.0-0.4); Lymphocytes Absolute Auto 2.4 X10*3/uL (1.2-4.9); Lymphocytes Percent Auto 18.9 % (20-40); MANUAL DIFF FLAG NO; Mean Corpuscular HGB Conc 30.3 g/dl (31.0-35.0); Mean Corpuscular Hemoglobin 26.3 pg (27.0-33.0); Mean Corpuscular Volume 86.7 fL (80.0-98.0); Mean Platelet Volume 10.6 fL (9.4-12.3); Monocytes Percent Auto 7.7 % (2-11); Neutrophils Percent Auto 72.2 % (45-73); Platelet Count 489 X10*3/uL (160-400); Red Cell Distribution Width 15.1 % (11.0-16.0); White Blood Count 12.5 X10*3/uL (4.8-10.8)
[2024-06-08 22:52] LABS: Prothrombin Time 11.7 SEC (10.9-12.4)
[2024-06-08 22:54] LABS: IDNOW Serial# 6674DD1D; Strep A Nucleic Acid Negative (Negative)
[2024-06-08 23:09] LABS: Alanine Aminotransferase 33 U/L (0-31); Albumin Level 4.4 g/dL (3.5-5.0); Alkaline Phosphatase 147 U/L (39-117); Anion Gap 27 (12-20); Aspartate Amino Transferase 42 U/L (5-31); Beta-Hydroxybutyrate 6.12 mmol/L (0.02-0.27); Bilirubin Total 0.6 mg/dL (0.0-1.0); Blood Urea Nitrogen 12 mg/dL (9-16); Calcium 9.4 mg/dL (8.4-10.2); Carbon Dioxide 12 mmol/L (22-29); Chloride 100 mmol/L (96-108); Creatinine Clr Calc Pharmacy 73.8; Estimated Glomerular Filt Rate > 60; Glucose Random 577 mg/dL (60-115); Magnesium 1.9 mg/dL (1.6-2.6); Sodium 134 mmol/L (135-145); Total Protein 8.6 g/dL (6.5-8.0)
[2024-06-08 23:11] LABS: Troponin-I High Sensitivity < 2.7 ng/L (<3.5-17.0)
--- NOTE | 2024-06-08 23:20 | ED_ITS ---
HPI - General Adult General Chief complaint: General Medical Stated complaint: hypoglycemia Time Seen by Provider: 06/08/24 22:55 Source: patient and EMS Mode of arrival: EMS Limitations: no limitations History of Present Illness ED Provider: Dr. Audra Loco HPI narrative: Patient comes to the emergency room complaining of nausea vomiting, abdominal pain. Patient called EMS, initial glucose greater than 500. Patient was recently discharged from the hospital a few weeks ago for DKA. Patient states that she has been using insulin but has not been able to check her glucose, states that she ran out of strips, did not follow-up with the primary care physician. Related Data Home Medications ?Medication ?Instructions ?Recorded ?Confirmed melatonin 5 mg tablet 5 mg PO BEDTIME PRN Sleep 10/13/22 05/31/24 acetaminophen 325 mg tablet 650 mg PO Q6H PRN Pain 05/12/24 05/31/24 (Tylenol) ibuprofen 200 mg tablet 400 mg PO Q8H PRN Pain 05/12/24 05/31/24 insulin aspart U-100 100 unit/mL 1 sliding scale dose subcut TIDAC 05/12/24 05/31/24 (3 mL) subcutaneous pen insulin glargine 100 unit/mL (3 54 unit subcut DAILY@1200 05/12/24 05/31/24 mL) subcutaneous pen (Lantus Solostar U-100 Insulin) ondansetron 4 mg disintegrating 4 mg PO Q8H PRN nausea and vomiting 05/26/24 05/31/24 tablet Previous Rx's ?Medication ?Instructions ?Recorded blood sugar diagnostic (FreeStyle #100 ea 10/16/22 Lite Strips) blood-glucose meter (FreeStyle #1 ea 10/16/22 Lite Meter kit) lancets 28 gauge (FreeStyle #100 ea 10/16/22 Lancets) pen needle, diabetic 32 gauge x #100 ea 10/16/22 1/4 Allergies Allergy/AdvReac Type Severity Reaction Status Date / Time No Known Allergies Allergy Verified 06/08/24 22:32 Review of Systems 2 Review of Systems: Constitutional : No Weight loss, No Fever, No Chills, No Night Sweats, No Fatigue, No Malaise ENT/Mouth : No Hearing loss, No Ear Pain, No Nasal Congestion, No Sinus Pain, No Hoarseness, No sore throat, No Rhinorrhea, No Swallowing Difficulty Eyes: No Eye Pain, No Swelling, No Redness, No Foreign Body, No Discharge, No Vision Changes Cardiovascular : No Chest Pain, No SOB, No Dyspnea on Exertion, No Orthopnea, No Edema, No Palpitations Respiratory : No Cough, No Sputum, No Wheezing, No Smoke Exposure, No Dyspnea Gastrointestinal : Complaining of nausea and vomiting,, No Diarrhea, No Constipation, moderate abdominal Pain, No Hematochezia, No Melena Genitourinary : no irregular bleeding, No Dysuria, No Urinary Frequency, No Hematuria, No Urinary Incontinence, No Urgency, No Flank Pain, No Urinary Flow Changes, No Hesitancy Musculoskeletal : No joint pain, No Myalgias, No Joint Swelling Skin : No Skin Lesions, No rash Neuro : No Weakness, No Numbness, No Paresthesias, No Loss of Consciousness, No Dizziness, No Headache Psych : No Anxiety/Panic, No Depression, No SI/HI/AH/VH, No Social Issues, Heme/Lymph: No Bruising, No Bleeding,No Lymphadenopathy Endocrine : Complaining of polyuria and polydipsia, unable to check blood sugars No Temperature Intolerance [facility] Past Medical History Medical History Type 1 diabetes mellitus with proteinuria Social History Social History Household Members: Family Household Members Other:: Lives with Sister Housing: Apartment Do you presently have visiting nurse or other home services: No Alcohol intake: never Patient Tobacco Use Status: Never used Tobacco Second Hand Smoke Exposure: No Advance Directives: No Advance Directives Information Provided: No Do you have a plan to hurt others: No Plan service: No Current occupational status: unemployed Physical Exam ED Vital Signs: Vital Signs - 24 hr 06/08/24 22:31 Temperature 98.1 F Pulse Rate 137 H Respiratory Rate 28 H Blood Pressure 130/53 L Pulse Oximetry 97 Oxygen Delivery Method Room Air BMI result Body Mass Index 28.1 Const Other: Appearance: Alert. Oriented X3. No acute distress. Eyes: Pupils equal, round and reactive to light. ENT: Pharynx normal. Dry oral mucosa Neck: Normal inspection. Neck supple. No lymph nodes noted. No crepitus CVS: Normal heart rate and rhythm. Pulses normal. Normal S1 and S2 Respiratory: No respiratory distress. Breath sounds normal. No Wheezing. No rales Abdomen: Soft and nontender. No rigidity. No distention. Skin: Skin warm and dry. Normal skin color. Normal skin turgor. Extremities: No lower extremity edema. No Lacerations. No Rash Neuro: Oriented X 3. No motor deficit. No sensory deficit. Moving all extremities. No slurred speech. CN 2 through 12 grossly intact Psych: calm, cooperative, normal affect Medications Administered Generic Name Dose Route Start Last Admin Trade Name Freq PRN Reason Stop Dose Admin Sodium Bicarbonate 150 meq/ 1,000 mls @ 100 mls/hr 06/09/24 03:00 06/09/24 04:15 Dextrose IV 100 mls/hr .Q10H CAROLINE Administration Sodium Chloride 1,000 mls @ 125 mls/hr 06/09/24 03:00 06/09/24 03:51 Sodium Chloride 0.45 % IVCONT 125 mls/hr .Q8H CAROLINE Administration Discontinued Medications Generic Name Dose Route Start Last Admin Trade Name Freq PRN Reason Stop Dose Admin Sodium Chloride 2,000 mls @ 999 mls/hr 06/08/24 23:06 06/09/24 01:56 Ns IVCONT 06/09/24 01:06 Infused .Q2H1M ONE Infusion Potassium Chloride 10 meq in 100 mls @ 100 mls/hr 06/09/24 02:53 06/09/24 03:51 Potassium Chloride/H20 IV 06/09/24 03:52 100 mls/hr ONCE ONE Administration Insulin Human Regular 10 unit 06/08/24 23:06 06/09/24 00:23 Insulin Regular, Human 100 Unit/Ml 10 Ml Vial IVPUSH 06/08/24 23:07 10 unit ONCE ONE Administration Iohexol 65 ml 06/09/24 04:25 06/09/24 04:26 Iohexol 350 Mg/Ml 100 Ml Infus..Btl IV 06/09/24 04:26 65 ml ONCE ONE Administration Ketorolac Tromethamine 30 mg 06/09/24 04:03 06/09/24 04:24 Ketorolac Tromethamine 30 Mg/Ml Vial IVPUSH 06/09/24 04:04 30 mg ONCE ONE Administration Ondansetron HCl 4 mg 06/08/24 23:22 06/09/24 00:14 Ondansetron Hcl 4 Mg/2 Ml Vial IVPUSH 06/08/24 23:23 4 mg ONCE ONE Administration Sodium Bicarbonate 50 meq 06/09/24 02:48 06/09/24 03:50 Sodium Bicarbonate 8.4% 50 Meq/50 Ml Syringe IVPUSH 06/09/24 02:49 50 meq ONCE ONE Administration Medical Decision Making Medical Decision Making [facility] Narrative: Patient is indicated. Patient's white blood cell count 12.5, pH venous 7.15, bicarb 7 Patient received initial 2 L of normal saline before the labs came back, the units of insulin. After the above-mentioned treatment, patient's glucose dropped to 313, anion gap improved from 27-21. Still open. However, bicarb keeps dropping. Patient was started on bicarb drip and insulin pump, instructed to run at 6 units/hour I discussed the patient with Dr. moore, patient admitted to ICU Differential Diagnosis Differential Diagnoses: The differential diagnosis associated with the presentation includes (DKA, hyperglycemia, medication noncompliance) Admission/Observation Consideration of admission/observation: Escalation of care including admission/observation considered Consult Healthcare Provider Management of the patient was discussed with: Inspector And Hand Packager Lab Data [facility] Lab Attestation statement: I reviewed the patient's lab results. 06/08/24 22:41 06/09/24 02:19 Labs: Lab Results 06/08/24 06/08/24 06/09/24 Range/Units 22:22 22:41 02:19 WBC 12.5 H (4.8-10.8) X10*3/uL RBC 4.30 D (4.20-5.50) X10*6/uL Hgb 11.3 L D (12.0-16.0) g/dl Hct 37.3 D (37.0-47.0) % MCV 86.7 (80.0-98.0) fL MCH 26.3 L (27.0-33.0) pg MCHC 30.3 L (31.0-35.0) g/dl RDW 15.1 (11.0-16.0) % Plt Count 489 H D (160-400) X10*3/uL MPV 10.6 (9.4-12.3) fL Immature Gran % (Auto) 0.6 H (0.0-0.4) % Neut % (Auto) 72.2 (45-73) % Lymph % (Auto) 18.9 L (20-40) % [place] % (Auto) 7.7 (2-11) % Eos % (Auto) 0.1 (0-4) % Baso % (Auto) 0.5 (0-2) % Lymph # (Auto) 2.4 (1.2-4.9) X10*3/uL [place] # (Auto) 1.0 (0.1-1.2) X10*3/uL Eos # (Auto) 0.0 (0.0-0.4) X10*3/uL Baso # (Auto) 0.1 (0.0-0.2) X10*3/uL Abs Immat Gran (auto) 0.07 H (0.00-0.03) X10*3/uL Absolute Neuts (auto) 9.0 H (2.0-8.3) x10*3/uL Absolute Nucleated RBC 0.000 (0.0-0.012) X10*3/uL Nucleated RBC % (auto) 0.0 (0.0-0.2) /100WBC PT 11.7 (10.9-12.4) SEC INR 1.0 (0.9-1.1) VBG pH (7.32-7.43) VBG pCO2 mmHg VBG pO2 mmHg VBG HCO3 (22-26) mmol/L VBG O2 Saturation % VBG Base Excess mmol/L Sodium 134 L 137 (135-145) mmol/L Potassium 5.0 4.9 (3.3-5.1) mmol/L Chloride 100 113 H (96-108) mmol/L Carbon Dioxide 12 L 8 L* D (22-29) mmol/L Anion Gap 27 H 21 H (12-20) BUN 12 13 (9-16) mg/dL Creatinine 0.89 0.84 (0.5-1.4) mg/dL Estim Creat Clear Calc 73.8 78.1 Estimated GFR > 60 > 60 POC Glucose 518 H* (60-115) mg/dL Random Glucose 577 H* 313 H (60-115) mg/dL Calcium 9.4 8.4 D (8.4-10.2) mg/dL Magnesium 1.9 (1.6-2.6) mg/dL Total Bilirubin 0.6 (0.0-1.0) mg/dL AST 42 H (5-31) U/L ALT 33 H (0-31) U/L Alkaline Phosphatase 147 H (39-117) U/L Troponin I High Sens < 2.7 (<3.5-17.0) ng/L Total Protein 8.6 H (6.5-8.0) g/dL Albumin 4.4 (3.5-5.0) g/dL Beta-Hydroxybutyrate 6.12 H (0.02-0.27) mmol/L Beta HCG, Quant < 2 mIU/mL Urine Color Yellow Urine Appearance Clear Urine pH 5.0 (5.0-9.0) Ur Specific [place] 1.025 (1.005-1.025) Urine Protein Negative (Neg-Trace) mg/dL Urine Glucose (UA) >=1000 H (Negative) mg/dL Urine Ketones >=160 (Negative) mg/dL Urine Blood Negative (Negative) Urine Nitrite Negative (Negative) Ur Leukocyte Esterase Negative (Negative) Urine RBC 0-2 (0-2) /HPF Urine WBC 6-10 H (0-5) /HPF Ur Squamous Epith Cells 0-2 (0-2) /HPF Urine Bacteria None Seen (None Seen) Hyaline Casts 0-2 (0-2) /LPF Influenza Type A (PCR) NEGATIVE (Negative) Influenza Type B (PCR) NEGATIVE (Negative) RSV RNA Qual (PCR) NEGATIVE (Negative) SARS-CoV-2 RNA (RT-PCR) NEGATIVE (Negative) S. pyogenes GrpA JOY Negative (Negative) 06/09/24 Range/Units 03:54 WBC (4.8-10.8) X10*3/uL RBC (4.20-5.50) X10*6/uL Hgb (12.0-16.0) g/dl Hct (37.0-47.0) % MCV (80.0-98.0) fL MCH (27.0-33.0) pg MCHC (31.0-35.0) g/dl RDW (11.0-16.0) % Plt Count (160-400) X10*3/uL MPV (9.4-12.3) fL Immature Gran % (Auto) (0.0-0.4) % Neut % (Auto) (45-73) % Lymph % (Auto) (20-40) % [place] % (Auto) (2-11) % Eos % (Auto) (0-4) % Baso % (Auto) (0-2) % Lymph # (Auto) (1.2-4.9) X10*3/uL [place] # (Auto) (0.1-1.2) X10*3/uL Eos # (Auto) (0.0-0.4) X10*3/uL Baso # (Auto) (0.0-0.2) X10*3/uL Abs Immat Gran (auto) (0.00-0.03) X10*3/uL Absolute Neuts (auto) (2.0-8.3) x10*3/uL Absolute Nucleated RBC (0.0-0.012) X10*3/uL Nucleated RBC % (auto) (0.0-0.2) /100WBC PT (10.9-12.4) SEC INR (0.9-1.1) VBG pH 7.15 L* (7.32-7.43) VBG pCO2 20 mmHg VBG pO2 70 mmHg VBG HCO3 7 L (22-26) mmol/L VBG O2 Saturation 91.0 % VBG Base Excess -19.1 mmol/L Sodium (135-145) mmol/L Potassium (3.3-5.1) mmol/L Chloride (96-108) mmol/L Carbon Dioxide (22-29) mmol/L Anion Gap (12-20) BUN (9-16) mg/dL Creatinine (0.5-1.4) mg/dL Estim Creat Clear Calc Estimated GFR POC Glucose (60-115) mg/dL Random Glucose (60-115) mg/dL Calcium (8.4-10.2) mg/dL Magnesium (1.6-2.6) mg/dL Total Bilirubin (0.0-1.0) mg/dL AST (5-31) U/L ALT (0-31) U/L Alkaline Phosphatase (39-117) U/L Troponin I High Sens (<3.5-17.0) ng/L Total Protein (6.5-8.0) g/dL Albumin (3.5-5.0) g/dL Beta-Hydroxybutyrate (0.02-0.27) mmol/L Beta HCG, Quant mIU/mL Urine Color Urine Appearance Urine pH (5.0-9.0) Ur Specific [place] (1.005-1.025) Urine Protein (Neg-Trace) mg/dL Urine Glucose (UA) (Negative) mg/dL Urine Ketones (Negative) mg/dL Urine Blood (Negative) Urine Nitrite (Negative) Ur Leukocyte Esterase (Negative) Urine RBC (0-2) /HPF Urine WBC (0-5) /HPF Ur Squamous Epith Cells (0-2) /HPF Urine Bacteria (None Seen) Hyaline Casts (0-2) /LPF Influenza Type A (PCR) (Negative) Influenza Type B (PCR) (Negative) RSV RNA Qual (PCR) (Negative) SARS-CoV-2 RNA (RT-PCR) (Negative) S. pyogenes GrpA JOY (Negative) Critical Care Time Critical Care Time Critical Care Time: Yes Total Critical Care Time: 75 Attestation: I have personally provided critical care time. Time includes review of lab data, radiology results, discussion with consultants, and monitoring for potential decompensation. Intervention performed as documented. Discharge Plan Discharge Clinical Impression: DKA, type 1 Patient Disposition: Admitted As Inpatient
[2024-06-08 23:25] LABS: Influenza A PCR NEGATIVE (Negative); Influenza B PCR NEGATIVE (Negative); Resp Syncy Virus RNA Qual PCR NEGATIVE (Negative); SARS COV2 PCR INHOUSE NEGATIVE (Negative)
[2024-06-09] VITALS (18 sets, daily range): BP systolic 94–119; BP diastolic 47–81; PULSE 88–139; RESP 12–22; TEMP 36.8–37.3; O2SAT 95–100; BMI 28.1
[2024-06-09] MEDS: ondansetron HCL 4 MG/2 ML VIAL IVPUSH ×2 (00:14→05:23)
[2024-06-09] MEDS: 0.9 % Sodium Chloride 2,000 ML 999 ML IVCONT (00:18)
[2024-06-09] MEDS: Insulin Regular, Human 100 UNIT/ML 10 ML VIAL 10 UNIT IVPUSH (00:23)
[2024-06-09 01:47] LABS: HCG Quantitative < 2 mIU/mL
[2024-06-09 02:27] LABS: Appearance Urine Clear; Color Urine Yellow; Glucose Urine UA >=1000 mg/dL (Negative); Leukocyte Esterase Urine Negative (Negative); Nitrite Urine Negative (Negative); Specific Gravity - Urine 1.025 (1.005-1.025); UMIC TRIGGER UACC YES; Urine Blood Negative (Negative); Urine Ketones >=160 mg/dL (Negative); Urine Protein Negative (Neg-Trace)
[2024-06-09 02:44] LABS: Bacteria Urine None Seen (None Seen); Hyaline Casts Urine 0-2 /LPF (0-2); RBC Urine 0-2 /HPF (0-2); Squamous Epithelial Cell Urine 0-2 /HPF (0-2); UACC Culture Trigger YES
[2024-06-09 02:49] LABS: Anion Gap 21 (12-20); Blood Urea Nitrogen 13 mg/dL (9-16); Calcium 8.4 mg/dL (8.4-10.2); Carbon Dioxide 8 mmol/L (22-29); Chloride 113 mmol/L (96-108); Creatinine Clr Calc Pharmacy 78.1; Estimated Glomerular Filt Rate > 60; Glucose Random 313 mg/dL (60-115); Potassium 4.9 mmol/L (3.3-5.1); Sodium 137 mmol/L (135-145)
[2024-06-09] MEDS: Sodium Bicarbonate 8.4% 50 MEQ/50 ML SYRINGE IVPUSH (03:50)
[2024-06-09] MEDS: Sodium Chloride 0.45 % 1,000 ML 125 ML IVCONT (03:51)
[2024-06-09] MEDS: Potassium Chloride/H20 10 MEQ/100 ML PIGGYBACK 100 MEQ IV (03:51)
[2024-06-09 04:02] LABS: Venous Blood Gas Refer to POC result
[2024-06-09 04:03] LABS: VBG Base Excess -19.1 mmol/L; VBG HCO3 7 mmol/L (22-26); VBG pCO2 20 mmHg; VBG pH 7.15 (7.32-7.43); VBG pO2 70 mmHg
[2024-06-09] MEDS: Sodium Bicarbonate 8.4% 150 MEQ in Dextrose 5 % 850 ML 100 MEQ IV (04:15)
[2024-06-09] MEDS: Ketorolac Tromethamine 30 MG/ML VIAL IVPUSH (04:24)
[2024-06-09] MEDS: iohexoL 350 MG/ML 100 ML INFUS..BTL 65 ML IV (04:26)
--- NOTE | 2024-06-09 04:36 | P.HPCC_ITS ---
History of Present Illness Date of Service: 06/09/24 Attending physician on admission: Reuben Osborne Chief Complaint: DKA; Acute Met Acidosis 19-year-old female with underlying history of type 1 diabetes, who has recurrent hospitalizations due to DKA in the setting of noncompliance.? She had been recently discharged from this hospital on 05/30/2024. Patient presented to emergency room with complaints of hyperglycemia, nausea, vomiting abdominal discomfort.? Her sugar at home had been greater than 500.? Reportedly patient run out of strips and has not been able to check her blood sugar, however she had continue to administer her normal insulin doses at home.? She normally takes 54 units of Lantus as well as an insulin sliding scale. Her workup was significant for tachycardia and tachypnea, white count 12.5, H and H of 11.3 and 37.3 respectively, platelets 489. ?Sodium 134, potassium 5.0, chloride 100, carbon dioxide 12, anion gap 27, random sugar 577, is a T 42 degrees, ALT 33, alk phos 147, beta hydroxybutyrate acid 6.12.? Beta HCG less than 2.? Urinalysis shows glucosuria but no UTI. ?Venous blood gas shows pH of 7.15, pCO2 of 20, PO2 70, HC03 7. Patient had been given 2 L of normal saline, morphine, ketorolac, sodium bicarb IV push, 10 units of insulin started on insulin drip. ?Patient will be admitted to the ICU for further care. ?Chest CT angiogram was obtained by mistake.? Reading pending. Review of Systems 2 Review of Systems: As above, otherwise the patient denies any prior history of strokes, cold intolerance, migraine headaches, head trauma, no eyes, ears or nose problems, no problems swallowing or with phonation, no thyroid disease, denies any history of chest pain, palpitations, coronary disease, cough, sputum production, pneumonia, bronchitis, COPD or emphysema, melena, hematochezia, hematemesis, hematuria, kidney stones, liver problems, immunocompromise state of any kind, no history of DVT or PE, leg edema, no recent travel, all other review of systems were reviewed and they were all negative. [facility] Past Medical History Medical History Type 1 diabetes mellitus with proteinuria Social History Social History Household Members: Family Household Members Other:: Lives with Sister Housing: Apartment Do you presently have visiting nurse or other home services: No Alcohol intake: never Patient Tobacco Use Status: Never used Tobacco Second Hand Smoke Exposure: No Use of substances other than those prescribed or required for medical reasons: No Currently Displaying Signs/Symptoms of Drug Intoxication Withdrawal: No Have you been hit, kicked, punched, or otherwise hurt by someone within the past year? If so, by whom?: No Advance Directives: No Advance Directives Information Provided: No Do you have a plan to hurt others: No Plan Recently lost weight without trying: No Nutrition Risks: Diabetes new onset/Uncontrolled Patient : No service: No Current occupational status: unemployed Meds Allergies Allergy/AdvReac Type Severity Reaction Status Date / Time No Known Allergies Allergy Verified 06/08/24 22:32 Active Medications: Current Medications Sodium Bicarbonate 150 meq/ (Dextrose) 1,000 mls @ 100 mls/hr IV .Q10H [facility] Last Admin: 06/09/24 04:15 Dose: 100 mls/hr Insulin Human Regular (Myxredlin) 100 unit in 100 mls @ 0 mls/hr IVCONT .Q0M CAROLINE; Protocol Dextrose (D10) 250 mls @ 750 mls/hr IV Q15M PRN PRN Reason: per Hypoglycemia Standing Ord. Sodium Chloride (Sodium Chloride 0.45 %) 1,000 mls @ 125 mls/hr IVCONT .Q8H CAROLINE Last Admin: 06/09/24 03:51 Dose: 125 mls/hr Sodium Chloride (Ns) 1,769.01 mls @ 1,769.01 mls/hr 30 ml/kg infuse over 1 hr (1769.01 ml) IV .Q1H STA Stop: 06/09/24 05:02 Dextrose/Lactated Ringer's (D5lr) 1,000 mls @ 150 mls/hr IVCONT .Q6H40M [facility] Home Medications ?Medication ?Instructions ?Recorded ?Confirmed ?Last Taken ?Type melatonin 5 mg tablet 5 mg PO BEDTIME PRN Sleep 10/13/22 06/09/24 Unknown History acetaminophen 325 mg tablet 650 mg PO Q6H PRN Pain 05/12/24 06/09/24 Unknown History (Tylenol) ibuprofen 200 mg tablet 400 mg PO Q8H PRN Pain 05/12/24 06/09/24 Unknown History insulin aspart U-100 100 unit/mL 1 sliding scale dose subcut TIDAC 05/12/24 06/09/24 05/25/24 09:00 History (3 mL) subcutaneous pen insulin glargine 100 unit/mL (3 54 unit subcut DAILY@1200 05/12/24 06/09/24 05/25/24 History mL) subcutaneous pen (Lantus Solostar U-100 Insulin) ondansetron 4 mg disintegrating 4 mg PO Q8H PRN nausea and vomiting 05/26/24 06/09/24 Unknown History tablet Physical Exam 2 Vital Signs: Vital Signs: Last Vital Signs Temp 98.1 F 06/08/24 22:31 Pulse 137 H 06/08/24 22:31 Resp 28 H 06/08/24 22:31 BP 130/53 L 06/08/24 22:31 Pulse Ox 97 06/08/24 22:31 O2 Del Method Room Air 06/08/24 22:31 BMI result Body Mass Index 28.1 General:? Alert oriented x3 no acute distress.? Speaking full sentences.? Speech is well articulated, thought process is coherent.? Following all commands. Skin:? Intact, no lesions, edema, erythema, clubbing or cyanosis.? No ulcers. HEENT:? Head is normocephalic, atraumatic, pupils equal round reactive to light accommodation bilaterally.? Buccal mucosa is dry, Neck is supple without lymphadenopathy. Cardiac:? Clear S1-S2, no murmurs rubs or gallops. Pulmonary:? Clear to auscultation, no wheezes, rales or rhonchi. Abdomen:? Protuberant, positive bowel sounds in all 4 quadrants.? Soft, nontender, no rebound or guarding.? Musculoskeletal:? Moving all 4 extremities upon request a major joints, there is no crepitus or tenderness.? The strength is 5/5 bilaterally and throughout all 4 extremities.? There is no leg edema , no calf tenderness , no leg asymmetry.?Gait not assessed at this point. Neurologic:? As above. No focal deficits noted. Vascular:? 2+ pulses upper and lower extremities distally. Results Labs 06/08/24 22:41 06/09/24 21:54 Labs: Laboratory Results - last 24 hr 06/08/24 06/08/24 06/09/24 22:22 22:41 02:19 MCV 86.7 MCH 26.3 L MCHC 30.3 L RDW 15.1 Plt Count 489 H D MPV 10.6 Immature Gran % (Auto) 0.6 H Neut % (Auto) 72.2 Lymph % (Auto) 18.9 L [place] % (Auto) 7.7 Eos % (Auto) 0.1 Baso % (Auto) 0.5 Lymph # (Auto) 2.4 [place] # (Auto) 1.0 Eos # (Auto) 0.0 Baso # (Auto) 0.1 Abs Immat Gran (auto) 0.07 H Absolute Neuts (auto) 9.0 H Absolute Nucleated RBC 0.000 Nucleated RBC % (auto) 0.0 PT 11.7 INR 1.0 VBG pH VBG pCO2 VBG pO2 VBG HCO3 VBG O2 Saturation VBG Base Excess Anion Gap 27 H 21 H Estim Creat Clear Calc 73.8 78.1 Estimated GFR > 60 > 60 POC Glucose 518 H* Random Glucose 577 H* 313 H Calcium 9.4 8.4 D Magnesium 1.9 Total Bilirubin 0.6 AST 42 H ALT 33 H Alkaline Phosphatase 147 H Troponin I High Sens < 2.7 Total Protein 8.6 H Albumin 4.4 Beta-Hydroxybutyrate 6.12 H Beta HCG, Quant < 2 Urine Color Yellow Urine Appearance Clear Urine pH 5.0 Ur Specific [place] 1.025 Urine Protein Negative Urine Glucose (UA) >=1000 H Urine Ketones >=160 Urine Blood Negative Urine Nitrite Negative Ur Leukocyte Esterase Negative Urine RBC 0-2 Urine WBC 6-10 H Ur Squamous Epith Cells 0-2 Urine Bacteria None Seen Hyaline Casts 0-2 Influenza Type A (PCR) NEGATIVE Influenza Type B (PCR) NEGATIVE RSV RNA Qual (PCR) NEGATIVE SARS-CoV-2 RNA (RT-PCR) NEGATIVE S. pyogenes GrpA JOY Negative 06/09/24 03:54 MCV MCH MCHC RDW Plt Count MPV Immature Gran % (Auto) Neut % (Auto) Lymph % (Auto) [place] % (Auto) Eos % (Auto) Baso % (Auto) Lymph # (Auto) [place] # (Auto) Eos # (Auto) Baso # (Auto) Abs Immat Gran (auto) Absolute Neuts (auto) Absolute Nucleated RBC Nucleated RBC % (auto) PT INR VBG pH 7.15 L* VBG pCO2 20 VBG pO2 70 VBG HCO3 7 L VBG O2 Saturation 91.0 VBG Base Excess -19.1 Anion Gap Estim Creat Clear Calc Estimated GFR POC Glucose Random Glucose Calcium Magnesium Total Bilirubin AST ALT Alkaline Phosphatase Troponin I High Sens Total Protein Albumin Beta-Hydroxybutyrate Beta HCG, Quant Urine Color Urine Appearance Urine pH Ur Specific [place] Urine Protein Urine Glucose (UA) Urine Ketones Urine Blood Urine Nitrite Ur Leukocyte Esterase Urine RBC Urine WBC Ur Squamous Epith Cells Urine Bacteria Hyaline Casts Influenza Type A (PCR) Influenza Type B (PCR) RSV RNA Qual (PCR) SARS-CoV-2 RNA (RT-PCR) S. pyogenes GrpA JOY Assessment and Plan (1) DKA, type 1: Status: Acute Plan ASSESSMENT : 1. Acute DKA 2. Acute metabolic acidosis due to the above 3. Reactive leukocytosis 4. Reactive tachycardia and tachypnea 5. Thrombocytosis 6. Reactive transaminitis PLAN OF CARE: Patient will be admitted to the ICU, monitor vital signs, I's and O's, continue with insulin drip and titrate per protocol, POC is every 1 hour, chemistries every 4 hours, replace electrolytes.? When her blood sugars less than 250 will switch IV fluids to D5 LR. ?Once the anion gap acidosis closes, drip will be discontinued and her home medications can be resumed. ?Zofran p.r.n. Diabetic education. May need further bicarb replacement. GI PROPHYLAXIS:? Oral famotidine DVT PROPHYLAXIS:? Lovenox subQ Critical care time used for critical evaluation of this patient, diagnosis, treatment and coordination of care, review her records and documentation TOTAL CRITICAL CARE TIME 60 MIN . discussion and coordination with consultants, completely separate from any procedures performed. Patient's care was discussed in detail with Dr. Osborne who is aware of all the above as well as the plan of care for this patient. Total time managing care of this patient today: 60 minutes.
[2024-06-09] MEDS: Dextrose 5 % and Lactated Ring 1,000 ML 150 ML IVCONT ×4 (05:23→22:33)
[2024-06-09] MEDS: Insulin Regular/NS 100 UNIT/100 ML PLAST..BAG 8 UNIT IVCONT (05:37)
[2024-06-09 05:50] LABS: Glucose, Whole Blood 406 mg/dL (60-115)
[2024-06-09] MEDS: Lactated Ringers 1,000 ML 200 ML IVCONT (06:00)
[2024-06-09 06:06] LABS: Glucose, Whole Blood 466 mg/dL (60-115)
[2024-06-09 06:18] LABS: Venous Blood Gas Refer to POC result
[2024-06-09 06:26] LABS: VBG Base Excess -19.9 mmol/L; VBG HCO3 6 mmol/L (22-26); VBG pCO2 16 mmHg; VBG pH 7.17 (7.32-7.43); VBG pO2 64 mmHg
--- NOTE | 2024-06-09 06:36 | PC.NURSE ---
Pt admitted to ICU from ED at approx 0600. Upon initial assessment- pt A&Ox4 but drowsy. Afebrile. Sinus tach on tele, HR up to 140s. BP WNL. Saturating well on room air. Denies nausea/vomiting at this time. Endorses L lateral abd pain, previously medicated per JUL. NPO. Skin overall intact, MAEI. Insulin gtt/IVF infusing per JUL. Pt educated on plan of care, and DKA/medication compliance. Bed locked in lowest position, call pacheco in reach.
[2024-06-09 06:41] LABS: Alanine Aminotransferase 27 U/L (0-31); Albumin Level 3.8 g/dL (3.5-5.0); Alkaline Phosphatase 127 U/L (39-117); Anion Gap 27 (12-20); Aspartate Amino Transferase 39 U/L (5-31); Bilirubin Total 0.4 mg/dL (0.0-1.0); Blood Urea Nitrogen 11 mg/dL (9-16); Calcium 8.3 mg/dL (8.4-10.2); Carbon Dioxide 5 mmol/L (22-29); Chloride 108 mmol/L (96-108); Creatinine Clr Calc Pharmacy 63.1; Estimated Glomerular Filt Rate > 60; Glucose Random 497 mg/dL (60-115); Potassium 5.7 mmol/L (3.3-5.1); Sodium 134 mmol/L (135-145); Total Protein 7.3 g/dL (6.5-8.0)
[2024-06-09 07:11] LABS: Glucose, Whole Blood 317 mg/dL (60-115)
--- NOTE | 2024-06-09 07:35 | PHA.MEDREC ---
Pharmacy Consult ? Medication Reconciliation Pharmacy has completed the medication reconciliation. Reviewed med rec done by nursing (Roxanne). Pt previously discharged 05/30/24. Utilized discharge packet to confirm as well.
[2024-06-09 08:15] LABS: Glucose, Whole Blood 208 mg/dL (60-115)
[2024-06-09] MEDS: 0.9 % Sodium Chloride Flush 3 ML SYRINGE IVFLUSH (08:22)
[2024-06-09 09:10] LABS: Glucose, Whole Blood 152 mg/dL (60-115)
[2024-06-09] MEDS: Famotidine 20 MG TABLET PO (09:41)
[2024-06-09 10:06] LABS: Glucose, Whole Blood 116 mg/dL (60-115)
[2024-06-09 10:52] LABS: Anion Gap 12 (12-20); Blood Urea Nitrogen 8 mg/dL (9-16); Calcium 8.4 mg/dL (8.4-10.2); Carbon Dioxide 14 mmol/L (22-29); Chloride 113 mmol/L (96-108); Estimated Glomerular Filt Rate > 60; Glucose Random 122 mg/dL (60-115); Potassium 4.3 mmol/L (3.3-5.1); Sodium 135 mmol/L (135-145)
[2024-06-09 11:05] LABS: Glucose, Whole Blood 114 mg/dL (60-115)
[2024-06-09 12:36] LABS: Glucose, Whole Blood 113 mg/dL (60-115)
[2024-06-09 13:11] LABS: Glucose, Whole Blood 105 mg/dL (60-115)
[2024-06-09 14:26] LABS: Glucose, Whole Blood 110 mg/dL (60-115)
[2024-06-09 15:14] LABS: Glucose, Whole Blood 101 mg/dL (60-115)
[2024-06-09 16:12] LABS: Anion Gap 8 (12-20); Blood Urea Nitrogen 7 mg/dL (9-16); Calcium 8.4 mg/dL (8.4-10.2); Carbon Dioxide 18 mmol/L (22-29); Chloride 115 mmol/L (96-108); Creatinine Clr Calc Pharmacy 86.4; Estimated Glomerular Filt Rate > 60; Glucose Random 101 mg/dL (60-115); Sodium 137 mmol/L (135-145)
[2024-06-09 16:15] LABS: Glucose, Whole Blood 104 mg/dL (60-115)
[2024-06-09 17:16] LABS: Glucose, Whole Blood 93 mg/dL (60-115)
[2024-06-09 18:07] LABS: Glucose, Whole Blood 78 mg/dL (60-115)
[2024-06-09 18:32] LABS: Glucose, Whole Blood 75 mg/dL (60-115)
[2024-06-09 18:57] LABS: Glucose, Whole Blood 86 mg/dL (60-115)
[2024-06-09 19:57] LABS: Glucose, Whole Blood 98 mg/dL (60-115)
[2024-06-09 21:01] LABS: Glucose, Whole Blood 106 mg/dL (60-115)
[2024-06-09 21:58] LABS: Glucose, Whole Blood 106 mg/dL (60-115)
[2024-06-09 22:03] LABS: Venous Blood Gas Refer to POC result
[2024-06-09 22:03] LABS: VBG Base Excess -5.3 mmol/L; VBG HCO3 17 mmol/L (22-26); VBG pCO2 25 mmHg; VBG pH 7.43 (7.32-7.43); VBG pO2 50 mmHg
[2024-06-09 22:17] LABS: Anion Gap 11 (12-20); Blood Urea Nitrogen 6 mg/dL (9-16); Calcium 8.3 mg/dL (8.4-10.2); Carbon Dioxide 17 mmol/L (22-29); Chloride 114 mmol/L (96-108); Creatinine Clr Calc Pharmacy 85.2; Estimated Glomerular Filt Rate > 60; Glucose Random 115 mg/dL (60-115); Potassium 3.9 mmol/L (3.3-5.1); Sodium 138 mmol/L (135-145)
[2024-06-09] MEDS: Ketorolac Tromethamine 15 MG/ML VIAL IVPUSH (22:58)
[2024-06-09 22:59] LABS: Glucose, Whole Blood 124 mg/dL (60-115)
[2024-06-10] VITALS (15 sets, daily range): BP systolic 95–123; BP diastolic 54–85; PULSE 75–101; RESP 13–20; TEMP 36.4–36.9; O2SAT 10–100; BMI 28.2
[2024-06-10 00:04] LABS: Glucose, Whole Blood 120 mg/dL (60-115)
[2024-06-10 01:07] LABS: Glucose, Whole Blood 102 mg/dL (60-115)
[2024-06-10 01:55] LABS: Glucose, Whole Blood 100 mg/dL (60-115)
[2024-06-10 02:53] LABS: Glucose, Whole Blood 91 mg/dL (60-115)
[2024-06-10 03:56] LABS: Glucose, Whole Blood 88 mg/dL (60-115)
[2024-06-10] MEDS: Dextrose 5 % and Lactated Ring 1,000 ML 150 ML IVCONT (04:42)
[2024-06-10 04:46] LABS: VBG Base Excess -3.7 mmol/L; VBG HCO3 18 mmol/L (22-26); VBG pCO2 25 mmHg; VBG pH 7.47 (7.32-7.43); VBG pO2 50 mmHg; Venous Blood Gas Refer to POC result
[2024-06-10 04:49] LABS: MANUAL DIFF FLAG NO
[2024-06-10 04:50] LABS: Basophils Percent Auto 0.6 % (0-2); Eosinophils Absolute Auto 0.1 X10*3/uL (0.0-0.4); Eosinophils Percent Auto 1.3 % (0-4); Hematocrit 27.5 % (37.0-47.0); Hemoglobin 8.5 g/dl (12.0-16.0); Imm Gran Abs Auto 0.03 X10*3/uL (0.00-0.03); Imm Gran Pct Auto 0.4 % (0.0-0.4); Lymphocytes Absolute Auto 2.5 X10*3/uL (1.2-4.9); Lymphocytes Percent Auto 36.4 % (20-40); Mean Corpuscular HGB Conc 30.9 g/dl (31.0-35.0); Mean Corpuscular Hemoglobin 26.3 pg (27.0-33.0); Mean Corpuscular Volume 85.1 fL (80.0-98.0); Mean Platelet Volume 10.1 fL (9.4-12.3); Monocytes Absolute Auto 0.8 X10*3/uL (0.1-1.2); Monocytes Percent Auto 10.9 % (2-11); Neutrophils Absolute Auto 3.5 x10*3/uL (2.0-8.3); Neutrophils Percent Auto 50.4 % (45-73); Platelet Count 327 X10*3/uL (160-400); Red Blood Count 3.23 X10*6/uL (4.20-5.50); Red Cell Distribution Width 15.2 % (11.0-16.0); White Blood Count 6.9 X10*3/uL (4.8-10.8)
[2024-06-10 04:51] LABS: Glucose, Whole Blood 76 mg/dL (60-115)
[2024-06-10 05:03] LABS: Albumin Level 2.8 g/dL (3.5-5.0); Anion Gap 10 (12-20); Blood Urea Nitrogen 6 mg/dL (9-16); Calcium 8.1 mg/dL (8.4-10.2); Carbon Dioxide 17 mmol/L (22-29); Chloride 115 mmol/L (96-108); Creatinine Clr Calc Pharmacy 100.9; Estimated Glomerular Filt Rate > 60; Glucose Random 84 mg/dL (60-115); Magnesium 1.6 mg/dL (1.6-2.6); Phosphorus 3.4 mg/dL (2.7-4.5); Potassium 3.4 mmol/L (3.3-5.1); Sodium 139 mmol/L (135-145)
[2024-06-10] MEDS: Sodium Bicarbonate 8.4% 50 MEQ/50 ML SYRINGE IVPUSH (05:15)
[2024-06-10] MEDS: Potassium Chloride Packet 20 MEQ PACKET 40 MEQ PO (05:15)
[2024-06-10] MEDS: Sodium Bicarbonate 8.4% 150 MEQ in Dextrose 5 % 850 ML 100 MEQ IV (05:25)
[2024-06-10 05:57] LABS: Glucose, Whole Blood 63 mg/dL (60-115)
[2024-06-10 06:41] LABS: Glucose, Whole Blood 69 mg/dL (60-115)
[2024-06-10 07:07] LABS: Glucose, Whole Blood 67 mg/dL (60-115)
[2024-06-10 07:39] LABS: Glucose, Whole Blood 76 mg/dL (60-115)
--- NOTE | 2024-06-10 07:47 | P.PNCC_ITS ---
Subjective Subjective Date of Service: 06/10/24 Critical Care Time (minutes): 0 Physical Exam 2 Vital Signs: Vital Signs: Last Vital Signs Temp 97.7 F 06/10/24 04:00 Pulse 87 06/10/24 07:00 Resp 18 06/10/24 07:00 BP 110/76 06/10/24 07:00 Pulse Ox 99 06/10/24 07:00 O2 Del Method Room Air 06/10/24 07:00 BMI result Body Mass Index 28.2 Const: General: cooperative, healthy appearing, comfortable, no acute distress, well developed, alert, awake and Physically active O rientation/consciousness: patient oriented x3 HEENT: Head: Yes normal to inspection, Yes normocephalic and Yes atraumatic Eyes: General: appearance normal, both eyes and all related structures Neck: Neck: Yes normal visual inspection, Yes full ROM, Yes no meningeal signs, Yes trachea midline and Yes supple Chest: Chest palpation & inspection: normal inspection of the chest Resp: Other: no appreciable rales, rhonchi, wheezing Effort & Inspection: normal respiratory effort Cardio: Rate: regular rate Rhythm: regular rhythm GI: Inspection: Yes normal to inspection, No Abdominal wall edema and No distended Palpation (GI): Soft to palpation, not firm, nontender, no guarding and not rigid Skin: General skin exam: no rashes or lesions noted Neuro: General: patient oriented x3, tone normal, moves all extremities, no meningeal signs and no focal motor deficits Extrem: General: Yes normal to inspection, Yes full ROM, Yes capillary refill normal and Yes no clubbing, cyanosis or edema Psych: Appearance: grossly normal Objective Data Labs 06/10/24 04:39 06/10/24 04:39 Labs: Laboratory Results - last 24 hr 06/09/24 06/09/24 06/09/24 08:10 09:06 09:58 WBC RBC Hgb Hct MCV MCH MCHC RDW Plt Count MPV Immature Gran % (Auto) Neut % (Auto) Lymph % (Auto) [place] % (Auto) Eos % (Auto) Baso % (Auto) Lymph # (Auto) [place] # (Auto) Eos # (Auto) Baso # (Auto) Abs Immat Gran (auto) Absolute Neuts (auto) Absolute Nucleated RBC Nucleated RBC % (auto) VBG pH VBG pCO2 VBG pO2 VBG HCO3 VBG O2 Saturation VBG Base Excess Sodium 135 Potassium 4.3 D Chloride 113 H Carbon Dioxide 14 L Anion Gap 12 BUN 8 L Creatinine 0.79 Estim Creat Clear Calc 83.0 Estimated GFR > 60 POC Glucose 208 H 152 H Random Glucose 122 H Calcium 8.4 Phosphorus Magnesium Albumin 06/09/24 06/09/24 06/09/24 10:01 11:01 12:32 WBC RBC Hgb Hct MCV MCH MCHC RDW Plt Count MPV Immature Gran % (Auto) Neut % (Auto) Lymph % (Auto) [place] % (Auto) Eos % (Auto) Baso % (Auto) Lymph # (Auto) [place] # (Auto) Eos # (Auto) Baso # (Auto) Abs Immat Gran (auto) Absolute Neuts (auto) Absolute Nucleated RBC Nucleated RBC % (auto) VBG pH VBG pCO2 VBG pO2 VBG HCO3 VBG O2 Saturation VBG Base Excess Sodium Potassium Chloride Carbon Dioxide Anion Gap BUN Creatinine Estim Creat Clear Calc Estimated GFR POC Glucose 116 H 114 113 Random Glucose Calcium Phosphorus Magnesium Albumin 06/09/24 06/09/24 06/09/24 13:07 14:23 15:11 WBC RBC Hgb Hct MCV MCH MCHC RDW Plt Count MPV Immature Gran % (Auto) Neut % (Auto) Lymph % (Auto) [place] % (Auto) Eos % (Auto) Baso % (Auto) Lymph # (Auto) [place] # (Auto) Eos # (Auto) Baso # (Auto) Abs Immat Gran (auto) Absolute Neuts (auto) Absolute Nucleated RBC Nucleated RBC % (auto) VBG pH VBG pCO2 VBG pO2 VBG HCO3 VBG O2 Saturation VBG Base Excess Sodium Potassium Chloride Carbon Dioxide Anion Gap BUN Creatinine Estim Creat Clear Calc Estimated GFR POC Glucose 105 110 101 Random Glucose Calcium Phosphorus Magnesium Albumin 06/09/24 06/09/24 06/09/24 15:53 16:08 17:12 WBC RBC Hgb Hct MCV MCH MCHC RDW Plt Count MPV Immature Gran % (Auto) Neut % (Auto) Lymph % (Auto) [place] % (Auto) Eos % (Auto) Baso % (Auto) Lymph # (Auto) [place] # (Auto) Eos # (Auto) Baso # (Auto) Abs Immat Gran (auto) Absolute Neuts (auto) Absolute Nucleated RBC Nucleated RBC % (auto) VBG pH VBG pCO2 VBG pO2 VBG HCO3 VBG O2 Saturation VBG Base Excess Sodium 137 Potassium 4.0 Chloride 115 H Carbon Dioxide 18 L Anion Gap 8 L BUN 7 L Creatinine 0.76 Estim Creat Clear Calc 86.4 Estimated GFR > 60 POC Glucose 104 93 Random Glucose 101 Calcium 8.4 Phosphorus Magnesium Albumin 06/09/24 06/09/24 06/09/24 18:02 18:28 18:54 WBC RBC Hgb Hct MCV MCH MCHC RDW Plt Count MPV Immature Gran % (Auto) Neut % (Auto) Lymph % (Auto) [place] % (Auto) Eos % (Auto) Baso % (Auto) Lymph # (Auto) [place] # (Auto) Eos # (Auto) Baso # (Auto) Abs Immat Gran (auto) Absolute Neuts (auto) Absolute Nucleated RBC Nucleated RBC % (auto) VBG pH VBG pCO2 VBG pO2 VBG HCO3 VBG O2 Saturation VBG Base Excess Sodium Potassium Chloride Carbon Dioxide Anion Gap BUN Creatinine Estim Creat Clear Calc Estimated GFR POC Glucose 78 75 86 Random Glucose Calcium Phosphorus Magnesium Albumin 06/09/24 06/09/24 06/09/24 19:53 20:57 21:53 WBC RBC Hgb Hct MCV MCH MCHC RDW Plt Count MPV Immature Gran % (Auto) Neut % (Auto) Lymph % (Auto) [place] % (Auto) Eos % (Auto) Baso % (Auto) Lymph # (Auto) [place] # (Auto) Eos # (Auto) Baso # (Auto) Abs Immat Gran (auto) Absolute Neuts (auto) Absolute Nucleated RBC Nucleated RBC % (auto) VBG pH VBG pCO2 VBG pO2 VBG HCO3 VBG O2 Saturation VBG Base Excess Sodium Potassium Chloride Carbon Dioxide Anion Gap BUN Creatinine Estim Creat Clear Calc Estimated GFR POC Glucose 98 106 106 Random Glucose Calcium Phosphorus Magnesium Albumin 06/09/24 06/09/24 06/09/24 21:54 21:58 22:53 WBC RBC Hgb Hct MCV MCH MCHC RDW Plt Count MPV Immature Gran % (Auto) Neut % (Auto) Lymph % (Auto) [place] % (Auto) Eos % (Auto) Baso % (Auto) Lymph # (Auto) [place] # (Auto) Eos # (Auto) Baso # (Auto) Abs Immat Gran (auto) Absolute Neuts (auto) Absolute Nucleated RBC Nucleated RBC % (auto) VBG pH 7.43 VBG pCO2 25 VBG pO2 50 VBG HCO3 17 L VBG O2 Saturation 89.0 VBG Base Excess -5.3 Sodium 138 Potassium 3.9 Chloride 114 H Carbon Dioxide 17 L Anion Gap 11 L BUN 6 L Creatinine 0.77 Estim Creat Clear Calc 85.2 Estimated GFR > 60 POC Glucose 124 H Random Glucose 115 Calcium 8.3 L Phosphorus Magnesium Albumin 06/09/24 06/10/24 06/10/24 23:57 01:02 01:50 WBC RBC Hgb Hct MCV MCH MCHC RDW Plt Count MPV Immature Gran % (Auto) Neut % (Auto) Lymph % (Auto) [place] % (Auto) Eos % (Auto) Baso % (Auto) Lymph # (Auto) [place] # (Auto) Eos # (Auto) Baso # (Auto) Abs Immat Gran (auto) Absolute Neuts (auto) Absolute Nucleated RBC Nucleated RBC % (auto) VBG pH VBG pCO2 VBG pO2 VBG HCO3 VBG O2 Saturation VBG Base Excess Sodium Potassium Chloride Carbon Dioxide Anion Gap BUN Creatinine Estim Creat Clear Calc Estimated GFR POC Glucose 120 H 102 100 Random Glucose Calcium Phosphorus Magnesium Albumin 06/10/24 06/10/24 06/10/24 02:49 03:53 04:32 WBC RBC Hgb Hct MCV MCH MCHC RDW Plt Count MPV Immature Gran % (Auto) Neut % (Auto) Lymph % (Auto) [place] % (Auto) Eos % (Auto) Baso % (Auto) Lymph # (Auto) [place] # (Auto) Eos # (Auto) Baso # (Auto) Abs Immat Gran (auto) Absolute Neuts (auto) Absolute Nucleated RBC Nucleated RBC % (auto) VBG pH 7.47 H VBG pCO2 25 VBG pO2 50 VBG HCO3 18 L VBG O2 Saturation 88.0 VBG Base Excess -3.7 Sodium Potassium Chloride Carbon Dioxide Anion Gap BUN Creatinine Estim Creat Clear Calc Estimated GFR POC Glucose 91 88 Random Glucose Calcium Phosphorus Magnesium Albumin 06/10/24 06/10/24 06/10/24 04:39 04:48 05:52 WBC 6.9 RBC 3.23 L D Hgb 8.5 L D Hct 27.5 L D MCV 85.1 MCH 26.3 L MCHC 30.9 L RDW 15.2 Plt Count 327 D MPV 10.1 Immature Gran % (Auto) 0.4 Neut % (Auto) 50.4 Lymph % (Auto) 36.4 [place] % (Auto) 10.9 Eos % (Auto) 1.3 Baso % (Auto) 0.6 Lymph # (Auto) 2.5 [place] # (Auto) 0.8 Eos # (Auto) 0.1 Baso # (Auto) 0.0 Abs Immat Gran (auto) 0.03 Absolute Neuts (auto) 3.5 Absolute Nucleated RBC 0.000 Nucleated RBC % (auto) 0.0 VBG pH VBG pCO2 VBG pO2 VBG HCO3 VBG O2 Saturation VBG Base Excess Sodium 139 Potassium 3.4 Chloride 115 H Carbon Dioxide 17 L Anion Gap 10 L BUN 6 L Creatinine 0.65 Estim Creat Clear Calc 100.9 Estimated GFR > 60 POC Glucose 76 63 Random Glucose 84 Calcium 8.1 L Phosphorus 3.4 Magnesium 1.6 Albumin 2.8 L 06/10/24 06/10/24 06/10/24 06:38 07:01 07:36 WBC RBC Hgb Hct MCV MCH MCHC RDW Plt Count MPV Immature Gran % (Auto) Neut % (Auto) Lymph % (Auto) [place] % (Auto) Eos % (Auto) Baso % (Auto) Lymph # (Auto) [place] # (Auto) Eos # (Auto) Baso # (Auto) Abs Immat Gran (auto) Absolute Neuts (auto) Absolute Nucleated RBC Nucleated RBC % (auto) VBG pH VBG pCO2 VBG pO2 VBG HCO3 VBG O2 Saturation VBG Base Excess Sodium Potassium Chloride Carbon Dioxide Anion Gap BUN Creatinine Estim Creat Clear Calc Estimated GFR POC Glucose 69 67 76 Random Glucose Calcium Phosphorus Magnesium Albumin Progress Note: A&P Assessment and plan (1) DKA, type 1: Status: Acute Plan Patient is a 19 Y F w/ type I diabetes mellitus c/b prior DKA, initially presenting to emergency department on 06/09 w/ nausea/vomiting, found to be in DKA N: no acute issues CV: no acute issues R: no acute issues GI: diabetic diet : no acute issues H: anemia, likely multifactorial, dilution, phlebotomy, to monitor closely; chemical DVT prophylaxis w/ enoxaparin SQ ID: no stigmata of infection, to monitor E: type I diabetes mellitus c/b DKA, s/p DKA protocol P: no acute issues Quality Stroke Does the patient have a stroke diagnosis?: No VTE Prior VTE?: No VTE Risk Level:: Medical - moderate - high VTE Device Contraindication: N/A - Device Ordered VTE Drug Contraindication: N/A - Med Ordered
[2024-06-10] MEDS: Enoxaparin Sodium 40 MG/0.4 ML SYRINGE SUBCUT (08:40)
[2024-06-10] MEDS: Insulin Glargine,Hum.rec.anlog 100 UNIT/ML 10 ML VIAL 20 UNIT SUBCUT ×2 (08:40→20:50)
[2024-06-10] MEDS: Famotidine 20 MG TABLET PO (08:40)
[2024-06-10] MEDS: Albumin Human 25 % 50 ML 100 ML IV (08:41)
[2024-06-10] MEDS: Calcium Gluconate/NaCl,Iso-Osm 1 GM/50 ML PLAST..BAG IV (08:41)
[2024-06-10] MEDS: 0.9 % Sodium Chloride Flush 3 ML SYRINGE IVFLUSH ×2 (08:41→20:50)
[2024-06-10 09:59] LABS: Glucose, Whole Blood 234 mg/dL (60-115)
[2024-06-10 11:23] LABS: Glucose, Whole Blood 209 mg/dL (60-115)
[2024-06-10] MEDS: Insulin Lispro 100 UNIT/ML 3 ML VIAL SUBCUT ×3 (11:39→20:50)
[2024-06-10] MEDS: cefTRIAXone sodium 1 GM VIAL IVPUSH (12:11)
[2024-06-10] MEDS: Lidocaine 4 % Patch ADH..PATCH 2 PATCH TRANSDERMA (12:18)
[2024-06-10 13:29] LABS: Glucose, Whole Blood 208 mg/dL (60-115)
--- NOTE | 2024-06-10 16:14 | MHC.CM.PN ---
PATIENT LIVES IN AN APARTMENT W/ SISTER. FUNCTIONALLY INDEPENDENT. GETS DM SUPPLIES THROUGH [facility]. DENIES SERVICES. NO PCP. HAS NEW PATIENT APPT SCHEDULED FOR 12/23/24 @ [facility]. IS WORKING ON GETTING A SOONER APPT. HCP ON FILE AND VERIFIED. DP: HOME SELF CARE, WILL ARRANGE PRIVATE TRANSPORT. CM WILL CONTINUE TO FOLLOW.
[2024-06-10 16:43] LABS: Glucose, Whole Blood 292 mg/dL (60-115)
[2024-06-10 20:20] LABS: Glucose, Whole Blood 167 mg/dL (60-115)
[2024-06-11] MEDS: guaiFENesin 100 MG/5 ML 5 ML LIQUID PO ×2 (01:06→12:06)
[2024-06-11 04:00] VITALS: BP 109/60; PULSE 83; RESP 16; TEMP 36; O2SAT 96
[2024-06-11 06:45] LABS: MANUAL DIFF FLAG NO
[2024-06-11 06:52] LABS: Basophils Percent Auto 0.4 % (0-2); Eosinophils Percent Auto 0.8 % (0-4); Hematocrit 29.4 % (37.0-47.0); Imm Gran Abs Auto 0.01 X10*3/uL (0.00-0.03); Imm Gran Pct Auto 0.2 % (0.0-0.4); Lymphocytes Absolute Auto 1.8 X10*3/uL (1.2-4.9); Lymphocytes Percent Auto 38.6 % (20-40); Mean Corpuscular HGB Conc 30.6 g/dl (31.0-35.0); Mean Corpuscular Hemoglobin 26.5 pg (27.0-33.0); Mean Corpuscular Volume 86.5 fL (80.0-98.0); Mean Platelet Volume 10.5 fL (9.4-12.3); Monocytes Absolute Auto 0.5 X10*3/uL (0.1-1.2); Monocytes Percent Auto 10.8 % (2-11); Neutrophils Absolute Auto 2.3 x10*3/uL (2.0-8.3); Neutrophils Percent Auto 49.2 % (45-73); Platelet Count 299 X10*3/uL (160-400); Red Cell Distribution Width 15.2 % (11.0-16.0); White Blood Count 4.7 X10*3/uL (4.8-10.8)
[2024-06-11 07:20] LABS: Anion Gap 11 (12-20); Blood Urea Nitrogen 7 mg/dL (9-16); Calcium 8.5 mg/dL (8.4-10.2); Carbon Dioxide 23 mmol/L (22-29); Chloride 110 mmol/L (96-108); Creatinine Clr Calc Pharmacy 128.9; Estimated Glomerular Filt Rate > 60; Magnesium 1.5 mg/dL (1.6-2.6); Phosphorus 3.8 mg/dL (2.7-4.5); Potassium 3.6 mmol/L (3.3-5.1); Sodium 140 mmol/L (135-145)
[2024-06-11 07:33] LABS: Glucose Random 48 mg/dL (60-115)
[2024-06-11 07:57] LABS: Glucose, Whole Blood 90 mg/dL (60-115)
[2024-06-11 07:58] LABS: Glucose, Whole Blood 54 mg/dL (60-115)
[2024-06-11 07:59] LABS: Immature Retic Fraction 15.6 % (3.0-15.9); Retic HGB Equivalent 26.5 pg (30.0-35.0); Reticulocytes Absolute 0.035 X10*6/uL (0.026-0.095)
[2024-06-11 08:00] VITALS: BP 112/74; PULSE 84; RESP 14; TEMP 36.1; O2SAT 95
[2024-06-11 08:16] LABS: Iron 56 mcg/dL (30-160); Lactate Dehydrogenase 196 U/L (122-220); Percent Iron Saturation 19 % (15-50); Total Iron Binding Capacity 298 mcg/dL (228-428); Unsaturated Iron Binding 242 ug/dL
[2024-06-11] MEDS: Lidocaine 4 % Patch ADH..PATCH 2 PATCH TRANSDERMA (08:54)
[2024-06-11] MEDS: Magnesium Sulfate/H2O 2 GM/50 ML PIGGYBACK IV (08:54)
[2024-06-11] MEDS: Famotidine 20 MG TABLET PO (08:54)
[2024-06-11 11:35] LABS: Glucose, Whole Blood 231 mg/dL (60-115)
[2024-06-11] MEDS: Ibuprofen 600 MG TABLET PO (12:06)
[2024-06-11] MEDS: Insulin Lispro 100 UNIT/ML 3 ML VIAL SUBCUT ×2 (12:10→17:10)
[2024-06-11] MEDS: Insulin Glargine,Hum.rec.anlog 100 UNIT/ML 10 ML VIAL 20 UNIT SUBCUT (12:11)
--- NOTE | 2024-06-11 13:06 | HO.PM.IMPN ---
Subjective Subjective Date of Service: 06/11/24 Interval History: BG low this AM, came up after given juice usually takes 54 units of Lantus at noon flank pain improved Review of Systems Review of Systems: Yes all other systems are reviewed and are negative Physical Exam Vital Signs: Vital Signs: Last Vital Signs Temp 97.0 F 06/11/24 08:00 Pulse 84 06/11/24 08:00 Resp 14 06/11/24 08:00 BP 112/74 06/11/24 08:00 Pulse Ox 95 06/11/24 08:00 O2 Del Method Room Air 06/11/24 08:00 BMI result Body Mass Index 28.2 Gen: in no acute distress HEENT: sclera anicteric, moist mucus membranes Neck: supple Lungs: clear to auscultation bilaterally Heart: regular rate and rhythm, no murmurs Abd: soft, non-tender, non-distended : minimal CVAT Ext: no edema Skin: warm/well-perfused Neuro: alert and oriented x3, no focal findings Psych: appropriate affect Objective Data Active Medications Enoxaparin Sodium (Enoxaparin Sodium 40 Mg/0.4 Ml Syringe) 40 mg SUBCUT Q24H [facility] Last Admin: 06/11/24 08:56 Dose: Not Given Documented By: LEO Non-Admin Reason: Patient Refused Famotidine (Famotidine 20 Mg Tablet) 20 mg PO DAILY [facility] Last Admin: 06/11/24 08:54 Dose: 20 mg Documented By: LEO Glucose (Glucose Gel 15 Gm Gel..Gram.) 15 gm PO Q15M PRN; Protocol PRN Reason: per Hypoglycemia Standing Ord. Guaifenesin (Guaifenesin 100 Mg/5 Ml 5 Ml Liquid) 5 ml PO Q4H PRN PRN Reason: Cough Last Admin: 06/11/24 12:06 Dose: 5 ml Documented By: LEO Dextrose (D10) 250 mls @ 750 mls/hr IV Q15M PRN; Protocol PRN Reason: per Hypoglycemia Standing Ord. Ibuprofen (Ibuprofen 600 Mg Tablet) 600 mg PO Q6H PRN PRN Reason: Pain, Moderate(Pain Scale 4-6) Last Admin: 06/11/24 12:06 Dose: 600 mg Documented By: LEO Insulin Glargine (Insulin Glargine,Hum.Rec.Anlog 100 Unit/Ml 10 Ml Vial) 20 unit SUBCUT DAILY@1200 [facility] Last Admin: 06/11/24 12:11 Dose: 20 unit Documented By: LEO Insulin Human Lispro (Insulin Lispro 100 Unit/Ml 3 Ml Vial) 0 unit SUBCUT QIDACHS [facility]; Protocol Last Admin: 06/11/24 12:10 Dose: 4 unit Documented By: LEO Lidocaine (Lidocaine 4 % Patch Adh..Patch) 2 patch TRANSDERMA DAILY [facility]; Protocol Last Admin: 06/11/24 08:54 Dose: 2 patch Documented By: LEO Ondansetron HCl (Ondansetron Hcl 4 Mg/2 Ml Vial) 4 mg IVPUSH Q8H PRN PRN Reason: Nausea and Vomiting Last Admin: 06/09/24 05:23 Dose: 4 mg Documented By: SEA Sodium Chloride (0.9 % Sodium Chloride Flush 3 Ml Syringe) 3 ml IVFLUSH QSHIFT [facility] Last Admin: 06/11/24 08:56 Dose: Not Given Documented By: LEO Non-Admin Reason: Previously Administered Labs 06/11/24 05:59 06/11/24 05:59 Labs: Laboratory Results - last 24 hr 06/10/24 06/10/24 06/10/24 13:24 16:39 20:17 MCV MCH MCHC RDW Plt Count MPV Immature Gran % (Auto) Neut % (Auto) Lymph % (Auto) [place] % (Auto) Eos % (Auto) Baso % (Auto) Lymph # (Auto) [place] # (Auto) Eos # (Auto) Baso # (Auto) Abs Immat Gran (auto) Absolute Neuts (auto) Absolute Nucleated RBC Nucleated RBC % (auto) Absolute Retic Percent Retic Immature Retic Fraction Retic Hgb Equivalent Anion Gap Estim Creat Clear Calc Estimated GFR POC Glucose 208 H 292 H 167 H Random Glucose Calcium Phosphorus Magnesium Iron TIBC % Saturation Unsat Iron Binding Lactate Dehydrogenase 06/11/24 06/11/24 06/11/24 05:59 07:22 07:52 MCV 86.5 MCH 26.5 L MCHC 30.6 L RDW 15.2 Plt Count 299 MPV 10.5 Immature Gran % (Auto) 0.2 Neut % (Auto) 49.2 Lymph % (Auto) 38.6 [place] % (Auto) 10.8 Eos % (Auto) 0.8 Baso % (Auto) 0.4 Lymph # (Auto) 1.8 [place] # (Auto) 0.5 Eos # (Auto) 0.0 Baso # (Auto) 0.0 Abs Immat Gran (auto) 0.01 Absolute Neuts (auto) 2.3 Absolute Nucleated RBC 0.000 Nucleated RBC % (auto) 0.0 Absolute Retic 0.035 Percent Retic 1.0 Immature Retic Fraction 15.6 Retic Hgb Equivalent 26.5 L Anion Gap 11 L Estim Creat Clear Calc 128.9 Estimated GFR > 60 POC Glucose 54 L* 90 Random Glucose 48 L* Calcium 8.5 Phosphorus 3.8 Magnesium 1.5 L Iron 56 TIBC 298 % Saturation 19 Unsat Iron Binding 242 Lactate Dehydrogenase 196 06/11/24 11:26 MCV MCH MCHC RDW Plt Count MPV Immature Gran % (Auto) Neut % (Auto) Lymph % (Auto) [place] % (Auto) Eos % (Auto) Baso % (Auto) Lymph # (Auto) [place] # (Auto) Eos # (Auto) Baso # (Auto) Abs Immat Gran (auto) Absolute Neuts (auto) Absolute Nucleated RBC Nucleated RBC % (auto) Absolute Retic Percent Retic Immature Retic Fraction Retic Hgb Equivalent Anion Gap Estim Creat Clear Calc Estimated GFR POC Glucose 231 H Random Glucose Calcium Phosphorus Magnesium Iron TIBC % Saturation Unsat Iron Binding Lactate Dehydrogenase Microbiology Microbiology Results: Microbiology 06/09/24 02:19 Urine Culture - Final Urine clean catch - Clean Catch Midstream Assessment and Plan (1) DKA, type 1: Status: Acute Plan d3 for 19yo F with DM1 admitted to ICU with DKA after running out of test strips and not giving herself insulin as a result, stepped down to M/S 06/10/24 DKA DM1 now with hypoglycemia - Reduce to Lantus 20 units once daily and continue correction-dose Humalog; titrate insulin according to BGs hypoMg - Replete, recheck in AM flank pain - Likely from DKA; no evidence of infection; will d/c ceftriaxone VTE ppx - Enoxaparin dispo - Home eventually In my clinical judgment, the patient requires continued inpatient hospitalization for the following reasons: hypoglycemia, repletion of electrolytes Total time managing care of this patient today: 35 minutes. Quality Stroke Does the patient have a stroke diagnosis?: No VTE Prior VTE?: No VTE Risk Level:: Medical - moderate - high VTE Device Contraindication: N/A - Device Ordered VTE Drug Contraindication: N/A - Med Ordered
[2024-06-11 15:04] VITALS: BP 130/80; PULSE 75; RESP 20; TEMP 36.8; O2SAT 98
[2024-06-11 16:15] LABS: Glucose, Whole Blood 253 mg/dL (60-115)
[2024-06-11 19:03] VITALS: BP 133/75; PULSE 72; RESP 20; TEMP 36.6; O2SAT 98
[2024-06-11 19:37] LABS: Glucose, Whole Blood 114 mg/dL (60-115)
[2024-06-11] MEDS: 0.9 % Sodium Chloride Flush 3 ML SYRINGE IVFLUSH (21:32)
[2024-06-12 01:33] VITALS: RESP 16
[2024-06-12 03:37] VITALS: BP 117/73; PULSE 61; RESP 18; TEMP 36.5; O2SAT 96
[2024-06-12 06:42] LABS: MANUAL DIFF FLAG NO
[2024-06-12 06:47] LABS: Basophils Percent Auto 0.4 % (0-2); Eosinophils Absolute Auto 0.1 X10*3/uL (0.0-0.4); Eosinophils Percent Auto 2.6 % (0-4); Hematocrit 29.2 % (37.0-47.0); Hemoglobin 8.9 g/dl (12.0-16.0); Imm Gran Abs Auto 0.01 X10*3/uL (0.00-0.03); Imm Gran Pct Auto 0.2 % (0.0-0.4); Lymphocytes Absolute Auto 2.6 X10*3/uL (1.2-4.9); Lymphocytes Percent Auto 55.9 % (20-40); Mean Corpuscular HGB Conc 30.5 g/dl (31.0-35.0); Mean Corpuscular Hemoglobin 26.4 pg (27.0-33.0); Mean Corpuscular Volume 86.6 fL (80.0-98.0); Mean Platelet Volume 10.8 fL (9.4-12.3); Monocytes Absolute Auto 0.6 X10*3/uL (0.1-1.2); Monocytes Percent Auto 12.8 % (2-11); NRBC Pct Auto 0.4 /100WBC (0.0-0.2); Neutrophils Absolute Auto 1.3 x10*3/uL (2.0-8.3); Neutrophils Percent Auto 28.1 % (45-73); Platelet Count 285 X10*3/uL (160-400); Red Blood Count 3.37 X10*6/uL (4.20-5.50); Red Cell Distribution Width 15.2 % (11.0-16.0); White Blood Count 4.6 X10*3/uL (4.8-10.8)
[2024-06-12 07:02] LABS: Anion Gap 10 (12-20); Blood Urea Nitrogen 10 mg/dL (9-16); Calcium 8.5 mg/dL (8.4-10.2); Carbon Dioxide 25 mmol/L (22-29); Chloride 107 mmol/L (96-108); Creatinine Clr Calc Pharmacy 117.5; Estimated Glomerular Filt Rate > 60; Glucose Random 239 mg/dL (60-115); Magnesium 1.7 mg/dL (1.6-2.6); Phosphorus 3.6 mg/dL (2.7-4.5); Potassium 3.8 mmol/L (3.3-5.1); Sodium 138 mmol/L (135-145)
[2024-06-12 07:21] VITALS: BP 137/83; PULSE 63; RESP 16; TEMP 36.5; O2SAT 97
[2024-06-12 07:36] LABS: Folate 6.7 ng/mL (> or = 4.0); Vitamin B12 531 pg/mL (200-900)
[2024-06-12 07:45] LABS: Glucose, Whole Blood 236 mg/dL (60-115)
[2024-06-12] MEDS: Insulin Lispro 100 UNIT/ML 3 ML VIAL SUBCUT (08:17)
[2024-06-12] MEDS: Lidocaine 4 % Patch ADH..PATCH 2 PATCH TRANSDERMA (08:18)
[2024-06-12] MEDS: Famotidine 20 MG TABLET PO (08:18)
[2024-06-12] MEDS: 0.9 % Sodium Chloride Flush 3 ML SYRINGE IVFLUSH (08:21)
--- NOTE | 2024-06-12 09:59 | PM.DS ---
DS: Providers Provider Date of Service: 06/12/24 Date of admission: 06/09/24 04:26 Date of discharge: 06/12/24 Primary care physician: Caren Physician DS: Diagnosis Discharge Diagnosis (1) DKA, type 1: Status: Acute (2) Type 1 diabetes mellitus with ketoacidosis, uncontrolled: Status: Acute (3) Hypomagnesemia: Status: Acute DS: Summary Hospital Course Hospital Course: From the history and physical by the admitting boiler mechanic RICKEY Hutchison, 06/09/24: 19-year-old female with underlying history of type 1 diabetes, who has recurrent hospitalizations due to DKA in the setting of noncompliance.? She had been recently discharged from this hospital on 05/30/2024. Patient presented to emergency room with complaints of hyperglycemia, nausea, vomiting abdominal discomfort.? Her sugar at home had been greater than 500.? Reportedly patient run out of strips and has not been able to check her blood sugar, however she had continue to administer her normal insulin doses at home.? She normally takes 54 units of Lantus as well as an insulin sliding scale. Her workup was significant for tachycardia and tachypnea, white count 12.5, H and H of 11.3 and 37.3 respectively, platelets 489. ?Sodium 134, potassium 5.0, chloride 100, carbon dioxide 12, anion gap 27, random sugar 577, is a T 42 degrees, ALT 33, alk phos 147, beta hydroxybutyrate acid 6.12.? Beta HCG less than 2.? Urinalysis shows glucosuria but no UTI. ?Venous blood gas shows pH of 7.15, pCO2 of 20, PO2 70, HC03 7. Patient had been given 2 L of normal saline, morphine, ketorolac, sodium bicarb IV push, 10 units of insulin started on insulin drip. ?Patient will be admitted to the ICU for further care. ?Chest CT angiogram was obtained by mistake.? Reading pending. 19yo F with DM1 admitted to ICU with DKA after running out of test strips and not giving herself insulin as a result, stepped down to M/S 06/10/24. Magnesium was repleted. She was started back on SQ basal-bolus insulin but became hypoglycemic. Lantus was reduced to 20 units once daily, then increased to25 units once daily, and should be self-titrated upwards to achieve AM blood glucose of 80-140. She will continue sliding-scale Novolog. She was prescribed test strips and pen needles upon discharge. She needs to establish rpimary DKA DM1 now with hypoglycemia - Reduce to Lantus 20 units once daily and continue correction-dose Humalog; titrate insulin according to BGs hypoMg - Replete, recheck in AM flank pain - Likely from DKA; no evidence of infection; will d/c ceftriaxone Time Attestation Discharge Coordination Time (in mins): 35 Quality: Safe Use of Opioids Does Pt have an Active Cancer Diagnosis on the Problem List?: No Quality: Stroke Does the patient have a stroke diagnosis?: No Physical Exam Vital Signs: Vital Signs: Last Vital Signs Temp 97.7 F 06/12/24 07:21 Pulse 63 06/12/24 07:21 Resp 16 06/12/24 07:21 BP 137/83 06/12/24 07:21 Pulse Ox 97 06/12/24 07:21 O2 Del Method Room Air 06/12/24 07:21 BMI result Body Mass Index 28.2 Gen: in no acute distress HEENT: sclera anicteric, moist mucus membranes Neck: supple Lungs: clear to auscultation bilaterally Heart: regular rate and rhythm, no murmurs Abd: soft, non-tender, non-distended Ext: no edema Skin: warm/well-perfused Neuro: alert and oriented x3, no focal findings Psych: appropriate affect DS: Data Data Completed and Pending Completed studies during hospitalization [Text1]: Laboratory Results WBC 4.6 X10*3/uL (4.8-10.8) L 06/12/24 05:07 RBC 3.37 X10*6/uL (4.20-5.50) L 06/12/24 05:07 Hgb 8.9 g/dl (12.0-16.0) L 06/12/24 05:07 Hct 29.2 % (37.0-47.0) L 06/12/24 05:07 MCV 86.6 fL (80.0-98.0) 06/12/24 05:07 MCH 26.4 pg (27.0-33.0) L 06/12/24 05:07 MCHC 30.5 g/dl (31.0-35.0) L 06/12/24 05:07 RDW 15.2 % (11.0-16.0) 06/12/24 05:07 Plt Count 285 X10*3/uL (160-400) 06/12/24 05:07 MPV 10.8 fL (9.4-12.3) 06/12/24 05:07 Immature Gran % (Auto) 0.2 % (0.0-0.4) 06/12/24 05:07 Neut % (Auto) 28.1 % (45-73) L 06/12/24 05:07 Lymph % (Auto) 55.9 % (20-40) H 06/12/24 05:07 [place] % (Auto) 12.8 % (2-11) H 06/12/24 05:07 Eos % (Auto) 2.6 % (0-4) 06/12/24 05:07 Baso % (Auto) 0.4 % (0-2) 06/12/24 05:07 Lymph # (Auto) 2.6 X10*3/uL (1.2-4.9) 06/12/24 05:07 [place] # (Auto) 0.6 X10*3/uL (0.1-1.2) 06/12/24 05:07 Eos # (Auto) 0.1 X10*3/uL (0.0-0.4) 06/12/24 05:07 Baso # (Auto) 0.0 X10*3/uL (0.0-0.2) 06/12/24 05:07 Abs Immat Gran (auto) 0.01 X10*3/uL (0.00-0.03) 06/12/24 05:07 Absolute Neuts (auto) 1.3 x10*3/uL (2.0-8.3) L 06/12/24 05:07 Absolute Nucleated RBC 0.020 X10*3/uL (0.0-0.012) H 06/12/24 05:07 Nucleated RBC % (auto) 0.4 /100WBC (0.0-0.2) H 06/12/24 05:07 Absolute Retic 0.035 X10*6/uL (0.026-0.095) 06/11/24 05:59 Percent Retic 1.0 % (0.5-1.8) 06/11/24 05:59 Immature Retic Fraction 15.6 % (3.0-15.9) 06/11/24 05:59 Retic Hgb Equivalent 26.5 pg (30.0-35.0) L 06/11/24 05:59 Hold Purple Top SEE NOTE 06/09/24 06:11 PT 11.7 SEC (10.9-12.4) 06/08/24 22:41 INR 1.0 (0.9-1.1) 06/08/24 22:41 VBG pH 7.47 (7.32-7.43) H 06/10/24 04:32 VBG pCO2 25 mmHg 06/10/24 04:32 VBG pO2 50 mmHg 06/10/24 04:32 VBG HCO3 18 mmol/L (22-26) L 06/10/24 04:32 VBG O2 Saturation 88.0 % 06/10/24 04:32 VBG Base Excess -3.7 mmol/L 06/10/24 04:32 Sodium 138 mmol/L (135-145) 06/12/24 05:07 Potassium 3.8 mmol/L (3.3-5.1) 06/12/24 05:07 Chloride 107 mmol/L (96-108) 06/12/24 05:07 Carbon Dioxide 25 mmol/L (22-29) 06/12/24 05:07 Anion Gap 10 (12-20) L 06/12/24 05:07 BUN 10 mg/dL (9-16) 06/12/24 05:07 Creatinine 0.56 mg/dL (0.5-1.4) 06/12/24 05:07 Estim Creat Clear Calc 117.5 06/12/24 05:07 Estimated GFR > 60 06/12/24 05:07 POC Glucose 236 mg/dL (60-115) H 06/12/24 07:24 Random Glucose 239 mg/dL (60-115) H 06/12/24 05:07 Calcium 8.5 mg/dL (8.4-10.2) 06/12/24 05:07 Phosphorus 3.6 mg/dL (2.7-4.5) 06/12/24 05:07 Magnesium 1.7 mg/dL (1.6-2.6) 06/12/24 05:07 Iron 56 mcg/dL (30-160) 06/11/24 05:59 TIBC 298 mcg/dL (228-428) 06/11/24 05:59 % Saturation 19 % (15-50) 06/11/24 05:59 Unsat Iron Binding 242 ug/dL 06/11/24 05:59 Total Bilirubin 0.4 mg/dL (0.0-1.0) 06/09/24 06:11 AST 39 U/L (5-31) H 06/09/24 06:11 ALT 27 U/L (0-31) 06/09/24 06:11 Alkaline Phosphatase 127 U/L (39-117) H 06/09/24 06:11 Lactate Dehydrogenase 196 U/L (122-220) 06/11/24 05:59 Troponin I High Sens < 2.7 ng/L (<3.5-17.0) 06/08/24 22:41 Total Protein 7.3 g/dL (6.5-8.0) 06/09/24 06:11 Albumin 2.8 g/dL (3.5-5.0) L 06/10/24 04:39 Vitamin B12 531 pg/mL (200-900) 06/12/24 05:07 Folate 6.7 ng/mL (> or = 4.0) 06/12/24 05:07 Beta-Hydroxybutyrate 6.12 mmol/L (0.02-0.27) H 06/08/24 22:41 Beta HCG, Quant < 2 mIU/mL 06/08/24 22:41 Urine Color Yellow 06/09/24 02:19 Urine Appearance Clear 06/09/24 02:19 Urine pH 5.0 (5.0-9.0) 06/09/24 02:19 Ur Specific [place] 1.025 (1.005-1.025) 06/09/24 02:19 Urine Protein Negative mg/dL (Neg-Trace) 06/09/24 02:19 Urine Glucose (UA) >=1000 mg/dL (Negative) H 06/09/24 02:19 Urine Ketones >=160 mg/dL (Negative) 06/09/24 02:19 Urine Blood Negative (Negative) 06/09/24 02:19 Urine Nitrite Negative (Negative) 06/09/24 02:19 Ur Leukocyte Esterase Negative (Negative) 06/09/24 02:19 Urine RBC 0-2 /HPF (0-2) 06/09/24 02:19 Urine WBC 6-10 /HPF (0-5) H 06/09/24 02:19 Ur Squamous Epith Cells 0-2 /HPF (0-2) 06/09/24 02:19 Urine Bacteria None Seen (None Seen) 06/09/24 02:19 Hyaline Casts 0-2 /LPF (0-2) 06/09/24 02:19 Influenza Type A (PCR) NEGATIVE (Negative) 06/08/24 22:41 Influenza Type B (PCR) NEGATIVE (Negative) 06/08/24 22:41 RSV RNA Qual (PCR) NEGATIVE (Negative) 06/08/24 22:41 SARS-CoV-2 RNA (RT-PCR) NEGATIVE (Negative) 06/08/24 22:41 S. pyogenes GrpA JOY Negative (Negative) 06/08/24 22:41 Impressions Renal Ultrasound 06/10/24 13:45 IMPRESSION: 3 mm left renal cyst. No hydronephrosis. Electronically signed by: Magno Nguyen MD 06/10/2024 02:51 PM [facility] [place] Discharge Plan Discharge Anticipated Discharge Date/Time: 06/12/24 09:52 Patient Disposition: Home, Self-Care Discharge Diagnosis: type 1 diabetes DKA Referrals: [facility] [place] [facility] [Provider Group] - 1 Week Physician,Caren [Primary Care Provider] - 1 Week Discharge Medications: Continued ondansetron 4 mg tablet,disintegrating 4 mg PO Q8H PRN (Reason: nausea and vomiting) (DME) FreeStyle Lite Strips Strip Qty: 100 11RF Rx Instructions: Test four times a day or as directed. (DME) pen needle, diabetic 32 gauge x 1/4 needle Qty: 100 0RF Rx Instructions: Use four times a day or as directed. melatonin 5 mg Tablet 5 mg PO BEDTIME PRN (Reason: Sleep) (DME) blood-glucose meter [FreeStyle Lite Meter] Kit Qty: 1 0RF Rx Instructions: As Directed (DME) lancets [FreeStyle Lancets] [facility] Q[facility]: 100 0RF Rx Instructions: Test four times a day or as directed. insulin aspart U-100 100 unit/mL (3 mL) insulin pen 1 sliding scale dose subcut TIDAC acetaminophen [Tylenol] 325 mg Tablet 650 mg PO Q6H PRN (Reason: Pain) ibuprofen 200 mg Tablet 400 mg PO Q8H PRN (Reason: Pain) Changed insulin glargine [Lantus Solostar U-100 Insulin] 100 unit/mL (3 mL) insulin pen 25 unit subcut DAILY@1200 Qty: 3 0RF Discharge Orders: Discharge Order (Routine); Ordered 06/12/24 Ordered By: Chu Barba Diet: Diabetic diet Activity on Discharge: As tolerated Stand Alone Forms: Patient Portal Discharge page Print Language: French Care Plan Goals: prevent diabetes complications Health Concerns: type 1 diabetes DKA Plan of Treatment: resume Lantus at 25 units daily @ 12:00; increase by 3 units daily to achieve morning blood glucose of 80-140 continue Novolog sliding scale prescriptions for test strips and pen needles sent establish primary care as soon as possible Assessment: See Discharge Summary.
[2024-06-12] MEDS: Insulin Glargine,Hum.rec.anlog 100 UNIT/ML 10 ML VIAL 25 UNIT SUBCUT (10:21)
--- NOTE | 2024-06-12 10:48 | MHC.CM.PN ---
DP: PT HAS BEEN MEDICALLY CLEARED FOR DC HOME, NO SERVICES. PT HAS OWN RIDE HOME
--- NOTE | 2024-06-12 10:50 | MHC.CM.PN ---
DP: PT HAS BEEN MEDICALLY CLEARED FOR DC HOME, NO SERVICES, PT HAS OWN RIDE HOME
== END 2024-06-12 10:46 | disposition home or self-care (01) | DRG 420 ==
LOC: HO.ED 22:55 → HO.EDOVER 06-09 04:33 → HO.ICU 06-09 04:58 → HO.S3 06-10 11:34
PROVIDERS: Internal Medicine Critical Care Medicine; Internal Medicine Pulmonary Disease; Admitting Provider Physician Assistant Medical; Emergency Provider Emergency Medicine; Visit Provider Family Medicine
DX: E10.10 Type 1 diabetes mellitus with ketoacidosis without coma (principal); E10.649 Type 1 diabetes mellitus with hypoglycemia without coma; E83.42 Hypomagnesemia; T38.3X6A Underdosing of insulin and oral hypoglycemic [antidiabetic] drugs, initial encounter; D64.9 Anemia, unspecified; D75.839 Thrombocytosis, unspecified; Z20.822 Contact with and (suspected) exposure to COVID-19; Z91.199 Patient's noncompliance with other medical treatment and regimen due to unspecified reason; Z79.899 Other long term (current) drug therapy
CPT/HCPCS: 0241U; 36415; 71275; 76775; 80048; 80053; 81001; 82010; 82040; 82607; 82746; 82803; 82947; 83540; 83615; 83735; 84100; 84484; 84702; 85025; 85045; 85610; 87086; 87651; 93005; 99284; J0613; J0696; J1650; J1885; J2405; J3475; J3480; J7120; P9047; Q9967

== ENCOUNTER → 2024-06-08 22:33 | Outpatient (BNV) | payer MEDICAID, SELFPAY | PROVIDERS: Admitting Provider Physician Assistant Medical; Emergency Provider Emergency Medicine; Visit Provider Internal Medicine Cardiovascular Disease | DX: R00.0 Tachycardia, unspecified (principal) | CPT/HCPCS: 93010 ==

== ENCOUNTER → 2024-06-09 04:03 | Outpatient (BNV) | payer MEDICAID, SELFPAY | PROVIDERS: Admitting Provider Physician Assistant Medical; Emergency Provider Emergency Medicine; Visit Provider General Practice | DX: K76.0 Fatty (change of) liver, not elsewhere classified (principal) | CPT/HCPCS: 71275 ==

== ENCOUNTER 2024-06-09 04:26 | Outpatient (BNV) | payer MEDICAID, SELFPAY | END 2024-06-10 13:45 | PROVIDERS: Admitting Provider Physician Assistant Medical; Emergency Provider Emergency Medicine; Visit Provider Radiology Diagnostic Radiology | DX: N28.1 Cyst of kidney, acquired (principal) | CPT/HCPCS: 76775 ==

== ENCOUNTER → 2024-06-09 04:26 | Outpatient (BNV) | payer MEDICAID, SELFPAY | PROVIDERS: Admitting Provider Physician Assistant Medical; Emergency Provider Emergency Medicine; Visit Provider Family Medicine | DX: E10.10 Type 1 diabetes mellitus with ketoacidosis without coma (principal) | CPT/HCPCS: 99232; 99239 ==

== ENCOUNTER 2024-07-18 17:32 | Inpatient (IN) | payer MEDICAID, SELFPAY ==
[2024-07-18 17:54] VITALS: BP 100/58; PULSE 126; O2SAT 96
[2024-07-18 18:00] VITALS: BP 148/64; PULSE 121; RESP 16; TEMP 36.7; O2SAT 97; BMI 26.0
[2024-07-18 18:11] LABS: Glucose, Whole Blood > 600 mg/dL (60-115)
[2024-07-18] MEDS: Lactated Ringers 1,000 ML 999 ML IV ×2 (18:32→18:52)
[2024-07-18 18:44] LABS: MANUAL DIFF FLAG NO
[2024-07-18 18:49] LABS: Basophils Absolute Auto 0.1 X10*3/uL (0.0-0.2); Basophils Percent Auto 0.5 % (0-2); Eosinophils Percent Auto 0.3 % (0-4); Hematocrit 34.9 % (37.0-47.0); Hemoglobin 10.8 g/dl (12.0-16.0); Imm Gran Abs Auto 0.05 X10*3/uL (0.00-0.03); Imm Gran Pct Auto 0.5 % (0.0-0.4); Lymphocytes Absolute Auto 1.9 X10*3/uL (1.2-4.9); Lymphocytes Percent Auto 17.4 % (20-40); Mean Corpuscular HGB Conc 30.9 g/dl (31.0-35.0); Mean Corpuscular Hemoglobin 25.8 pg (27.0-33.0); Mean Corpuscular Volume 83.3 fL (80.0-98.0); Mean Platelet Volume 10.5 fL (9.4-12.3); Monocytes Absolute Auto 0.7 X10*3/uL (0.1-1.2); Monocytes Percent Auto 5.9 % (2-11); Neutrophils Absolute Auto 8.4 x10*3/uL (2.0-8.3); Neutrophils Percent Auto 75.4 % (45-73); Platelet Count 443 X10*3/uL (160-400); Red Blood Count 4.19 X10*6/uL (4.20-5.50); Red Cell Distribution Width 14.5 % (11.0-16.0); White Blood Count 11.1 X10*3/uL (4.8-10.8)
[2024-07-18 18:49] LABS: VBG Base Excess -5.4 mmol/L; VBG HCO3 19 mmol/L (22-26); VBG pCO2 34 mmHg; VBG pH 7.35 (7.32-7.43); VBG pO2 35 mmHg
[2024-07-18 18:50] LABS: Venous Blood Gas Refer to POC result
--- NOTE | 2024-07-18 18:56 | ED.GENADULT ---
HPI - General Adult General Chief complaint: General Medical Stated complaint: HYPERGLYCEMIC Time Seen by Provider: 07/18/24 17:54 Source: patient, EMS, RN notes reviewed and old records reviewed Mode of arrival: EMS History of Present Illness ED Provider: Lizbeth Beal PA-C HPI narrative: 19-year-old female with a past medical history of type 1 diabetes, recurrent hospitalizations due to DKA in the setting of medication noncompliance, presenting to the ED complaining of chest tightness s/p getting into argument with sister and suspected elevated glucose. States got into argument w/sister's & left her sisters home where she has been living, leaving insulin. admits to taking NovoLog this afternoon, 3 units. Per EMS POC reading HIGH. Reports polydipsia. Denies fever, chills, cough, abdominal pain, nausea, vomiting, diarrhea Related Data Home Medications ?Medication ?Instructions ?Recorded ?Confirmed melatonin 5 mg tablet 5 mg PO BEDTIME PRN Sleep 10/13/22 06/09/24 acetaminophen 325 mg tablet 650 mg PO Q6H PRN Pain 05/12/24 06/09/24 (Tylenol) ibuprofen 200 mg tablet 400 mg PO Q8H PRN Pain 05/12/24 06/09/24 insulin aspart U-100 100 unit/mL 1 sliding scale dose subcut TIDAC 05/12/24 06/09/24 (3 mL) subcutaneous pen ondansetron 4 mg disintegrating 4 mg PO Q8H PRN nausea and vomiting 05/26/24 06/09/24 tablet Previous Rx's ?Medication ?Instructions ?Recorded blood-glucose meter (FreeStyle #1 ea 10/16/22 Lite Meter kit) lancets 28 gauge (FreeStyle #100 ea 10/16/22 Lancets) blood sugar diagnostic (FreeStyle #100 ea 06/12/24 Lite Strips) insulin glargine 100 unit/mL (3 25 unit (0.25 mL) subcut 06/12/24 mL) subcutaneous pen (Lantus DAILY@1200 #3 mL Solostar U-100 Insulin) pen needle, diabetic 32 gauge x #100 ea 06/12/24 1/4 Allergies Allergy/AdvReac Type Severity Reaction Status Date / Time No Known Allergies Allergy Verified 07/18/24 18:01 Review of Systems Review of Systems: Yes all other systems are reviewed and are negative Constitutional: Constitutional: Reports as per [facility] Past Medical History Attestation statement: The following information was validated with the patient. Source: old records reviewed Medical History Type 1 diabetes mellitus with proteinuria Social History Social History Household Members: Family Household Members Other:: Lives with Sister Housing: Apartment Do you presently have visiting nurse or other home services: No Alcohol intake: never Patient Tobacco Use Status: Never used Tobacco Second Hand Smoke Exposure: No Advance Directives: No Advance Directives Information Provided: No service: No Current occupational status: unemployed Physical Exam ED Vital Signs: Vital Signs - 24 hr 07/18/24 18:00 07/18/24 20:20 07/18/24 22:24 Temperature 98.1 F 98.5 F Pulse Rate 121 H 120 H 100 Respiratory Rate 16 20 17 Blood Pressure 148/64 H 96/56 L Pulse Oximetry 97 98 98 Oxygen Delivery Method Room Air Room Air Room Air BMI result Body Mass Index 26.0 Const General: cooperative, healthy appearing and no acute distress Orientation/consciousness: patient oriented x3 Limitations: no limitations HENMT Head: Yes normal to inspection and Yes atraumatic Ears: hearing grossly normal bilaterally General nose exam: Normal external nose present Face and sinus: Yes normal facial exam Eyes General: appearance normal, both eyes and all related structures EOM: EOMs intact bilaterally Neck Neck: Yes normal visual inspection and Yes no meningeal signs Resp Effort & Inspection: normal respiratory effort and no respiratory distress Auscultation: clear to auscultation bilaterally Cardio Rate: regular rate Heart sounds: S1 normal heart sound present and S2 normal heart sound present GI Inspection: Yes normal to inspection Palpation (GI): Soft to palpation, nontender, no guarding and not rigid Skin Rashes: no rashes Wounds: no wounds Neuro General: patient oriented x3, tone normal and no meningeal signs Cranial nerves: Yes CN's II-XII intact bilaterally Gait exam (Neuro): Normal gait present Extrem General: Yes normal to inspection Course Course Course Narrative: - POC > 600 -19:08-- H/H stable. pH 7.35, HCO3 19 -19:30-- glucose 691, anion gap of 23, CO2 14. Beta hydroxybutyrate elevated to 4.74 > will give 5 units IV insulin followed by initiating insulin drip @ 5 units/hr -SARs negative -20:19-- POC now 401, will continue to monitor closely -2107-- repeat POC to 83. Insulin drip will be titrated. Plan for repeat BMP and beta hydroxybutyrate at 22:00. 2129-- ED care transferred to [facility] pending repeat BMP / labs and anticipated admission. ICU vs floor Reevaluation(s) Reevaluation #1: I assumed care patient and signed out pending repeat BMP labs and disposition planning. blood glucose was trending down, at 22:10 she was placed on D5 half-normal saline at 80 mL an hour, pending repeat BMP. 22:53 dextrose infusion stopped, insulin drip stopped, anion gap closed, Random glucose 185. Started on LR at 125 mL an hour and Lantus 10 units subQ admitting to medicine service, consulted hospitalist Dr. Junior Time: 23:32 Medications Administered Generic Name Dose Route Start Last Admin Trade Name Freq PRN Reason Stop Dose Admin Lactated Ringer's 1,000 mls @ 125 mls/hr 07/18/24 23:00 07/18/24 23:13 Lr IVCONT 125 mls/hr .Q8H CAROLINE Administration Discontinued Medications Generic Name Dose Route Start Last Admin Trade Name Freq PRN Reason Stop Dose Admin Lactated Ringer's 1,000 mls @ 999 mls/hr 07/18/24 18:15 07/18/24 20:08 Lr IV 07/18/24 19:15 Infused .Q1H1M CAROLINE Infusion Lactated Ringer's 1,000 mls @ 999 mls/hr 07/18/24 18:15 07/18/24 20:08 Lr IV 07/18/24 19:15 Infused .Q1H1M CAROLINE Infusion Insulin Human Regular 100 unit in 100 mls @ 0 mls/hr 07/18/24 19:30 07/18/24 23:01 Myxredlin IVCONT Infused .Q0M CAROLINE Titration Protocol Per Protocol Dextrose/Sodium Chloride 1,000 mls @ 80 mls/hr 07/18/24 22:15 07/18/24 23:03 D51/2ns IVCONT Infused .[id number] CAROLINE Infusion Insulin Glargine 10 unit 07/18/24 22:53 07/18/24 23:14 Insulin Glargine,Hum.Rec.Anlog 100 Unit/Ml 10 Ml Vial SUBCUT 07/18/24 22:54 10 unit ONCE ONE Administration Insulin Human Regular 5 unit 07/18/24 19:18 07/18/24 19:34 Insulin Regular, Human 100 Unit/Ml 10 Ml Vial IVPUSH 07/18/24 19:19 5 unit ONCE ONE Administration Medical Decision Making Medical Decision Making MDM Narrative: 19:08 - 19-year-old female with a past medical history of type 1 diabetes, recurrent hospitalizations due to DKA in the setting of medication noncompliance, presenting to the ED complaining of chest tightness s/p getting into argument with sister and suspected elevated glucose. On exam tachycardic, NAD, nontoxic appearing. Concern for hyperglycemia vs DKA vs HHS. Rule out metabolic abnormalities. Low suspicion for severe sepsis. Plan: EKG, labs, UA, viral testing, IVF, re-evaluate Please refer to course for remaining clinical decision making, interpretation of labs/imaging results, and discussions with consultants and/or family members. Differential Diagnosis Differential Diagnoses: The differential diagnosis associated with the presentation includes As above Admission/Observation Consideration of admission/observation: Escalation of care including admission/observation considered Lab Data [facility] Lab Attestation statement: I reviewed the patient's lab results. 07/18/24 18:38 07/18/24 22:15 Labs: Lab Results 07/18/24 07/18/24 07/18/24 Range/Units 18:08 18:38 18:44 WBC 11.1 H (4.8-10.8) X10*3/uL RBC 4.19 L D (4.20-5.50) X10*6/uL Hgb 10.8 L D (12.0-16.0) g/dl Hct 34.9 L (37.0-47.0) % MCV 83.3 (80.0-98.0) fL MCH 25.8 L (27.0-33.0) pg MCHC 30.9 L (31.0-35.0) g/dl RDW 14.5 (11.0-16.0) % Plt Count 443 H D (160-400) X10*3/uL MPV 10.5 (9.4-12.3) fL Immature Gran % (Auto) 0.5 H (0.0-0.4) % Neut % (Auto) 75.4 H (45-73) % Lymph % (Auto) 17.4 L (20-40) % [place] % (Auto) 5.9 (2-11) % Eos % (Auto) 0.3 (0-4) % Baso % (Auto) 0.5 (0-2) % Lymph # (Auto) 1.9 (1.2-4.9) X10*3/uL [place] # (Auto) 0.7 (0.1-1.2) X10*3/uL Eos # (Auto) 0.0 (0.0-0.4) X10*3/uL Baso # (Auto) 0.1 (0.0-0.2) X10*3/uL Abs Immat Gran (auto) 0.05 H (0.00-0.03) X10*3/uL Absolute Neuts (auto) 8.4 H (2.0-8.3) x10*3/uL Absolute Nucleated RBC 0.000 (0.0-0.012) X10*3/uL Nucleated RBC % (auto) 0.0 (0.0-0.2) /100WBC VBG pH 7.35 (7.32-7.43) VBG pCO2 34 mmHg VBG pO2 35 mmHg VBG HCO3 19 L (22-26) mmol/L VBG O2 Saturation 43.0 % VBG Base Excess -5.4 mmol/L Sodium 131 L (135-145) mmol/L Potassium 5.1 D (3.3-5.1) mmol/L Chloride 99 (96-108) mmol/L Carbon Dioxide 14 L (22-29) mmol/L Anion Gap 23 H (12-20) BUN 10 (9-16) mg/dL Creatinine 1.05 (0.5-1.4) mg/dL Estim Creat Clear Calc 60.1 Estimated GFR > 60 POC Glucose > 600 H* (60-115) mg/dL Random Glucose 691 H* (60-115) mg/dL Lactic Acid 2.0 (0.5-2.0) mmol/L Calcium 8.7 (8.4-10.2) mg/dL Magnesium 1.8 (1.6-2.6) mg/dL Total Bilirubin 0.6 (0.0-1.0) mg/dL Direct Bilirubin 0.4 (0.0-0.5) mg/dL AST 23 (5-31) U/L ALT 18 (0-31) U/L Alkaline Phosphatase 142 H (39-117) U/L Troponin I High Sens < 2.7 (<3.5-17.0) ng/L Total Protein 7.9 (6.5-8.0) g/dL Albumin 4.0 (3.5-5.0) g/dL Lipase 13 (8-78) U/L Beta-Hydroxybutyrate 4.74 H (0.02-0.27) mmol/L Influenza Type A (PCR) NEGATIVE (Negative) Influenza Type B (PCR) NEGATIVE (Negative) RSV RNA Qual (PCR) NEGATIVE (Negative) SARS-CoV-2 RNA (RT-PCR) NEGATIVE (Negative) 07/18/24 07/18/24 07/18/24 Range/Units 20:18 21:04 22:06 WBC (4.8-10.8) X10*3/uL RBC (4.20-5.50) X10*6/uL Hgb (12.0-16.0) g/dl Hct (37.0-47.0) % MCV (80.0-98.0) fL MCH (27.0-33.0) pg MCHC (31.0-35.0) g/dl RDW (11.0-16.0) % Plt Count (160-400) X10*3/uL MPV (9.4-12.3) fL Immature Gran % (Auto) (0.0-0.4) % Neut % (Auto) (45-73) % Lymph % (Auto) (20-40) % [place] % (Auto) (2-11) % Eos % (Auto) (0-4) % Baso % (Auto) (0-2) % Lymph # (Auto) (1.2-4.9) X10*3/uL [place] # (Auto) (0.1-1.2) X10*3/uL Eos # (Auto) (0.0-0.4) X10*3/uL Baso # (Auto) (0.0-0.2) X10*3/uL Abs Immat Gran (auto) (0.00-0.03) X10*3/uL Absolute Neuts (auto) (2.0-8.3) x10*3/uL Absolute Nucleated RBC (0.0-0.012) X10*3/uL Nucleated RBC % (auto) (0.0-0.2) /100WBC VBG pH (7.32-7.43) VBG pCO2 mmHg VBG pO2 mmHg VBG HCO3 (22-26) mmol/L VBG O2 Saturation % VBG Base Excess mmol/L Sodium (135-145) mmol/L Potassium (3.3-5.1) mmol/L Chloride (96-108) mmol/L Carbon Dioxide (22-29) mmol/L Anion Gap (12-20) BUN (9-16) mg/dL Creatinine (0.5-1.4) mg/dL Estim Creat Clear Calc Estimated GFR POC Glucose 401 H* 283 H 179 H (60-115) mg/dL Random Glucose (60-115) mg/dL Lactic Acid (0.5-2.0) mmol/L Calcium (8.4-10.2) mg/dL Magnesium (1.6-2.6) mg/dL Total Bilirubin (0.0-1.0) mg/dL Direct Bilirubin (0.0-0.5) mg/dL AST (5-31) U/L ALT (0-31) U/L Alkaline Phosphatase (39-117) U/L Troponin I High Sens (<3.5-17.0) ng/L Total Protein (6.5-8.0) g/dL Albumin (3.5-5.0) g/dL Lipase (8-78) U/L Beta-Hydroxybutyrate (0.02-0.27) mmol/L Influenza Type A (PCR) (Negative) Influenza Type B (PCR) (Negative) RSV RNA Qual (PCR) (Negative) SARS-CoV-2 RNA (RT-PCR) (Negative) 07/18/24 07/18/24 Range/Units 22:15 23:06 WBC (4.8-10.8) X10*3/uL RBC (4.20-5.50) X10*6/uL Hgb (12.0-16.0) g/dl Hct (37.0-47.0) % MCV (80.0-98.0) fL MCH (27.0-33.0) pg MCHC (31.0-35.0) g/dl RDW (11.0-16.0) % Plt Count (160-400) X10*3/uL MPV (9.4-12.3) fL Immature Gran % (Auto) (0.0-0.4) % Neut % (Auto) (45-73) % Lymph % (Auto) (20-40) % [place] % (Auto) (2-11) % Eos % (Auto) (0-4) % Baso % (Auto) (0-2) % Lymph # (Auto) (1.2-4.9) X10*3/uL [place] # (Auto) (0.1-1.2) X10*3/uL Eos # (Auto) (0.0-0.4) X10*3/uL Baso # (Auto) (0.0-0.2) X10*3/uL Abs Immat Gran (auto) (0.00-0.03) X10*3/uL Absolute Neuts (auto) (2.0-8.3) x10*3/uL Absolute Nucleated RBC (0.0-0.012) X10*3/uL Nucleated RBC % (auto) (0.0-0.2) /100WBC VBG pH (7.32-7.43) VBG pCO2 mmHg VBG pO2 mmHg VBG HCO3 (22-26) mmol/L VBG O2 Saturation % VBG Base Excess mmol/L Sodium 136 (135-145) mmol/L Potassium 4.4 (3.3-5.1) mmol/L Chloride 107 (96-108) mmol/L Carbon Dioxide 15 L (22-29) mmol/L Anion Gap 18 (12-20) BUN 7 L (9-16) mg/dL Creatinine 0.78 (0.5-1.4) mg/dL Estim Creat Clear Calc 80.9 Estimated GFR > 60 POC Glucose 185 H (60-115) mg/dL Random Glucose 185 H (60-115) mg/dL Lactic Acid (0.5-2.0) mmol/L Calcium 9.0 (8.4-10.2) mg/dL Magnesium (1.6-2.6) mg/dL Total Bilirubin (0.0-1.0) mg/dL Direct Bilirubin (0.0-0.5) mg/dL AST (5-31) U/L ALT (0-31) U/L Alkaline Phosphatase (39-117) U/L Troponin I High Sens (<3.5-17.0) ng/L Total Protein (6.5-8.0) g/dL Albumin (3.5-5.0) g/dL Lipase (8-78) U/L Beta-Hydroxybutyrate 1.34 H (0.02-0.27) mmol/L Influenza Type A (PCR) (Negative) Influenza Type B (PCR) (Negative) RSV RNA Qual (PCR) (Negative) SARS-CoV-2 RNA (RT-PCR) (Negative) Independent Interpretation I performed an independent interpretation of an: EKG Radiology Impression Discussion of test interpretation with radiology: I have reviewed the radiologist's reading. Independent Historian Clinical information obtained from an independent historian. History obtained from or confirmed by: EMS External Record Review External record reviewed: Inpatient record, Office record, Outpatient record, Prior outpatient labs, Prior outpatient radiology, Primary care record and Outside ED record Tests considered The following testing was considered but not selected: As above Prescription Management I considered prescription management with: Other Chronic Conditions Patient?s care impacted by: Diabetes Social Determinants Patient?s care significantly limited by Social Determinants of Health including: Inadequate housing, Low income, Problems related to primary support group, Unemployment and Other Social Determinant of Health Critical Care Time Critical Care Time Critical Care Time: Yes Total Critical Care Time: 50 Attestation: I have personally provided critical care time exclusive of time spent on separately billable procedures. Time includes review of lab data, radiology results, discussion with consultants, and monitoring for potential decompensation. Intervention performed as documented. Discharge Plan Discharge Patient Disposition: Admitted As Inpatient Print Language: Mongolian
[2024-07-18 19:15] LABS: Alanine Aminotransferase 18 U/L (0-31); Alkaline Phosphatase 142 U/L (39-117); Anion Gap 23 (12-20); Aspartate Amino Transferase 23 U/L (5-31); Beta-Hydroxybutyrate 4.74 mmol/L (0.02-0.27); Bilirubin Direct 0.4 mg/dL (0.0-0.5); Bilirubin Total 0.6 mg/dL (0.0-1.0); Blood Urea Nitrogen 10 mg/dL (9-16); Calcium 8.7 mg/dL (8.4-10.2); Carbon Dioxide 14 mmol/L (22-29); Chloride 99 mmol/L (96-108); Creatinine Clr Calc Pharmacy 60.1; Estimated Glomerular Filt Rate > 60; Glucose Random 691 mg/dL (60-115); Lipase 13 U/L (8-78); Magnesium 1.8 mg/dL (1.6-2.6); Potassium 5.1 mmol/L (3.3-5.1); Sodium 131 mmol/L (135-145); Total Protein 7.9 g/dL (6.5-8.0)
[2024-07-18 19:26] LABS: Influenza A PCR NEGATIVE (Negative); Influenza B PCR NEGATIVE (Negative); Resp Syncy Virus RNA Qual PCR NEGATIVE (Negative); SARS COV2 PCR INHOUSE NEGATIVE (Negative)
[2024-07-18] MEDS: Insulin Regular, Human 100 UNIT/ML 10 ML VIAL IVPUSH (19:34)
[2024-07-18 19:39] LABS: Troponin-I High Sensitivity < 2.7 ng/L (<3.5-17.0)
--- OUTSIDE RECORDS SUMMARY | 2024-07-18 19:47 | XMS_ITS | Clinical Summary ---
Author Organization [facility] Address [address] [place] [address] Phone Care Team Providers Care City Controller Name Role Phone Physician, No Pcp Primary Care Provider Unavaila ble Allergies No known active allergies Medical History Medical History Date Comments Diabetes mellitus (CMS/HCC) Social History Tobacco Use Types Packs/Day Years Used Date Smoking Tobacco: Never Smokeless Tobacco: Never Tobacco Cessation:Counseling Given: Not Answered Alcohol Use Standard Drinks/Week Comments Not Currently 0 (1 standard drink = 0.6 oz pur e alcohol) Comments Unknown Sex and Gender Information Value Date Recorded Sex Assigned at Not on file Legal Sex Female 8:29 PM EST Gender Identity Not on file Sexual Orientation Not on file Obstetrics History Last Filed Vital Signs Vital Sign Reading Time Taken Comments Blood Pressure 118/75 03/24/2024 8:39 PM EST Pulse 89 03/24/2024 8:39 PM EST Temperature 37.2 ??C (99 ??F) 03/24/2024 8:39 PM EST Respiratory Rate 16 03/24/2024 8:39 PM EST Oxygen Saturation 100% 03/24/2024 8:39 PM EST Inhaled Oxygen Concentration - - Weight 62.1 kg (137 lb) 03/24/2024 8:39 PM EST Height 144.8 cm (4' 9 ) 03/24/2024 8:39 PM EST Body Mass Index 29.65 03/24/2024 8:39 PM EST Plan of Treatment Health Maintenance Due Date Last Done Comments Gonorrhea/Chlamydia Screening 2003 HPV Vaccines (1 - 3-dose series) 2018 Meningococcal B Vacine (1 of 2 - Standard) 2019 DTaP,Tdap,and Td Vaccines (1 - Tdap) 2022 Hepatitis B Vaccines (1 of 3 - 19+ 3-dose series) 2022 COVID-19 Vaccine (1 - 2023-2 5 season) 2024 Influenza Vaccine (#1) 2024 Annual Well Child Visit (3-2 1 years old) 03/24/2024 Depression Screening 03/24/2024 HIV Screening 03/24/2024 Hepatitis C Screening 03/24/2024 Social Influencers of Health Screening 03/24/2024 Cervical Cancer Screening: P ap Smear 2024 HIB Vaccines Aged Out No longer eligi ble based on patient's age to complete this topic Hepatitis A Vaccines Aged Out No long er eligible based on patient's age to complete this topic IPV Vaccines Aged Out No longer eligi ble based on patient's age to complete this topic MMR Vaccines Aged Out No longer eligi ble based on patient's age to complete this topic Meningococcal ACWY Vaccine Aged Out N o longer eligible based on patient's age to complete this topic Pneumococcal Vaccine: Pediat rics (0 to 5 Years) and At-Risk Patients (6 to 64 Years) Aged Out No longer eligible b ased on patient's age to complete this topic RSV Immunization Patients Un ismael 20 months Aged Out No longer eligible b ased on patient's age to complete this topic Varicella Vaccines Aged Out No longer eligible based on patient's age to complete this topic Insurance MEDICAID - [place] Care Teams City Controller Relationship Specialty Start Date End Date Physician, No Pcp PCP - General 03/24/24
[2024-07-18] MEDS: Insulin Regular/NS 100 UNIT/100 ML PLAST..BAG IVCONT (20:06)
--- NOTE | 2024-07-18 20:13 | PC.NURSE ---
pt moved into ed bed 7. pt placed on monitor, tachy 120s. attempted to gain 2nd iv access, x4 attempts with no access. IV insulin drip started at 5u/hr per Lizbeth LANG. Fluids completed at this time.
[2024-07-18 20:20] VITALS: PULSE 120; RESP 20; O2SAT 98
[2024-07-18 20:22] LABS: Glucose, Whole Blood 401 mg/dL (60-115)
[2024-07-18 21:08] LABS: Glucose, Whole Blood 283 mg/dL (60-115)
--- NOTE | 2024-07-18 21:08 | MHC.CM.ED ---
CM met with patient at the request or Lizbeth LANG. Pt is A&Ox4. 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 Hx anger issues, depression, anxiety, and bipolar. Pt has many instance of DKA due to medication non-compliance and has been hospitalized twice in May of 2024. She lives with her sister/HCP Gonzalo Higginbotham ([phone]). She has had prior psych admissions. She denies any MAT. She denies any current use of psych medications. She states she has disability. She does not have a PCP currently or a therapist. She admits to having a therapist in [place] when she lived with her mother. States her mother has substance abuse issues. Pt was recently at [facility] 06/09/24-06/12/24 and was prescribed test strips and pen needles along with her current meds. Pt states she gets her insulin at [facility]. Pt states she was given a PCP appointment after her last admission. She cannot remember where. According to MR, she was discharged with a PCP appointment for 12/23/2024 at 11 am with Temi Bishop [facility] [facility] at [facility]. Pt tells CM she has no transportation to [place] and requests local appointment. Patient may benefit from PCP at [facility] main campus with Darryl Canas or Dr. Castillo. She is also requesting a therapist. She may benefit from a referral to [facility]. CM spoke with patient regarding argument with sister genia and her leaving home. CM referral referenced fdc information. Pt does not want/need fdc information. States she was just mad at her sister. States they have spoken and that she will return to her sisters home at discharge. According to provider, patient may be admitted for DKA. CM will task CM office for PCP appointment TAMRA.
[2024-07-18 22:12] LABS: Glucose, Whole Blood 179 mg/dL (60-115)
[2024-07-18] MEDS: Dextrose 5 % and 0.45 % NaCl 1,000 ML 80 ML IVCONT (22:21)
--- NOTE | 2024-07-18 22:23 | PC.NURSE ---
provider aware of pt sugar, d5.24ns started at this time per order, vss.
[2024-07-18 22:24] VITALS: BP 96/56; PULSE 100; RESP 17; TEMP 36.9; O2SAT 98
[2024-07-18 22:42] LABS: Anion Gap 18 (12-20); Blood Urea Nitrogen 7 mg/dL (9-16); Carbon Dioxide 15 mmol/L (22-29); Chloride 107 mmol/L (96-108); Creatinine Clr Calc Pharmacy 80.9; Estimated Glomerular Filt Rate > 60; Glucose Random 185 mg/dL (60-115); Potassium 4.4 mmol/L (3.3-5.1); Sodium 136 mmol/L (135-145)
--- NOTE | 2024-07-18 22:48 | PC.NURSE ---
per jm parsons, okay to stop insulin drip at this time.
[2024-07-18 23:02] LABS: Beta-Hydroxybutyrate 1.34 mmol/L (0.02-0.27)
[2024-07-18 23:11] LABS: Glucose, Whole Blood 185 mg/dL (60-115)
[2024-07-18] MEDS: Lactated Ringers 1,000 ML 125 ML IVCONT (23:13)
[2024-07-18] MEDS: Insulin Glargine,Hum.rec.anlog 100 UNIT/ML 10 ML VIAL 10 UNIT SUBCUT (23:14)
--- NOTE | 2024-07-18 23:22 | PC.NURSE ---
pt medicated per mar with long acting insulin. LR maintenance fluids started per mar, pt offers no complaints at this time.
--- NOTE | 2024-07-18 23:47 | PM.IMHP ---
History of Present Illness Date of Service: 07/18/24 Attending physician on admission: Andrew Junior Chief Complaint: Chest tightness and polydipsia Patient is a 19-year-old female with medical history of type 1 diabetes (since 1 years old) with recurrent hospitalizations due to DKA in the setting of medication noncompliance who presented to the emergency room complaining of chest tightness since this afternoon. She reportedly got into an argument with the sister who she lives with and so left the house and everything, including her medications/insulin behind. When she started experiencing the chest tightness she was concerned that her blood sugars were elevated and so called EMS and was brought to the emergency room. Apparently they checked her blood sugars and the glucometer reading was HIGH and confirmed to be 691. She admits to recent polydipsia and polyuria but denies any associated fevers, chills, cough, abdominal pain, nausea, vomiting, diarrhea. Apparently lab work done revealed a blood sugar of 691mg/dl and elevated BOH at 1.34. An assessment of mild DKA was made and she received 10 units of Insulin and IV fluids with improvement. Her gap closed and blood sugars improved. She also received her usual home dose of Insulin LAntus (54 units). She otherwise has no other complaints. Review of Systems Review of Systems: Yes all other systems are reviewed and are negative [facility] Medical History Type 1 diabetes mellitus with proteinuria Functional capacity: independent ambulation Patient : No Social History Household Members: Family Household Members Other:: Lives with Sister Housing: Apartment Do you presently have visiting nurse or other home services: No Alcohol intake: never Patient Tobacco Use Status: Never used Tobacco Second Hand Smoke Exposure: No Advance Directives: No Advance Directives Information Provided: No Patient : No service: No Current occupational status: unemployed Meds Allergies Allergy/AdvReac Type Severity Reaction Status Date / Time No Known Allergies Allergy Verified 07/18/24 18:01 Home Medications ?Medication ?Instructions ?Recorded ?Confirmed ?Last Taken ?Type melatonin 5 mg tablet 5 mg PO BEDTIME PRN Sleep 10/13/22 06/09/24 Unknown History acetaminophen 325 mg tablet 650 mg PO Q6H PRN Pain 05/12/24 06/09/24 Unknown History (Tylenol) ibuprofen 200 mg tablet 400 mg PO Q8H PRN Pain 05/12/24 06/09/24 Unknown History insulin aspart U-100 100 unit/mL 1 sliding scale dose subcut TIDAC 05/12/24 06/09/24 05/25/24 09:00 History (3 mL) subcutaneous pen ondansetron 4 mg disintegrating 4 mg PO Q8H PRN nausea and vomiting 05/26/24 06/09/24 Unknown History tablet Physical Exam Vital Signs and Narrative: Vital Signs: Last Vital Signs Temp 98.5 F 07/18/24 22:24 Pulse 100 07/18/24 22:24 Resp 17 07/18/24 22:24 BP 96/56 L 07/18/24 22:24 Pulse Ox 98 07/18/24 22:24 O2 Del Method Room Air 07/18/24 22:24 BMI result Body Mass Index 26.0 General: Well nourished. Awake, alert and oriented x 4. No apparent distress Eyes: No pallor or jaundice. PERRLA, EOMI HENT: Moist oral mucus membranes. No oropharyngeal lesions. Neck: Supple. No cervical adenopathy. No JVD Cardiovascular: Regular rate and rhythm. Normal heart sounds. No murmurs, rubs or gallops. No JVD. No peripheral edema. Respiratory: Normal respiratory effort with no accessory muscle use. CTAB. Gastrointestinal: Abdomen is soft, non-tender, non-distended. Normoactive bowel sounds in all quadrants. No hepatosplenomegaly Extremities: No edema. No calf tenderness. Good peripheral pulses Skin: Warm/Dry. No rashes. No mottling. Capillary refill is < 2 seconds Neurological: AAOx4. Intact speech & cognition. Normal gait & balance. CN II - XII grossly intact but not individually tested. No motor or sensory deficits Hematologic: No bleeding. No ecchymosis. No swollen or tender lymph nodes. Psychiatric: Cooperative. Appropriate mood and affect. Results Labs 07/18/24 18:38 07/18/24 22:15 Labs: Laboratory Results - last 24 hr 07/18/24 07/18/24 07/18/24 18:08 18:38 18:44 MCV 83.3 MCH 25.8 L MCHC 30.9 L RDW 14.5 Plt Count 443 H D MPV 10.5 Immature Gran % (Auto) 0.5 H Neut % (Auto) 75.4 H Lymph % (Auto) 17.4 L [place] % (Auto) 5.9 Eos % (Auto) 0.3 Baso % (Auto) 0.5 Lymph # (Auto) 1.9 [place] # (Auto) 0.7 Eos # (Auto) 0.0 Baso # (Auto) 0.1 Abs Immat Gran (auto) 0.05 H Absolute Neuts (auto) 8.4 H Absolute Nucleated RBC 0.000 Nucleated RBC % (auto) 0.0 VBG pH 7.35 VBG pCO2 34 VBG pO2 35 VBG HCO3 19 L VBG O2 Saturation 43.0 VBG Base Excess -5.4 Anion Gap 23 H Estim Creat Clear Calc 60.1 Estimated GFR > 60 POC Glucose > 600 H* Random Glucose 691 H* Lactic Acid 2.0 Calcium 8.7 Magnesium 1.8 Total Bilirubin 0.6 Direct Bilirubin 0.4 AST 23 ALT 18 Alkaline Phosphatase 142 H Total Protein 7.9 Albumin 4.0 Lipase 13 Beta-Hydroxybutyrate 4.74 H Influenza Type A (PCR) NEGATIVE Influenza Type B (PCR) NEGATIVE RSV RNA Qual (PCR) NEGATIVE SARS-CoV-2 RNA (RT-PCR) NEGATIVE 07/18/24 07/18/24 07/18/24 20:18 21:04 22:06 MCV MCH MCHC RDW Plt Count MPV Immature Gran % (Auto) Neut % (Auto) Lymph % (Auto) [place] % (Auto) Eos % (Auto) Baso % (Auto) Lymph # (Auto) [place] # (Auto) Eos # (Auto) Baso # (Auto) Abs Immat Gran (auto) Absolute Neuts (auto) Absolute Nucleated RBC Nucleated RBC % (auto) VBG pH VBG pCO2 VBG pO2 VBG HCO3 VBG O2 Saturation VBG Base Excess Anion Gap Estim Creat Clear Calc Estimated GFR POC Glucose 401 H* 283 H 179 H Random Glucose Lactic Acid Calcium Magnesium Total Bilirubin Direct Bilirubin AST ALT Alkaline Phosphatase Total Protein Albumin Lipase Beta-Hydroxybutyrate Influenza Type A (PCR) Influenza Type B (PCR) RSV RNA Qual (PCR) SARS-CoV-2 RNA (RT-PCR) 07/18/24 07/18/24 22:15 23:06 MCV MCH MCHC RDW Plt Count MPV Immature Gran % (Auto) Neut % (Auto) Lymph % (Auto) [place] % (Auto) Eos % (Auto) Baso % (Auto) Lymph # (Auto) [place] # (Auto) Eos # (Auto) Baso # (Auto) Abs Immat Gran (auto) Absolute Neuts (auto) Absolute Nucleated RBC Nucleated RBC % (auto) VBG pH VBG pCO2 VBG pO2 VBG HCO3 VBG O2 Saturation VBG Base Excess Anion Gap 18 Estim Creat Clear Calc 80.9 Estimated GFR > 60 POC Glucose 185 H Random Glucose 185 H Lactic Acid Calcium 9.0 Magnesium Total Bilirubin Direct Bilirubin AST ALT Alkaline Phosphatase Total Protein Albumin Lipase Beta-Hydroxybutyrate 1.34 H Influenza Type A (PCR) Influenza Type B (PCR) RSV RNA Qual (PCR) SARS-CoV-2 RNA (RT-PCR) Assessment and Plan (1) Type 1 diabetes mellitus with ketoacidosis, uncontrolled: Status: Acute Plan 19-year-old female with medical history of type 1 diabetes since she was 1 years old and with recurrent hospitalizations due to DKA in the setting of medication noncompliance here with: # diabetes ketoacidosis -secondary to noncompliance with the insulin -her lab parameters have improved with the fluids and insulin administration -admit for overnight observation -encourage compliance with the insulin DVT: SC Lovenox CODE STATUS: Full code Admission for at least 2 midnights for management of DKA This note is constructed using voice recognition software. While every effort has been made to ensure accuracy, supply chain engineer errors may have been included. Total time managing care of this patient today: 75 minutes. Quality Stroke Does the patient have a stroke diagnosis?: No VTE Prior VTE?: No VTE Risk Level:: Medical - low VTE Device Contraindication: Treatment Not Indicated VTE Drug Contraindication: Treatment Not Indicated
[2024-07-19] VITALS (10 sets, daily range): BP systolic 96–114; BP diastolic 57–71; PULSE 88–120; RESP 12–20; TEMP 36.6–36.9; O2SAT 95–100
--- NOTE | 2024-07-19 00:16 | PC.NURSE ---
provider aware of pt POC, no new orders at this time.
[2024-07-19 00:19] LABS: Glucose, Whole Blood 324 mg/dL (60-115)
[2024-07-19 01:17] LABS: Glucose, Whole Blood 365 mg/dL (60-115)
--- NOTE | 2024-07-19 01:19 | PC.NURSE ---
pt noted to be intermittent tachy 10-140s. poc obtained. provider contacted at this time, new orders as follows.
[2024-07-19] MEDS: Insulin Regular, Human 100 UNIT/ML 10 ML VIAL 8 UNIT IVPUSH ×2 (01:31→05:33)
[2024-07-19] MEDS: 0.9 % Sodium Chloride 1,000 ML 999 ML IV ×2 (01:31→05:34)
[2024-07-19 02:40] LABS: Glucose, Whole Blood 222 mg/dL (60-115)
[2024-07-19 03:49] LABS: Glucose, Whole Blood 251 mg/dL (60-115)
[2024-07-19 04:54] LABS: Glucose, Whole Blood 381 mg/dL (60-115)
--- NOTE | 2024-07-19 04:56 | PC.NURSE ---
pt poc kroalqet=[id number]. provider aware, no new orders at this time.
[2024-07-19 05:52] LABS: Basophils Absolute Auto 0.1 X10*3/uL (0.0-0.2); Basophils Percent Auto 0.5 % (0-2); Eosinophils Absolute Auto 0.2 X10*3/uL (0.0-0.4); Eosinophils Percent Auto 1.6 % (0-4); Hematocrit 31.5 % (37.0-47.0); Hemoglobin 9.7 g/dl (12.0-16.0); Imm Gran Abs Auto 0.03 X10*3/uL (0.00-0.03); Imm Gran Pct Auto 0.3 % (0.0-0.4); Lymphocytes Absolute Auto 2.6 X10*3/uL (1.2-4.9); Lymphocytes Percent Auto 27.9 % (20-40); MANUAL DIFF FLAG NO; Mean Corpuscular HGB Conc 30.8 g/dl (31.0-35.0); Mean Corpuscular Hemoglobin 25.2 pg (27.0-33.0); Mean Corpuscular Volume 81.8 fL (80.0-98.0); Mean Platelet Volume 9.7 fL (9.4-12.3); Monocytes Absolute Auto 0.5 X10*3/uL (0.1-1.2); Monocytes Percent Auto 4.8 % (2-11); Neutrophils Absolute Auto 6.1 x10*3/uL (2.0-8.3); Neutrophils Percent Auto 64.9 % (45-73); Platelet Count 364 X10*3/uL (160-400); Red Blood Count 3.85 X10*6/uL (4.20-5.50); Red Cell Distribution Width 14.6 % (11.0-16.0); White Blood Count 9.4 X10*3/uL (4.8-10.8)
--- NOTE | 2024-07-19 06:08 | PC.NURSE ---
pt medicated per mar, per provider, recheck poc every hour.
[2024-07-19 06:30] LABS: Alanine Aminotransferase 14 U/L (0-31); Albumin Level 3.2 g/dL (3.5-5.0); Alkaline Phosphatase 116 U/L (39-117); Anion Gap 13 (12-20); Aspartate Amino Transferase 20 U/L (5-31); Bilirubin Total 0.3 mg/dL (0.0-1.0); Blood Urea Nitrogen 8 mg/dL (9-16); Calcium 8.4 mg/dL (8.4-10.2); Carbon Dioxide 16 mmol/L (22-29); Chloride 110 mmol/L (96-108); Creatinine Clr Calc Pharmacy 78.9; Estimated Glomerular Filt Rate > 60; Glucose Random 404 mg/dL (60-115); Magnesium 1.6 mg/dL (1.6-2.6); Sodium 135 mmol/L (135-145); Total Protein 6.5 g/dL (6.5-8.0)
[2024-07-19 06:37] LABS: Glucose, Whole Blood 235 mg/dL (60-115)
[2024-07-19 07:28] LABS: Glucose, Whole Blood 216 mg/dL (60-115)
[2024-07-19] MEDS: Lactated Ringers 1,000 ML 125 ML IVCONT ×3 (07:36→23:31)
[2024-07-19] MEDS: Insulin Glargine,Hum.rec.anlog 100 UNIT/ML 10 ML VIAL 54 UNIT SUBCUT (08:19)
[2024-07-19] MEDS: Insulin Lispro 100 UNIT/ML 3 ML VIAL SUBCUT ×2 (08:20→22:10)
[2024-07-19 09:09] LABS: Glucose, Whole Blood 228 mg/dL (60-115)
--- NOTE | 2024-07-19 09:42 | PHA.MEDREC ---
Addendum entered by Skye Hatch RPh 07/19/24 09:46: reviewed by [facility]. Original Note: Pharmacy Consult ? Medication Reconciliation Pharmacy has completed the medication reconciliation. Spoke to patient to confirm med list. Patient states she is only taking Insulin Aspart per sliding TID scale up to 60 units, and Lantus solostar 0-54 units daily.
--- NOTE | 2024-07-19 12:10 | P.PNIM_ITS ---
Subjective Subjective Date of Service: 07/19/24 Interval History: Follow up on DKA blood sugars are better Bicab still low but anion gap has closed Review of Systems Review of Systems: Yes all other systems are reviewed and are negative Physical Exam 2 Vital Signs: Vital Signs: Last Vital Signs Temp 97.9 F 07/19/24 11:43 Pulse 102 H 07/19/24 11:43 Resp 17 07/19/24 11:43 BP 96/58 L 07/19/24 11:43 Pulse Ox 95 07/19/24 11:43 O2 Del Method Room Air 07/19/24 11:43 BMI result Body Mass Index 26.0 General: AO X 3, no acute distress Resp: CTA bilateral CVS: S1,S2,RRR GI: +BS, NT, no distention Skin: No rash Neuro: motor grossly intact Psych: appropriate affect Objective Data Active Medications Acetaminophen (Acetaminophen 325 Mg Tablet) 650 mg PO Q6H PRN PRN Reason: Pain, Mild 1-3,fever,headache Al Hydroxide/Mg Hydroxide (Magnesium Hydrox/Alum Hydrox 30 Ml Oral.Susp) 30 ml PO Q4H PRN PRN Reason: Heartburn Calcium Carbonate (Calcium Carbonate 750 Mg Tab.Chew) 750 mg PO Q4H PRN PRN Reason: Heartburn Dextrose (Dextrose 50 % 25 Gm/50 Ml Syringe) 25 gm IVPUSH Q15M PRN; Protocol PRN Reason: per Hypoglycemia Standing Ord. Glucose (Glucose Gel 15 Gm Gel..Gram.) 15 gm PO Q15M PRN; Protocol PRN Reason: per Hypoglycemia Standing Ord. Lactated Ringer's (Lr) 1,000 mls @ 200 mls/hr IVCONT .Q5H [facility] Last Admin: 07/19/24 07:36 Dose: 125 mls/hr Documented By: TAWNY Insulin Glargine (Insulin Glargine,Hum.Rec.Anlog 100 Unit/Ml 10 Ml Vial) 54 unit SUBCUT DAILY [facility] Last Admin: 07/19/24 08:19 Dose: 54 unit Documented By: TAWNY Insulin Human Lispro (Insulin Lispro 100 Unit/Ml 3 Ml Vial) 0 unit SUBCUT QIDACHS [facility]; Protocol Last Admin: 07/19/24 08:20 Dose: 4 unit Documented By: TAWNY Magnesium Hydroxide (Milk Of Magnesia 30 Ml Oral.Susp) 30 ml PO DAILY PRN PRN Reason: Constipation Melatonin (Melatonin 3 Mg Tablet) 6 mg PO BEDTIME PRN PRN Reason: Insomnia Ondansetron HCl (Ondansetron Hcl 4 Mg/2 Ml Vial) 4 mg IVPUSH Q8H PRN PRN Reason: Nausea and Vomiting Oxycodone HCl (Oxycodone Hcl Immed Release 5 Mg Tablet) 5 mg PO Q6H PRN PRN Reason: Pain, Severe (Pain Scale 7-10) Senna (Sennosides 8.6 Mg Tablet) 17.2 mg PO BEDTIME PRN PRN Reason: Constipation Sodium Chloride (0.9 % Sodium Chloride Flush 3 Ml Syringe) 3 ml IVFLUSH QSHIFT CAROLINE Last Admin: 07/19/24 09:11 Dose: Not Given Documented By: TAWNY Non-Admin Reason: IV Running Labs 07/19/24 05:48 07/19/24 05:48 Labs: Laboratory Results - last 24 hr 07/18/24 07/18/24 07/18/24 18:08 18:38 18:44 MCV 83.3 MCH 25.8 L MCHC 30.9 L RDW 14.5 Plt Count 443 H D MPV 10.5 Immature Gran % (Auto) 0.5 H Neut % (Auto) 75.4 H Lymph % (Auto) 17.4 L [place] % (Auto) 5.9 Eos % (Auto) 0.3 Baso % (Auto) 0.5 Lymph # (Auto) 1.9 [place] # (Auto) 0.7 Eos # (Auto) 0.0 Baso # (Auto) 0.1 Abs Immat Gran (auto) 0.05 H Absolute Neuts (auto) 8.4 H Absolute Nucleated RBC 0.000 Nucleated RBC % (auto) 0.0 VBG pH 7.35 VBG pCO2 34 VBG pO2 35 VBG HCO3 19 L VBG O2 Saturation 43.0 VBG Base Excess -5.4 Anion Gap 23 H Estim Creat Clear Calc 60.1 Estimated GFR > 60 POC Glucose > 600 H* Random Glucose 691 H* Lactic Acid 2.0 Calcium 8.7 Magnesium 1.8 Total Bilirubin 0.6 Direct Bilirubin 0.4 AST 23 ALT 18 Alkaline Phosphatase 142 H Total Protein 7.9 Albumin 4.0 Lipase 13 Beta-Hydroxybutyrate 4.74 H Influenza Type A (PCR) NEGATIVE Influenza Type B (PCR) NEGATIVE RSV RNA Qual (PCR) NEGATIVE SARS-CoV-2 RNA (RT-PCR) NEGATIVE 07/18/24 07/18/24 07/18/24 20:18 21:04 22:06 MCV MCH MCHC RDW Plt Count MPV Immature Gran % (Auto) Neut % (Auto) Lymph % (Auto) [place] % (Auto) Eos % (Auto) Baso % (Auto) Lymph # (Auto) [place] # (Auto) Eos # (Auto) Baso # (Auto) Abs Immat Gran (auto) Absolute Neuts (auto) Absolute Nucleated RBC Nucleated RBC % (auto) VBG pH VBG pCO2 VBG pO2 VBG HCO3 VBG O2 Saturation VBG Base Excess Anion Gap Estim Creat Clear Calc Estimated GFR POC Glucose 401 H* 283 H 179 H Random Glucose Lactic Acid Calcium Magnesium Total Bilirubin Direct Bilirubin AST ALT Alkaline Phosphatase Total Protein Albumin Lipase Beta-Hydroxybutyrate Influenza Type A (PCR) Influenza Type B (PCR) RSV RNA Qual (PCR) SARS-CoV-2 RNA (RT-PCR) 07/18/24 07/18/24 07/19/24 22:15 23:06 00:14 MCV MCH MCHC RDW Plt Count MPV Immature Gran % (Auto) Neut % (Auto) Lymph % (Auto) [place] % (Auto) Eos % (Auto) Baso % (Auto) Lymph # (Auto) [place] # (Auto) Eos # (Auto) Baso # (Auto) Abs Immat Gran (auto) Absolute Neuts (auto) Absolute Nucleated RBC Nucleated RBC % (auto) VBG pH VBG pCO2 VBG pO2 VBG HCO3 VBG O2 Saturation VBG Base Excess Anion Gap 18 Estim Creat Clear Calc 80.9 Estimated GFR > 60 POC Glucose 185 H 324 H Random Glucose 185 H Lactic Acid Calcium 9.0 Magnesium Total Bilirubin Direct Bilirubin AST ALT Alkaline Phosphatase Total Protein Albumin Lipase Beta-Hydroxybutyrate 1.34 H Influenza Type A (PCR) Influenza Type B (PCR) RSV RNA Qual (PCR) SARS-CoV-2 RNA (RT-PCR) 07/19/24 07/19/24 07/19/24 01:11 02:33 03:44 MCV MCH MCHC RDW Plt Count MPV Immature Gran % (Auto) Neut % (Auto) Lymph % (Auto) [place] % (Auto) Eos % (Auto) Baso % (Auto) Lymph # (Auto) [place] # (Auto) Eos # (Auto) Baso # (Auto) Abs Immat Gran (auto) Absolute Neuts (auto) Absolute Nucleated RBC Nucleated RBC % (auto) VBG pH VBG pCO2 VBG pO2 VBG HCO3 VBG O2 Saturation VBG Base Excess Anion Gap Estim Creat Clear Calc Estimated GFR POC Glucose 365 H* 222 H 251 H Random Glucose Lactic Acid Calcium Magnesium Total Bilirubin Direct Bilirubin AST ALT Alkaline Phosphatase Total Protein Albumin Lipase Beta-Hydroxybutyrate Influenza Type A (PCR) Influenza Type B (PCR) RSV RNA Qual (PCR) SARS-CoV-2 RNA (RT-PCR) 07/19/24 07/19/24 07/19/24 04:49 05:48 06:32 MCV 81.8 MCH 25.2 L MCHC 30.8 L RDW 14.6 Plt Count 364 MPV 9.7 Immature Gran % (Auto) 0.3 Neut % (Auto) 64.9 Lymph % (Auto) 27.9 [place] % (Auto) 4.8 Eos % (Auto) 1.6 Baso % (Auto) 0.5 Lymph # (Auto) 2.6 [place] # (Auto) 0.5 Eos # (Auto) 0.2 Baso # (Auto) 0.1 Abs Immat Gran (auto) 0.03 Absolute Neuts (auto) 6.1 Absolute Nucleated RBC 0.000 Nucleated RBC % (auto) 0.0 VBG pH VBG pCO2 VBG pO2 VBG HCO3 VBG O2 Saturation VBG Base Excess Anion Gap 13 Estim Creat Clear Calc 78.9 Estimated GFR > 60 POC Glucose 381 H* 235 H Random Glucose 404 H* Lactic Acid Calcium 8.4 D Magnesium 1.6 Total Bilirubin 0.3 Direct Bilirubin AST 20 ALT 14 Alkaline Phosphatase 116 Total Protein 6.5 Albumin 3.2 L Lipase Beta-Hydroxybutyrate Influenza Type A (PCR) Influenza Type B (PCR) RSV RNA Qual (PCR) SARS-CoV-2 RNA (RT-PCR) 07/19/24 07/19/24 07:24 09:04 MCV MCH MCHC RDW Plt Count MPV Immature Gran % (Auto) Neut % (Auto) Lymph % (Auto) [place] % (Auto) Eos % (Auto) Baso % (Auto) Lymph # (Auto) [place] # (Auto) Eos # (Auto) Baso # (Auto) Abs Immat Gran (auto) Absolute Neuts (auto) Absolute Nucleated RBC Nucleated RBC % (auto) VBG pH VBG pCO2 VBG pO2 VBG HCO3 VBG O2 Saturation VBG Base Excess Anion Gap Estim Creat Clear Calc Estimated GFR POC Glucose 216 H 228 H Random Glucose Lactic Acid Calcium Magnesium Total Bilirubin Direct Bilirubin AST ALT Alkaline Phosphatase Total Protein Albumin Lipase Beta-Hydroxybutyrate Influenza Type A (PCR) Influenza Type B (PCR) RSV RNA Qual (PCR) SARS-CoV-2 RNA (RT-PCR) Assessment and Plan (1) DKA, type 1: Status: Acute Plan 19yo F with DM1 here with with DKA due to non compliance with meds, this is her 3rd hospitalization this year for same thing DKA DM1 Bicab still low, continue IVF, monitor bicab and blood sugar, she also has tendency to be hypoglycemic She's received 54 of Lantus this morning. In the past there has been concern of her taking her own insulin as well VTE ppx - Enoxaparin Total time managing care of this patient today: 35 minutes. Quality Stroke Does the patient have a stroke diagnosis?: No VTE Prior VTE?: No VTE Risk Level:: Medical - low VTE Device Contraindication: Treatment Not Indicated VTE Drug Contraindication: Treatment Not Indicated
[2024-07-19 12:59] LABS: Glucose, Whole Blood 129 mg/dL (60-115)
[2024-07-19 13:14] LABS: Anion Gap 10 (12-20); Carbon Dioxide 21 mmol/L (22-29); Chloride 112 mmol/L (96-108); Sodium 139 mmol/L (135-145)
[2024-07-19] MEDS: Enoxaparin Sodium 40 MG/0.4 ML SYRINGE SUBCUT (13:39)
[2024-07-19 14:21] LABS: Glucose, Whole Blood 153 mg/dL (60-115)
[2024-07-19 18:04] LABS: Glucose, Whole Blood 55 mg/dL (60-115)
[2024-07-19] MEDS: Dextrose 50 % 25 GM/50 ML SYRINGE IVPUSH (18:05)
--- NOTE | 2024-07-19 18:14 | PC.NURSE ---
Pt's POC BG 55; pt A+Ox3; skin PWD; pt eating and drinking; 1 amp D50 gv per orders and Dr Bryan made aware; IVF's DC'd at this time; will recheck BG in 30 minutes
[2024-07-19 18:47] LABS: Glucose, Whole Blood 156 mg/dL (60-115)
--- NOTE | 2024-07-19 18:55 | PC.NURSE ---
Repeat BG POC 159; pt remains stable; Dr Bryan informed
[2024-07-19 20:17] LABS: Glucose, Whole Blood 235 mg/dL (60-115)
[2024-07-19 22:10] LABS: Glucose, Whole Blood 223 mg/dL (60-115)
[2024-07-20 00:48] VITALS: BP 124/69; PULSE 94; RESP 19; TEMP 36.4; O2SAT 97
[2024-07-20 01:11] LABS: Appearance Urine Cloudy; Color Urine Yellow; Glucose Urine UA >=1000 mg/dL (Negative); Leukocyte Esterase Urine Small (1+) (Negative); Nitrite Urine Negative (Negative); PH 5.5 (5.0-9.0); Specific Gravity - Urine >= 1.030 (1.005-1.025); UMIC TRIGGER UACC YES; Urine Blood Negative (Negative); Urine Ketones Trace mg/dL (Negative); Urine Protein 30 (1+) mg/dL (Neg-Trace)
[2024-07-20 01:12] LABS: UPreg QC Valid YES; Urine Pregnancy NEGATIVE (NEGATIVE)
[2024-07-20 01:14] LABS: Bacteria Urine Trace (None Seen); Hyaline Casts Urine 0-2 /LPF (0-2); RBC Urine 0-2 /HPF (0-2); UACC Culture Trigger YES; WBC Urine 21-50 /HPF (0-5)
[2024-07-20 01:20] VITALS: BMI 28.1
[2024-07-20 03:45] LABS: Glucose, Whole Blood 118 mg/dL (60-115)
--- NOTE | 2024-07-20 03:48 | PC.NURSE ---
0330- Received a phone call from Dr Bryan concerning this patient asking staff to check her blood sugar by POC a few hours after admission. Patient arrived to unit 0035, admission completed, see interventions for details, stable, voided, VSS, urine specimen obtained and sent to lab as ordered. POC at 0330 was 118, patient resting well.
[2024-07-20 03:55] VITALS: BP 110/63; PULSE 84; RESP 20; TEMP 36.3; O2SAT 96
[2024-07-20] MEDS: Lactated Ringers 1,000 ML 100 ML IVCONT (05:41)
[2024-07-20 07:38] VITALS: BP 122/80; PULSE 80; RESP 18; TEMP 36.6; O2SAT 95
[2024-07-20 08:05] LABS: Glucose, Whole Blood 214 mg/dL (60-115)
[2024-07-20 08:23] LABS: Anion Gap 11 (12-20); Blood Urea Nitrogen 11 mg/dL (9-16); Calcium 8.4 mg/dL (8.4-10.2); Carbon Dioxide 21 mmol/L (22-29); Chloride 110 mmol/L (96-108); Creatinine Clr Calc Pharmacy 105.9; Estimated Glomerular Filt Rate > 60; Glucose Random 256 mg/dL (60-115); Sodium 138 mmol/L (135-145)
[2024-07-20] MEDS: Insulin Glargine,Hum.rec.anlog 100 UNIT/ML 10 ML VIAL 45 UNIT SUBCUT (08:29)
[2024-07-20] MEDS: Insulin Lispro 100 UNIT/ML 3 ML VIAL SUBCUT (08:29)
[2024-07-20] MEDS: 0.9 % Sodium Chloride Flush 3 ML SYRINGE IVFLUSH (08:30)
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
[2024-07-20 11:32] LABS: Glucose, Whole Blood 118 mg/dL (60-115)
--- NOTE | 2024-07-20 13:56 | MHC.CM.PN ---
PT TO DC HOME TODAY WITH NO SERVICES VIA PRIVATE TRANSPORT
== END 2024-07-20 14:46 | disposition home or self-care (01) | DRG 420 ==
LOC: HO.ED 19:49 → HO.EDOVER 23:50 → HO.S3 07-19 21:11
PROVIDERS: Internal Medicine; Physician Assistant; Admitting Provider Internal Medicine; Emergency Provider Emergency Medicine; Visit Provider Physician Assistant
DX: E10.10 Type 1 diabetes mellitus with ketoacidosis without coma (principal); T38.3X6A Underdosing of insulin and oral hypoglycemic [antidiabetic] drugs, initial encounter; Z20.822 Contact with and (suspected) exposure to COVID-19
CPT/HCPCS: 0241U; 36415; 80048; 80051; 80053; 80076; 81001; 81025; 82010; 82803; 82947; 83605; 83690; 83735; 84484; 85025; 87086; 99285; J1650; J7120

== ENCOUNTER → 2024-07-18 23:45 | Outpatient (BNV) | payer MEDICAID, SELFPAY | PROVIDERS: Admitting Provider Internal Medicine; Emergency Provider Emergency Medicine; Visit Provider Internal Medicine | DX: E10.10 Type 1 diabetes mellitus with ketoacidosis without coma (principal) | CPT/HCPCS: 99223; 99232; 99239 ==

== ENCOUNTER 2024-07-27 00:23 | Emergency (ER) | payer MEDICAID, SELFPAY ==
[2024-07-27] VITALS (7 sets, daily range): BP systolic 96–127; BP diastolic 56–63; PULSE 79–124; RESP 14–18; TEMP 36.2–36.7; O2SAT 98–99; BMI 26.0
--- NOTE | 2024-07-27 | ECG_ITS ---
Test Reason : CHEST PAIN Blood Pressure : */* mmHG Vent. Rate : 121 BPM Atrial Rate : 121 BPM P-R Int : 132 ms QRS Dur : 76 ms QT Int : 310 ms P-R-T Axes : 61 57 26 degrees QTcB Int : 440 ms Sinus tachycardia Otherwise normal ECG When compared with ECG of 08-Jun-2024 22:47, T wave amplitude has decreased in Anterior leads Referred By: Generic ED Physician Electronically Signed By: RORO CARLISLE
[2024-07-27 00:47] LABS: MANUAL DIFF FLAG NO
--- NOTE | 2024-07-27 00:47 | PC.NURSE ---
pt is requesting no visitors and would like no one to know she is here
[2024-07-27 00:48] LABS: Glucose, Whole Blood > 600 mg/dL (60-115)
[2024-07-27 00:48] LABS: Basophils Absolute Auto 0.1 X10*3/uL (0.0-0.2); Basophils Percent Auto 0.7 % (0-2); Eosinophils Percent Auto 0.3 % (0-4); Hematocrit 33.4 % (37.0-47.0); Hemoglobin 10.6 g/dl (12.0-16.0); Imm Gran Abs Auto 0.02 X10*3/uL (0.00-0.03); Imm Gran Pct Auto 0.3 % (0.0-0.4); Lymphocytes Percent Auto 27.1 % (20-40); Mean Corpuscular HGB Conc 31.7 g/dl (31.0-35.0); Mean Corpuscular Hemoglobin 25.9 pg (27.0-33.0); Mean Corpuscular Volume 81.7 fL (80.0-98.0); Mean Platelet Volume 10.5 fL (9.4-12.3); Monocytes Absolute Auto 0.8 X10*3/uL (0.1-1.2); Monocytes Percent Auto 11.4 % (2-11); Neutrophils Absolute Auto 4.4 x10*3/uL (2.0-8.3); Neutrophils Percent Auto 60.2 % (45-73); Platelet Count 364 X10*3/uL (160-400); Red Blood Count 4.09 X10*6/uL (4.20-5.50); Red Cell Distribution Width 14.9 % (11.0-16.0); White Blood Count 7.3 X10*3/uL (4.8-10.8)
[2024-07-27 00:50] LABS: Venous Blood Gas Refer to POC result
[2024-07-27 00:51] LABS: VBG Base Excess -13.7 mmol/L; VBG HCO3 11 mmol/L (22-26); VBG pCO2 23 mmHg; VBG pH 7.26 (7.32-7.43); VBG pO2 66 mmHg
--- OUTSIDE RECORDS SUMMARY | 2024-07-27 00:53 | XMS_ITS | Clinical Summary ---
Author Organization [facility] Address [address] [place] [address] Phone Care Team Providers Care Contractor [employer] Name Role Phone Physician, No Pcp Primary [...] topic Insurance MEDICAID - [place] Care Teams Contractor [employer] Relationship Specialty Start Date End Date Physician, No Pcp PCP - General 03/24/24
[2024-07-27 01:07] LABS: Alanine Aminotransferase 13 U/L (0-31); Albumin Level 3.9 g/dL (3.5-5.0); Alkaline Phosphatase 135 U/L (39-117); Anion Gap 25 (12-20); Aspartate Amino Transferase 36 U/L (5-31); Bilirubin Total 0.4 mg/dL (0.0-1.0); Blood Urea Nitrogen 14 mg/dL (9-16); Calcium 8.7 mg/dL (8.4-10.2); Carbon Dioxide 10 mmol/L (22-29); Chloride 97 mmol/L (96-108); Creatinine Clr Calc Pharmacy 55.3; Estimated Glomerular Filt Rate > 60; Glucose Random 748 mg/dL (60-115); Lipase 13 U/L (8-78); Potassium 4.6 mmol/L (3.3-5.1); Sodium 127 mmol/L (135-145); Total Protein 7.8 g/dL (6.5-8.0)
[2024-07-27 01:07] LABS: Appearance Urine Clear; Color Urine Yellow; Glucose Urine UA >=1000 mg/dL (Negative); Leukocyte Esterase Urine Trace (Negative); Nitrite Urine Negative (Negative); PH 5.5 (5.0-9.0); Specific Gravity - Urine 1.025 (1.005-1.025); UMIC TRIGGER UACC YES; Urine Blood Trace (Negative); Urine Ketones 80 mg/dL (Negative); Urine Protein Negative (Neg-Trace)
[2024-07-27 01:09] LABS: Beta-Hydroxybutyrate 4.72 mmol/L (0.02-0.27)
[2024-07-27 01:13] LABS: Bacteria Urine None Seen (None Seen); Hyaline Casts Urine 0-2 /LPF (0-2); RBC Urine 0-2 /HPF (0-2); Squamous Epithelial Cell Urine 0-2 /HPF (0-2); WBC Urine 0-5 /HPF (0-5)
--- NOTE | 2024-07-27 01:26 | ED_ITS ---
HPI - General Adult General Chief complaint: General Medical Stated complaint: HYPERGLYCEMIA Time Seen by Provider: 07/27/24 01:08 Source: patient Mode of arrival: ambulatory Limitations: no limitations History of Present Illness ED Provider: HPI narrative: Patient is type 1 diabetic noncompliant with insulin and testing of the blood sugar was here on 07/20 for DKA discharged on 45 units of Lantus insulin and sliding scale of insulin patient's took her Lantus insulin yesterday and took the sliding scale of insulin till lunch did not take the evening insulin as she did not have the test strips to check the blood sugar comes here as she been feeling weak body aches nausea POC was read high on arrival blood sugar was 748 with bicarb of 10 anion gap of 25 with positive beta hydroxybutyrate Related Data Home Medications ?Medication ?Instructions ?Recorded ?Confirmed insulin aspart U-100 100 unit/mL 1 sliding scale dose subcut TIDAC 05/12/24 07/19/24 (3 mL) subcutaneous pen Previous Rx's ?Medication ?Instructions ?Recorded blood-glucose meter (FreeStyle #1 ea 10/16/22 Lite Meter kit) lancets 28 gauge (FreeStyle #100 ea 10/16/22 Lancets) blood sugar diagnostic (FreeStyle #100 ea 06/12/24 Lite Strips) pen needle, diabetic 32 gauge x #100 ea 06/12/24 1/ insulin glargine 100 unit/mL (3 45 unit (0.45 mL) subcut DAILY #15 25 mL) subcutaneous pen (Lantus mL Solostar U-100 Insulin) Allergies Allergy/AdvReac Type Severity Reaction Status Date / Time No Known Allergies Allergy Verified 07/27/24 00:32 Review of Systems 2 Review of Systems: Yes all other systems are reviewed and are negative PMFSH Past Medical History Medical History Type 1 diabetes mellitus with proteinuria Social History Social History Household Members: Family Household Members Other:: Lives with Sister Housing: Apartment Do you presently have visiting nurse or other home services: No Alcohol intake: never Patient Tobacco Use Status: Never used Tobacco Smoked in Last 30 Days: Yes e-Cigarette/Vaping Use: Never Used Second Hand Smoke Exposure: No Use of substances other than those prescribed or required for medical reasons: Yes Substance Use Type: Marijuana Substance Use Frequency: Occasionally Advance Directives: Yes Advance Directives on File: Yes Advance Directives Date on File: 05/31/24 Patient : No service: No Current occupational status: unemployed Physical Exam ED Vital Signs: Vital Signs - 24 hr 07/27/24 00:32 07/27/24 03:23 07/27/24 06:38 Temperature 98.0 F 97.9 F 98.1 F Pulse Rate 118 H 97 99 Respiratory Rate 16 16 18 Blood Pressure 114/63 108/62 96/57 L Pulse Oximetry 99 99 99 Oxygen Delivery Method Room Air Room Air Room Air BMI result Body Mass Index 26.0 Appearance: Alert. Oriented X3. No acute distress. Eyes: No pallor or ENT: Pharynx normal. Oral Mucosa moist Neck: Normal inspection. Neck supple. CVS: Normal heart rate and rhythm. Pulses normal. Respiratory: No respiratory distress. Equal air entry bilateral, no wheezing/rales/rhonchi Abdomen: Soft and nontender. Bowel sounds are present, no mass palpable, no CVA tenderness Skin: Skin warm and dry. Normal skin color. Normal skin turgor. Extremities: No lower extremity edema. No calf tenderness Neuro: Oriented X 3. No motor deficit. Medications Administered Generic Name Dose Route Start Last Admin Trade Name Freq PRN Reason Stop Dose Admin Dextrose/Sodium Chloride 1,000 mls @ 150 mls/hr 07/27/24 04:15 07/27/24 06:42 D51/2ns IVCONT 0 mls/hr .Q6H40M CAROLINE Infusion Discontinued Medications Generic Name Dose Route Start Last Admin Trade Name Freq PRN Reason Stop Dose Admin Sodium Chloride 1,000 mls @ 999 mls/hr 07/27/24 01:09 07/27/24 02:49 Ns IV 07/27/24 02:09 Infused .Q1H1M ONE Infusion Sodium Chloride 1,000 mls @ 999 mls/hr 07/27/24 01:10 07/27/24 02:49 Ns IV 07/27/24 02:10 Infused .Q1H1M ONE Infusion Insulin Human Regular 100 unit in 100 mls @ 5 mls/hr 07/27/24 04:00 07/27/24 06:41 Myxredlin IVCONT 0 unit/hr .Q20H CAROLINE 0 mls/hr Titration Protocol 5 UNIT/HR Insulin Human Regular 14 unit 07/27/24 01:09 07/27/24 01:39 Insulin Regular, Human 100 Unit/Ml 10 Ml Vial IVPUSH 07/27/24 01:10 14 unit ONCE ONE Administration Insulin Human Regular 10 unit 07/27/24 03:35 07/27/24 03:42 Insulin Regular, Human 100 Unit/Ml 10 Ml Vial IVPUSH 07/27/24 03:36 10 unit ONCE ONE Administration Medical Decision Making Medical Decision Making [facility] Narrative: Patient with type 1 diabetes with frequent ED visits for noncompliance has a home situation she lives with her sister who is 30 years old [employer] patient is police no at home and complaining well controlled by her sister will get the case management involved in the morning for now will give IV fluids insulin recheck 03:45 Patient's very comfortable , drinking p.o. fluids no nausea no vomiting received 2 L of IV fluids and insulin repeat venous gases shows worsening of acidosis with bicarb of 9, pH of 7.20 will start patient on insulin drip Patient has received 3 L of IV fluids IV insulin drip was started for short time patient's anion gap closed taking p.o. fluids the DKA resolved patient plan to see case management for home situation Differential Diagnosis Differential Diagnoses: The differential diagnosis associated with the presentation includes Lab Data [facility] Lab Attestation statement: I reviewed the patient's lab results. 07/27/24 00:41 07/27/24 06:10 Labs: Lab Results 07/27/24 07/27/24 07/27/24 Range/Units 00:30 00:41 00:47 WBC 7.3 (4.8-10.8) X10*3/uL RBC 4.09 L (4.20-5.50) X10*6/uL Hgb 10.6 L (12.0-16.0) g/dl Hct 33.4 L (37.0-47.0) % MCV 81.7 (80.0-98.0) fL MCH 25.9 L (27.0-33.0) pg MCHC 31.7 (31.0-35.0) g/dl RDW 14.9 (11.0-16.0) % Plt Count 364 (160-400) X10*3/uL MPV 10.5 (9.4-12.3) fL Immature Gran % (Auto) 0.3 (0.0-0.4) % Neut % (Auto) 60.2 (45-73) % Lymph % (Auto) 27.1 (20-40) % [place] % (Auto) 11.4 H (2-11) % Eos % (Auto) 0.3 (0-4) % Baso % (Auto) 0.7 (0-2) % Lymph # (Auto) 2.0 (1.2-4.9) X10*3/uL [place] # (Auto) 0.8 (0.1-1.2) X10*3/uL Eos # (Auto) 0.0 (0.0-0.4) X10*3/uL Baso # (Auto) 0.1 (0.0-0.2) X10*3/uL Abs Immat Gran (auto) 0.02 (0.00-0.03) X10*3/uL Absolute Neuts (auto) 4.4 (2.0-8.3) x10*3/uL Absolute Nucleated RBC 0.000 (0.0-0.012) X10*3/uL Nucleated RBC % (auto) 0.0 (0.0-0.2) /100WBC VBG pH 7.26 L (7.32-7.43) VBG pCO2 23 mmHg VBG pO2 66 mmHg VBG HCO3 11 L (22-26) mmol/L VBG O2 Saturation 90.0 % VBG Base Excess -13.7 mmol/L Sodium 127 L (135-145) mmol/L Potassium 4.6 (3.3-5.1) mmol/L Chloride 97 (96-108) mmol/L Carbon Dioxide 10 L* D (22-29) mmol/L Anion Gap 25 H (12-20) BUN 14 (9-16) mg/dL Creatinine 1.14 (0.5-1.4) mg/dL Estim Creat Clear Calc 55.3 Estimated GFR > 60 POC Glucose > 600 H* (60-115) mg/dL Random Glucose 748 H* (60-115) mg/dL Calcium 8.7 (8.4-10.2) mg/dL Total Bilirubin 0.4 (0.0-1.0) mg/dL AST 36 H (5-31) U/L ALT 13 (0-31) U/L Alkaline Phosphatase 135 H (39-117) U/L Total Protein 7.8 (6.5-8.0) g/dL Albumin 3.9 (3.5-5.0) g/dL Lipase 13 (8-78) U/L Beta-Hydroxybutyrate 4.72 H (0.02-0.27) mmol/L Urine Color Urine Appearance Urine pH (5.0-9.0) Ur Specific [place] (1.005-1.025) Urine Protein (Neg-Trace) mg/dL Urine Glucose (UA) (Negative) mg/dL Urine Ketones (Negative) mg/dL Urine Blood (Negative) Urine Nitrite (Negative) Ur Leukocyte Esterase (Negative) Urine RBC (0-2) /HPF Urine WBC (0-5) /HPF Ur Squamous Epith Cells (0-2) /HPF Urine Bacteria (None Seen) Hyaline Casts (0-2) /LPF 07/27/24 07/27/24 07/27/24 Range/Units 00:51 02:53 03:21 WBC (4.8-10.8) X10*3/uL RBC (4.20-5.50) X10*6/uL Hgb (12.0-16.0) g/dl Hct (37.0-47.0) % MCV (80.0-98.0) fL MCH (27.0-33.0) pg MCHC (31.0-35.0) g/dl RDW (11.0-16.0) % Plt Count (160-400) X10*3/uL MPV (9.4-12.3) fL Immature Gran % (Auto) (0.0-0.4) % Neut % (Auto) (45-73) % Lymph % (Auto) (20-40) % [place] % (Auto) (2-11) % Eos % (Auto) (0-4) % Baso % (Auto) (0-2) % Lymph # (Auto) (1.2-4.9) X10*3/uL [place] # (Auto) (0.1-1.2) X10*3/uL Eos # (Auto) (0.0-0.4) X10*3/uL Baso # (Auto) (0.0-0.2) X10*3/uL Abs Immat Gran (auto) (0.00-0.03) X10*3/uL Absolute Neuts (auto) (2.0-8.3) x10*3/uL Absolute Nucleated RBC (0.0-0.012) X10*3/uL Nucleated RBC % (auto) (0.0-0.2) /100WBC VBG pH (7.32-7.43) VBG pCO2 mmHg VBG pO2 mmHg VBG HCO3 (22-26) mmol/L VBG O2 Saturation % VBG Base Excess mmol/L Sodium 136 (135-145) mmol/L Potassium 4.2 (3.3-5.1) mmol/L Chloride 110 H (96-108) mmol/L Carbon Dioxide 9 L* (22-29) mmol/L Anion Gap 21 H (12-20) BUN 11 (9-16) mg/dL Creatinine 0.76 (0.5-1.4) mg/dL Estim Creat Clear Calc 83.0 Estimated GFR > 60 POC Glucose 364 H* (60-115) mg/dL Random Glucose 306 H (60-115) mg/dL Calcium 7.8 L D (8.4-10.2) mg/dL Total Bilirubin (0.0-1.0) mg/dL AST (5-31) U/L ALT (0-31) U/L Alkaline Phosphatase (39-117) U/L Total Protein (6.5-8.0) g/dL Albumin (3.5-5.0) g/dL Lipase (8-78) U/L Beta-Hydroxybutyrate (0.02-0.27) mmol/L Urine Color Yellow Urine Appearance Clear Urine pH 5.5 (5.0-9.0) Ur Specific [place] 1.025 (1.005-1.025) Urine Protein Negative (Neg-Trace) mg/dL Urine Glucose (UA) >=1000 H (Negative) mg/dL Urine Ketones 80 (Negative) mg/dL Urine Blood Trace H (Negative) Urine Nitrite Negative (Negative) Ur Leukocyte Esterase Trace H (Negative) Urine RBC 0-2 (0-2) /HPF Urine WBC 0-5 (0-5) /HPF Ur Squamous Epith Cells 0-2 (0-2) /HPF Urine Bacteria None Seen (None Seen) Hyaline Casts 0-2 (0-2) /LPF 07/27/24 07/27/24 07/27/24 Range/Units 03:29 04:01 05:01 WBC (4.8-10.8) X10*3/uL RBC (4.20-5.50) X10*6/uL Hgb (12.0-16.0) g/dl Hct (37.0-47.0) % MCV (80.0-98.0) fL MCH (27.0-33.0) pg MCHC (31.0-35.0) g/dl RDW (11.0-16.0) % Plt Count (160-400) X10*3/uL MPV (9.4-12.3) fL Immature Gran % (Auto) (0.0-0.4) % Neut % (Auto) (45-73) % Lymph % (Auto) (20-40) % [place] % (Auto) (2-11) % Eos % (Auto) (0-4) % Baso % (Auto) (0-2) % Lymph # (Auto) (1.2-4.9) X10*3/uL [place] # (Auto) (0.1-1.2) X10*3/uL Eos # (Auto) (0.0-0.4) X10*3/uL Baso # (Auto) (0.0-0.2) X10*3/uL Abs Immat Gran (auto) (0.00-0.03) X10*3/uL Absolute Neuts (auto) (2.0-8.3) x10*3/uL Absolute Nucleated RBC (0.0-0.012) X10*3/uL Nucleated RBC % (auto) (0.0-0.2) /100WBC VBG pH 7.20 L* (7.32-7.43) VBG pCO2 25 mmHg VBG pO2 40 mmHg VBG HCO3 10 L (22-26) mmol/L VBG O2 Saturation Not Reportable % VBG Base Excess -16.0 mmol/L Sodium (135-145) mmol/L Potassium (3.3-5.1) mmol/L Chloride (96-108) mmol/L Carbon Dioxide (22-29) mmol/L Anion Gap (12-20) BUN (9-16) mg/dL Creatinine (0.5-1.4) mg/dL Estim Creat Clear Calc Estimated GFR POC Glucose 233 H 219 H (60-115) mg/dL Random Glucose (60-115) mg/dL Calcium (8.4-10.2) mg/dL Total Bilirubin (0.0-1.0) mg/dL AST (5-31) U/L ALT (0-31) U/L Alkaline Phosphatase (39-117) U/L Total Protein (6.5-8.0) g/dL Albumin (3.5-5.0) g/dL Lipase (8-78) U/L Beta-Hydroxybutyrate (0.02-0.27) mmol/L Urine Color Urine Appearance Urine pH (5.0-9.0) Ur Specific [place] (1.005-1.025) Urine Protein (Neg-Trace) mg/dL Urine Glucose (UA) (Negative) mg/dL Urine Ketones (Negative) mg/dL Urine Blood (Negative) Urine Nitrite (Negative) Ur Leukocyte Esterase (Negative) Urine RBC (0-2) /HPF Urine WBC (0-5) /HPF Ur Squamous Epith Cells (0-2) /HPF Urine Bacteria (None Seen) Hyaline Casts (0-2) /LPF 07/27/24 07/27/24 07/27/24 Range/Units 05:55 06:10 06:15 WBC (4.8-10.8) X10*3/uL RBC (4.20-5.50) X10*6/uL Hgb (12.0-16.0) g/dl Hct (37.0-47.0) % MCV (80.0-98.0) fL MCH (27.0-33.0) pg MCHC (31.0-35.0) g/dl RDW (11.0-16.0) % Plt Count (160-400) X10*3/uL MPV (9.4-12.3) fL Immature Gran % (Auto) (0.0-0.4) % Neut % (Auto) (45-73) % Lymph % (Auto) (20-40) % [place] % (Auto) (2-11) % Eos % (Auto) (0-4) % Baso % (Auto) (0-2) % Lymph # (Auto) (1.2-4.9) X10*3/uL [place] # (Auto) (0.1-1.2) X10*3/uL Eos # (Auto) (0.0-0.4) X10*3/uL Baso # (Auto) (0.0-0.2) X10*3/uL Abs Immat Gran (auto) (0.00-0.03) X10*3/uL Absolute Neuts (auto) (2.0-8.3) x10*3/uL Absolute Nucleated RBC (0.0-0.012) X10*3/uL Nucleated RBC % (auto) (0.0-0.2) /100WBC VBG pH 7.32 (7.32-7.43) VBG pCO2 25 mmHg VBG pO2 90 mmHg VBG HCO3 13 L (22-26) mmol/L VBG O2 Saturation Not Reportable % VBG Base Excess -11.1 mmol/L Sodium 137 (135-145) mmol/L Potassium 3.5 (3.3-5.1) mmol/L Chloride 113 H (96-108) mmol/L Carbon Dioxide 13 L (22-29) mmol/L Anion Gap 15 (12-20) BUN 7 L (9-16) mg/dL Creatinine 0.65 (0.5-1.4) mg/dL Estim Creat Clear Calc 97.1 Estimated GFR > 60 POC Glucose 244 H (60-115) mg/dL Random Glucose 245 H (60-115) mg/dL Calcium 8.1 L (8.4-10.2) mg/dL Total Bilirubin (0.0-1.0) mg/dL AST (5-31) U/L ALT (0-31) U/L Alkaline Phosphatase (39-117) U/L Total Protein (6.5-8.0) g/dL Albumin (3.5-5.0) g/dL Lipase (8-78) U/L Beta-Hydroxybutyrate (0.02-0.27) mmol/L Urine Color Urine Appearance Urine pH (5.0-9.0) Ur Specific [place] (1.005-1.025) Urine Protein (Neg-Trace) mg/dL Urine Glucose (UA) (Negative) mg/dL Urine Ketones (Negative) mg/dL Urine Blood (Negative) Urine Nitrite (Negative) Ur Leukocyte Esterase (Negative) Urine RBC (0-2) /HPF Urine WBC (0-5) /HPF Ur Squamous Epith Cells (0-2) /HPF Urine Bacteria (None Seen) Hyaline Casts (0-2) /LPF Critical Care Time Critical Care Time Critical Care Time: Yes Total Critical Care Time: 65 Attestation: The patient was critically ill with a high probability of imminent or life threatening deterioration. I spent greater than 70???minutes of discontinuous time evaluating the patient,delivering critical care at the bedside, discussing and evaluating pertinent data with consultants. Critical care time does not include time spent performing separately billable procedures or teaching. Total time spent performing critical care was 65???minutes. Discharge Plan Discharge Clinical Impression: Type 1 diabetes mellitus with ketoacidosis, uncontrolled Patient Disposition: Still a Patient Prescriptions: No Action (DME) FreeStyle Lite Strips Strip Qty: 100 11RF Rx Instructions: Test four times a day or as directed. (DME) pen needle, diabetic 32 gauge x 1/4 needle Qty: 100 0RF Rx Instructions: Use four times a day or as directed. insulin glargine [Lantus Solostar U-100 Insulin] 100 unit/mL (3 mL) insulin pen 45 unit subcut DAILY Qty: 15 0RF (DME) blood-glucose meter [FreeStyle Lite Meter] Kit Qty: 1 0RF Rx Instructions: As Directed (DME) lancets [FreeStyle Lancets] 28 gauge misc Qty: 100 0RF Rx Instructions: Test four times a day or as directed. insulin aspart U-100 100 unit/mL (3 mL) insulin pen 1 sliding scale dose subcut TIDAC Print Language: Icelandic
[2024-07-27] MEDS: 0.9 % Sodium Chloride 1,000 ML 999 ML IV ×2 (01:38→01:39)
[2024-07-27] MEDS: Insulin Regular, Human 100 UNIT/ML 10 ML VIAL 14 UNIT IVPUSH (01:39)
[2024-07-27 02:57] LABS: Glucose, Whole Blood 364 mg/dL (60-115)
[2024-07-27 03:28] LABS: Venous Blood Gas Refer to POC result
[2024-07-27 03:36] LABS: VBG HCO3 10 mmol/L (22-26); VBG pCO2 25 mmHg; VBG pO2 40 mmHg
[2024-07-27] MEDS: Insulin Regular, Human 100 UNIT/ML 10 ML VIAL 10 UNIT IVPUSH (03:42)
[2024-07-27 03:46] LABS: Anion Gap 21 (12-20); Blood Urea Nitrogen 11 mg/dL (9-16); Calcium 7.8 mg/dL (8.4-10.2); Carbon Dioxide 9 mmol/L (22-29); Chloride 110 mmol/L (96-108); Estimated Glomerular Filt Rate > 60; Glucose Random 306 mg/dL (60-115); Potassium 4.2 mmol/L (3.3-5.1); Sodium 136 mmol/L (135-145)
[2024-07-27] MEDS: Insulin Regular/NS 100 UNIT/100 ML PLAST..BAG IVCONT (03:59)
[2024-07-27] MEDS: Dextrose 5 % and 0.45 % NaCl 1,000 ML 100 ML IVCONT (04:25)
[2024-07-27 05:06] LABS: Glucose, Whole Blood 233 mg/dL (60-115)
[2024-07-27 05:06] LABS: Glucose, Whole Blood 219 mg/dL (60-115)
--- NOTE | 2024-07-27 05:08 | PC.NURSE ---
pt given IV insulin @0342, POC came back at 233 when insulin drip initiated @0359. MD Randhawa ordered D51/2NS to run with drip, despite protocol stating to start at >200. bilateral AC 20g IVs
--- NOTE | 2024-07-27 05:19 | PC.NURSE ---
no change in titration per MD. POC 219
[2024-07-27 06:11] LABS: Glucose, Whole Blood 244 mg/dL (60-115)
[2024-07-27 06:14] LABS: Venous Blood Gas Refer to POC result
[2024-07-27 06:18] LABS: VBG Base Excess -11.1 mmol/L; VBG HCO3 13 mmol/L (22-26); VBG pCO2 25 mmHg; VBG pH 7.32 (7.32-7.43); VBG pO2 90 mmHg
[2024-07-27 06:28] LABS: Anion Gap 15 (12-20); Blood Urea Nitrogen 7 mg/dL (9-16); Calcium 8.1 mg/dL (8.4-10.2); Carbon Dioxide 13 mmol/L (22-29); Chloride 113 mmol/L (96-108); Creatinine Clr Calc Pharmacy 97.1; Estimated Glomerular Filt Rate > 60; Glucose Random 245 mg/dL (60-115); Potassium 3.5 mmol/L (3.3-5.1); Sodium 137 mmol/L (135-145)
--- NOTE | 2024-07-27 06:34 | PC.NURSE ---
per MD, discontinue insulin drip and D51/2Ns. labs improved
[2024-07-27 07:27] LABS: Glucose, Whole Blood 283 mg/dL (60-115)
[2024-07-27] MEDS: Insulin Lispro 100 UNIT/ML 3 ML VIAL SUBCUT (07:57)
[2024-07-27] MEDS: Insulin Glargine,Hum.rec.anlog 100 UNIT/ML 10 ML VIAL 45 UNIT SUBCUT (07:57)
[2024-07-27 08:30] LABS: Glucose, Whole Blood 359 mg/dL (60-115)
--- NOTE | 2024-07-27 09:34 | PC.NURSE ---
Pt watching tv in room; IV drips remain on standby; current POC bg 273; MD aware; no coverage at this time per MD
[2024-07-27 09:36] LABS: Glucose, Whole Blood 273 mg/dL (60-115)
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
[2024-07-27 11:15] LABS: Glucose, Whole Blood 175 mg/dL (60-115)
[2024-07-27 12:01] LABS: Venous Blood Gas Refer to POC result
[2024-07-27 12:02] LABS: VBG Base Excess -6.7 mmol/L; VBG HCO3 16 mmol/L (22-26); VBG pCO2 25 mmHg; VBG pH 7.41 (7.32-7.43); VBG pO2 190 mmHg
[2024-07-27 12:50] LABS: Glucose, Whole Blood 135 mg/dL (60-115)
[2024-07-27 13:09] LABS: Anion Gap 14 (12-20); Beta-Hydroxybutyrate 0.04 mmol/L (0.02-0.27); Blood Urea Nitrogen 7 mg/dL (9-16); Calcium 8.6 mg/dL (8.4-10.2); Carbon Dioxide 16 mmol/L (22-29); Chloride 114 mmol/L (96-108); Creatinine Clr Calc Pharmacy 100.1; Estimated Glomerular Filt Rate > 60; Glucose Random 151 mg/dL (60-115); Potassium 4.3 mmol/L (3.3-5.1); Sodium 140 mmol/L (135-145)
--- NOTE | 2024-07-27 14:18 | PHA.MEDREC ---
Pharmacy Consult ? Medication Reconciliation Pharmacy has completed the medication reconciliation. Spoke to patient to confirm medication list. Per patient, she uses novolog QID per sliding scale and Lantus between 42 to 54 units daily. She last took Lantus yesterday.
[2024-07-27 15:00] LABS: Glucose, Whole Blood 199 mg/dL (60-115)
== END 2024-07-27 16:07 | disposition home or self-care (01) ==
PROVIDERS: Physician Assistant; Emergency Provider Internal Medicine; PCP Family Medicine
DX: E10.10 Type 1 diabetes mellitus with ketoacidosis without coma (principal); R53.1 Weakness; Z91.148 Patient's other noncompliance with medication regimen for other reason
CPT/HCPCS: 36415; 80048; 80053; 81001; 82010; 82803; 82947; 83690; 85025; 93005; 96361; 96365; 96366; 96375; 96376; 99285

== ENCOUNTER → 2024-07-27 00:56 | Outpatient (BNV) | payer MEDICAID, SELFPAY | PROVIDERS: Emergency Provider Internal Medicine; Visit Provider Internal Medicine | DX: R00.0 Tachycardia, unspecified (principal) | CPT/HCPCS: 93010 ==

== ENCOUNTER 2024-08-08 01:04 | Emergency (ER) | payer MEDICAID, SELFPAY ==
--- NOTE | ~2024-08-08 | XR_ITS ---
CLINICAL HISTORY: pain s p fall 2 view right knee Comparison: None Findings: No fractures or dislocations. No significant arthritic change or erosions. No joint effusion. No radiopaque foreign body. IMPRESSION: 1. No acute findings. This document has been electronically signed by: Joao Thornton MD on 08/08/2024 01:39:57
[2024-08-08 01:06] VITALS: BP 130/92; PULSE 135; O2SAT 99
[2024-08-08 01:08] VITALS: BP 122/75; PULSE 129; RESP 18; TEMP 37.5; O2SAT 97; BMI 24.7
[2024-08-08 01:54] LABS: MANUAL DIFF FLAG NO
[2024-08-08 01:57] LABS: Basophils Absolute Auto 0.1 X10*3/uL (0.0-0.2); Basophils Percent Auto 0.6 % (0-2); Eosinophils Absolute Auto 0.1 X10*3/uL (0.0-0.4); Eosinophils Percent Auto 0.9 % (0-4); Hematocrit 35.8 % (37.0-47.0); Hemoglobin 11.3 g/dl (12.0-16.0); Imm Gran Abs Auto 0.04 X10*3/uL (0.00-0.03); Imm Gran Pct Auto 0.5 % (0.0-0.4); Lymphocytes Absolute Auto 1.3 X10*3/uL (1.2-4.9); Lymphocytes Percent Auto 14.8 % (20-40); Mean Corpuscular HGB Conc 31.6 g/dl (31.0-35.0); Mean Corpuscular Hemoglobin 25.5 pg (27.0-33.0); Mean Corpuscular Volume 80.6 fL (80.0-98.0); Mean Platelet Volume 10.1 fL (9.4-12.3); Monocytes Absolute Auto 0.7 X10*3/uL (0.1-1.2); Monocytes Percent Auto 8.5 % (2-11); Neutrophils Absolute Auto 6.5 x10*3/uL (2.0-8.3); Neutrophils Percent Auto 74.7 % (45-73); Platelet Count 414 X10*3/uL (160-400); Red Blood Count 4.44 X10*6/uL (4.20-5.50); Red Cell Distribution Width 15.6 % (11.0-16.0); White Blood Count 8.7 X10*3/uL (4.8-10.8)
[2024-08-08 02:24] LABS: Alanine Aminotransferase 27 U/L (0-31); Albumin Level 3.8 g/dL (3.5-5.0); Anion Gap 15 (12-20); Aspartate Amino Transferase 67 U/L (5-31); Bilirubin Total 0.3 mg/dL (0.0-1.0); Blood Urea Nitrogen 11 mg/dL (9-16); Calcium 9.5 mg/dL (8.4-10.2); Carbon Dioxide 24 mmol/L (22-29); Chloride 105 mmol/L (96-108); Creatinine Clr Calc Pharmacy 90.6; Estimated Glomerular Filt Rate > 60; Glucose Random 69 mg/dL (60-115); Potassium 4.2 mmol/L (3.3-5.1); Sodium 140 mmol/L (135-145); Total Protein 7.6 g/dL (6.5-8.0)
[2024-08-08 02:25] LABS: Alkaline Phosphatase 154 U/L (39-117)
--- NOTE | 2024-08-08 02:53 | ED_ITS ---
HPI - General Adult General Chief complaint: General Medical Stated complaint: R knee injury Time Seen by Provider: 08/08/24 02:53 Source: patient Limitations: no limitations History of Present Illness ED Provider: Roxanna Benitez PA-C HPI narrative: 19-year-old female presents with right knee pain. Patient states she slipped and fell landing on the right knee, it was deformed . She states that her cousin popped it back into place . Patient is able to flex and extend the knee, she can ambulate to some degree however it causes pain. Related Data Home Medications ?Medication ?Instructions ?Recorded ?Confirmed insulin aspart U-100 100 unit/mL 1 sliding scale dose subcut QID 05/12/24 07/27/24 (3 mL) subcutaneous pen insulin glargine 100 unit/mL (3 42 - 54 unit subcut DAILY 07/27/24 07/27/24 mL) subcutaneous pen (Lantus Solostar U-100 Insulin) Previous Rx's ?Medication ?Instructions ?Recorded blood-glucose meter (FreeStyle #1 ea 10/16/22 Lite Meter kit) lancets 28 gauge (FreeStyle #100 ea 10/16/22 Lancets) blood sugar diagnostic (FreeStyle #100 ea 06/12/24 Lite Strips) pen needle, diabetic 32 gauge x #100 ea 06/12/2405/18 blood sugar diagnostic (FreeStyle #50 ea 07/27/24 Precision Tang Strips) insulin aspart U-100 100 unit/mL 1 sliding scale dose subcut 07/27/24 subcutaneous solution (Novolog USEASDIRECTD #10 mL U-100 Insulin aspart) insulin glargine 100 unit/mL (3 42 unit (0.42 mL) subcut QAM #15 mL 07/27/24 mL) subcutaneous pen (Lantus Solostar U-100 Insulin) insulin syringe-needle U-100 0.5 #100 ea 07/27/24 mL 30 gauge x 5/16 (FreeStyle Precision) methocarbamol 750 mg tablet 750 mg PO BID PRN pain, moderate 08/08/24 #8 tabs Allergies Allergy/AdvReac Type Severity Reaction Status Date / Time No Known Allergies Allergy Verified 08/08/24 01:12 Review of Systems 2 Review of Systems: Yes all other systems are reviewed and are negative Constitutional: Constitutional: Denies fatigue and Denies fever(s) Musculoskeletal: Musculoskeletal: Reports arthralgias and Denies joint swelling Endocrine: Endocrine: Denies fatigue PMFSH Past Medical History Attestation statement: The following information was validated with the patient. Medical History Type 1 diabetes mellitus with proteinuria Social History Social History Household Members: Family Household Members Other:: Lives with Sister Housing: Apartment Do you presently have visiting nurse or other home services: No Alcohol intake: never Patient Tobacco Use Status: Never used Tobacco e-Cigarette/Vaping Use: Never Used Second Hand Smoke Exposure: No Substance Use Type: Marijuana Advance Directives: Yes Advance Directives on File: Yes Advance Directives Date on File: 05/31/24 Do you have a plan to hurt others: No Plan service: No Current occupational status: unemployed Physical Exam ED Vital Signs: Vital Signs - 24 hr 08/08/24 01:08 Temperature 99.5 F Pulse Rate 129 H Respiratory Rate 18 Blood Pressure 122/75 Pulse Oximetry 97 Oxygen Delivery Method Room Air BMI result Body Mass Index 24.7 Const Other: Alert well-appearing Orientation/consciousness: patient oriented x3 Resp Effort & Inspection: normal respiratory effort Cardio Other: normal peripheral perfusion Skin Other: warm dry no rash Neuro General: patient oriented x3, no focal motor deficits and CN's II-XI intact bilaterally Extrem Other: patient able to flex and extend the right knee, minimal swelling medially, no deformity Psych Other: cooperative Medical Decision Making Medical Decision Making MDM Narrative: 19-year-old female presents with right knee pain. Patient states she slipped and fell landing on the right knee, it was deformed . She states that her cousin popped it back into place . Patient is able to flex and extend the knee, she can ambulate to some degree however it causes pain. no chronic issues History: Per patient I have considered the following differential diagnoses: Fracture, dislocation, contusion, sprain Plan: X-ray obtained from triage, there was no fracture or dislocation. It sounds as if the patient's patella was dislocated. We will be sending with a knee immobilizer and crutches, rice measures. I have independently reviewed the following tests: X-ray right knee:Findings: No fractures or dislocations. No significant arthritic change or erosions. No joint effusion. No radiopaque foreign body. IMPRESSION: 1. No acute findings. Lab Data 08/08/24 01:48 08/08/24 01:48 Labs: Lab Results 08/08/24 Range/Units 01:48 WBC 8.7 (4.8-10.8) X10*3/uL RBC 4.44 (4.20-5.50) X10*6/uL Hgb 11.3 L (12.0-16.0) g/dl Hct 35.8 L (37.0-47.0) % MCV 80.6 (80.0-98.0) fL MCH 25.5 L (27.0-33.0) pg MCHC 31.6 (31.0-35.0) g/dl RDW 15.6 (11.0-16.0) % Plt Count 414 H (160-400) X10*3/uL MPV 10.1 (9.4-12.3) fL Immature Gran % (Auto) 0.5 H (0.0-0.4) % Neut % (Auto) 74.7 H (45-73) % Lymph % (Auto) 14.8 L (20-40) % [place] % (Auto) 8.5 (2-11) % Eos % (Auto) 0.9 (0-4) % Baso % (Auto) 0.6 (0-2) % Lymph # (Auto) 1.3 (1.2-4.9) X10*3/uL [place] # (Auto) 0.7 (0.1-1.2) X10*3/uL Eos # (Auto) 0.1 (0.0-0.4) X10*3/uL Baso # (Auto) 0.1 (0.0-0.2) X10*3/uL Abs Immat Gran (auto) 0.04 H (0.00-0.03) X10*3/uL Absolute Neuts (auto) 6.5 (2.0-8.3) x10*3/uL Absolute Nucleated RBC 0.000 (0.0-0.012) X10*3/uL Nucleated RBC % (auto) 0.0 (0.0-0.2) /100WBC Sodium 140 (135-145) mmol/L Potassium 4.2 (3.3-5.1) mmol/L Chloride 105 (96-108) mmol/L Carbon Dioxide 24 (22-29) mmol/L Anion Gap 15 (12-20) BUN 11 (9-16) mg/dL Creatinine 0.68 (0.5-1.4) mg/dL Estim Creat Clear Calc 90.6 Estimated GFR > 60 Random Glucose 69 (60-115) mg/dL Calcium 9.5 D (8.4-10.2) mg/dL Total Bilirubin 0.3 (0.0-1.0) mg/dL AST 67 H (5-31) U/L ALT 27 (0-31) U/L Alkaline Phosphatase 154 H (39-117) U/L Total Protein 7.6 (6.5-8.0) g/dL Albumin 3.8 (3.5-5.0) g/dL Discharge Plan Discharge Clinical Impression: Right knee sprain Patient Disposition: Home, Self-Care Instructions: Knee Sprain (ED), R.I.C.E. Treatment (ED) Additional Instructions: the x-ray was normal, there was no fracture or dislocation. You sustained a sprain. See home care instructions. Use the knee immobilizer and/or a compression sleeve, to help support the joint. Use the crutches as needed, bear weight as tolerated. Alternate between the use of ibuprofen 600 mg taken every 6 hours with food, with the methocarbamol, which is a muscle relaxant. The methocarbamol was cause drowsiness, do not drive or operate machinery while taking the medication. Follow up with your primary care provider as needed. Prescriptions: New methocarbamol 750 mg tablet 750 mg PO BID PRN (Reason: pain, moderate) Qty: 8 0RF No Action (DME) FreeStyle Lite Strips Strip Qty: 100 11RF Rx Instructions: Test four times a day or as directed. (DME) pen needle, diabetic 32 gauge x 1/4 needle Qty: 100 0RF Rx Instructions: Use four times a day or as directed. insulin glargine [Lantus Solostar U-100 Insulin] 100 unit/mL (3 mL) insulin pen 42 - 54 unit subcut DAILY insulin glargine [Lantus Solostar U-100 Insulin] 100 unit/mL (3 mL) insulin pen 42 unit subcut QAM Qty: 15 4RF insulin aspart U-100 [Novolog U-100 Insulin aspart] 100 unit/mL solution 1 sliding scale dose subcut USEASDIRECTD Qty: 10 4RF (DME) insulin syringe-needle U-100 [FreeStyle Precision] 0.5 mL 30 gauge x 5/16 syringe See Rx Instructions .Route Qty: 100 4RF Rx Instructions: As directed (DME) FreeStyle Precision Tang Strips Strip See Rx Instructions .Route Qty: 50 4RF Rx Instructions: As directed (DME) blood-glucose meter [FreeStyle Lite Meter] Kit Qty: 1 0RF Rx Instructions: As Directed (DME) lancets [FreeStyle Lancets] 28 gauge misc Qty: 100 0RF Rx Instructions: Test four times a day or as directed. insulin aspart U-100 100 unit/mL (3 mL) insulin pen 1 sliding scale dose subcut QID Print Language: [place]
[2024-08-08 03:23] VITALS: BP 114/73; PULSE 117; RESP 16; TEMP 37.4; O2SAT 97
[2024-08-08] MEDS: methocarbamoL 750 MG TABLET PO (03:26)
[2024-08-08] MEDS: Ibuprofen 600 MG TABLET PO (03:26)
[2024-08-08 03:29] VITALS: BP 114/73; PULSE 117; RESP 16; TEMP 37.4; O2SAT 97
== END 2024-08-08 03:55 | disposition home or self-care (01) ==
PROVIDERS: Emergency Provider Emergency Medicine
DX: S83.91XA Sprain of unspecified site of right knee, initial encounter (principal); W01.0XXA Fall on same level from slipping, tripping and stumbling without subsequent striking against object, initial encounter; M25.561 Pain in right knee; E10.9 Type 1 diabetes mellitus without complications; Z79.4 Long term (current) use of insulin; F12.90 Cannabis use, unspecified, uncomplicated; Y93.9 Activity, unspecified; Y92.9 Unspecified place or not applicable; Y99.9 Unspecified external cause status
CPT/HCPCS: 36415; 73560; 80053; 85025; 99283; 99284

== ENCOUNTER → 2024-08-08 01:15 | Outpatient (BNV) | payer MEDICAID, SELFPAY | PROVIDERS: Visit Provider Radiology Diagnostic Radiology | DX: M25.561 Pain in right knee (principal) | CPT/HCPCS: 73560 ==

== ENCOUNTER 2024-09-10 23:48 | Emergency (ER) | payer MEDICAID, SELFPAY ==
[2024-09-10 23:52] VITALS: BP 120/77; PULSE 82; RESP 20; TEMP 36.1; O2SAT 99; BMI 28.1
[2024-09-11 00:03] LABS: MANUAL DIFF FLAG NO
[2024-09-11 00:04] LABS: Basophils Absolute Auto 0.1 X10*3/uL (0.0-0.2); Basophils Percent Auto 0.7 % (0-2); Eosinophils Absolute Auto 0.1 X10*3/uL (0.0-0.4); Eosinophils Percent Auto 1.7 % (0-4); Hematocrit 33.7 % (37.0-47.0); Hemoglobin 10.5 g/dl (12.0-16.0); Imm Gran Abs Auto 0.03 X10*3/uL (0.00-0.03); Imm Gran Pct Auto 0.4 % (0.0-0.4); Lymphocytes Absolute Auto 3.3 X10*3/uL (1.2-4.9); Lymphocytes Percent Auto 40.4 % (20-40); Mean Corpuscular HGB Conc 31.2 g/dl (31.0-35.0); Mean Corpuscular Hemoglobin 25.1 pg (27.0-33.0); Mean Corpuscular Volume 80.6 fL (80.0-98.0); Monocytes Absolute Auto 0.7 X10*3/uL (0.1-1.2); Monocytes Percent Auto 8.3 % (2-11); Neutrophils Absolute Auto 3.9 x10*3/uL (2.0-8.3); Neutrophils Percent Auto 48.5 % (45-73); Platelet Count 399 X10*3/uL (160-400); Red Blood Count 4.18 X10*6/uL (4.20-5.50); Red Cell Distribution Width 15.4 % (11.0-16.0); White Blood Count 8.1 X10*3/uL (4.8-10.8)
[2024-09-11 00:17] VITALS: BP 118/79; PULSE 75; RESP 18; TEMP 36.6; O2SAT 98
[2024-09-11 00:29] LABS: Alanine Aminotransferase 24 U/L (0-31); Alkaline Phosphatase 148 U/L (39-117); Anion Gap 14 (12-20); Aspartate Amino Transferase 31 U/L (5-31); Bilirubin Total 0.3 mg/dL (0.0-1.0); Blood Urea Nitrogen 10 mg/dL (9-16); Calcium 9.4 mg/dL (8.4-10.2); Carbon Dioxide 23 mmol/L (22-29); Chloride 104 mmol/L (96-108); Creatinine Clr Calc Pharmacy 99.5; Estimated Glomerular Filt Rate > 60; Glucose Random 288 mg/dL (60-115); Lipase 19 U/L (8-78); Potassium 4.6 mmol/L (3.3-5.1); Sodium 136 mmol/L (135-145); Total Protein 7.7 g/dL (6.5-8.0)
--- NOTE | 2024-09-11 01:33 | ED_ITS ---
HPI - Abdominal Pain General Chief Complaint: Abdominal Pain Stated Complaint: Kidney Pain Time Seen by Provider: 09/11/24 01:32 Source: patient and other (Boyfriend) Mode of arrival: ambulatory Limitations: no limitations History of Present Illness ED Provider: Dr. Rogelio Dennis HPI narrative: 19-year-old female with a history of diabetes, DKA, hypomagnesemia who presents emergency department for evaluation of abdominal pain. The patient states that the pain came on gradually at around 21:00 hours while she was walking. She states the pain radiates across her upper abdomen and to her right back. She states that the pain is a cramping like sensation which has been constant but waxing and waning in intensity. She states that the pain was 8/10 at its worse and at the time of evaluation the pain was 6/10. Patient denied fever, chills, cough, chest pain, shortness of breath, dyspnea on exertion, nausea, vomiting, diarrhea, frequency, urgency or dysuria. Patient was treated in the emergency department on 07/27/2024 for diabetic ketoacidosis secondary to noncompliance with her insulin. The patient states she has been taking your insulin as prescribed. Patient was also hospitalized here at [facility] [place] for diabetic ketoacidosis from 07/18/2024 until 07/20/2024. Related Data Home Medications ?Medication ?Instructions ?Recorded ?Confirmed insulin aspart U-100 100 unit/mL 1 sliding scale dose subcut QID 05/12/24 07/27/24 (3 mL) subcutaneous pen insulin glargine 100 unit/mL (3 42 - 54 unit subcut DAILY 07/27/24 07/27/24 mL) subcutaneous pen (Lantus Solostar U-100 Insulin) Previous Rx's ?Medication ?Instructions ?Recorded blood-glucose meter (FreeStyle #1 ea 10/16/22 Lite Meter kit) lancets 28 gauge (FreeStyle #100 ea 10/16/22 Lancets) blood sugar diagnostic (FreeStyle #100 ea 06/12/24 Lite Strips) pen needle, diabetic 32 gauge x #100 ea 06/12/2405/18 blood sugar diagnostic (FreeStyle #50 ea 07/27/24 Precision Tang Strips) insulin aspart U-100 100 unit/mL 1 sliding scale dose subcut 07/27/24 subcutaneous solution (Novolog USEASDIRECTD #10 mL U-100 Insulin aspart) insulin glargine 100 unit/mL (3 42 unit (0.42 mL) subcut QAM #15 mL 07/27/24 mL) subcutaneous pen (Lantus Solostar U-100 Insulin) insulin syringe-needle U-100 0.5 #100 ea 07/27/24 mL 30 gauge x 5/16 (FreeStyle Precision) methocarbamol 750 mg tablet 750 mg PO BID PRN pain, moderate 08/08/24 #8 tabs acetaminophen 500 mg tablet 1,000 mg (2 x 500 mg) PO Q6H PRN 09/11/24 (Tylenol Extra Strength) pain #20 tabs ibuprofen 400 mg tablet 400 mg PO TID PRN fever or pain 09/11/24 #30 tabs Allergies Allergy/AdvReac Type Severity Reaction Status Date / Time No Known Allergies Allergy Verified 09/10/24 23:53 Review of Systems Review of Systems Yes all other systems are reviewed and are negative [facility] Past Medical History [facility] Narrative: Social history: She denies tobacco, alcohol and drug use. Medical History Type 1 diabetes mellitus with proteinuria Social History Social History Household Members: Family Household Members Other:: Lives with Sister Housing: Apartment Do you presently have visiting nurse or other home services: No Alcohol intake: never Patient Tobacco Use Status: Never used Tobacco Smoked in Last 30 Days: No e-Cigarette/Vaping Use: Never Used Second Hand Smoke Exposure: No Use of substances other than those prescribed or required for medical reasons: No Substance Use Type: Marijuana Advance Directives Date on File: 05/31/24 service: No Current occupational status: unemployed Physical Exam ED Vital Signs: Vital Signs - 24 hr 09/10/24 23:52 09/11/24 00:17 Temperature 97 F 97.9 F Pulse Rate 82 75 Respiratory Rate 20 18 Blood Pressure 120/77 118/79 Pulse Oximetry 99 98 Oxygen Delivery Method Room Air Room Air BMI result Body Mass Index 28.1 Vital signs were normal. Exam: General: Awake, alert in no distress Head: Normocephalic, atraumatic EENT: PERRL, Lids normal, sclera normal, conjunctiva normal, nose normal , ears normal, throat without erythema or exudates Neck: Supple, no adenopathy Lung: breath sounds symmetric, no wheezing, rales or rhonchi Chest: symmetric movement, nontender Heart: regular rate and rhythm, normal S1, S2 no murmurs or rubs Abdomen: soft, mild right upper quadrant tenderness with a negative Perez sign, mild to moderate epigastric tenderness, mild left upper quadrant tenderness, no rebound, no voluntary or involuntary guarding nondistended, normal bowel sounds Back: no vertebral tenderness, no CVAT Extremities: no deformities, moves all extremities symmetrically Neuro: Awake, alert, oriented, normal speech, cranial nerves intact, moves all extremities symmetrically Psych: Pleasant, cooperative Medical Decision Making Medical Decision Making [facility] Narrative: 19-year-old female with a history of diabetes, DKA, hypomagnesemia who presents emergency department for evaluation of constant, cramping like abdominal pain which waxed and waned in intensity, 8/10 in his worse, 6/10 at time of evaluation. The abdominal pain came on gradually 21:00 hours while she was walking. This is the patient's 1st episode of this type of pain. Review of systems were negative. Patient was been compliant with her insulin. Vital signs were unremarkable. Examination did reveal mild upper abdominal tenderness with no localizing tenderness. Differential diagnosis: ?Includes but is not limited to pancreatitis, gastritis, biliary disease, diabetic ketoacidosis, anemia, electrolyte abnormalities Course: 01:57 My interpretation patient's laboratory evaluation is as follows: Normocytic anemia with an H&H of 10.5 and 33.7-chronic. CMP was normal except for an elevated alk-phos of 148. Lipase normal 19.. At this time I do not have a clear etiology for the patient's pain. I did discuss this with the patient. The patient was given ibuprofen 400 mg orally and Tylenol 975 mg orally for pain. She was given prescriptions for these 2 medications, verbal and printed instructions and discharged home. Admission/Observation Consideration of admission/observation: Escalation of care including admission/observation considered (Yes) Lab Data [facility] Lab Attestation statement: I reviewed the patient's lab results. 09/10/24 23:58 09/10/24 23:58 Labs: Lab Results 09/10/24 Range/Units 23:58 WBC 8.1 (4.8-10.8) X10*3/uL RBC 4.18 L (4.20-5.50) X10*6/uL Hgb 10.5 L (12.0-16.0) g/dl Hct 33.7 L (37.0-47.0) % MCV 80.6 (80.0-98.0) fL MCH 25.1 L (27.0-33.0) pg MCHC 31.2 (31.0-35.0) g/dl RDW 15.4 (11.0-16.0) % Plt Count 399 (160-400) X10*3/uL MPV 10.0 (9.4-12.3) fL Immature Gran % (Auto) 0.4 (0.0-0.4) % Neut % (Auto) 48.5 (45-73) % Lymph % (Auto) 40.4 H (20-40) % [place] % (Auto) 8.3 (2-11) % Eos % (Auto) 1.7 (0-4) % Baso % (Auto) 0.7 (0-2) % Lymph # (Auto) 3.3 (1.2-4.9) X10*3/uL [place] # (Auto) 0.7 (0.1-1.2) X10*3/uL Eos # (Auto) 0.1 (0.0-0.4) X10*3/uL Baso # (Auto) 0.1 (0.0-0.2) X10*3/uL Abs Immat Gran (auto) 0.03 (0.00-0.03) X10*3/uL Absolute Neuts (auto) 3.9 (2.0-8.3) x10*3/uL Absolute Nucleated RBC 0.000 (0.0-0.012) X10*3/uL Nucleated RBC % (auto) 0.0 (0.0-0.2) /100WBC Sodium 136 (135-145) mmol/L Potassium 4.6 (3.3-5.1) mmol/L Chloride 104 (96-108) mmol/L Carbon Dioxide 23 (22-29) mmol/L Anion Gap 14 (12-20) BUN 10 (9-16) mg/dL Creatinine 0.66 (0.5-1.4) mg/dL Estim Creat Clear Calc 99.5 Estimated GFR > 60 Random Glucose 288 H (60-115) mg/dL Calcium 9.4 (8.4-10.2) mg/dL Total Bilirubin 0.3 (0.0-1.0) mg/dL AST 31 (5-31) U/L ALT 24 (0-31) U/L Alkaline Phosphatase 148 H (39-117) U/L Total Protein 7.7 (6.5-8.0) g/dL Albumin 4.0 (3.5-5.0) g/dL Lipase 19 (8-78) U/L Independent Historian Clinical information obtained from an independent historian. History obtained from or confirmed by: Other (Boyfriend) Prescription Management I considered prescription management with: Pain Medication (Tylenol and ibuprofen) Chronic Conditions Patient?s care impacted by: Diabetes Discharge Plan Discharge Clinical Impression: Abdominal pain Patient Disposition: Home, Self-Care Additional Instructions: Your blood work was normal. At this time, I do not have a clear cause for your pain but I think it may be related to muscle pain or stomach cramping. Take ibuprofen 400 mg pills, 1 pills every 6 hours as needed for pain or fever. Take Tylenol (acetaminophen) 500 mg pills, 2 pills every 6 hours as needed for pain or fever. Follow-up with your doctor in 2 days. Please return to the emergency department if your symptoms get worse or if you develop any symptoms that are concerning to you. Prescriptions: New acetaminophen [Tylenol Extra Strength] 500 mg tablet 1,000 mg PO Q6H PRN (Reason: pain) Qty: 20 0RF ibuprofen 400 mg tablet 400 mg PO TID PRN (Reason: fever or pain) Qty: 30 0RF No Action (DME) FreeStyle Lite Strips Strip Qty: 100 11RF Rx Instructions: Test four times a day or as directed. (DME) pen needle, diabetic 32 gauge x 1/4 needle Qty: 100 0RF Rx Instructions: Use four times a day or as directed. insulin glargine [Lantus Solostar U-100 Insulin] 100 unit/mL (3 mL) insulin pen 42 - 54 unit subcut DAILY insulin glargine [Lantus Solostar U-100 Insulin] 100 unit/mL (3 mL) insulin pen 42 unit subcut QAM Qty: 15 4RF insulin aspart U-100 [Novolog U-100 Insulin aspart] 100 unit/mL solution 1 sliding scale dose subcut USEASDIRECTD Qty: 10 4RF (DME) insulin syringe-needle U-100 [FreeStyle Precision] 0.5 mL 30 gauge x 5/16 syringe See Rx Instructions .Route Qty: 100 4RF Rx Instructions: As directed (DME) FreeStyle Precision Tang Strips Strip See Rx Instructions .Route Qty: 50 4RF Rx Instructions: As directed (DME) blood-glucose meter [FreeStyle Lite Meter] Kit Qty: 1 0RF Rx Instructions: As Directed (DME) lancets [FreeStyle Lancets] 28 gauge misc Qty: 100 0RF Rx Instructions: Test four times a day or as directed. insulin aspart U-100 100 unit/mL (3 mL) insulin pen 1 sliding scale dose subcut QID methocarbamol 750 mg tablet 750 mg PO BID PRN (Reason: pain, moderate) Qty: 8 0RF Print Language: Norwegian
[2024-09-11] MEDS: Ibuprofen 400 MG TABLET PO (02:07)
[2024-09-11] MEDS: Acetaminophen 325 MG TABLET 975 MG PO (02:08)
[2024-09-11 02:09] VITALS: BP 107/68; PULSE 76; RESP 18; TEMP 36.5; O2SAT 97
== END 2024-09-11 02:19 | disposition home or self-care (01) ==
LOC: HO.ED 09-11 02:11
PROVIDERS: Emergency Provider Emergency Medicine Emergency Medical Services
DX: R10.9 Unspecified abdominal pain (principal); E10.9 Type 1 diabetes mellitus without complications; Z79.4 Long term (current) use of insulin; Z79.899 Other long term (current) drug therapy
CPT/HCPCS: 36415; 80053; 83690; 85025; 99283; 99284

== ENCOUNTER 2024-09-13 00:28 | Emergency (ER) | payer MEDICAID, SELFPAY ==
[2024-09-13 00:33] VITALS: BP 114/72; PULSE 89; O2SAT 99
[2024-09-13 00:36] VITALS: BP 102/62; PULSE 88; RESP 16; TEMP 36.7; O2SAT 99
[2024-09-13 00:40] LABS: Glucose, Whole Blood 73 mg/dL (60-115)
[2024-09-13 00:45] VITALS: BMI 27.7
--- NOTE | 2024-09-13 01:00 | ED.GENADULT ---
HPI - General Adult General Chief complaint: Recheck/Abnormal Lab/Rx Stated complaint: Hypoglycemia was 61, After oral glucose 77 Time Seen by Provider: 09/13/24 00:59 Source: patient Mode of arrival: ambulatory Limitations: no limitations History of Present Illness ED Provider: HPI narrative: Patient is type 1 diabetic on Lantus and Humalog today patient took 34 units of Lantus at noon time only and been eating and drinking normally noticed blood sugar fluctuating all day today maximum was 194 and lowest was 33 prior to arrival patient was given 15 g of oral glucose by EMS and blood sugar improved to 77 patient has says that she been eating normally and had normal dose of insulin and does not know why blood sugar is fluctuating so much. Patient was seen at [facility] 2 days ago for left flank pain workup was negative no UTI was noticed patient denies any nausea vomiting Related Data Home Medications ?Medication ?Instructions ?Recorded ?Confirmed insulin aspart U-100 100 unit/mL 1 sliding scale dose subcut QID 05/12/24 07/27/24 (3 mL) subcutaneous pen insulin glargine 100 unit/mL (3 42 - 54 unit subcut DAILY 07/27/24 07/27/24 mL) subcutaneous pen (Lantus Solostar U-100 Insulin) Previous Rx's ?Medication ?Instructions ?Recorded blood-glucose meter (FreeStyle #1 ea 10/16/22 Lite Meter kit) lancets 28 gauge (FreeStyle #100 ea 10/16/22 Lancets) blood sugar diagnostic (FreeStyle #100 ea 06/12/24 Lite Strips) pen needle, diabetic 32 gauge x #100 ea 06/12/2405/18 blood sugar diagnostic (FreeStyle #50 ea 07/27/24 Precision Tang Strips) insulin aspart U-100 100 unit/mL 1 sliding scale dose subcut 07/27/24 subcutaneous solution (Novolog USEASDIRECTD #10 mL U-100 Insulin aspart) insulin glargine 100 unit/mL (3 42 unit (0.42 mL) subcut QAM #15 mL 07/27/24 mL) subcutaneous pen (Lantus Solostar U-100 Insulin) insulin syringe-needle U-100 0.5 #100 ea 07/27/24 mL 30 gauge x 5/16 (FreeStyle Precision) methocarbamol 750 mg tablet 750 mg PO BID PRN pain, moderate 08/08/24 #8 tabs acetaminophen 500 mg tablet 1,000 mg (2 x 500 mg) PO Q6H PRN 09/11/24 (Tylenol Extra Strength) pain #20 tabs ibuprofen 400 mg tablet 400 mg PO TID PRN fever or pain 09/11/24 #30 tabs Allergies Allergy/AdvReac Type Severity Reaction Status Date / Time No Known Allergies Allergy Verified 09/13/24 00:47 Review of Systems Review of Systems: Yes all other systems are reviewed and are negative FOR[facility]LY [facility], [facility] Past Medical History Medical History Type 1 diabetes mellitus with proteinuria Social History Social History Household Members: Family Household Members Other:: Lives with Sister Housing: Apartment Do you presently have visiting nurse or other home services: No Alcohol intake: never Patient Tobacco Use Status: Never used Tobacco Smoked in Last 30 Days: No e-Cigarette/Vaping Use: Never Used Second Hand Smoke Exposure: No Use of substances other than those prescribed or required for medical reasons: No Substance Use Type: Marijuana Advance Directives: Yes Advance Directives on File: Yes Advance Directives Date on File: 05/31/24 Patient : No service: No Current occupational status: unemployed Physical Exam ED Vital Signs: Vital Signs - 24 hr 09/13/24 00:36 09/13/24 04:10 09/13/24 06:06 Temperature 98.0 F 97.8 F 97.9 F Pulse Rate 88 78 71 Respiratory Rate 16 16 14 Blood Pressure 102/62 89/50 L 93/52 L Pulse Oximetry 99 98 96 Oxygen Delivery Method Room Air Room Air Room Air 09/13/24 06:07 Temperature 97.9 F Pulse Rate 71 Respiratory Rate 14 Blood Pressure 93/52 L Pulse Oximetry 96 Oxygen Delivery Method Room Air BMI result Body Mass Index 27.7 Appearance: Alert. Oriented X3. No acute distress. Eyes: No pallor or icterus ENT: Pharynx normal. Oral Mucosa moist Neck: Normal inspection. Neck supple. CVS: Normal heart rate and rhythm. Pulses normal. Respiratory: No respiratory distress. Equal air entry bilateral, no wheezing/rales/rhonchi Abdomen: Soft and nontender. Bowel sounds are present, no mass palpable, no CVA tenderness Skin: Skin warm and dry. Normal skin color. Normal skin turgor. Extremities: No lower extremity edema. No calf tenderness Neuro: Oriented X 3. No motor deficit. No sensory deficit.No cerebellar signs , cranial nerves II-XII intact Medications Administered Discontinued Medications Generic Name Dose Route Start Last Admin Trade Name Freq PRN Reason Stop Dose Admin Sodium Chloride 1,000 mls @ 999 mls/hr 09/13/24 02:52 09/13/24 04:10 Ns IV 09/13/24 03:52 Infused .Q1H1M ONE Infusion Medical Decision Making Medical Decision Making [facility] Narrative: Patient is a type 1 diabetes on Humalog and Lantus insulin today she took only Lantus in spite of the patient's hypoglycemia episode etiology not sure likely decreased food intake as during stay in the ER patient's blood sugar remained normal after eating sandwich no signs of infection cause of hypoglycemia likely iatrogenic Lab Data [facility] Lab Attestation statement: I reviewed the patient's lab results. 09/13/24 01:00 09/13/24 01:00 Labs: Lab Results 09/13/24 09/13/24 09/13/24 Range/Units 00:35 01:00 02:54 WBC 6.6 (4.8-10.8) X10*3/uL RBC 4.22 (4.20-5.50) X10*6/uL Hgb 10.7 L (12.0-16.0) g/dl Hct 34.3 L (37.0-47.0) % MCV 81.3 (80.0-98.0) fL MCH 25.4 L (27.0-33.0) pg MCHC 31.2 (31.0-35.0) g/dl RDW 15.0 (11.0-16.0) % Plt Count 376 (160-400) X10*3/uL MPV 9.7 (9.4-12.3) fL Immature Gran % (Auto) 0.2 (0.0-0.4) % Neut % (Auto) 46.8 (45-73) % Lymph % (Auto) 39.7 (20-40) % [place] % (Auto) 10.4 (2-11) % Eos % (Auto) 2.0 (0-4) % Baso % (Auto) 0.9 (0-2) % Lymph # (Auto) 2.6 (1.2-4.9) X10*3/uL [place] # (Auto) 0.7 (0.1-1.2) X10*3/uL Eos # (Auto) 0.1 (0.0-0.4) X10*3/uL Baso # (Auto) 0.1 (0.0-0.2) X10*3/uL Abs Immat Gran (auto) 0.01 (0.00-0.03) X10*3/uL Absolute Neuts (auto) 3.1 (2.0-8.3) x10*3/uL Absolute Nucleated RBC 0.000 (0.0-0.012) X10*3/uL Nucleated RBC % (auto) 0.0 (0.0-0.2) /100WBC Sodium 142 (135-145) mmol/L Potassium 3.7 (3.3-5.1) mmol/L Chloride 107 (96-108) mmol/L Carbon Dioxide 25 (22-29) mmol/L Anion Gap 14 (12-20) BUN 13 (9-16) mg/dL Creatinine 0.64 (0.5-1.4) mg/dL Estim Creat Clear Calc 101.8 Estimated GFR > 60 POC Glucose 73 170 H (60-115) mg/dL Random Glucose 93 (60-115) mg/dL Calcium 9.2 (8.4-10.2) mg/dL Total Bilirubin 0.1 (0.0-1.0) mg/dL AST 28 (5-31) U/L ALT 23 (0-31) U/L Alkaline Phosphatase 135 H (39-117) U/L Total Protein 7.4 (6.5-8.0) g/dL Albumin 4.0 (3.5-5.0) g/dL Urine Color Urine Appearance Urine pH (5.0-9.0) Ur Specific [place] (1.005-1.025) Urine Protein (Neg-Trace) mg/dL Urine Glucose (UA) (Negative) mg/dL Urine Ketones (Negative) mg/dL Urine Blood (Negative) Urine Nitrite (Negative) Ur Leukocyte Esterase (Negative) Urine RBC (0-2) /HPF Urine WBC (0-5) /HPF Ur Squamous Epith Cells (0-2) /HPF Urine Bacteria (None Seen) Hyaline Casts (0-2) /LPF Urine Test (NEGATIVE) 09/13/24 Range/Units 04:12 WBC (4.8-10.8) X10*3/uL RBC (4.20-5.50) X10*6/uL Hgb (12.0-16.0) g/dl Hct (37.0-47.0) % MCV (80.0-98.0) fL MCH (27.0-33.0) pg MCHC (31.0-35.0) g/dl RDW (11.0-16.0) % Plt Count (160-400) X10*3/uL MPV (9.4-12.3) fL Immature Gran % (Auto) (0.0-0.4) % Neut % (Auto) (45-73) % Lymph % (Auto) (20-40) % [place] % (Auto) (2-11) % Eos % (Auto) (0-4) % Baso % (Auto) (0-2) % Lymph # (Auto) (1.2-4.9) X10*3/uL [place] # (Auto) (0.1-1.2) X10*3/uL Eos # (Auto) (0.0-0.4) X10*3/uL Baso # (Auto) (0.0-0.2) X10*3/uL Abs Immat Gran (auto) (0.00-0.03) X10*3/uL Absolute Neuts (auto) (2.0-8.3) x10*3/uL Absolute Nucleated RBC (0.0-0.012) X10*3/uL Nucleated RBC % (auto) (0.0-0.2) /100WBC Sodium (135-145) mmol/L Potassium (3.3-5.1) mmol/L Chloride (96-108) mmol/L Carbon Dioxide (22-29) mmol/L Anion Gap (12-20) BUN (9-16) mg/dL Creatinine (0.5-1.4) mg/dL Estim Creat Clear Calc Estimated GFR POC Glucose (60-115) mg/dL Random Glucose (60-115) mg/dL Calcium (8.4-10.2) mg/dL Total Bilirubin (0.0-1.0) mg/dL AST (5-31) U/L ALT (0-31) U/L Alkaline Phosphatase (39-117) U/L Total Protein (6.5-8.0) g/dL Albumin (3.5-5.0) g/dL Urine Color Dark Yellow Urine Appearance Clear Urine pH 5.0 (5.0-9.0) Ur Specific [place] >= 1.030 H (1.005-1.025) Urine Protein 30 (1+) H (Neg-Trace) mg/dL Urine Glucose (UA) 500 H (Negative) mg/dL Urine Ketones Trace (Negative) mg/dL Urine Blood Negative (Negative) Urine Nitrite Negative (Negative) Ur Leukocyte Esterase Negative (Negative) Urine RBC 0-2 (0-2) /HPF Urine WBC 6-10 H (0-5) /HPF Ur Squamous Epith Cells 3-5 (0-2) /HPF Urine Bacteria None Seen (None Seen) Hyaline Casts 0-2 (0-2) /LPF Urine Test NEGATIVE (NEGATIVE) Discharge Plan Discharge Clinical Impression: Diabetes mellitus with hypoglycemia Patient Disposition: Home, Self-Care Instructions: Hypoglycemia in a Person with Diabetes (DC) Additional Instructions: Take your insulin as prescribed and have proper meals 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 (DME) pen needle, diabetic 32 gauge x 1/4 needle Qty: 100 0RF Rx Instructions: Use four times a day or as directed. insulin glargine [Lantus Solostar U-100 Insulin] 100 unit/mL (3 mL) insulin pen 42 - 54 unit subcut DAILY insulin glargine [Lantus Solostar U-100 Insulin] 100 unit/mL (3 mL) insulin pen 42 unit subcut QAM Qty: 15 4RF insulin aspart U-100 [Novolog U-100 Insulin aspart] 100 unit/mL solution 1 sliding scale dose subcut USEASDIRECTD Qty: 10 4RF (DME) insulin syringe-needle U-100 [FreeStyle Precision] 0.5 mL 30 gauge x 5/16 syringe See Rx Instructions .Route Qty: 100 4RF Rx Instructions: As directed (DME) FreeStyle Precision Tang Strips Strip See Rx Instructions .Route Qty: 50 4RF Rx Instructions: As directed (DME) blood-glucose meter [FreeStyle Lite Meter] Kit Qty: 1 0RF Rx Instructions: As Directed (DME) lancets [FreeStyle Lancets] 28 gauge misc Qty: 100 0RF Rx Instructions: Test four times a day or as directed. insulin aspart U-100 100 unit/mL (3 mL) insulin pen 1 sliding scale dose subcut QID methocarbamol 750 mg tablet 750 mg PO BID PRN (Reason: pain, moderate) Qty: 8 0RF acetaminophen [Tylenol Extra Strength] 500 mg tablet 1,000 mg PO Q6H PRN (Reason: pain) Qty: 20 0RF ibuprofen 400 mg tablet 400 mg PO TID PRN (Reason: fever or pain) Qty: 30 0RF Interventions: ED Discharge Assessment Last Done: 09/13/24 06:07 Discharge Date/Time: 09/13/24 06:10 Print Language: [place] Citizen
[2024-09-13 01:07] LABS: Basophils Absolute Auto 0.1 X10*3/uL (0.0-0.2); Basophils Percent Auto 0.9 % (0-2); Eosinophils Absolute Auto 0.1 X10*3/uL (0.0-0.4); Hematocrit 34.3 % (37.0-47.0); Hemoglobin 10.7 g/dl (12.0-16.0); Imm Gran Abs Auto 0.01 X10*3/uL (0.00-0.03); Imm Gran Pct Auto 0.2 % (0.0-0.4); Lymphocytes Absolute Auto 2.6 X10*3/uL (1.2-4.9); Lymphocytes Percent Auto 39.7 % (20-40); MANUAL DIFF FLAG NO; Mean Corpuscular HGB Conc 31.2 g/dl (31.0-35.0); Mean Corpuscular Hemoglobin 25.4 pg (27.0-33.0); Mean Corpuscular Volume 81.3 fL (80.0-98.0); Mean Platelet Volume 9.7 fL (9.4-12.3); Monocytes Absolute Auto 0.7 X10*3/uL (0.1-1.2); Monocytes Percent Auto 10.4 % (2-11); Neutrophils Absolute Auto 3.1 x10*3/uL (2.0-8.3); Neutrophils Percent Auto 46.8 % (45-73); Platelet Count 376 X10*3/uL (160-400); Red Blood Count 4.22 X10*6/uL (4.20-5.50); White Blood Count 6.6 X10*3/uL (4.8-10.8)
[2024-09-13 01:26] LABS: Alanine Aminotransferase 23 U/L (0-31); Alkaline Phosphatase 135 U/L (39-117); Anion Gap 14 (12-20); Aspartate Amino Transferase 28 U/L (5-31); Bilirubin Total 0.1 mg/dL (0.0-1.0); Blood Urea Nitrogen 13 mg/dL (9-16); Calcium 9.2 mg/dL (8.4-10.2); Carbon Dioxide 25 mmol/L (22-29); Chloride 107 mmol/L (96-108); Creatinine Clr Calc Pharmacy 101.8; Estimated Glomerular Filt Rate > 60; Glucose Random 93 mg/dL (60-115); Potassium 3.7 mmol/L (3.3-5.1); Sodium 142 mmol/L (135-145); Total Protein 7.4 g/dL (6.5-8.0)
[2024-09-13] MEDS: 0.9 % Sodium Chloride 1,000 ML 999 ML IV (02:57)
[2024-09-13 02:58] LABS: Glucose, Whole Blood 170 mg/dL (60-115)
[2024-09-13 04:10] VITALS: BP 89/50; PULSE 78; RESP 16; TEMP 36.6; O2SAT 98
[2024-09-13 04:29] LABS: Appearance Urine Clear; Color Urine Dark Yellow; Glucose Urine UA 500 mg/dL (Negative); Leukocyte Esterase Urine Negative (Negative); Nitrite Urine Negative (Negative); Specific Gravity - Urine >= 1.030 (1.005-1.025); UMIC TRIGGER UACC YES; Urine Blood Negative (Negative); Urine Ketones Trace mg/dL (Negative); Urine Protein 30 (1+) mg/dL (Neg-Trace)
[2024-09-13 04:30] LABS: UPreg QC Valid YES; Urine Pregnancy NEGATIVE (NEGATIVE)
[2024-09-13 04:32] LABS: Bacteria Urine None Seen (None Seen); Hyaline Casts Urine 0-2 /LPF (0-2); RBC Urine 0-2 /HPF (0-2); UACC Culture Trigger YES
[2024-09-13 06:06] VITALS: BP 93/52; PULSE 71; RESP 14; TEMP 36.6; O2SAT 96
[2024-09-13 06:07] VITALS: BP 93/52; PULSE 71; RESP 14; TEMP 36.6; O2SAT 96
== END 2024-09-13 06:10 | disposition home or self-care (01) ==
PROVIDERS: Emergency Provider Internal Medicine
DX: E10.649 Type 1 diabetes mellitus with hypoglycemia without coma (principal); Z79.4 Long term (current) use of insulin; Z79.899 Other long term (current) drug therapy
CPT/HCPCS: 36415; 80053; 81001; 81025; 82947; 85025; 87086; 96360; 99284

== ENCOUNTER 2025-01-04 00:53 | Inpatient (IN) | payer MEDICAID, SELFPAY ==
[2025-01-04] VITALS (18 sets, daily range): BP systolic 90–145; BP diastolic 45–81; PULSE 75–148; RESP 14–21; TEMP 36.1–36.6; O2SAT 97–100; BMI 25.5; BMI 25.6; BMI 26.3
--- NOTE | 2025-01-04 | ECG_ITS ---
Test Reason : CHEST TIGHTENING Blood Pressure : */* mmHG Vent. Rate : 126 BPM Atrial Rate : 126 BPM P-R Int : 138 ms QRS Dur : 74 ms QT Int : 320 ms P-R-T Axes : 56 56 41 degrees QTcB Int : 463 ms Sinus tachycardia Otherwise normal ECG When compared with ECG of 27-Jul-2024 00:56, No significant change was found Referred By: Generic ED Physician Electronically Signed By: ANEESH LEW MD
--- NOTE | ~2025-01-04 | CT_ITS ---
CLINICAL HISTORY: pain CT abdomen and pelvis with contrast Comparison: CT - CT ABDOMEN PELVIS W IV CON - 01/04/25 04:[address]/SR - CT ABDOMEN PELVIS WO IV CON - 05/04/2024 12:39 AM EST Findings: The lung bases are clear. The liver, gallbladder, spleen, adrenal glands and pancreas are normal. Kidneys, ureters and bladder appear normal. Uterus and adnexa are within normal limits. Small right adnexal cyst noted. The appendix is not definitively identified. No bowel obstruction, free air, free fluid, abscess or adenopathy. No acute osseous findings. Impression: No definite acute process by CT. Of note, the appendix is not identified. There is no focal inflammatory process involving the right lower quadrant however. This document has been electronically signed by: Gilles Arellano MD on 01/04/2025 05:27:36
[2025-01-04 01:46] LABS: Appearance Urine Clear; Glucose Urine UA >=1000 mg/dL (Negative); PH 5.0 (5.0-9.0); Specific Gravity - Urine 1.025 (1.005-1.025); UMIC TRIGGER UACC YES
[2025-01-04 01:52] LABS: Hematocrit 38.7 % (37.0-47.0); Hemoglobin 11.8 g/dl (12.0-16.0); Imm Gran Abs Auto 0.03 X10*3/uL (0.00-0.03); Imm Gran Pct Auto 0.3 % (0.0-0.4); Lymphocytes Absolute Auto 2.8 X10*3/uL (1.2-4.9); MANUAL DIFF FLAG NO; Mean Corpuscular HGB Conc 30.5 g/dl (31.0-35.0); Mean Corpuscular Hemoglobin 23.5 pg (27.0-33.0); Mean Corpuscular Volume 77.1 fL (80.0-98.0); NRBC Abs Auto 0.000 X10*3/uL (0.0-0.012); NRBC Pct Auto 0.0 /100WBC (0.0-0.2); Platelet Count 366 X10*3/uL (160-400); Red Blood Count 5.02 X10*6/uL (4.20-5.50); White Blood Count 12.0 X10*3/uL (4.8-10.8)
[2025-01-04 02:07] LABS: Glucose, Whole Blood 531 mg/dL (60-115)
[2025-01-04 02:13] LABS: Alanine Aminotransferase 12 U/L (0-31); Albumin Level 4.7 g/dL (3.5-5.0); Alkaline Phosphatase 98 U/L (39-117); Anion Gap 28 (12-20); Aspartate Amino Transferase 28 U/L (5-31); Blood Urea Nitrogen 16 mg/dL (9-16); Calcium 9.7 mg/dL (8.4-10.2); Carbon Dioxide 8 mmol/L (22-29); Chloride 105 mmol/L (96-108); Creatinine Clr Calc Pharmacy 77.3; Estimated Glomerular Filt Rate > 60; Potassium 4.9 mmol/L (3.3-5.1); Sodium 136 mmol/L (135-145); Total Protein 8.1 g/dL (6.5-8.0)
[2025-01-04 02:29] LABS: Venous Blood Gas Refer to POC result
[2025-01-04 02:32] LABS: VBG HCO3 7 mmol/L (22-26); VBG O2 % Saturation 99.0 %
--- NOTE | 2025-01-04 02:57 | ED_ITS ---
HPI - General Adult General Chief complaint: General Medical Stated complaint: N/V , Hyperglycemia Time Seen by Provider: 01/04/25 02:06 Source: patient Limitations: no limitations History of Present Illness ED Provider: Roxanna Benitez PA-C HPI narrative: 19-year-old female with a history of type 1 diabetes, prior DKA, presents with hyperglycemia. Patient noted elevated blood sugars for over day. Associated nausea vomiting. Denies recent cough or cold symptoms, fever, dysuria, diarrhea or abdominal pain. Related Data Home Medications ?Medication ?Instructions ?Recorded ?Confirmed insulin aspart U-100 100 unit/mL 1 sliding scale dose subcut QID 05/12/24 07/27/24 (3 mL) subcutaneous pen insulin glargine 100 unit/mL (3 42 - 54 unit subcut DA LAVERN 07/27/24 07/27/24 mL) subcutaneous pen (Lantus Solostar U-100 Insulin) Previous Rx's ?Medication ?Instructions ?Recorded blood-glucose meter (FreeStyle #1 ea 10/16/22 Lite Meter kit) lancets 28 gauge (FreeStyle #100 ea 10/16/22 Lancets) blood sugar diagnostic (FreeStyle #100 ea 06/12/24 Lite Strips) pen needle, diabetic 32 gauge x #100 ea 06/12/2405/18 blood sugar diagnostic (FreeStyle #50 ea 07/27/24 Precision Tang Strips) insulin aspart U-100 100 unit/mL 1 sliding scale dose subcut 07/27/24 subcutaneous solution (Novolog USEASDIRECTD #10 mL U-100 Insulin aspart) insulin glargine 100 unit/mL (3 42 unit (0.42 mL) subc ut QAM #15 mL 07/27/24 mL) subcutaneous pen (Lantus Solostar U-100 Insulin) insulin syringe-needle U-100 0.5 #100 ea 07/27/24 mL 30 gauge x 5/16 (FreeStyle Precision) methocarbamol 750 mg tablet 750 mg PO BID PRN pain, mo derate 08/08/24 #8 tabs acetaminophen 500 mg tablet 1,000 mg (2 x 500 mg) PO Q 6H PRN 09/11/24 (Tylenol Extra Strength) pain #20 tabs ibuprofen 400 mg tablet 400 mg PO TID PRN fever or p ain 09/11/24 #30 tabs Allergies Allergy/AdvReac Type Severity Reaction Status Date / Time ketorolac (From Toradol) Allergy Facial Verified 01/04/25 01:04 Swelling Review of Systems 2 Review of Systems: Yes all other systems are reviewed and are negative Constitutional: Constitutional: Denies fatigue and Denies fever(s) Cardiovascular: Cardiovascular: Denies chest pain and Denies dyspnea Respiratory: Respiratory: Denies cough and Denies dyspnea Gastrointestinal: Gastrointestinal: Denies abdominal pain, Denies diarrhea, Reports nausea and Reports vomiting Genitourinary: Genitourinary: Denies dysuria Endocrine: Endocrine: Denies fatigue [facility] Past Medical History Attestation statement: The following information was validated with the patient. Medical History Type 1 diabetes mellitus with proteinuria Social History Social History Household Members: Family Household Members Other:: Lives with Sister Housing: Apartment Do you presently have visiting nurse or other home services: No Alcohol intake: never Patient Tobacco Use Status: Never used Tobacco Smoked in Last 30 Days: No e-Cigarette/Vaping Use: Never Used Second Hand Smoke Exposure: No Use of substances other than those prescribed or required for medical reasons: No Substance Use Type: Marijuana Advance Directives: Yes Advance Directives on File: Yes Advance Directives Date on File: 05/31/24 Patient : No service: No Current occupational status: unemployed Physical Exam ED Vital Signs: Vital Signs - 24 hr 01/04/25 01:00 01/04/25 01:45 Temperature 97.9 F Pulse Rate 133 H 148 H Blood Pressure 116/63 145/68 H Pulse Oximetry 98 Oxygen Delivery Method Room Air BMI result Body Mass Index 25.5 Const Other: Awake, ill in appearance Orientation/consciousness: patient oriented x3 HENMT Other: Dry oral mucosa Resp Effort & Inspection: normal respiratory effort Cardio Other: Normal peripheral perfusion Other: Normal external genitalia, opaque discharge noted that was scant, the cervix is pink, no lesions, no CMT, no adnexal tenderness scant amount of bleeding when the os was probed to obtain samples Skin Other: Warm dry no rash Neuro General: patient oriented x3, gait normal, no focal motor deficits and CN's II- XI intact bilaterally Psych Other: Cooperative Course Reevaluation(s) Reevaluation #1: I had already admitted the patient to ICU. She relayed to Tacos that she has been having back pain, belly pain, vaginal pain with discharge. I am now performing a pelvic exam and obtaining GC chlamydia and wet prep. I am also ordering a CT scan of the abdomen and pelvis. To note, I asked the patient several times if she had any infectious sources, she denied multiple times. Time: 04:01 Consultations Consultation #1: Paging ICU, Dr. Diaz..... Message was relayed to the DINO in the ICU overnight,Tacos Hinojosa PA-C.... They will be admitting the patient to their service. Time: 03:04 Medications Administered Generic Name Dose Route Start Last Admin Trade Name Freq PRN Reason Stop Dose Admin Insulin Human Regular 100 unit in 100 mls @ 5 mls/hr 01/04/25 03:00 01/04/25 03:19 Myxredlin IVCONT 5 unit/hr .Q20H CAROLINE 5 mls/hr Protocol Administration 5 UNIT/HR Discontinued Medications Generic Name Dose Route Start Last Admin Trade Name Freq PRN Reason Stop Dose Admin Sodium Chloride 1,000 mls @ 999 mls/hr 01/04/25 02:15 01/04/25 02:58 Ns IV 01/04/25 03:15 0 mls/hr .Q1H1M CAROLINE Infusion Sodium Chloride 1,000 mls @ 999 mls/hr 01/04/25 02:15 01/04/25 02:58 Ns IV 01/04/25 03:15 0 mls/hr .Q1H1M CAROLINE Infusion Lactated Ringer's 1,000 mls @ 999 mls/hr 01/04/25 02:45 01/04/25 02:58 Lr IV 01/04/25 03:45 999 mls/hr .Q1H1M CAROLINE Administration Lactated Ringer's 1,000 mls @ 999 mls/hr 01/04/25 03:00 01/04/25 02:58 Lr IV 01/04/25 04:00 999 mls/hr .Q1H1M CAROLINE Administration Insulin Human Regular 10 unit 01/04/25 02:42 01/04/25 02:56 Insulin Regular, Human 100 Unit/Ml 10 Ml Vial IVPUSH 01/04/25 02:43 10 unit ONCE ONE Administration Ondansetron HCl 4 mg 01/04/25 02:07 01/04/25 02:36 Ondansetron Hcl 4 Mg/2 Ml Vial IVPUSH 01/04/25 02:08 4 mg ONCE ONE Administration Procedures Procedure Narrative Procedure Narrative: Ultrasound-guided IV 20 gauge 1-3/4 inch IV placed in right upper extremity. Adequate blood return, flushes well secured with Tegaderm. Medical Decision Making Medical Decision Making [facility] Narrative: 19-year-old female with a history of type 1 diabetes, prior DKA, presents with hyperglycemia. Patient noted elevated blood sugars for over day. Associated nausea vomiting. Denies recent cough or cold symptoms, fever, dysuria, diarrhea or abdominal pain. Problem: Brittle diabetic, prior DKA History: Per patient I have considered the following differential diagnoses: Hyperglycemia, HHS, DKA, infection Plan: Screening labs are returning, the patient is in DKA. We will be starting aggressive IV fluid therapy, giving 10 units of insulin, starting an insulin drip, reaching out to ICU for consult/admission. I have independently reviewed the following tests: Labs: Leukocytosis of 12, no left shift, not anemic, sodium and chloride are appropriate right now, potassium 4.9, bicarb 8, gap of 28, blood sugar 555, beta hydroxy 5.51, venous blood gas pH 7.23, bicarb 7, urine not infected EKG: Sinus tachycardia, rate of 126, no ischemic changes no ectopy QTC 463 Lab Data 01/04/25 01:47 01/04/25 01:47 Labs: Lab Results 01/04/25 01/04/25 01/04/25 Range/Units 01:37 01:47 02:02 WBC 12.0 H (4.8-10.8) X10*3/uL RBC 5.02 (4.20-5.50) X10*6/uL Hgb 11.8 L (12.0-16.0) g/dl Hct 38.7 (37.0-47.0) % MCV 77.1 L (80.0-98.0) fL MCH 23.5 L (27.0-33.0) pg MCHC 30.5 L (31.0-35.0) g/dl RDW 15.8 (11.0-16.0) % Plt Count 366 (160-400) X10*3/uL MPV 11.1 (9.4-12.3) fL Immature Gran % (Auto) 0.3 (0.0-0.4) % Neut % (Auto) 67.6 (45-73) % Lymph % (Auto) 23.4 (20-40) % [place] % (Auto) 7.3 (2-11) % Eos % (Auto) 0.6 (0-4) % Baso % (Auto) 0.8 (0-2) % Lymph # (Auto) 2.8 (1.2-4.9) X10*3/uL [place] # (Auto) 0.9 (0.1-1.2) X10*3/uL Eos # (Auto) 0.1 (0.0-0.4) X10*3/uL Baso # (Auto) 0.1 (0.0-0.2) X10*3/uL Abs Immat Gran (auto) 0.03 (0.00-0.03) X10*3/uL Absolute Neuts (auto) 8.1 (2.0-8.3) x10*3/uL Absolute Nucleated RBC 0.000 (0.0-0.012) X10*3/uL Nucleated RBC % (auto) 0.0 (0.0-0.2) /100WBC VBG pH (7.32-7.43) VBG pCO2 mmHg VBG pO2 mmHg VBG HCO3 (22-26) mmol/L VBG O2 Saturation % VBG Base Excess mmol/L Sodium 136 (135-145) mmol/L Potassium 4.9 D (3.3-5.1) mmol/L Chloride 105 (96-108) mmol/L Carbon Dioxide 8 L* D (22-29) mmol/L Anion Gap 28 H (12-20) BUN 16 (9-16) mg/dL Creatinine 0.81 (0.5-1.4) mg/dL Estim Creat Clear Calc 77.3 Estimated GFR > 60 POC Glucose 531 H* (60-115) mg/dL Random Glucose 555 H* (60-115) mg/dL Calcium 9.7 (8.4-10.2) mg/dL Magnesium 1.8 (1.6-2.6) mg/dL Total Bilirubin 0.5 (0.0-1.0) mg/dL AST 28 (5-31) U/L ALT 12 (0-31) U/L Alkaline Phosphatase 98 (39-117) U/L Total Protein 8.1 H (6.5-8.0) g/dL Albumin 4.7 (3.5-5.0) g/dL Beta-Hydroxybutyrate 5.51 H (0.02-0.27) mmol/L Beta HCG, Quant < 2 mIU/mL Urine Color Yellow Urine Appearance Clear Urine pH 5.0 (5.0-9.0) Ur Specific [place] 1.025 (1.005-1.025) Urine Protein Negative (Neg-Trace) mg/dL Urine Glucose (UA) >=1000 H (Negative) mg/dL Urine Ketones >=160 (Negative) mg/dL Urine Blood Negative (Negative) Urine Nitrite Negative (Negative) Ur Leukocyte Esterase Negative (Negative) Urine RBC 0-2 (0-2) /HPF Urine WBC 0-5 (0-5) /HPF Ur Squamous Epith Cells 0-2 (0-2) /HPF Urine Bacteria None Seen (None Seen) Hyaline Casts 0-2 (0-2) /LPF 01/04/25 Range/Units 02:28 WBC (4.8-10.8) X10*3/uL RBC (4.20-5.50) X10*6/uL Hgb (12.0-16.0) g/dl Hct (37.0-47.0) % MCV (80.0-98.0) fL MCH (27.0-33.0) pg MCHC (31.0-35.0) g/dl RDW (11.0-16.0) % Plt Count (160-400) X10*3/uL MPV (9.4-12.3) fL Immature Gran % (Auto) (0.0-0.4) % Neut % (Auto) (45-73) % Lymph % (Auto) (20-40) % [place] % (Auto) (2-11) % Eos % (Auto) (0-4) % Baso % (Auto) (0-2) % Lymph # (Auto) (1.2-4.9) X10*3/uL [place] # (Auto) (0.1-1.2) X10*3/uL Eos # (Auto) (0.0-0.4) X10*3/uL Baso # (Auto) (0.0-0.2) X10*3/uL Abs Immat Gran (auto) (0.00-0.03) X10*3/uL Absolute Neuts (auto) (2.0-8.3) x10*3/uL Absolute Nucleated RBC (0.0-0.012) X10*3/uL Nucleated RBC % (auto) (0.0-0.2) /100WBC VBG pH 7.23 L (7.32-7.43) VBG pCO2 16 mmHg VBG pO2 148 mmHg VBG HCO3 7 L (22-26) mmol/L VBG O2 Saturation 99.0 % VBG Base Excess -17.5 mmol/L Sodium (135-145) mmol/L Potassium (3.3-5.1) mmol/L Chloride (96-108) mmol/L Carbon Dioxide (22-29) mmol/L Anion Gap (12-20) BUN (9-16) mg/dL Creatinine (0.5-1.4) mg/dL Estim Creat Clear Calc Estimated GFR POC Glucose (60-115) mg/dL Random Glucose (60-115) mg/dL Calcium (8.4-10.2) mg/dL Magnesium (1.6-2.6) mg/dL Total Bilirubin (0.0-1.0) mg/dL AST (5-31) U/L ALT (0-31) U/L Alkaline Phosphatase (39-117) U/L Total Protein (6.5-8.0) g/dL Albumin (3.5-5.0) g/dL Beta-Hydroxybutyrate (0.02-0.27) mmol/L Beta HCG, Quant mIU/mL Urine Color Urine Appearance Urine pH (5.0-9.0) Ur Specific [place] (1.005-1.025) Urine Protein (Neg-Trace) mg/dL Urine Glucose (UA) (Negative) mg/dL Urine Ketones (Negative) mg/dL Urine Blood (Negative) Urine Nitrite (Negative) Ur Leukocyte Esterase (Negative) Urine RBC (0-2) /HPF Urine WBC (0-5) /HPF Ur Squamous Epith Cells (0-2) /HPF Urine Bacteria (None Seen) Hyaline Casts (0-2) /LPF Critical Care Time Critical Care Time Critical Care Time: Yes Total Critical Care Time: 45 Attestation: Rebecca Benitez have personally performed 45 minutes of critical care time not including lines and procedures; hyperglycemia, DKA, need for insulin drip, aggressive IV fluid management, IV antiemetic Discharge Plan Discharge Clinical Impression: DKA, type 1 Patient Disposition: Admitted As Inpatient
[2025-01-04] MEDS: Lactated Ringers 1,000 ML 999 ML IV ×4 (02:58→17:04)
[2025-01-04] MEDS: Insulin Regular/NS 100 UNIT/100 ML PLAST..BAG IVCONT (03:19)
[2025-01-04 03:22] LABS: Magnesium 1.8 mg/dL (1.6-2.6)
[2025-01-04 03:33] LABS: Glucose, Whole Blood 407 mg/dL (60-115)
--- NOTE | 2025-01-04 03:33 | PM.CCHP ---
History of Present Illness Date of Service: 01/04/25 <RICKEY Hutchison - Last Filed: 01/04/25 22:11> Attending physician on admission: Ian Diaz <RICKEY Hutchison - Last Filed: 01/04/25 22:11> Chief Complaint: DKA <RICKEY Hutchison - Last Filed: 01/04/25 22:11> The patient is a 19-year-old female with underlying history of type 1 diabetes who has had episodes of DKA in the past, recurrent urinary tract infections, AMIRAH, proteinuria. The patient presented to emergency room complaints of nausea, vomiting and hypoglycemia at home, the patient denies any recent illness, upper respiratory infections, urinary symptoms, abdominal pain it states that she is taking her medications as she is supposed to but despite of this her blood sugar had continued to be elevated. The patient states she has felt like she has a low-grade temperature, she also has left lower quadrant abdominal discomfort that comes in waves, sharp in nature radiating towards the back better since she got to the ER. Currently 3/10, as high as 8/10 before. Additionally she has a hot sensation upon urinating and reports a discharge for which she is being treated with a cream as she was seen a couple weeks ago at [facility] for this. The patient denies the possibility of being , she had been once before but had a miscarriage. She was found to be hemodynamically stable, her workup shows a white count 12.0, H and H of 11.8 and 38.7 respectively with platelets of 366, no left shift.? Venous blood gas pH 7.23, pCO2 16, PO2 148, bicarb 7.? Sodium 136, potassium 4.9, chloride 105, carbon dioxide 8, anion gap 28, BUN 16, creatinine 0.8, random glucose 555, beta hydroxybutyrate acid 5.5, beta hCG quantitative less than 2.? Urinalysis shows no evidence of urinary tract infection.? Glucosuria.? The patient was given IV fluids, loading insulin and started on insulin drip.? The patient will be transferred to the ICU for further care. <RICKEY Hutchison - Last Filed: 01/04/25 22:11> Review of Systems Review of Systems: As above, otherwise the patient denies any prior history of strokes, cold intolerance, migraine headaches, head trauma, no eyes, ears or nose problems, no problems swallowing or with phonation, no thyroid disease, denies any history of chest pain, palpitations, coronary disease, cough, sputum production, pneumonia, bronchitis, COPD or emphysema, abdominal pain, diarrhea, abdominal surgeries, melena, hematochezia, hematemesis, hematuria, kidney stones, liver problems, immunocompromise state of any kind, no history of DVT or PE, leg edema, fractures or extremity surgeries all other review of systems were reviewed and they were all negative. <RICKEY Hutchison - Last Filed: 01/04/25 22:11> [facility] Past Medical History Medical History: Medical History Type 1 diabetes mellitus with proteinuria <RICKEY Hutchison - Last Filed: 01/04/25 22:11> Patient : No <RICKEY Hutchison - Last Filed: 01/04/25 22:11> Social History Social History: Social History Household Members: Significant Other Household Members Other:: Lives with Sister Housing: Apartment Do you presently have visiting nurse or other home services: No Alcohol intake: never Patient Tobacco Use Status: Never used Tobacco Smoked in Last 30 Days: No e-Cigarette/Vaping Use: Never Used Second Hand Smoke Exposure: No Use of substances other than those prescribed or required for medical reasons: No Substance Use Type: Marijuana Currently Displaying Signs/Symptoms of Drug Intoxication Withdrawal: No Have you been hit, kicked, punched, or otherwise hurt by someone within the past year? If so, by whom?: No Do you feel safe in your current relationship?: Yes Is there a partner from a previous relationship who is making you feel unsafe now?: No Are you made to feel afraid or neglected: No Advance Directives: Yes Advance Directives on File: Yes Advance Directives Date on File: 05/31/24 Do you have a plan to hurt others: No Plan Recently lost weight without trying: No How much weight loss: Not applicable Eating poorly because of decreased appetite: No Nutrition screen score: 0 Nutrition Risks: No Nutritional Risk Patient : No : No Poor oral hygiene: No service: No Current occupational status: unemployed <RICKEY Hutchison - Last Filed: 01/04/25 22:11> Meds Allergies/Adverse reactions: Allergies Allergy/AdvReac Type Severity Reaction Status Date / Time ketorolac (From Toradol) Allergy Facial Verified 01/04/25 01:04 Swelling <RICKEY Hutchison - Last Filed: 01/04/25 22:11> Active Medications: Current Medications Dextrose (Dextrose 50 % 25 Gm/50 Ml Syringe) 25 gm IVPUSH Q30M PRN PRN Reason: BG < 70 Enoxaparin Sodium (Enoxaparin Sodium 30 Mg/0.3 Ml Syringe) 30 mg SUBCUT Q24H CAROLINE Lactated Ringer's (Lr) 1,000 mls @ 999 mls/hr IV .Q1H1M CAROLINE Stop: 01/04/25 03:45 Last Admin: 01/04/25 02:58 Dose: 999 mls/hr Lactated Ringer's (Lr) 1,000 mls @ 999 mls/hr IV .Q1H1M CAROLINE Stop: 01/04/25 04:00 Last Admin: 01/04/25 02:58 Dose: 999 mls/hr Insulin Human Regular (Myxredlin) 100 unit in 100 mls @ 5 mls/hr IVCONT .Q20H CAROLINE; Protocol Last Admin: 01/04/25 03:19 Dose: 5 unit/hr, 5 mls/hr Lactated Ringer's (Lr) 1,000 mls @ 200 mls/hr IVCONT .Q5H CAROLINE Ondansetron HCl (Ondansetron Hcl 4 Mg/2 Ml Vial) 4 mg IVPUSH Q8H PRN PRN Reason: Nausea Pantoprazole Sodium (Pantoprazole Sodium 40 Mg/10 Ml Vial) 40 mg IVPUSH DAILY ONE Stop: 01/04/25 06:01 <RICKEY Hutchison - Last Filed: 01/04/25 22:11> Home medications: Home Medications ?Medication ?Instructions ?Recorded ?Confirmed ?Last Taken ?Type ferrous sulfate 325 mg (65 mg 325 mg PO DAILY 01/04/25 01/04/25 Unknown History iron) tablet insulin glargine 100 unit/mL (3 22 unit subcut DAILY 01/04/25 01/04/25 Unknown History mL) subcutaneous pen (Lantus Solostar U-100 Insulin) insulin lispro 100 unit/mL 5 - 10 unit subcut TID 01/04/25 01/04/25 Unknown History subcutaneous pen sennosides 8.6 mg tablet (senna) 17.2 mg PO BEDTIME 01/04/25 01/04/25 Unknown History <RICKEY Hutchison - Last Filed: 01/04/25 22:11> Physical Exam Vital Signs: Vital Signs: Last Vital Signs Temp 97.9 F 01/04/25 01:00 Pulse 133 H 01/04/25 01:00 BP 116/63 01/04/25 01:00 Pulse Ox 98 01/04/25 01:00 O2 Del Method Room Air 01/04/25 01:00 BMI result Body Mass Index 25.5 <RICKEY Hutchison - Last Filed: 01/04/25 22:11> General:? Alert oriented x3 no acute distress. Hyperventilating. No accessory muscle usage.? Following all commands. Skin:? Tattoos in the bilateral upper extremities. Thin, Intact, no lesions, edema, erythema, clubbing or cyanosis.? No ulcers. HEENT:? Head is normocephalic, atraumatic, pupils equal. Buccal mucosa is dry . Neck is supple without lymphadenopathy. Cardiac:? Clear S1-S2, tachycardic at 120 beats per minute. No murmurs, rubs, gallops. Pulmonary:? Diminished lung sounds bilaterally fine expiratory wheezing bilaterally .? No crackles, rales or rhonchi Abdomen:? Protuberant, positive bowel sounds in all 4 quadrants.? Soft, nontender, to light palpation, there is tenderness over the left mid and left upper quadrant without rebound. There is positive CVA tenderness on the left. Musculoskeletal:? Moving all 4 extremities upon request a major joints, there is no crepitus or tenderness.? The strength is 5/5 bilaterally and throughout all 4 extremities.? There is no leg edema , no calf tenderness , no leg asymmetry.? Gait not assessed at this point. Genitourinary exam was deferred (to be done by ER provider) Neurologic:? As above.? No focal deficits noted. Vascular:? 2+ pulses upper and lower extremities distally.? Less than 2nd capillary refill of fingers and toes bilaterally upper and lower extremities <RICKEY Hutchison - Last Filed: 01/04/25 22:11> Results Labs CBC and Chem 7: 01/04/25 01:47 01/04/25 13:49 <RICKEY Hutchison - Last Filed: 01/04/25 22:11> Labs: Laboratory Results - last 24 hr 01/04/25 01/04/25 01/04/25 01:37 01:47 02:02 MCV 77.1 L MCH 23.5 L MCHC 30.5 L RDW 15.8 Plt Count 366 MPV 11.1 Immature Gran % (Auto) 0.3 Neut % (Auto) 67.6 Lymph % (Auto) 23.4 [place] % (Auto) 7.3 Eos % (Auto) 0.6 Baso % (Auto) 0.8 Lymph # (Auto) 2.8 [place] # (Auto) 0.9 Eos # (Auto) 0.1 Baso # (Auto) 0.1 Abs Immat Gran (auto) 0.03 Absolute Neuts (auto) 8.1 Absolute Nucleated RBC 0.000 Nucleated RBC % (auto) 0.0 VBG pH VBG pCO2 VBG pO2 VBG HCO3 VBG O2 Saturation VBG Base Excess Anion Gap 28 H Estim Creat Clear Calc 77.3 Estimated GFR > 60 POC Glucose 531 H* Random Glucose 555 H* Calcium 9.7 Magnesium 1.8 Total Bilirubin 0.5 AST 28 ALT 12 Alkaline Phosphatase 98 Total Protein 8.1 H Albumin 4.7 Beta-Hydroxybutyrate 5.51 H Beta HCG, Quant < 2 Urine Color Yellow Urine Appearance Clear Urine pH 5.0 Ur Specific [place] 1.025 Urine Protein Negative Urine Glucose (UA) >=1000 H Urine Ketones >=160 Urine Blood Negative Urine Nitrite Negative Ur Leukocyte Esterase Negative Urine RBC 0-2 Urine WBC 0-5 Ur Squamous Epith Cells 0-2 Urine Bacteria None Seen Hyaline Casts 0-2 01/04/25 02:28 MCV MCH MCHC RDW Plt Count MPV Immature Gran % (Auto) Neut % (Auto) Lymph % (Auto) [place] % (Auto) Eos % (Auto) Baso % (Auto) Lymph # (Auto) [place] # (Auto) Eos # (Auto) Baso # (Auto) Abs Immat Gran (auto) Absolute Neuts (auto) Absolute Nucleated RBC Nucleated RBC % (auto) VBG pH 7.23 L VBG pCO2 16 VBG pO2 148 VBG HCO3 7 L VBG O2 Saturation 99.0 VBG Base Excess -17.5 Anion Gap Estim Creat Clear Calc Estimated GFR POC Glucose Random Glucose Calcium Magnesium Total Bilirubin AST ALT Alkaline Phosphatase Total Protein Albumin Beta-Hydroxybutyrate Beta HCG, Quant Urine Color Urine Appearance Urine pH Ur Specific [place] Urine Protein Urine Glucose (UA) Urine Ketones Urine Blood Urine Nitrite Ur Leukocyte Esterase Urine RBC Urine WBC Ur Squamous Epith Cells Urine Bacteria Hyaline Casts <RICKEY Hutchison - Last Filed: 01/04/25 22:11> Assessment and Plan (1) DKA, type 1: Status: Acute <RICKEY Hutchison - Last Filed: 01/04/25 22:11> ASSESSMENT : 1. Acute DKA 2. Acute metabolic acidosis due to the above 3. Left mid quadrant abdominal discomfort and CVA tenderness rule out nephrolithiasis, other intra-abdominal pathology including mass, constipation 4. Suspected medical noncompliance 5. Vaginal discharge and discomfort upon urinating, rule out STD, less likely pelvic inflammatory syndrome 6. Reactive tachycardia PLAN OF CARE: The patient will be admitted to the ICU, monitor vital signs, I's and O's, the patient received loading dose of insulin and is currently on an insulin drip which will be continued and adjusted per protocol, this will be continued until her anion gap closes x2.? Blood sugar every hour, chemistries every 4 hours with electrolyte replacement as needed. ?Antiemetics. ?I kindly requested the ER provider to obtain test and urine tox screen. Additionally I have also asked them to do a pelvic exam (rule out STD, PID) given her complaints and a CT of the abdomen and pelvis to rule out intra-abdominal pathology causing her low fever sensation and abdominal pain/CVA tenderness, thus leading to DKA. GI PROPHYLAXIS:? IV PPI DVT PROPHYLAXIS:? Lovenox subQ This patient counter and care had a high probability of a clinically significant, sudden, or life threatening deterioration of this patient's condition which required my full and direct attention, intervention and personal management. Critical care time used for critical evaluation of this patient, diagnosis, treatment and coordination of care, review her records and documentation TOTAL CRITICAL CARE TIME? 60? MIN . discussion and coordination with consultants, completely separate from any procedures performed. Patient's care was discussed in detail with Dr. Diaz who is aware of all the above as well as the plan of care for this patient <RICKEY Hutchison - Last Filed: 01/04/25 22:11> ASSESSMENT : 1. Acute DKA 2. Acute metabolic acidosis due to the above 3. Left mid quadrant abdominal discomfort and CVA tenderness rule out nephrolithiasis, other intra-abdominal pathology including mass, constipation 4. Suspected medical noncompliance 5. Vaginal discharge and discomfort upon urinating, rule out STD, less likely pelvic inflammatory syndrome 6. Reactive tachycardia PLAN OF CARE: The patient will be admitted to the ICU, monitor vital signs, I's and O's, the patient received loading dose of insulin and is currently on an insulin drip which will be continued and adjusted per protocol, this will be continued until her anion gap closes x2.? Blood sugar every hour, chemistries every 4 hours with electrolyte replacement as needed. ?Antiemetics. ?I kindly requested the ER provider to obtain test and urine tox screen. Additionally I have also asked them to do a pelvic exam (rule out STD, PID) given her complaints and a CT of the abdomen and pelvis to rule out intra-abdominal pathology causing her low fever sensation and abdominal pain/CVA tenderness, thus leading to DKA. Update: gap closed twice at 11 AM, will switch to SQ insulin 20U Lantus daily with sliding scale insulin. We will start her on diabetic diet. Blood pressure is on the softer side, we will add midodrine 10 TID. Patient does not have any symptoms. We will check lactate. GI PROPHYLAXIS:? IV PPI DVT PROPHYLAXIS:? Lovenox subQ This patient counter and care had a high probability of a clinically significant, sudden, or life threatening deterioration of this patient's condition which required my full and direct attention, intervention and personal management. Critical care time used for critical evaluation of this patient, diagnosis, treatment and coordination of care, review her records and documentation TOTAL CRITICAL CARE TIME? 60? MIN . discussion and coordination with consultants, completely separate from any procedures performed. Patient's care was discussed in detail with Dr. Diaz who is aware of all the above as well as the plan of care for this patient <Ian Diaz MD - Last Filed: 01/04/25 11:32>
[2025-01-04 04:03] LABS: Cannabinoid Screen Urine Not Detected (Not Detect)
[2025-01-04] MEDS: iohexoL 350 MG/ML 100 ML INFUS..BTL 85 ML IV (04:23)
[2025-01-04 04:35] LABS: Glucose, Whole Blood 259 mg/dL (60-115)
--- NOTE | 2025-01-04 04:41 | PC.NURSE ---
Pt brought to CT scan and then to ICU by this RN.
[2025-01-04] MEDS: Dextrose 5 % and Lactated Ring 1,000 ML 100 ML IVCONT (04:53)
[2025-01-04 05:02] LABS: Bacterial Vaginosis PCR NEGATIVE (Negative); Candida Group PCR NOT DETECTED (Not Detect); Candida glab krusei PCR NOT DETECTED (Not Detect); Trichomonas vaginalis PCR NOT DETECTED (Not Detect)
[2025-01-04 05:33] LABS: CT PCR NOT DETECTED (Not Detect.); NG PCR NOT DETECTED (Not Detect.)
[2025-01-04 05:43] LABS: Glucose, Whole Blood 195 mg/dL (60-115)
[2025-01-04 06:14] LABS: Alanine Aminotransferase 16 U/L (0-31); Albumin Level 3.6 g/dL (3.5-5.0); Alkaline Phosphatase 74 U/L (39-117); Anion Gap 16 (12-20); Aspartate Amino Transferase 21 U/L (5-31); Blood Urea Nitrogen 12 mg/dL (9-16); Calcium 8.3 mg/dL (8.4-10.2); Carbon Dioxide 13 mmol/L (22-29); Chloride 112 mmol/L (96-108); Creatinine Clr Calc Pharmacy 97.9; Estimated Glomerular Filt Rate > 60; Lipase 16 U/L (8-78); Potassium 4.2 mmol/L (3.3-5.1); Sodium 137 mmol/L (135-145); Total Protein 6.2 g/dL (6.5-8.0)
[2025-01-04 06:33] LABS: Glucose, Whole Blood 186 mg/dL (60-115)
[2025-01-04 07:32] LABS: Glucose, Whole Blood 164 mg/dL (60-115)
--- NOTE | 2025-01-04 08:07 | PHA.MEDREC ---
Pharmacy Consult ? Medication Reconciliation Pharmacy has completed the medication reconciliation. Patient unable to maintain conversation, only confirmed Lantus but was not able to tell me how many units. Used claim history to complete med rec.
[2025-01-04 09:15] LABS: Glucose, Whole Blood 133 mg/dL (60-115)
[2025-01-04 09:15] LABS: Glucose, Whole Blood 142 mg/dL (60-115)
[2025-01-04 10:05] LABS: Glucose, Whole Blood 134 mg/dL (60-115)
[2025-01-04 10:52] LABS: Alanine Aminotransferase 15 U/L (0-31); Albumin Level 3.4 g/dL (3.5-5.0); Alkaline Phosphatase 68 U/L (39-117); Aspartate Amino Transferase 21 U/L (5-31); Blood Urea Nitrogen 9 mg/dL (9-16); Calcium 8.2 mg/dL (8.4-10.2); Creatinine Clr Calc Pharmacy 99.5; Estimated Glomerular Filt Rate > 60; Total Protein 5.8 g/dL (6.5-8.0)
[2025-01-04 11:03] LABS: Glucose, Whole Blood 126 mg/dL (60-115)
[2025-01-04 11:15] LABS: Anion Gap 12 (12-20); Carbon Dioxide 19 mmol/L (22-29); Chloride 113 mmol/L (96-108); Potassium 4.3 mmol/L (3.3-5.1); Sodium 140 mmol/L (135-145)
[2025-01-04] MEDS: Insulin Glargine,Hum.rec.anlog 100 UNIT/ML 10 ML VIAL 20 UNIT SUBCUT (11:49)
[2025-01-04 12:10] LABS: Glucose, Whole Blood 112 mg/dL (60-115)
[2025-01-04 13:21] LABS: Glucose, Whole Blood 84 mg/dL (60-115)
[2025-01-04 14:14] LABS: Alanine Aminotransferase 8 U/L (0-31); Albumin Level 3.4 g/dL (3.5-5.0); Alkaline Phosphatase 68 U/L (39-117); Anion Gap 13 (12-20); Aspartate Amino Transferase 18 U/L (5-31); Blood Urea Nitrogen 9 mg/dL (9-16); Calcium 8.2 mg/dL (8.4-10.2); Carbon Dioxide 18 mmol/L (22-29); Chloride 112 mmol/L (96-108); Creatinine Clr Calc Pharmacy 94.9; Estimated Glomerular Filt Rate > 60; Potassium 3.9 mmol/L (3.3-5.1); Sodium 139 mmol/L (135-145); Total Protein 5.8 g/dL (6.5-8.0)
[2025-01-04 16:34] LABS: Glucose, Whole Blood 319 mg/dL (60-115)
[2025-01-04] MEDS: 0.9 % Sodium Chloride Flush 3 ML SYRINGE IVFLUSH ×2 (17:00→20:50)
--- NOTE | 2025-01-04 18:42 | PC.NURSE ---
Patient alert and oriented x4, see shift assessment for full details, on Insulin gtt this morning with D5LR, decreased and titrated off as ordered per provider and after Gap WNL'sx3, BP low this AM, LR 1L bolus given as ordered with good effect noted, Midodrine given as ordered, BP dropped again this evening, second dose of Midodrine given and another liter bolus of LR given as ordered, transfered to Med Surg this evening, report given to Hillary FUENTES.
[2025-01-04 20:27] LABS: Glucose, Whole Blood 314 mg/dL (60-115)
[2025-01-05 02:43] VITALS: BP 101/54; PULSE 76; RESP 18; TEMP 36.2; O2SAT 100
[2025-01-05 02:44] LABS: Glucose, Whole Blood 292 mg/dL (60-115)
--- NOTE | 2025-01-05 05:54 | PC.NURSE ---
pt refused lovenox. pt educated on the importance of this medication and discussed the importance of getting up and ambulating.
[2025-01-05 06:47] LABS: Magnesium 1.5 mg/dL (1.6-2.6)
[2025-01-05 07:16] VITALS: BP 95/53; PULSE 72; RESP 16; TEMP 36.1; O2SAT 93
[2025-01-05 07:55] LABS: Glucose, Whole Blood 311 mg/dL (60-115)
[2025-01-05 08:00] LABS: Hemoglobin A1C 221.9314 umol/L; Total Hemoglobin (HGBA1C) 2341.8680 umol/L
[2025-01-05 08:15] LABS: Anion Gap 13 (12-20); Blood Urea Nitrogen 8 mg/dL (9-16); Calcium 7.9 mg/dL (8.4-10.2); Carbon Dioxide 20 mmol/L (22-29); Chloride 110 mmol/L (96-108); Creatinine Clr Calc Pharmacy 107.7; Estimated Glomerular Filt Rate > 60; Potassium 3.9 mmol/L (3.3-5.1); Sodium 139 mmol/L (135-145)
[2025-01-05] MEDS: Insulin Glargine,Hum.rec.anlog 100 UNIT/ML 10 ML VIAL 22 UNIT SUBCUT (08:38)
[2025-01-05] MEDS: 0.9 % Sodium Chloride Flush 3 ML SYRINGE IVFLUSH (08:43)
--- NOTE | 2025-01-05 10:12 | MHC.CM.PN ---
Addendum entered by Marlyn Coleman 01/05/25 14:01: [facility]SPORT ARRANGED FOR PT Addendum entered by Marlyn Coleman 01/05/25 12:56: PT CLEARED TO DC HOME TODAY WITH NO SERVICES Original Note: PT REPORTS SHE LIVES WITH HER SISTER AND IS INDEPENDENT WITH CARE SHE HAS DM SUPPLIES FOR DME AND NO SERVICES DECLINES A HCP SHE SAYS SHE SAW A NEW PCP EARLIER THIS MONTH IN [place], HOWEVER DOES NOT KNOW THE NAME/PRACTICE DCP: HOME WITH NO SERVICES VIA PRIVATE TRANSPORT
[2025-01-05 11:27] LABS: Glucose, Whole Blood 210 mg/dL (60-115)
--- NOTE | 2025-01-05 11:53 | P.DS_ITS ---
DS: Providers Provider Date of Service: 01/05/25 Date of admission: 01/04/25 03:26 Date of discharge: 01/05/25 Primary care physician: Unknown Physician DS: Diagnosis Discharge Diagnosis (1) DKA, type 1: Status: Acute DS: Summary Hospital Course Hospital Course: From the history and physical by the admitting ham smoker RICKEY Hutchison, 01/04/25: The patient is a 19-year-old female with underlying history of type 1 diabetes who has had episodes of DKA in the past, recurrent urinary tract infections, AMIRAH, proteinuria. The patient presented to emergency room complaints of nausea, vomiting and hypoglycemia at home, the patient denies any recent illness, upper respiratory infections, urinary symptoms, abdominal pain it states that she is taking her medications as she is supposed to but despite of this her blood sugar had continued to be elevated. The patient states she has felt like she has a low-grade temperature, she also has left lower quadrant abdominal discomfort that comes in waves, sharp in nature radiating towards the back better since she got to the ER. Currently 3/10, as high as 8/10 before. Additionally she has a hot sensation upon urinating and reports a discharge for which she is being treated with a cream as she was seen a couple weeks ago at [facility] for this. The patient denies the possibility of being , she had been once before but had a miscarriage. She was found to be hemodynamically stable, her workup shows a white count 12.0, H and H of 11.8 and 38.7 respectively with platelets of 366, no left shift.? Venous blood gas pH 7.23, pCO2 16, PO2 148, bicarb 7.? Sodium 136, potassium 4.9, chloride 105, carbon dioxide 8, anion gap 28, BUN 16, creatinine 0.8, random glucose 555, beta hydroxybutyrate acid 5.5, beta hCG quantitative less than 2.? Urinalysis shows no evidence of urinary tract infection.? Glucosuria.? The patient was given IV fluids, loading insulin and started on insulin drip.? The patient will be transferred to the ICU for further care. She was was admitted to the ICU on insulin drip and transitioned back to SQ basal-bolus insulin once her anion gap closed. She was stepped down to the medical-surgical unit. Likely trigger of DKA was gastroenteritis, as she had had some vomiting and diarrhea, which resolved. No evidence of bacterial infection. She was discharged home and should follow up with her primary care doctor and her pensionholder information clerk. In general, she needs better glycemic control givne A1c of 10.6. Time Attestation Discharge Coordination Time (in mins): 40 Quality: Safe Use of Opioids Does Pt have an Active Cancer Diagnosis on the Problem List?: No Quality: Stroke Does the patient have a stroke diagnosis?: No Physical Exam Vital Signs: Vital Signs: Last Vital Signs Temp 97.0 F 01/05/25 07:16 Pulse 72 01/05/25 07:16 Resp 16 01/05/25 07:16 BP 95/53 L 01/05/25 07:16 Pulse Ox 93 01/05/25 07:16 O2 Del Method Room Air 01/05/25 07:16 BMI result Body Mass Index 26.3 Gen: in no acute distress HEENT: sclera anicteric, moist mucus membranes Neck: supple Lungs: clear to auscultation bilaterally Heart: regular rate and rhythm, no murmurs Abd: soft, non-tender, non-distended Ext: no edema Skin: warm/well-perfused Neuro: alert and oriented x3, no focal findings Psych: appropriate affect DS: Data Data Completed and Pending Completed studies during hospitalization [Text1]: Laboratory Results WBC 12.0 X10*3/uL (4.8-10.8) H 01/04/25 01:47 RBC 5.02 X10*6/uL (4.20-5.50) 01/04/25 01:47 Hgb 11.8 g/dl (12.0-16.0) L 01/04/25 01:47 Hct 38.7 % (37.0-47.0) 01/04/25 01:47 MCV 77.1 fL (80.0-98.0) L 01/04/25 01:47 MCH 23.5 pg (27.0-33.0) L 01/04/25 01:47 MCHC 30.5 g/dl (31.0-35.0) L 01/04/25 01:47 RDW 15.8 % (11.0-16.0) 01/04/25 01:47 Plt Count 366 X10*3/uL (160-400) 01/04/25 01:47 MPV 11.1 fL (9.4-12.3) 01/04/25 01:47 Immature Gran % (Auto) 0.3 % (0.0-0.4) 01/04/25 01:47 Neut % (Auto) 67.6 % (45-73) 01/04/25 01:47 Lymph % (Auto) 23.4 % (20-40) 01/04/25 01:47 Beltrami % (Auto) 7.3 % (2-11) 01/04/25 01:47 Eos % (Auto) 0.6 % (0-4) 01/04/25 01:47 Baso % (Auto) 0.8 % (0-2) 01/04/25 01:47 Lymph # (Auto) 2.8 X10*3/uL (1.2-4.9) 01/04/25 01:47 Beltrami # (Auto) 0.9 X10*3/uL (0.1-1.2) 01/04/25 01:47 Eos # (Auto) 0.1 X10*3/uL (0.0-0.4) 01/04/25 01:47 Baso # (Auto) 0.1 X10*3/uL (0.0-0.2) 01/04/25 01:47 Abs Immat Gran (auto) 0.03 X10*3/uL (0.00-0.03) 01/04/25 01:47 Absolute Neuts (auto) 8.1 x10*3/uL (2.0-8.3) 01/04/25 01:47 Absolute Nucleated RBC 0.000 X10*3/uL (0.0-0.012) 01/04/25 01:47 Nucleated RBC % (auto) 0.0 /100WBC (0.0-0.2) 01/04/25 01:47 Hold Purple Top SEE NOTE 01/05/25 06:04 VBG pH 7.23 (7.32-7.43) L 01/04/25 02:28 VBG pCO2 16 mmHg 01/04/25 02:28 VBG pO2 148 mmHg 01/04/25 02:28 VBG HCO3 7 mmol/L (22-26) L 01/04/25 02:28 VBG O2 Saturation 99.0 % 01/04/25 02:28 VBG Base Excess -17.5 mmol/L 01/04/25 02:28 Sodium 139 mmol/L (135-145) 01/05/25 06:04 Potassium 3.9 mmol/L (3.3-5.1) 01/05/25 06:04 Chloride 110 mmol/L (96-108) H 01/05/25 06:04 Carbon Dioxide 20 mmol/L (22-29) L 01/05/25 06:04 Anion Gap 13 (12-20) 01/05/25 06:04 BUN 8 mg/dL (9-16) L 01/05/25 06:04 Creatinine 0.59 mg/dL (0.5-1.4) 01/05/25 06:04 Estim Creat Clear Calc 107.7 01/05/25 06:04 Estimated GFR > 60 01/05/25 06:04 POC Glucose 210 mg/dL (60-115) H 01/05/25 11:23 Random Glucose 350 mg/dL (60-115) H* 01/05/25 06:04 Estimat Average Glucose 263 mg/dL 01/05/25 06:04 Hemoglobin A1c % 10.8 % (<6.0) H 01/05/25 06:04 Lactic Acid 1.2 mmol/L (0.5-2.0) 01/04/25 05:45 Calcium 7.9 mg/dL (8.4-10.2) L 01/05/25 06:04 Phosphorus 2.9 mg/dL (2.7-4.5) 01/05/25 06:04 Magnesium 1.5 mg/dL (1.6-2.6) L 01/05/25 06:04 Total Bilirubin 0.4 mg/dL (0.0-1.0) 01/04/25 13:49 AST 18 U/L (5-31) 01/04/25 13:49 ALT 8 U/L (0-31) 01/04/25 13:49 Alkaline Phosphatase 68 U/L (39-117) 01/04/25 13:49 C-Reactive Protein 0.32 mg/dL (< or = 0.50) 01/04/25 01:47 Total Protein 5.8 g/dL (6.5-8.0) L 01/04/25 13:49 Albumin 3.4 g/dL (3.5-5.0) L 01/04/25 13:49 Lipase 16 U/L (8-78) 01/04/25 05:45 Beta-Hydroxybutyrate 5.51 mmol/L (0.02-0.27) H 01/04/25 01:47 Beta HCG, Quant < 2 mIU/mL 01/04/25 01:47 Urine Color Yellow 01/04/25 01:37 Urine Appearance Clear 01/04/25 01:37 Urine pH 5.0 (5.0-9.0) 01/04/25 01:37 Ur Specific Warren 1.025 (1.005-1.025) 01/04/25 01:37 Urine Protein Negative mg/dL (Neg-Trace) 01/04/25 01:37 Urine Glucose (UA) >=1000 mg/dL (Negative) H 01/04/25 01:37 Urine Ketones >=160 mg/dL (Negative) 01/04/25 01:37 Urine Blood Negative (Negative) 01/04/25 01:37 Urine Nitrite Negative (Negative) 01/04/25 01:37 Ur Leukocyte Esterase Negative (Negative) 01/04/25 01:37 Urine RBC 0-2 /HPF (0-2) 01/04/25 01:37 Urine WBC 0-5 /HPF (0-5) 01/04/25 01:37 Ur Squamous Epith Cells 0-2 /HPF (0-2) 01/04/25 01:37 Urine Bacteria None Seen (None Seen) 01/04/25 01:37 Hyaline Casts 0-2 /LPF (0-2) 01/04/25 01:37 Urine Opiates Screen Not Detected (Not Detect) 01/04/25 03:48 Ur Buprenorphine Scrn Not Detected ng/mL (Not Detect) 01/04/25 03:48 Ur Oxycodone Screen Not Detected ng/mL (Not Detect) 01/04/25 03:48 Urine Methadone Screen Not Detected ng/mL (Not Detect) 01/04/25 03:48 Urine Fentanyl Screen Not Detected (Not Detect) 01/04/25 03:48 Ur Barbiturates Screen Not Detected (Not Detect) 01/04/25 03:48 Ur Phencyclidine Scrn Not Detected (Not Detect) 01/04/25 03:48 Ur Amphetamines Screen Not Detected (Not Detect) 01/04/25 03:48 U Benzodiazepines Scrn Not Detected (Not Detect) 01/04/25 03:48 Urine Cocaine Screen Not Detected (Not Detect) 01/04/25 03:48 U Marijuana (THC) Screen Not Detected (Not Detect) 01/04/25 03:48 Chlam trachomat DNA PCR NOT DETECTED (Not Detect.) 01/04/25 03:58 N.gonorrhoeae DNA (PCR) NOT DETECTED (Not Detect.) 01/04/25 03:58 T. vaginalis (PCR) NOT DETECTED (Not Detect) 01/04/25 03:58 Bact vaginosis (PCR) NEGATIVE (Negative) 01/04/25 03:58 C. krusei/glabrata (PCR) NOT DETECTED (Not Detect) 01/04/25 03:58 Lucia group (PCR) NOT DETECTED (Not Detect) 01/04/25 03:58 Discharge Plan Discharge Anticipated Discharge Date/Time: 01/05/25 11:49 Patient Disposition: Home, Self-Care Discharge Diagnosis: DKA, type 1 diabetes Referrals: Physician,Unknown J [Primary Care Provider, Medical] - 1 Week Discharge Medications: Continued sennosides [senna] 8.6 mg tablet 17.2 mg PO BEDTIME ferrous sulfate 325 mg (65 mg iron) tablet 325 mg PO DAILY insulin lispro 100 unit/mL insulin pen 5 - 10 unit subcut TID insulin glargine [Lantus Solostar U-100 Insulin] 100 unit/mL (3 mL) insulin pen 22 unit subcut DAILY Discharge Orders: Discharge Order (Routine); Ordered 01/05/25 Ordered By: Chu Barba Diet: Diabetic diet Activity on Discharge: As tolerated Stand Alone Forms: Patient Portal Discharge page Print Language: Luxembourgish Care Plan Goals: prevent complications of diabetes mellitus Health Concerns: DKA, type 1 diabetes Plan of Treatment: continue insulin as prescribed follow up with your pensionholder information clerk as scheduled Please follow up with your primary care doctor within 1 week. Return to the hospital if you experience recurrent or worsening symptoms. Assessment: See Discharge Summary.
[2025-01-05 12:11] VITALS: BP 111/68; PULSE 74; RESP 14; TEMP 36.1; O2SAT 98
[2025-01-05 13:50] VITALS: BP 119/74; PULSE 86; RESP 16; TEMP 36.6; O2SAT 99
== END 2025-01-05 14:04 | disposition home or self-care (01) | DRG 420 ==
LOC: HO.ED 03:05 → HO.EDOVER 03:31 → HO.ICU 03:31 → HO.S3 16:08
PROVIDERS: Physician Assistant Medical; Admitting Provider Physician Assistant Medical; Emergency Provider Emergency Medicine; Visit Provider Family Medicine
DX: E10.10 Type 1 diabetes mellitus with ketoacidosis without coma (principal); K52.9 Noninfective gastroenteritis and colitis, unspecified; N73.9 Female pelvic inflammatory disease, unspecified; Z79.899 Other long term (current) drug therapy; Z87.440 Personal history of urinary (tract) infections; Z91.199 Patient's noncompliance with other medical treatment and regimen due to unspecified reason
CPT/HCPCS: 36415; 74177; 80048; 80053; 80307; 81001; 81515; 82010; 82803; 82947; 83036; 83605; 83690; 83735; 84100; 84702; 85025; 86140; 87491; 87591; 93005; 99284; J1650; J2405; J2470; J7120; Q9967

== ENCOUNTER → 2025-01-04 01:26 | Outpatient (BNV) | payer MEDICAID, SELFPAY | PROVIDERS: Admitting Provider Physician Assistant Medical; Emergency Provider Emergency Medicine; Visit Provider Internal Medicine Cardiovascular Disease | DX: R00.0 Tachycardia, unspecified (principal) | CPT/HCPCS: 93010 ==

== ENCOUNTER 2025-01-04 03:26 | Outpatient (BNV) | payer MEDICAID, SELFPAY | END 2025-01-04 03:50 | PROVIDERS: Admitting Provider Physician Assistant Medical; Emergency Provider Emergency Medicine; Visit Provider Radiology Vascular & Interventional Radiology | DX: R10.9 Unspecified abdominal pain (principal) | CPT/HCPCS: 74177 ==

== ENCOUNTER → 2025-01-04 03:26 | Outpatient (BNV) | payer MEDICAID, SELFPAY | PROVIDERS: Admitting Provider Physician Assistant Medical; Emergency Provider Emergency Medicine; Visit Provider Physician Assistant Medical | DX: E10.10 Type 1 diabetes mellitus with ketoacidosis without coma (principal) | CPT/HCPCS: 99291 ==

== ENCOUNTER → 2025-01-04 03:26 | Outpatient (BNV) | payer MEDICAID, SELFPAY | PROVIDERS: Admitting Provider Physician Assistant Medical; Emergency Provider Emergency Medicine; Visit Provider Family Medicine | DX: E10.10 Type 1 diabetes mellitus with ketoacidosis without coma (principal) | CPT/HCPCS: 99239 ==

== ENCOUNTER 2025-03-18 20:02 | Inpatient (IN) | payer MEDICAID, SELFPAY ==
[2025-03-18 20:07] VITALS: BP 107/63; PULSE 128; O2SAT 98
[2025-03-18 20:56] LABS: Glucose, Whole Blood 584 mg/dL (60-115)
[2025-03-18 21:03] VITALS: BP 119/68; PULSE 85; RESP 18; TEMP 36.4; O2SAT 98; BMI 20.9
--- NOTE | 2025-03-18 21:04 | ECG_ITS ---
Test Reason : SOB Blood Pressure : */* mmHG Vent. Rate : 118 BPM Atrial Rate : 118 BPM P-R Int : 140 ms QRS Dur : 74 ms QT Int : 320 ms P-R-T Axes : 61 60 47 degrees QTcB Int : 448 ms Sinus tachycardia Otherwise normal ECG When compared with ECG of 04-Jan-2025 01:26, No significant change was found Referred By: Ronnie Marin Electronically Signed By: Devonte Maria
[2025-03-18 21:23] LABS: MANUAL DIFF FLAG NO
[2025-03-18 21:24] LABS: Hematocrit 38.9 % (37.0-47.0); Hemoglobin 11.7 g/dl (12.0-16.0); Imm Gran Abs Auto 0.02 X10*3/uL (0.00-0.03); Imm Gran Pct Auto 0.3 % (0.0-0.4); Lymphocytes Absolute Auto 1.9 X10*3/uL (1.2-4.9); Mean Corpuscular HGB Conc 30.1 g/dl (31.0-35.0); Mean Corpuscular Hemoglobin 23.9 pg (27.0-33.0); Mean Corpuscular Volume 79.6 fL (80.0-98.0); NRBC Abs Auto 0.000 X10*3/uL (0.0-0.012); NRBC Pct Auto 0.0 /100WBC (0.0-0.2); Platelet Count 396 X10*3/uL (160-400); Red Blood Count 4.89 X10*6/uL (4.20-5.50); White Blood Count 6.9 X10*3/uL (4.8-10.8)
[2025-03-18 21:27] LABS: Appearance Urine Clear; Glucose Urine UA >=1000 mg/dL (Negative); PH 5.5 (5.0-9.0); Specific Gravity - Urine >= 1.030 (1.005-1.025); UMIC TRIGGER UACC YES
[2025-03-18 21:37] LABS: Cannabinoid Screen Urine Not Detected (Not Detect)
[2025-03-18] MEDS: Lactated Ringers 1,000 ML 999 ML IV ×2 (21:41→22:48)
[2025-03-18 21:45] LABS: Alanine Aminotransferase 16 U/L (0-31); Albumin Level 4.7 g/dL (3.5-5.0); Alkaline Phosphatase 140 U/L (39-117); Anion Gap 24 (12-20); Aspartate Amino Transferase 30 U/L (5-31); Blood Urea Nitrogen 14 mg/dL (9-16); Calcium 9.7 mg/dL (8.4-10.2); Carbon Dioxide 14 mmol/L (22-29); Chloride 101 mmol/L (96-108); Creatinine Clr Calc Pharmacy 69.4; Estimated Glomerular Filt Rate > 60; Magnesium 2.0 mg/dL (1.6-2.6); Potassium 5.3 mmol/L (3.3-5.1); Sodium 134 mmol/L (135-145); Total Protein 8.4 g/dL (6.5-8.0)
[2025-03-18 21:51] LABS: VBG HCO3 13 mmol/L (22-26); VBG O2 % Saturation 75.0 %
[2025-03-18 21:51] LABS: Venous Blood Gas Refer to POC result
--- NOTE | 2025-03-18 22:12 | ED.GENADULT ---
HPI - General Adult General Chief complaint: Abdominal Pain Stated complaint: nausea, tachy 130 HR, HIGH POC, bp 114/69 Time Seen by Provider: 03/18/25 21:03 Source: patient, RN notes reviewed and old records reviewed Mode of arrival: EMS Limitations: no limitations History of Present Illness ED Provider: Tania QUINONEZ narrative: 19-year-old female presents for evaluation of nausea and not feeling well. She has a history of type 1 diabetes and an insulin-dependent. She reports that she has been compliant with all medications pain She states that yesterday she noticed her blood sugars were as high as 428 She has been taking her Lantus and Humalog as prescribed. She reports some nausea without vomiting. She denies any abdominal pain or chest pain to me. Denies any burning with urination but does endorse urinary frequency pain She denies any vaginal bleeding or discharge No fevers, chills, cough or sore throat Related Data Home Medications ?Medication ?Instructions ?Recorded ?Confirmed insulin glargine 100 unit/mL (3 25 unit subcut DAILY 01/04/25 03/19/25 mL) subcutaneous pen (Lantus Solostar U-100 Insulin) insulin lispro 100 unit/mL 5 - 10 unit subcut TIDAC 01/04/25 03/19/25 subcutaneous pen (Humalog KwikPen (U-100) Insulin) Allergies Allergy/AdvReac Type Severity Reaction Status Date / Time ketorolac (From Toradol) Allergy Facial Verified 03/18/25 21:07 Swelling Review of Systems Constitutional: Constitutional: Denies body ache(s), Denies chills, Denies fever(s), Denies headache(s), Reports malaise and Reports weakness Eyes: Eyes: Denies blurry vision ENT: Denies vertigo, Denies dizziness and Denies headache(s) Cardiovascular: Cardiovascular: Denies chest pain and Denies dyspnea on exertion Respiratory: Respiratory: Denies cough and Denies dyspnea on exertion Gastrointestinal: Gastrointestinal: Denies abdominal pain, Reports nausea and Denies vomiting Musculoskeletal: Musculoskeletal: Denies back pain Integumentary/Breasts: Skin/Breast: Denies rash Neurologic: Denies vertigo, Denies dizziness, Denies headache(s) and Reports weakness Psychiatric: Psychiatric: Denies anxiety PMFSH Past Medical History Medical History Type 1 diabetes mellitus with proteinuria Social History Social History Household Members: Significant Other Household Members Other:: Lives with Sister Housing: Apartment Do you presently have visiting nurse or other home services: No Alcohol intake: never Patient Tobacco Use Status: Never used Tobacco Smoked in Last 30 Days: No e-Cigarette/Vaping Use: Never Used Second Hand Smoke Exposure: No Use of substances other than those prescribed or required for medical reasons: No Substance Use Type: Marijuana Advance Directives: Yes Advance Directives on File: Yes Advance Directives Date on File: 05/31/24 Patient : No service: No Current occupational status: unemployed Physical Exam ED Vital Signs: Vital Signs - 24 hr 03/18/25 21:03 03/18/25 22:49 03/19/25 02:52 Temperature 97.6 F 97.8 F 97.9 F Pulse Rate 85 108 H 90 Respiratory Rate 18 18 16 Blood Pressure 119/68 117/70 99/60 Pulse Oximetry 98 100 97 Oxygen Delivery Method Room Air Room Air Room Air 03/19/25 04:31 Temperature Pulse Rate 85 Respiratory Rate 16 Blood Pressure Pulse Oximetry 97 Oxygen Delivery Method Room Air BMI result Body Mass Index 20.9 Const General: healthy appearing, comfortable, no acute distress, alert and awake Nutritional Appearance: well nourished Orientation/consciousness: patient oriented x3 HENMT Head: Yes normocephalic and Yes atraumatic Eyes Eyelids: Yes eyelids normal Conjunctivae: conjunctivae normal Sclerae: sclerae normal Corneas: corneas normal Pupils: Equal, round and reactive pupils present EOM: EOMs intact bilaterally Neck Neck: Yes full ROM Resp Effort & Inspection: normal respiratory effort, able to speak in complete sentences and not labored GI Inspection: No distended Palpation (GI): Soft to palpation, not firm, nontender, no guarding and not rigid Skin General skin exam: elasticity normal Neuro General: patient oriented x3 Cranial nerves: Yes CN's II-XII intact bilaterally, Yes Equal, round and reactive pupils present and Yes Bilaterally intact EOM present Cognition (Neuro): normal cognition Extrem Other: Moving all extremities well without any obvious deformities Course Reevaluation(s) Reevaluation #1: Patient's gap has closed, her labs are trending in the right direction, pH is improved from 7.26-7.29. Her CO2 is still somewhat low but again improving. I discussed with the hospitalist for admission and was asked to continue treatment with the insulin drip and repeat labs in 3 hours. Patient is signed out to overnight staff pending admission after repeat labs Time: 02:13 Reevaluation #2: I Roxanna Benitez PA-C have accepted care of the patient at signed out at 2:13 a.m., pending completion of treatment, repeat labs then admission. It is now 4:59 a.m., have repeat labs are as followed, on VBG, the pH is 7.38, bicarb 20, on chemistry, the bicarb is equivalent, there was no gap, it is 11, her sugar is 184 I reached back out to the hospitalist, Dr. Leung..... I was told to give Lantus and to continue the insulin drip for an hour , I already d/c the drip, I am not starting the drip again, there is no medical rationale to do so, her potassium is 3.8 , giving 40 mEq Time: 04:59 Medications Administered Generic Name Dose Route Start Last Admin Trade Name Freq PRN Reason Stop Dose Admin Enoxaparin Sodium 40 mg 03/19/25 07:00 03/19/25 07:09 Enoxaparin Sodium 40 Mg/0.4 Ml Syringe SUBCUT Not Given Q24H [facility] Insulin Human Lispro 0 unit 03/19/25 07:30 03/19/25 11:28 Insulin Lispro 100 Unit/Ml 3 Ml Vial SUBCUT 10 unit QIDACHS [facility] Administration Protocol Sodium Chloride 3 ml 03/19/25 08:00 03/19/25 07:47 0.9 % Sodium Chloride Flush 3 Ml Syringe IVFLUSH 3 ml QSHIFT [facility] Administration Discontinued Medications Generic Name Dose Route Start Last Admin Trade Name Freq PRN Reason Stop Dose Admin Lactated Ringer's 1,000 mls @ 999 mls/hr 03/18/25 21:15 03/18/25 23:57 Lr IV 03/18/25 23:15 Infused .Q1H1M [facility] Insulin Human Regular 100 unit in 100 mls @ 5 mls/hr 03/19/25 00:15 03/19/25 04:58 Myxredlin IVCONT Infused .Q20H [facility] Titration Protocol 5 UNIT/HR Dextrose/Sodium Chloride 1,000 mls @ 125 mls/hr 03/19/25 02:30 03/19/25 05:04 D51/2ns IVCONT Infused .Q8H [facility] Infusion Lactated Ringer's 1,000 mls @ 150 mls/hr 03/19/25 02:30 03/19/25 05:05 Lr IVCONT Infused .Q6H40M [facility] In[facility] Potassium Chloride 10 meq in 100 mls @ 100 mls/hr 03/19/25 05:15 03/19/25 10:59 Potassium Chloride/H20 IV 03/19/25 09:14 Infused Q1H [facility] Insulin Glargine 22 unit 03/19/25 04:58 03/19/25 05:13 Insulin Glargine,Hum.Rec.Anlog 100 Unit/Ml 10 Ml Vial SUBCUT 03/19/25 04:59 22 unit ONCE ONE Administration Insulin Glargine 22 unit 03/19/25 12:33 03/19/25 14:48 Insulin Glargine,Hum.Rec.Anlog 100 Unit/Ml 10 Ml Vial SUBCUT 03/19/25 12:34 22 unit ONCE ONE Administration Insulin Human Regular 10 unit 03/18/25 21:54 03/18/25 22:00 Insulin Regular, Human 100 Unit/Ml 10 Ml Vial IVPUSH 03/18/25 21:55 10 unit ONCE ONE Administration Medical Decision Making Medical Decision Making MDM Narrative: 19-year-old female presents for evaluation of nausea, general body aches and weakness. She has a type 1 diabetic. Her point of care glucose was 568 on arrival to the ED. She has a history of DKA and was admitted in December for the same. She reports being compliant with the medications. She denies any infectious symptoms of fever, chills, cough. She does have some nausea but denies diarrhea. Denies any sick contacts. Plan for a VBG, labs, urinalysis, , viral swabs. We will start treatment IV fluids and we will hold off on insulin until we have a potassium to prevent hypokalemia Differential Diagnosis Differential Diagnoses: The differential diagnosis associated with the presentation includes Hyperglycemia DKA AMIRAH Viral syndrome Gastroenteritis Admission/Observation Consideration of admission/observation: Escalation of care including admission/observation considered Lab Data [facility] Lab Attestation statement: I reviewed the patient's lab results. No leukocytosis the patient has a mild anemia consistent with her baseline. There was no left shift chemistry abnormalities are significant for a pseudo hyponatremia of 134 which is within normal limits once corrected for her hyperglycemia of up to 662. Potassium of 5.3 which will be addressed with IV fluids and insulin. She has a CO2 of low which is likely due to acidosis and DKA. 03/19/25 06:33 03/19/25 06:33 Labs: Lab Results 03/18/25 03/18/25 03/18/25 Range/Units 20:47 21:16 21:18 WBC 6.9 (4.8-10.8) X10*3/uL RBC 4.89 (4.20-5.50) X10*6/uL Hgb 11.7 L (12.0-16.0) g/dl Hct 38.9 (37.0-47.0) % MCV 79.6 L (80.0-98.0) fL MCH 23.9 L (27.0-33.0) pg MCHC 30.1 L (31.0-35.0) g/dl RDW 15.7 (11.0-16.0) % Plt Count 396 (160-400) X10*3/uL MPV 11.2 (9.4-12.3) fL Immature Gran % (Auto) 0.3 (0.0-0.4) % Neut % (Auto) 66.1 (45-73) % Lymph % (Auto) 26.9 (20-40) % [place] % (Auto) 5.7 (2-11) % Eos % (Auto) 0.3 (0-4) % Baso % (Auto) 0.7 (0-2) % Lymph # (Auto) 1.9 (1.2-4.9) X10*3/uL [place] # (Auto) 0.4 (0.1-1.2) X10*3/uL Eos # (Auto) 0.0 (0.0-0.4) X10*3/uL Baso # (Auto) 0.1 (0.0-0.2) X10*3/uL Abs Immat Gran (auto) 0.02 (0.00-0.03) X10*3/uL Absolute Neuts (auto) 4.5 (2.0-8.3) x10*3/uL Absolute Nucleated RBC 0.000 (0.0-0.012) X10*3/uL Nucleated RBC % (auto) 0.0 (0.0-0.2) /100WBC VBG pH (7.32-7.43) VBG pCO2 mmHg VBG pO2 mmHg VBG HCO3 (22-26) mmol/L VBG O2 Saturation % VBG Base Excess mmol/L Sodium 134 L (135-145) mmol/L Potassium 5.3 H D (3.3-5.1) mmol/L Chloride 101 (96-108) mmol/L Carbon Dioxide 14 L (22-29) mmol/L Anion Gap 24 H (12-20) BUN 14 (9-16) mg/dL Creatinine 0.78 (0.5-1.4) mg/dL Estim Creat Clear Calc 69.4 Estimated GFR > 60 POC Glucose 584 H* (60-115) mg/dL Random Glucose 662 H* (60-115) mg/dL Calcium 9.7 D (8.4-10.2) mg/dL Magnesium 2.0 (1.6-2.6) mg/dL Total Bilirubin 0.6 (0.0-1.0) mg/dL AST 30 (5-31) U/L ALT 16 (0-31) U/L Alkaline Phosphatase 140 H (39-117) U/L Total Protein 8.4 H (6.5-8.0) g/dL Albumin 4.7 (3.5-5.0) g/dL Beta HCG, Quant < 2 mIU/mL Urine Color Yellow Urine Appearance Clear Urine pH 5.5 (5.0-9.0) Ur Specific [place] >= 1.030 H (1.005-1.025) Urine Protein Negative (Neg-Trace) mg/dL Urine Glucose (UA) >=1000 H (Negative) mg/dL Urine Ketones >=160 (Negative) mg/dL Urine Blood Moderate (2+) H (Negative) Urine Nitrite Negative (Negative) Ur Leukocyte Esterase Negative (Negative) Urine RBC 0-2 (0-2) /HPF Urine WBC 0-5 (0-5) /HPF Ur Squamous Epith Cells 3-5 (0-2) /HPF Urine Bacteria 1+ (None Seen) Hyaline Casts 0-2 (0-2) /LPF Urine Opiates Screen Not Detected (Not Detect) Ur Buprenorphine Scrn Not Detected (Not Detect) ng/mL Ur Oxycodone Screen Not Detected (Not Detect) ng/mL Urine Methadone Screen Not Detected (Not Detect) ng/mL Urine Fentanyl Screen Not Detected (Not Detect) Ur Barbiturates Screen Not Detected (Not Detect) Ur Phencyclidine Scrn Not Detected (Not Detect) Ur Amphetamines Screen Not Detected (Not Detect) U Benzodiazepines Scrn Not Detected (Not Detect) Urine Cocaine Screen Not Detected (Not Detect) U Marijuana (THC) Screen Not Detected (Not Detect) Ethyl Alcohol < 10 mg/dL Influenza Type A (PCR) (Negative) Influenza Type B (PCR) (Negative) RSV RNA Qual (PCR) (Negative) SARS-CoV-2 RNA (RT-PCR) (Negative) 03/18/25 03/18/25 03/18/25 Range/Units 21:23 22:45 23:50 WBC (4.8-10.8) X10*3/uL RBC (4.20-5.50) X10*6/uL Hgb (12.0-16.0) g/dl Hct (37.0-47.0) % MCV (80.0-98.0) fL MCH (27.0-33.0) pg MCHC (31.0-35.0) g/dl RDW (11.0-16.0) % Plt Count (160-400) X10*3/uL MPV (9.4-12.3) fL Immature Gran % (Auto) (0.0-0.4) % Neut % (Auto) (45-73) % Lymph % (Auto) (20-40) % [place] % (Auto) (2-11) % Eos % (Auto) (0-4) % Baso % (Auto) (0-2) % Lymph # (Auto) (1.2-4.9) X10*3/uL [place] # (Auto) (0.1-1.2) X10*3/uL Eos # (Auto) (0.0-0.4) X10*3/uL Baso # (Auto) (0.0-0.2) X10*3/uL Abs Immat Gran (auto) (0.00-0.03) X10*3/uL Absolute Neuts (auto) (2.0-8.3) x10*3/uL Absolute Nucleated RBC (0.0-0.012) X10*3/uL Nucleated RBC % (auto) (0.0-0.2) /100WBC VBG pH 7.26 L (7.32-7.43) VBG pCO2 28 mmHg VBG pO2 55 mmHg VBG HCO3 13 L (22-26) mmol/L VBG O2 Saturation 75.0 % VBG Base Excess -12.1 mmol/L Sodium (135-145) mmol/L Potassium (3.3-5.1) mmol/L Chloride (96-108) mmol/L Carbon Dioxide (22-29) mmol/L Anion Gap (12-20) BUN (9-16) mg/dL Creatinine (0.5-1.4) mg/dL Estim Creat Clear Calc Estimated GFR POC Glucose 366 H* (60-115) mg/dL Random Glucose (60-115) mg/dL Calcium (8.4-10.2) mg/dL Magnesium (1.6-2.6) mg/dL Total Bilirubin (0.0-1.0) mg/dL AST (5-31) U/L ALT (0-31) U/L Alkaline Phosphatase (39-117) U/L Total Protein (6.5-8.0) g/dL Albumin (3.5-5.0) g/dL Beta HCG, Quant mIU/mL Urine Color Urine Appearance Urine pH (5.0-9.0) Ur Specific [place] (1.005-1.025) Urine Protein (Neg-Trace) mg/dL Urine Glucose (UA) (Negative) mg/dL Urine Ketones (Negative) mg/dL Urine Blood (Negative) Urine Nitrite (Negative) Ur Leukocyte Esterase (Negative) Urine RBC (0-2) /HPF Urine WBC (0-5) /HPF Ur Squamous Epith Cells (0-2) /HPF Urine Bacteria (None Seen) Hyaline Casts (0-2) /LPF Urine Opiates Screen (Not Detect) Ur Buprenorphine Scrn (Not Detect) ng/mL Ur Oxycodone Screen (Not Detect) ng/mL Urine Methadone Screen (Not Detect) ng/mL Urine Fentanyl Screen (Not Detect) Ur Barbiturates Screen (Not Detect) Ur Phencyclidine Scrn (Not Detect) Ur Amphetamines Screen (Not Detect) U Benzodiazepines Scrn (Not Detect) Urine Cocaine Screen (Not Detect) U Marijuana (THC) Screen (Not Detect) Ethyl Alcohol mg/dL Influenza Type A (PCR) NEGATIVE (Negative) Influenza Type B (PCR) NEGATIVE (Negative) RSV RNA Qual (PCR) NEGATIVE (Negative) SARS-CoV-2 RNA (RT-PCR) NEGATIVE (Negative) 03/19/25 03/19/25 03/19/25 Range/Units 01:03 01:12 01:13 WBC (4.8-10.8) X10*3/uL RBC (4.20-5.50) X10*6/uL Hgb (12.0-16.0) g/dl Hct (37.0-47.0) % MCV (80.0-98.0) fL MCH (27.0-33.0) pg MCHC (31.0-35.0) g/dl RDW (11.0-16.0) % Plt Count (160-400) X10*3/uL MPV (9.4-12.3) fL Immature Gran % (Auto) (0.0-0.4) % Neut % (Auto) (45-73) % Lymph % (Auto) (20-40) % [place] % (Auto) (2-11) % Eos % (Auto) (0-4) % Baso % (Auto) (0-2) % Lymph # (Auto) (1.2-4.9) X10*3/uL [place] # (Auto) (0.1-1.2) X10*3/uL Eos # (Auto) (0.0-0.4) X10*3/uL Baso # (Auto) (0.0-0.2) X10*3/uL Abs Immat Gran (auto) (0.00-0.03) X10*3/uL Absolute Neuts (auto) (2.0-8.3) x10*3/uL Absolute Nucleated RBC (0.0-0.012) X10*3/uL Nucleated RBC % (auto) (0.0-0.2) /100WBC VBG pH 7.29 L (7.32-7.43) VBG pCO2 31 mmHg VBG pO2 62 mmHg VBG HCO3 15 L (22-26) mmol/L VBG O2 Saturation 87.0 % VBG Base Excess -9.7 mmol/L Sodium 135 (135-145) mmol/L Potassium 4.2 D (3.3-5.1) mmol/L Chloride 106 (96-108) mmol/L Carbon Dioxide 16 L (22-29) mmol/L Anion Gap 17 (12-20) BUN 11 (9-16) mg/dL Creatinine 0.58 (0.5-1.4) mg/dL Estim Creat Clear Calc 93.4 Estimated GFR > 60 POC Glucose 293 H (60-115) mg/dL Random Glucose 345 H (60-115) mg/dL Calcium 8.7 D (8.4-10.2) mg/dL Magnesium (1.6-2.6) mg/dL Total Bilirubin (0.0-1.0) mg/dL AST (5-31) U/L ALT (0-31) U/L Alkaline Phosphatase (39-117) U/L Total Protein (6.5-8.0) g/dL Albumin (3.5-5.0) g/dL Beta HCG, Quant mIU/mL Urine Color Urine Appearance Urine pH (5.0-9.0) Ur Specific [place] (1.005-1.025) Urine Protein (Neg-Trace) mg/dL Urine Glucose (UA) (Negative) mg/dL Urine Ketones (Negative) mg/dL Urine Blood (Negative) Urine Nitrite (Negative) Ur Leukocyte Esterase (Negative) Urine RBC (0-2) /HPF Urine WBC (0-5) /HPF Ur Squamous Epith Cells (0-2) /HPF Urine Bacteria (None Seen) Hyaline Casts (0-2) /LPF Urine Opiates Screen (Not Detect) Ur Buprenorphine Scrn (Not Detect) ng/mL Ur Oxycodone Screen (Not Detect) ng/mL Urine Methadone Screen (Not Detect) ng/mL Urine Fentanyl Screen (Not Detect) Ur Barbiturates Screen (Not Detect) Ur Phencyclidine Scrn (Not Detect) Ur Amphetamines Screen (Not Detect) U Benzodiazepines Scrn (Not Detect) Urine Cocaine Screen (Not Detect) U Marijuana (THC) Screen (Not Detect) Ethyl Alcohol mg/dL Influenza Type A (PCR) (Negative) Influenza Type B (PCR) (Negative) RSV RNA Qual (PCR) (Negative) SARS-CoV-2 RNA (RT-PCR) (Negative) 03/19/25 03/19/25 03/19/25 Range/Units 02:18 03:20 04:23 WBC (4.8-10.8) X10*3/uL RBC (4.20-5.50) X10*6/uL Hgb (12.0-16.0) g/dl Hct (37.0-47.0) % MCV (80.0-98.0) fL MCH (27.0-33.0) pg MCHC (31.0-35.0) g/dl RDW (11.0-16.0) % Plt Count (160-400) X10*3/uL MPV (9.4-12.3) fL Immature Gran % (Auto) (0.0-0.4) % Neut % (Auto) (45-73) % Lymph % (Auto) (20-40) % [place] % (Auto) (2-11) % Eos % (Auto) (0-4) % Baso % (Auto) (0-2) % Lymph # (Auto) (1.2-4.9) X10*3/uL [place] # (Auto) (0.1-1.2) X10*3/uL Eos # (Auto) (0.0-0.4) X10*3/uL Baso # (Auto) (0.0-0.2) X10*3/uL Abs Immat Gran (auto) (0.00-0.03) X10*3/uL Absolute Neuts (auto) (2.0-8.3) x10*3/uL Absolute Nucleated RBC (0.0-0.012) X10*3/uL Nucleated RBC % (auto) (0.0-0.2) /100WBC VBG pH (7.32-7.43) VBG pCO2 mmHg VBG pO2 mmHg VBG HCO3 (22-26) mmol/L VBG O2 Saturation % VBG Base Excess mmol/L Sodium 136 (135-145) mmol/L Potassium 3.8 (3.3-5.1) mmol/L Chloride 109 H (96-108) mmol/L Carbon Dioxide 20 L (22-29) mmol/L Anion Gap 11 L (12-20) BUN 10 (9-16) mg/dL Creatinine 0.47 L (0.5-1.4) mg/dL Estim Creat Clear Calc 115.3 Estimated GFR > 60 POC Glucose 186 H 208 H (60-115) mg/dL Random Glucose 184 H (60-115) mg/dL Calcium 8.5 (8.4-10.2) mg/dL Magnesium (1.6-2.6) mg/dL Total Bilirubin (0.0-1.0) mg/dL AST (5-31) U/L ALT (0-31) U/L Alkaline Phosphatase (39-117) U/L Total Protein (6.5-8.0) g/dL Albumin (3.5-5.0) g/dL Beta HCG, Quant mIU/mL Urine Color Urine Appearance Urine pH (5.0-9.0) Ur Specific [place] (1.005-1.025) Urine Protein (Neg-Trace) mg/dL Urine Glucose (UA) (Negative) mg/dL Urine Ketones (Negative) mg/dL Urine Blood (Negative) Urine Nitrite (Negative) Ur Leukocyte Esterase (Negative) Urine RBC (0-2) /HPF Urine WBC (0-5) /HPF Ur Squamous Epith Cells (0-2) /HPF Urine Bacteria (None Seen) Hyaline Casts (0-2) /LPF Urine Opiates Screen (Not Detect) Ur Buprenorphine Scrn (Not Detect) ng/mL Ur Oxycodone Screen (Not Detect) ng/mL Urine Methadone Screen (Not Detect) ng/mL Urine Fentanyl Screen (Not Detect) Ur Barbiturates Screen (Not Detect) Ur Phencyclidine Scrn (Not Detect) Ur Amphetamines Screen (Not Detect) U Benzodiazepines Scrn (Not Detect) Urine Cocaine Screen (Not Detect) U Marijuana (THC) Screen (Not Detect) Ethyl Alcohol mg/dL Influenza Type A (PCR) (Negative) Influenza Type B (PCR) (Negative) RSV RNA Qual (PCR) (Negative) SARS-CoV-2 RNA (RT-PCR) (Negative) 03/19/25 03/19/25 Range/Units 04:27 04:32 WBC (4.8-10.8) X10*3/uL RBC (4.20-5.50) X10*6/uL Hgb (12.0-16.0) g/dl Hct (37.0-47.0) % MCV (80.0-98.0) fL MCH (27.0-33.0) pg MCHC (31.0-35.0) g/dl RDW (11.0-16.0) % Plt Count (160-400) X10*3/uL MPV (9.4-12.3) fL Immature Gran % (Auto) (0.0-0.4) % Neut % (Auto) (45-73) % Lymph % (Auto) (20-40) % [place] % (Auto) (2-11) % Eos % (Auto) (0-4) % Baso % (Auto) (0-2) % Lymph # (Auto) (1.2-4.9) X10*3/uL [place] # (Auto) (0.1-1.2) X10*3/uL Eos # (Auto) (0.0-0.4) X10*3/uL Baso # (Auto) (0.0-0.2) X10*3/uL Abs Immat Gran (auto) (0.00-0.03) X10*3/uL Absolute Neuts (auto) (2.0-8.3) x10*3/uL Absolute Nucleated RBC (0.0-0.012) X10*3/uL Nucleated RBC % (auto) (0.0-0.2) /100WBC VBG pH 7.38 (7.32-7.43) VBG pCO2 34 mmHg VBG pO2 78 mmHg VBG HCO3 20 L (22-26) mmol/L VBG O2 Saturation 96.0 % VBG Base Excess -3.8 mmol/L Sodium (135-145) mmol/L Potassium (3.3-5.1) mmol/L Chloride (96-108) mmol/L Carbon Dioxide (22-29) mmol/L Anion Gap (12-20) BUN (9-16) mg/dL Creatinine (0.5-1.4) mg/dL Estim Creat Clear Calc Estimated GFR POC Glucose 162 H (60-115) mg/dL Random Glucose (60-115) mg/dL Calcium (8.4-10.2) mg/dL Magnesium (1.6-2.6) mg/dL Total Bilirubin (0.0-1.0) mg/dL AST (5-31) U/L ALT (0-31) U/L Alkaline Phosphatase (39-117) U/L Total Protein (6.5-8.0) g/dL Albumin (3.5-5.0) g/dL Beta HCG, Quant mIU/mL Urine Color Urine Appearance Urine pH (5.0-9.0) Ur Specific [place] (1.005-1.025) Urine Protein (Neg-Trace) mg/dL Urine Glucose (UA) (Negative) mg/dL Urine Ketones (Negative) mg/dL Urine Blood (Negative) Urine Nitrite (Negative) Ur Leukocyte Esterase (Negative) Urine RBC (0-2) /HPF Urine WBC (0-5) /HPF Ur Squamous Epith Cells (0-2) /HPF Urine Bacteria (None Seen) Hyaline Casts (0-2) /LPF Urine Opiates Screen (Not Detect) Ur Buprenorphine Scrn (Not Detect) ng/mL Ur Oxycodone Screen (Not Detect) ng/mL Urine Methadone Screen (Not Detect) ng/mL Urine Fentanyl Screen (Not Detect) Ur Barbiturates Screen (Not Detect) Ur Phencyclidine Scrn (Not Detect) Ur Amphetamines Screen (Not Detect) U Benzodiazepines Scrn (Not Detect) Urine Cocaine Screen (Not Detect) U Marijuana (THC) Screen (Not Detect) Ethyl Alcohol mg/dL Influenza Type A (PCR) (Negative) Influenza Type B (PCR) (Negative) RSV RNA Qual (PCR) (Negative) SARS-CoV-2 RNA (RT-PCR) (Negative) Critical Care Time Critical Care Time Critical Care Time: Yes Total Critical Care Time: 45 Attestation: For DKA management Patient required aggressive fluid hydration, IV insulin, IV dextrose for management of diabetic ketoacidosis. Discharge Plan Discharge Clinical Impression: DKA, type 1 Patient Disposition: Admitted As Inpatient
[2025-03-18 22:49] VITALS: BP 117/70; PULSE 108; RESP 18; TEMP 36.6; O2SAT 100
[2025-03-18 23:27] LABS: Resp Syncy Virus RNA Qual PCR NEGATIVE (Negative); SARS COV2 PCR INHOUSE NEGATIVE (Negative)
[2025-03-18 23:54] LABS: Glucose, Whole Blood 366 mg/dL (60-115)
[2025-03-19] MEDS: Insulin Regular/NS 100 UNIT/100 ML PLAST..BAG IVCONT (00:19)
--- NOTE | 2025-03-19 00:23 | PC.NURSE ---
verified starting rate for insulin drip with Jasson Toussaint in pharmacy.
[2025-03-19 01:16] LABS: Venous Blood Gas Refer to POC result
[2025-03-19 01:17] LABS: VBG HCO3 15 mmol/L (22-26); VBG O2 % Saturation 87.0 %
[2025-03-19 01:17] LABS: Glucose, Whole Blood 293 mg/dL (60-115)
[2025-03-19 01:27] LABS: Anion Gap 17 (12-20); Blood Urea Nitrogen 11 mg/dL (9-16); Calcium 8.7 mg/dL (8.4-10.2); Carbon Dioxide 16 mmol/L (22-29); Chloride 106 mmol/L (96-108); Creatinine Clr Calc Pharmacy 93.4; Estimated Glomerular Filt Rate > 60; Potassium 4.2 mmol/L (3.3-5.1); Sodium 135 mmol/L (135-145)
[2025-03-19 02:21] LABS: Glucose, Whole Blood 186 mg/dL (60-115)
[2025-03-19] MEDS: Dextrose 5 % and 0.45 % NaCl 1,000 ML 125 ML IVCONT (02:43)
[2025-03-19] MEDS: Lactated Ringers 1,000 ML 150 ML IVCONT (02:47)
[2025-03-19 02:52] VITALS: BP 99/60; PULSE 90; RESP 16; TEMP 36.6; O2SAT 97
[2025-03-19 03:23] LABS: Glucose, Whole Blood 208 mg/dL (60-115)
[2025-03-19 04:31] VITALS: PULSE 85; RESP 16; O2SAT 97
[2025-03-19 04:32] LABS: Glucose, Whole Blood 162 mg/dL (60-115)
[2025-03-19 04:34] LABS: Venous Blood Gas Refer to POC result
[2025-03-19 04:36] LABS: VBG HCO3 20 mmol/L (22-26); VBG O2 % Saturation 96.0 %
[2025-03-19 04:52] LABS: Anion Gap 11 (12-20); Blood Urea Nitrogen 10 mg/dL (9-16); Calcium 8.5 mg/dL (8.4-10.2); Carbon Dioxide 20 mmol/L (22-29); Chloride 109 mmol/L (96-108); Creatinine Clr Calc Pharmacy 115.3; Estimated Glomerular Filt Rate > 60; Potassium 3.8 mmol/L (3.3-5.1); Sodium 136 mmol/L (135-145)
[2025-03-19] MEDS: Insulin Glargine,Hum.rec.anlog 100 UNIT/ML 10 ML VIAL 22 UNIT SUBCUT ×2 (05:13→14:48)
[2025-03-19] MEDS: Potassium Chloride/H20 10 MEQ/100 ML PIGGYBACK 100 MEQ IV ×4 (05:25→09:08)
--- NOTE | 2025-03-19 05:45 | PM.IMHP ---
History of Present Illness Date of Service: 03/19/25 Attending physician on admission: Raffy Leung Chief Complaint: abd pain pt is a 19 yo f with a pmhx significant for T1DM, who presented to the ED with abd pain, chest apin and nausea starting yesterday afternoon. POC was 584. pt states that when she is angry she does not taker her medications, but reports compliance this time. she does report a mild cough the past 3 days, no fever, chills, congestion or urinary sx. w/u in the ED significant for DKA, placed on insulin gtt with improvement, gap closed. Review of Systems Constitutional: Constitutional: Denies body ache(s), Denies chills, Denies fatigue, Denies fever(s) and Denies headache(s) Eyes: Eyes: Denies change in vision ENT: Denies headache(s), Denies nasal discharge and Denies sore throat Cardiovascular: Cardiovascular: Reports chest pain, Denies rapid heart rate, Denies leg edema, Denies lightheadedness and Denies dyspnea Respiratory: Respiratory: Denies cough, Denies dyspnea and Denies wheezing Gastrointestinal: Gastrointestinal: Reports as per HPI, Reports abdominal pain, Denies diarrhea and Reports nausea Genitourinary: Genitourinary: Denies dysuria and Denies urinary urgency Integumentary/Breasts: Skin/Breast: Denies rash Neurologic: Denies confusion and Denies headache(s) Psychiatric: Psychiatric: Denies confusion Endocrine: Endocrine: Denies fatigue Hematologic/Lymphatic: Hematologic/Lymphatic: Denies easy bleeding Allergic/Immunologic: Allergic/Immunologic: Denies wheezing [facility] Medical History Type 1 diabetes mellitus with proteinuria Functional capacity: independent ambulation Social History Household Members: Significant Other Household Members Other:: Lives with Sister Housing: Apartment Do you presently have visiting nurse or other home services: No Alcohol intake: never Patient Tobacco Use Status: Never used Tobacco Smoked in Last 30 Days: No e-Cigarette/Vaping Use: Never Used Second Hand Smoke Exposure: No Use of substances other than those prescribed or required for medical reasons: No Substance Use Type: Marijuana Advance Directives: Yes Advance Directives on File: Yes Advance Directives Date on File: 05/31/24 Patient : No service: No Current occupational status: unemployed Meds Allergies Allergy/AdvReac Type Severity Reaction Status Date / Time ketorolac (From Toradol) Allergy Facial Verified 03/18/25 21:07 Swelling Active Medications: Current Medications Acetaminophen (Acetaminophen 325 Mg Tablet) 650 mg PO Q6H PRN PRN Reason: Pain, Mild 1-3,fever,headache Calcium Carbonate (Calcium Carbonate 750 Mg Tab.Chew) 750 mg PO Q4H PRN PRN Reason: Heartburn Dextrose (Dextrose 50 % 25 Gm/50 Ml Syringe) 25 gm IVPUSH Q30M PRN PRN Reason: BG < 70 Enoxaparin Sodium (Enoxaparin Sodium 40 Mg/0.4 Ml Syringe) 40 mg SUBCUT Q24H CAROLINE Potassium Chloride (Potassium Chloride/H20) 10 meq in 100 mls @ 100 mls/hr IV Q1H CAROLINE Stop: 03/19/25 09:14 Last Admin: 03/19/25 05:25 Dose: 100 mls/hr Magnesium Hydroxide (Milk Of Magnesia 30 Ml Oral.Susp) 30 ml PO DAILY PRN PRN Reason: Constipation Melatonin (Melatonin 3 Mg Tablet) 6 mg PO BEDTIME PRN PRN Reason: Insomnia Ondansetron HCl (Ondansetron Hcl 4 Mg/2 Ml Vial) 4 mg IVPUSH Q8H PRN PRN Reason: Nausea and Vomiting Oxycodone HCl (Oxycodone Hcl Immed Release 5 Mg Tablet) 5 mg PO Q6H PRN PRN Reason: Pain, Severe (Pain Scale 7-10) Sodium Chloride (0.9 % Sodium Chloride Flush 3 Ml Syringe) 3 ml IVFLUSH QSHIFT CAROLINE Tramadol HCl (Tramadol Hcl 50 Mg Tablet) 50 mg PO Q6H PRN PRN Reason: Pain, Moderate(Pain Scale 4-6) Home Medications ?Medication ?Instructions ?Recorded ?Confirmed ?Last Taken ?Type ferrous sulfate 325 mg (65 mg 325 mg PO DAILY 01/04/25 01/04/25 Unknown History iron) tablet insulin glargine 100 unit/mL (3 22 unit subcut DAILY 01/04/25 01/04/25 Unknown History mL) subcutaneous pen (Lantus Solostar U-100 Insulin) insulin lispro 100 unit/mL 5 - 10 unit subcut TID 01/04/25 01/04/25 Unknown History subcutaneous pen sennosides 8.6 mg tablet (senna) 17.2 mg PO BEDTIME 01/04/25 01/04/25 Unknown History Physical Exam Vital Signs and Narrative: Vital Signs: Last Vital Signs Temp 97.9 F 03/19/25 02:52 Pulse 85 03/19/25 04:31 Resp 16 03/19/25 04:31 BP 99/60 03/19/25 02:52 Pulse Ox 97 03/19/25 04:31 O2 Del Method Room Air 03/19/25 04:31 BMI result Body Mass Index 20.9 General: AOx3, no acute distress Resp: CTA bilaterally CVS: S1, S2, RRR GI: +BS, NT, no distention Skin: Warm, dry Neuro: Cranial nerves II-XII grossly intact bilaterally. Motor grossly intact bilaterally Extremities: No pitting edema Psych: Appropriate affect Const: General: No confusion Orientation/consciousness: No confusion Neuro: General: No confusion Results Labs 03/18/25 21:16 03/19/25 04:23 Labs: Laboratory Results - last 24 hr 03/18/25 03/18/25 03/18/25 20:47 21:16 21:18 MCV 79.6 L MCH 23.9 L MCHC 30.1 L RDW 15.7 Plt Count 396 MPV 11.2 Immature Gran % (Auto) 0.3 Neut % (Auto) 66.1 Lymph % (Auto) 26.9 [place] % (Auto) 5.7 Eos % (Auto) 0.3 Baso % (Auto) 0.7 Lymph # (Auto) 1.9 [place] # (Auto) 0.4 Eos # (Auto) 0.0 Baso # (Auto) 0.1 Abs Immat Gran (auto) 0.02 Absolute Neuts (auto) 4.5 Absolute Nucleated RBC 0.000 Nucleated RBC % (auto) 0.0 VBG pH VBG pCO2 VBG pO2 VBG HCO3 VBG O2 Saturation VBG Base Excess Anion Gap 24 H Estim Creat Clear Calc 69.4 Estimated GFR > 60 POC Glucose 584 H* Random Glucose 662 H* Calcium 9.7 D Magnesium 2.0 Total Bilirubin 0.6 AST 30 ALT 16 Alkaline Phosphatase 140 H Total Protein 8.4 H Albumin 4.7 Beta HCG, Quant < 2 Urine Color Yellow Urine Appearance Clear Urine pH 5.5 Ur Specific [place] >= 1.030 H Urine Protein Negative Urine Glucose (UA) >=1000 H Urine Ketones >=160 Urine Blood Moderate (2+) H Urine Nitrite Negative Ur Leukocyte Esterase Negative Urine RBC 0-2 Urine WBC 0-5 Ur Squamous Epith Cells 3-5 Urine Bacteria 1+ Hyaline Casts 0-2 Urine Opiates Screen Not Detected Ur Buprenorphine Scrn Not Detected Ur Oxycodone Screen Not Detected Urine Methadone Screen Not Detected Urine Fentanyl Screen Not Detected Ur Barbiturates Screen Not Detected Ur Phencyclidine Scrn Not Detected Ur Amphetamines Screen Not Detected U Benzodiazepines Scrn Not Detected Urine Cocaine Screen Not Detected U Marijuana (THC) Screen Not Detected Ethyl Alcohol < 10 Influenza Type A (PCR) Influenza Type B (PCR) RSV RNA Qual (PCR) SARS-CoV-2 RNA (RT-PCR) 03/18/25 03/18/25 03/18/25 21:23 22:45 23:50 MCV MCH MCHC RDW Plt Count MPV Immature Gran % (Auto) Neut % (Auto) Lymph % (Auto) [place] % (Auto) Eos % (Auto) Baso % (Auto) Lymph # (Auto) [place] # (Auto) Eos # (Auto) Baso # (Auto) Abs Immat Gran (auto) Absolute Neuts (auto) Absolute Nucleated RBC Nucleated RBC % (auto) VBG pH 7.26 L VBG pCO2 28 VBG pO2 55 VBG HCO3 13 L VBG O2 Saturation 75.0 VBG Base Excess -12.1 Anion Gap Estim Creat Clear Calc Estimated GFR POC Glucose 366 H* Random Glucose Calcium Magnesium Total Bilirubin AST ALT Alkaline Phosphatase Total Protein Albumin Beta HCG, Quant Urine Color Urine Appearance Urine pH Ur Specific [place] Urine Protein Urine Glucose (UA) Urine Ketones Urine Blood Urine Nitrite Ur Leukocyte Esterase Urine RBC Urine WBC Ur Squamous Epith Cells Urine Bacteria Hyaline Casts Urine Opiates Screen Ur Buprenorphine Scrn Ur Oxycodone Screen Urine Methadone Screen Urine Fentanyl Screen Ur Barbiturates Screen Ur Phencyclidine Scrn Ur Amphetamines Screen U Benzodiazepines Scrn Urine Cocaine Screen U Marijuana (THC) Screen Ethyl Alcohol Influenza Type A (PCR) NEGATIVE Influenza Type B (PCR) NEGATIVE RSV RNA Qual (PCR) NEGATIVE SARS-CoV-2 RNA (RT-PCR) NEGATIVE 03/19/25 03/19/25 03/19/25 01:03 01:12 01:13 MCV MCH MCHC RDW Plt Count MPV Immature Gran % (Auto) Neut % (Auto) Lymph % (Auto) [place] % (Auto) Eos % (Auto) Baso % (Auto) Lymph # (Auto) [place] # (Auto) Eos # (Auto) Baso # (Auto) Abs Immat Gran (auto) Absolute Neuts (auto) Absolute Nucleated RBC Nucleated RBC % (auto) VBG pH 7.29 L VBG pCO2 31 VBG pO2 62 VBG HCO3 15 L VBG O2 Saturation 87.0 VBG Base Excess -9.7 Anion Gap 17 Estim Creat Clear Calc 93.4 Estimated GFR > 60 POC Glucose 293 H Random Glucose 345 H Calcium 8.7 D Magnesium Total Bilirubin AST ALT Alkaline Phosphatase Total Protein Albumin Beta HCG, Quant Urine Color Urine Appearance Urine pH Ur Specific [place] Urine Protein Urine Glucose (UA) Urine Ketones Urine Blood Urine Nitrite Ur Leukocyte Esterase Urine RBC Urine WBC Ur Squamous Epith Cells Urine Bacteria Hyaline Casts Urine Opiates Screen Ur Buprenorphine Scrn Ur Oxycodone Screen Urine Methadone Screen Urine Fentanyl Screen Ur Barbiturates Screen Ur Phencyclidine Scrn Ur Amphetamines Screen U Benzodiazepines Scrn Urine Cocaine Screen U Marijuana (THC) Screen Ethyl Alcohol Influenza Type A (PCR) Influenza Type B (PCR) RSV RNA Qual (PCR) SARS-CoV-2 RNA (RT-PCR) 03/19/25 03/19/25 03/19/25 02:18 03:20 04:23 MCV MCH MCHC RDW Plt Count MPV Immature Gran % (Auto) Neut % (Auto) Lymph % (Auto) [place] % (Auto) Eos % (Auto) Baso % (Auto) Lymph # (Auto) [place] # (Auto) Eos # (Auto) Baso # (Auto) Abs Immat Gran (auto) Absolute Neuts (auto) Absolute Nucleated RBC Nucleated RBC % (auto) VBG pH VBG pCO2 VBG pO2 VBG HCO3 VBG O2 Saturation VBG Base Excess Anion Gap 11 L Estim Creat Clear Calc 115.3 Estimated GFR > 60 POC Glucose 186 H 208 H Random Glucose 184 H Calcium 8.5 Magnesium Total Bilirubin AST ALT Alkaline Phosphatase Total Protein Albumin Beta HCG, Quant Urine Color Urine Appearance Urine pH Ur Specific [place] Urine Protein Urine Glucose (UA) Urine Ketones Urine Blood Urine Nitrite Ur Leukocyte Esterase Urine RBC Urine WBC Ur Squamous Epith Cells Urine Bacteria Hyaline Casts Urine Opiates Screen Ur Buprenorphine Scrn Ur Oxycodone Screen Urine Methadone Screen Urine Fentanyl Screen Ur Barbiturates Screen Ur Phencyclidine Scrn Ur Amphetamines Screen U Benzodiazepines Scrn Urine Cocaine Screen U Marijuana (THC) Screen Ethyl Alcohol Influenza Type A (PCR) Influenza Type B (PCR) RSV RNA Qual (PCR) SARS-CoV-2 RNA (RT-PCR) 03/19/25 03/19/25 04:27 04:32 MCV MCH MCHC RDW Plt Count MPV Immature Gran % (Auto) Neut % (Auto) Lymph % (Auto) [place] % (Auto) Eos % (Auto) Baso % (Auto) Lymph # (Auto) [place] # (Auto) Eos # (Auto) Baso # (Auto) Abs Immat Gran (auto) Absolute Neuts (auto) Absolute Nucleated RBC Nucleated RBC % (auto) VBG pH 7.38 VBG pCO2 34 VBG pO2 78 VBG HCO3 20 L VBG O2 Saturation 96.0 VBG Base Excess -3.8 Anion Gap Estim Creat Clear Calc Estimated GFR POC Glucose 162 H Random Glucose Calcium Magnesium Total Bilirubin AST ALT Alkaline Phosphatase Total Protein Albumin Beta HCG, Quant Urine Color Urine Appearance Urine pH Ur Specific [place] Urine Protein Urine Glucose (UA) Urine Ketones Urine Blood Urine Nitrite Ur Leukocyte Esterase Urine RBC Urine WBC Ur Squamous Epith Cells Urine Bacteria Hyaline Casts Urine Opiates Screen Ur Buprenorphine Scrn Ur Oxycodone Screen Urine Methadone Screen Urine Fentanyl Screen Ur Barbiturates Screen Ur Phencyclidine Scrn Ur Amphetamines Screen U Benzodiazepines Scrn Urine Cocaine Screen U Marijuana (THC) Screen Ethyl Alcohol Influenza Type A (PCR) Influenza Type B (PCR) RSV RNA Qual (PCR) SARS-CoV-2 RNA (RT-PCR) Assessment and Plan (1) DKA, type 1: Status: Acute Plan pt is a 19 yo f with a pmhx significant for T1DM, who presented to the ED with abd pain, chest apin and nausea starting yesterday afternoon. DKA, gap closed, off insulin gtt - SSI - lantus 22U daily - diabetic diet hypokalemia, repleated - repeat BMP, mag, phosphorus chronic constipation - miralax and senna full code VTE prophy: lovenox pt with DKA, requring admission for at least 2 midnights stat for monitoring and treament of DKA. Quality Stroke Does the patient have a stroke diagnosis?: No VTE Prior VTE?: No VTE Risk Level:: Medical - moderate - high VTE Device Contraindication: Treatment Not Indicated VTE Drug Contraindication: N/A - Med Ordered
[2025-03-19 06:28] VITALS: BP 105/61; PULSE 88; RESP 16; TEMP 36.6; O2SAT 97
[2025-03-19 06:42] LABS: Glucose, Whole Blood 225 mg/dL (60-115)
[2025-03-19 06:55] LABS: Anion Gap 12 (12-20); Blood Urea Nitrogen 10 mg/dL (9-16); Calcium 8.0 mg/dL (8.4-10.2); Carbon Dioxide 19 mmol/L (22-29); Chloride 109 mmol/L (96-108); Creatinine Clr Calc Pharmacy 108.4; Estimated Glomerular Filt Rate > 60; Magnesium 1.6 mg/dL (1.6-2.6); Potassium 4.6 mmol/L (3.3-5.1); Sodium 135 mmol/L (135-145)
[2025-03-19 06:56] LABS: Hematocrit 31.4 % (37.0-47.0); Hemoglobin 9.5 g/dl (12.0-16.0); Mean Corpuscular HGB Conc 30.3 g/dl (31.0-35.0); Mean Corpuscular Hemoglobin 23.8 pg (27.0-33.0); Mean Corpuscular Volume 78.7 fL (80.0-98.0); NRBC Abs Auto 0.000 X10*3/uL (0.0-0.012); NRBC Pct Auto 0.0 /100WBC (0.0-0.2); Platelet Count 332 X10*3/uL (160-400); Red Blood Count 3.99 X10*6/uL (4.20-5.50); White Blood Count 7.2 X10*3/uL (4.8-10.8)
[2025-03-19] MEDS: 0.9 % Sodium Chloride Flush 3 ML SYRINGE IVFLUSH (07:47)
--- NOTE | 2025-03-19 08:25 | PC.NURSE ---
report taken from previous rn. pt is asleep but easily arousable. she ate all of her breakfast, she is resting comfortably and offers no complaint. she is in NSR in lead 2 with normal radial pulses and resps. she is awaiting a bed assignment.
[2025-03-19 08:39] VITALS: BP 113/61; PULSE 94; RESP 15; TEMP 36.4; O2SAT 97
[2025-03-19 09:11] LABS: Glucose, Whole Blood 302 mg/dL (60-115)
[2025-03-19 10:21] LABS: Glucose, Whole Blood 249 mg/dL (60-115)
[2025-03-19 10:41] VITALS: BP 107/75; PULSE 82; RESP 16; O2SAT 98
[2025-03-19 11:11] LABS: Glucose, Whole Blood 379 mg/dL (60-115)
--- NOTE | 2025-03-19 11:12 | PHA.MEDREC ---
Addendum entered by Hari Pham PharmD 03/19/25 11:24: reviewed Original Note: Pharmacy Consult ? Medication Reconciliation Pharmacy has completed the medication reconciliation. Spoke with pt and she confirmed her medications. Pt confirmed she is taking Lantus 25 units daily and Humalog 5-10 units TIDAC and that is it right now for medications at home. Pt confirmed she took her insulins yesterday.
--- NOTE | 2025-03-19 11:26 | MHC.CM.PN ---
Pt. lives with family, she said that she does not have a PCP, CM discussed calling [facility] to sign up with one, she said she will. She does have an appt. with endocrinology in [facility], 03/31/25. She can arrange transport home at [place], DCP: home, self care, CM to follow for DC needs.
--- NOTE | 2025-03-19 11:35 | PC.NURSE ---
Dr. Ruben Jimenez aware of POC glucose 375. Recheck POC @ 1230 per MD order. Pt resting comfortably in bed.
--- NOTE | 2025-03-19 12:34 | PM.DS ---
DS: Providers Provider Date of Service: 03/19/25 Date of admission: 03/19/25 05:31 Date of discharge: 03/19/25 Primary care physician: None Physician DS: Diagnosis Discharge Diagnosis (1) DKA, type 1: Status: Acute DS: Summary Hospital Course Hospital Course: from initial hpi: 19 yo f with a pmhx significant for T1DM, who presented to the ED with abd pain, chest apin and nausea starting yesterday afternoon. POC was 584. pt states that when she is angry she does not taker her medications, but reports compliance this time. she does report a mild cough the past 3 days, no fever, chills, congestion or urinary sx. w/u in the ED significant for DKA, placed on insulin gtt with improvement, gap closed. hospital course: Patient was admitted for diabetes type 1 with diabetic ketoacidosis was briefly on insulin drip and anion gap closed. Patient's symptoms resolved and is now eating with sugars better controlled. She was educated on importance of compliance with medications and she will continue on basal bolus insulin at home. Acute hypokalemia was replaced. Time Attestation Discharge Coordination Time (in mins): 36 Quality: Safe Use of Opioids Does Pt have an Active Cancer Diagnosis on the Problem List?: No Quality: Stroke Does the patient have a stroke diagnosis?: No Physical Exam Exam: Exam: General: AO X 3, no acute distress Resp: CTA bilateral, no accessory muscles used CVS: S1,S2,RRR GI: soft, non tender, non distended Neuro: motor grossly intact, alert Psych: appropriate affect, appropriate insight Vital Signs: Vital Signs: Last Vital Signs Temp 97.5 F 03/19/25 08:39 Pulse 82 03/19/25 10:41 Resp 16 03/19/25 10:41 BP 107/75 03/19/25 10:41 Pulse Ox 98 03/19/25 10:41 O2 Del Method Room Air 03/19/25 10:41 BMI result Body Mass Index 20.9 DS: Data Data Completed and Pending Labs on day of discharge: Laboratory Results - last 24 hr 03/18/25 03/18/25 03/18/25 20:47 21:16 21:18 WBC 6.9 RBC 4.89 Hgb 11.7 L Hct 38.9 MCV 79.6 L MCH 23.9 L MCHC 30.1 L RDW 15.7 Plt Count 396 MPV 11.2 Immature Gran % (Auto) 0.3 Neut % (Auto) 66.1 Lymph % (Auto) 26.9 [place] % (Auto) 5.7 Eos % (Auto) 0.3 Baso % (Auto) 0.7 Lymph # (Auto) 1.9 [place] # (Auto) 0.4 Eos # (Auto) 0.0 Baso # (Auto) 0.1 Abs Immat Gran (auto) 0.02 Absolute Neuts (auto) 4.5 Absolute Nucleated RBC 0.000 Nucleated RBC % (auto) 0.0 VBG pH VBG pCO2 VBG pO2 VBG HCO3 VBG O2 Saturation VBG Base Excess Sodium 134 L Potassium 5.3 H D Chloride 101 Carbon Dioxide 14 L Anion Gap 24 H BUN 14 Creatinine 0.78 Estim Creat Clear Calc 69.4 Estimated GFR > 60 POC Glucose 584 H* Random Glucose 662 H* Calcium 9.7 D Phosphorus Magnesium 2.0 Total Bilirubin 0.6 AST 30 ALT 16 Alkaline Phosphatase 140 H Total Protein 8.4 H Albumin 4.7 Beta HCG, Quant < 2 Urine Color Yellow Urine Appearance Clear Urine pH 5.5 Ur Specific [place] >= 1.030 H Urine Protein Negative Urine Glucose (UA) >=1000 H Urine Ketones >=160 Urine Blood Moderate (2+) H Urine Nitrite Negative Ur Leukocyte Esterase Negative Urine RBC 0-2 Urine WBC 0-5 Ur Squamous Epith Cells 3-5 Urine Bacteria 1+ Hyaline Casts 0-2 Urine Opiates Screen Not Detected Ur Buprenorphine Scrn Not Detected Ur Oxycodone Screen Not Detected Urine Methadone Screen Not Detected Urine Fentanyl Screen Not Detected Ur Barbiturates Screen Not Detected Ur Phencyclidine Scrn Not Detected Ur Amphetamines Screen Not Detected U Benzodiazepines Scrn Not Detected Urine Cocaine Screen Not Detected U Marijuana (THC) Screen Not Detected Ethyl Alcohol < 10 Influenza Type A (PCR) Influenza Type B (PCR) RSV RNA Qual (PCR) SARS-CoV-2 RNA (RT-PCR) 03/18/25 03/18/25 03/18/25 21:23 22:45 23:50 WBC RBC Hgb Hct MCV MCH MCHC RDW Plt Count MPV Immature Gran % (Auto) Neut % (Auto) Lymph % (Auto) [place] % (Auto) Eos % (Auto) Baso % (Auto) Lymph # (Auto) [place] # (Auto) Eos # (Auto) Baso # (Auto) Abs Immat Gran (auto) Absolute Neuts (auto) Absolute Nucleated RBC Nucleated RBC % (auto) VBG pH 7.26 L VBG pCO2 28 VBG pO2 55 VBG HCO3 13 L VBG O2 Saturation 75.0 VBG Base Excess -12.1 Sodium Potassium Chloride Carbon Dioxide Anion Gap BUN Creatinine Estim Creat Clear Calc Estimated GFR POC Glucose 366 H* Random Glucose Calcium Phosphorus Magnesium Total Bilirubin AST ALT Alkaline Phosphatase Total Protein Albumin Beta HCG, Quant Urine Color Urine Appearance Urine pH Ur Specific [place] Urine Protein Urine Glucose (UA) Urine Ketones Urine Blood Urine Nitrite Ur Leukocyte Esterase Urine RBC Urine WBC Ur Squamous Epith Cells Urine Bacteria Hyaline Casts Urine Opiates Screen Ur Buprenorphine Scrn Ur Oxycodone Screen Urine Methadone Screen Urine Fentanyl Screen Ur Barbiturates Screen Ur Phencyclidine Scrn Ur Amphetamines Screen U Benzodiazepines Scrn Urine Cocaine Screen U Marijuana (THC) Screen Ethyl Alcohol Influenza Type A (PCR) NEGATIVE Influenza Type B (PCR) NEGATIVE RSV RNA Qual (PCR) NEGATIVE SARS-CoV-2 RNA (RT-PCR) NEGATIVE 03/19/25 03/19/25 03/19/25 01:03 01:12 01:13 WBC RBC Hgb Hct MCV MCH MCHC RDW Plt Count MPV Immature Gran % (Auto) Neut % (Auto) Lymph % (Auto) [place] % (Auto) Eos % (Auto) Baso % (Auto) Lymph # (Auto) [place] # (Auto) Eos # (Auto) Baso # (Auto) Abs Immat Gran (auto) Absolute Neuts (auto) Absolute Nucleated RBC Nucleated RBC % (auto) VBG pH 7.29 L VBG pCO2 31 VBG pO2 62 VBG HCO3 15 L VBG O2 Saturation 87.0 VBG Base Excess -9.7 Sodium 135 Potassium 4.2 D Chloride 106 Carbon Dioxide 16 L Anion Gap 17 BUN 11 Creatinine 0.58 Estim Creat Clear Calc 93.4 Estimated GFR > 60 POC Glucose 293 H Random Glucose 345 H Calcium 8.7 D Phosphorus Magnesium Total Bilirubin AST ALT Alkaline Phosphatase Total Protein Albumin Beta HCG, Quant Urine Color Urine Appearance Urine pH Ur Specific [place] Urine Protein Urine Glucose (UA) Urine Ketones Urine Blood Urine Nitrite Ur Leukocyte Esterase Urine RBC Urine WBC Ur Squamous Epith Cells Urine Bacteria Hyaline Casts Urine Opiates Screen Ur Buprenorphine Scrn Ur Oxycodone Screen Urine Methadone Screen Urine Fentanyl Screen Ur Barbiturates Screen Ur Phencyclidine Scrn Ur Amphetamines Screen U Benzodiazepines Scrn Urine Cocaine Screen U Marijuana (THC) Screen Ethyl Alcohol Influenza Type A (PCR) Influenza Type B (PCR) RSV RNA Qual (PCR) SARS-CoV-2 RNA (RT-PCR) 03/19/25 03/19/25 03/19/25 02:18 03:20 04:23 WBC RBC Hgb Hct MCV MCH MCHC RDW Plt Count MPV Immature Gran % (Auto) Neut % (Auto) Lymph % (Auto) [place] % (Auto) Eos % (Auto) Baso % (Auto) Lymph # (Auto) [place] # (Auto) Eos # (Auto) Baso # (Auto) Abs Immat Gran (auto) Absolute Neuts (auto) Absolute Nucleated RBC Nucleated RBC % (auto) VBG pH VBG pCO2 VBG pO2 VBG HCO3 VBG O2 Saturation VBG Base Excess Sodium 136 Potassium 3.8 Chloride 109 H Carbon Dioxide 20 L Anion Gap 11 L BUN 10 Creatinine 0.47 L Estim Creat Clear Calc 115.3 Estimated GFR > 60 POC Glucose 186 H 208 H Random Glucose 184 H Calcium 8.5 Phosphorus Magnesium Total Bilirubin AST ALT Alkaline Phosphatase Total Protein Albumin Beta HCG, Quant Urine Color Urine Appearance Urine pH Ur Specific [place] Urine Protein Urine Glucose (UA) Urine Ketones Urine Blood Urine Nitrite Ur Leukocyte Esterase Urine RBC Urine WBC Ur Squamous Epith Cells Urine Bacteria Hyaline Casts Urine Opiates Screen Ur Buprenorphine Scrn Ur Oxycodone Screen Urine Methadone Screen Urine Fentanyl Screen Ur Barbiturates Screen Ur Phencyclidine Scrn Ur Amphetamines Screen U Benzodiazepines Scrn Urine Cocaine Screen U Marijuana (THC) Screen Ethyl Alcohol Influenza Type A (PCR) Influenza Type B (PCR) RSV RNA Qual (PCR) SARS-CoV-2 RNA (RT-PCR) 03/19/25 03/19/25 03/19/25 04:27 04:32 06:33 WBC 7.2 RBC 3.99 L Hgb 9.5 L Hct 31.4 L MCV 78.7 L MCH 23.8 L MCHC 30.3 L RDW 15.6 Plt Count 332 MPV 10.7 Immature Gran % (Auto) Neut % (Auto) Lymph % (Auto) [place] % (Auto) Eos % (Auto) Baso % (Auto) Lymph # (Auto) [place] # (Auto) Eos # (Auto) Baso # (Auto) Abs Immat Gran (auto) Absolute Neuts (auto) Absolute Nucleated RBC 0.000 Nucleated RBC % (auto) 0.0 VBG pH 7.38 VBG pCO2 34 VBG pO2 78 VBG HCO3 20 L VBG O2 Saturation 96.0 VBG Base Excess -3.8 Sodium 135 Potassium 4.6 D Chloride 109 H Carbon Dioxide 19 L Anion Gap 12 BUN 10 Creatinine 0.50 Estim Creat Clear Calc 108.4 Estimated GFR > 60 POC Glucose 162 H Random Glucose 246 H Calcium 8.0 L Phosphorus 3.6 Magnesium 1.6 Total Bilirubin AST ALT Alkaline Phosphatase Total Protein Albumin Beta HCG, Quant Urine Color Urine Appearance Urine pH Ur Specific [place] Urine Protein Urine Glucose (UA) Urine Ketones Urine Blood Urine Nitrite Ur Leukocyte Esterase Urine RBC Urine WBC Ur Squamous Epith Cells Urine Bacteria Hyaline Casts Urine Opiates Screen Ur Buprenorphine Scrn Ur Oxycodone Screen Urine Methadone Screen Urine Fentanyl Screen Ur Barbiturates Screen Ur Phencyclidine Scrn Ur Amphetamines Screen U Benzodiazepines Scrn Urine Cocaine Screen U Marijuana (THC) Screen Ethyl Alcohol Influenza Type A (PCR) Influenza Type B (PCR) RSV RNA Qual (PCR) SARS-CoV-2 RNA (RT-PCR) 03/19/25 03/19/25 03/19/25 06:37 09:08 10:17 WBC RBC Hgb Hct MCV MCH MCHC RDW Plt Count MPV Immature Gran % (Auto) Neut % (Auto) Lymph % (Auto) [place] % (Auto) Eos % (Auto) Baso % (Auto) Lymph # (Auto) [place] # (Auto) Eos # (Auto) Baso # (Auto) Abs Immat Gran (auto) Absolute Neuts (auto) Absolute Nucleated RBC Nucleated RBC % (auto) VBG pH VBG pCO2 VBG pO2 VBG HCO3 VBG O2 Saturation VBG Base Excess Sodium Potassium Chloride Carbon Dioxide Anion Gap BUN Creatinine Estim Creat Clear Calc Estimated GFR POC Glucose 225 H 302 H 249 H Random Glucose Calcium Phosphorus Magnesium Total Bilirubin AST ALT Alkaline Phosphatase Total Protein Albumin Beta HCG, Quant Urine Color Urine Appearance Urine pH Ur Specific [place] Urine Protein Urine Glucose (UA) Urine Ketones Urine Blood Urine Nitrite Ur Leukocyte Esterase Urine RBC Urine WBC Ur Squamous Epith Cells Urine Bacteria Hyaline Casts Urine Opiates Screen Ur Buprenorphine Scrn Ur Oxycodone Screen Urine Methadone Screen Urine Fentanyl Screen Ur Barbiturates Screen Ur Phencyclidine Scrn Ur Amphetamines Screen U Benzodiazepines Scrn Urine Cocaine Screen U Marijuana (THC) Screen Ethyl Alcohol Influenza Type A (PCR) Influenza Type B (PCR) RSV RNA Qual (PCR) SARS-CoV-2 RNA (RT-PCR) 03/19/25 11:08 WBC RBC Hgb Hct MCV MCH MCHC RDW Plt Count MPV Immature Gran % (Auto) Neut % (Auto) Lymph % (Auto) [place] % (Auto) Eos % (Auto) Baso % (Auto) Lymph # (Auto) [place] # (Auto) Eos # (Auto) Baso # (Auto) Abs Immat Gran (auto) Absolute Neuts (auto) Absolute Nucleated RBC Nucleated RBC % (auto) VBG pH VBG pCO2 VBG pO2 VBG HCO3 VBG O2 Saturation VBG Base Excess Sodium Potassium Chloride Carbon Dioxide Anion Gap BUN Creatinine Estim Creat Clear Calc Estimated GFR POC Glucose 379 H* Random Glucose Calcium Phosphorus Magnesium Total Bilirubin AST ALT Alkaline Phosphatase Total Protein Albumin Beta HCG, Quant Urine Color Urine Appearance Urine pH Ur Specific [place] Urine Protein Urine Glucose (UA) Urine Ketones Urine Blood Urine Nitrite Ur Leukocyte Esterase Urine RBC Urine WBC Ur Squamous Epith Cells Urine Bacteria Hyaline Casts Urine Opiates Screen Ur Buprenorphine Scrn Ur Oxycodone Screen Urine Methadone Screen Urine Fentanyl Screen Ur Barbiturates Screen Ur Phencyclidine Scrn Ur Amphetamines Screen U Benzodiazepines Scrn Urine Cocaine Screen U Marijuana (THC) Screen Ethyl Alcohol Influenza Type A (PCR) Influenza Type B (PCR) RSV RNA Qual (PCR) SARS-CoV-2 RNA (RT-PCR) Discharge Plan Discharge Anticipated Discharge Date/Time: 03/19/25 12:33 Patient Disposition: Home, Self-Care Discharge Diagnosis: dka Referrals: Physician,None [Primary Care Provider, Medical] - 1 Week Discharge Medications: Continued insulin lispro [Humalog KwikPen Insulin] 100 unit/mL insulin pen 5 - 10 unit subcut TIDAC insulin glargine [Lantus Solostar U-100 Insulin] 100 unit/mL (3 mL) insulin pen 25 unit subcut DAILY Discharge Orders: Discharge Order (Routine); Ordered 03/19/25 Ordered By: Ruben Jimenez Diet: Diabetic diet Activity on Discharge: As tolerated Stand Alone Forms: Patient Portal Discharge page Print Language: Irish Care Plan Goals: avoid dka Health Concerns: dka Plan of Treatment: take insulin as prescribed, monitor sugars and adjust dose as needed Assessment: see above
[2025-03-19 12:48] LABS: Glucose, Whole Blood 253 mg/dL (60-115)
== END 2025-03-19 16:29 | disposition home or self-care (01) | DRG 420 ==
LOC: HO.ED 03-19 04:58 → HO.EDOVER 03-19 05:35
PROVIDERS: Physician Assistant; Physician Assistant Medical; Admitting Provider Physician Assistant; Emergency Provider Emergency Medicine; Visit Provider Internal Medicine
DX: E10.10 Type 1 diabetes mellitus with ketoacidosis without coma (principal); E87.6 Hypokalemia; K59.09 Other constipation; Z20.822 Contact with and (suspected) exposure to COVID-19
CPT/HCPCS: 36415; 80048; 80053; 80307; 81001; 82803; 82947; 83735; 84100; 84702; 85025; 85027; 87637; 93005; 99285; J3480; J7120

== ENCOUNTER → 2025-03-18 21:04 | Outpatient (BNV) | payer MEDICAID, SELFPAY | PROVIDERS: Admitting Provider Physician Assistant; Emergency Provider Emergency Medicine; Visit Provider Internal Medicine Cardiovascular Disease | DX: R00.0 Tachycardia, unspecified (principal) | CPT/HCPCS: 93010 ==

== ENCOUNTER → 2025-03-19 05:31 | Outpatient (BNV) | payer MEDICAID, SELFPAY | PROVIDERS: Admitting Provider Physician Assistant; Emergency Provider Emergency Medicine; Visit Provider Internal Medicine | DX: E10.10 Type 1 diabetes mellitus with ketoacidosis without coma (principal) | CPT/HCPCS: 99222; 99499 ==

== ENCOUNTER 2025-04-03 21:52 | Emergency (ER) | payer MEDICAID, SELFPAY ==
--- NOTE | 2025-04-03 21:57 | ECG_ITS ---
Test Reason : CHEST PAIN Blood Pressure : */* mmHG Vent. Rate : 109 BPM Atrial Rate : 109 BPM P-R Int : 114 ms QRS Dur : 74 ms QT Int : 326 ms P-R-T Axes : * -3 -9 degrees QTcB Int : 439 ms Sinus tachycardia Low voltage QRS Anterolateral infarct , age undetermined Abnormal ECG When compared with ECG of 18-Mar-2025 21:45, Anterolateral infarct is now Present Nonspecific T wave abnormality, worse in Inferior leads Nonspecific T wave abnormality now evident in Anterior leads Referred By: Generic ED Physician Electronically Signed By: RORO CARLISLE
[2025-04-03 21:58] VITALS: BP 120/79; BP 123/75; PULSE 102; RESP 16; TEMP 36.8; O2SAT 98; BMI 24.9
[2025-04-03 22:02] VITALS: BP 123/75; PULSE 102; RESP 16; TEMP 36.8; O2SAT 98
[2025-04-03 22:11] LABS: Glucose, Whole Blood 389 mg/dL (60-115)
[2025-04-03 22:33] LABS: Hematocrit 33.5 % (37.0-47.0); Hemoglobin 10.1 g/dl (12.0-16.0); Mean Corpuscular HGB Conc 30.1 g/dl (31.0-35.0); Mean Corpuscular Hemoglobin 24.2 pg (27.0-33.0); Mean Corpuscular Volume 80.3 fL (80.0-98.0); NRBC Abs Auto 0.000 X10*3/uL (0.0-0.012); NRBC Pct Auto 0.0 /100WBC (0.0-0.2); PLT CLUMP 1; Red Blood Count 4.17 X10*6/uL (4.20-5.50)
[2025-04-03 22:55] LABS: Troponin-I High Sensitivity < 2.7 ng/L (<3.5-17.0)
[2025-04-03 22:59] LABS: Alanine Aminotransferase 12 U/L (0-31); Albumin Level 3.8 g/dL (3.5-5.0); Alkaline Phosphatase 97 U/L (39-117); Anion Gap 14 (12-20); Aspartate Amino Transferase 27 U/L (5-31); Blood Urea Nitrogen 10 mg/dL (9-16); Calcium 8.6 mg/dL (8.4-10.2); Carbon Dioxide 18 mmol/L (22-29); Chloride 108 mmol/L (96-108); Creatinine Clr Calc Pharmacy 92.6; Estimated Glomerular Filt Rate > 60; Potassium 5.0 mmol/L (3.3-5.1); Sodium 135 mmol/L (135-145); Total Protein 6.8 g/dL (6.5-8.0)
[2025-04-03 23:01] LABS: White Blood Count 7.4 X10*3/uL (4.8-10.8)
[2025-04-03 23:02] LABS: Platelet Count 250 X10*3/uL (160-400)
[2025-04-03 23:04] LABS: Band Neutrophils Percent 0 % (3-5); Basophils Abs Manual 0.1 X10*3/uL (0.0-0.2); Basophils Percent Manual 1 % (0-2); Burr Cells 2+ (3-5) /OIF; Lymphocytes Absolute Manual 2.4 X10*3/uL (1.2-4.9); Lymphocytes Percent Manual 32 % (20-40); Monocytes Absolute Manual 0.2 X10*3/uL (0.1-1.2); Monocytes Percent Manual 3 % (2-11); Neutrophils Absolute Manual 4.7 X10*3/uL (2.0-8.3); Neutrophils Percent Manual 64 % (45-73); RBC Morphology NOTED
--- NOTE | 2025-04-03 23:22 | PC.NURSE ---
Took over care at 23:00, labs collected and sent.
[2025-04-03] MEDS: Lactated Ringers 1,000 ML 999 ML IV (23:25)
[2025-04-04 00:15] LABS: Glucose, Whole Blood 354 mg/dL (60-115)
--- NOTE | 2025-04-04 00:26 | PC.NURSE ---
Took over care at 23:00, pt resting in bed, provider into discuss plan of care, no sign of distress at this time.
[2025-04-04 00:36] VITALS: BP 104/67; PULSE 93; RESP 17; TEMP 37.1; O2SAT 98
[2025-04-04 00:38] LABS: Appearance Urine Clear; Glucose Urine UA >=1000 mg/dL (Negative); PH 7.5 (5.0-9.0); Specific Gravity - Urine >= 1.030 (1.005-1.025); UMIC TRIGGER UACC YES
--- NOTE | 2025-04-04 00:53 | PC.NURSE ---
medicated per mar.
[2025-04-04 01:51] VITALS: BP 103/69; PULSE 88; RESP 17; TEMP 37.1; O2SAT 99
[2025-04-04 01:52] LABS: Venous Blood Gas Refer to POC result
[2025-04-04 01:54] LABS: VBG HCO3 20 mmol/L (22-26); VBG O2 % Saturation 88.0 %
--- NOTE | 2025-04-04 01:54 | ED.CHESTPAIN ---
HPI - Chest Pain General Chief Complaint: Chest Pain Stated Complaint: CP since 5pm, Tachy HR 102, BP 126/70, BGL 406 Time Seen by Provider: 04/03/25 22:59 History of Present Illness ED Provider: Amara Mitchell HPI narrative: 19-year-old female type 1 diabetic of Lantus, Humalog presents to the ED for evaluation reporting bilateral flank pain since about 5:00 p.m.. Patient reports that she frequently forgets to take her insulin, as she sleeps frequently during the day and does not wake up to take her long-acting insulin. This morning at 9:00 a.m. she did take her long-acting insulin. EMS found the patient's blood glucose to be 406. She denies any chest pain or pressure, shortness of breath. No abdominal pain, nausea or vomiting, urinary complaints. No fever or chills. Related Data Home Medications ?Medication ?Instructions ?Recorded ?Confirmed insulin glargine 100 unit/mL (3 25 unit subcut DAILY 01/04/25 03/19/25 mL) subcutaneous pen (Lantus Solostar U-100 Insulin) insulin lispro 100 unit/mL 5 - 10 unit subcut TIDAC 01/04/25 03/19/25 subcutaneous pen (Humalog KwikPen (U-100) Insulin) Allergies Allergy/AdvReac Type Severity Reaction Status Date / Time ketorolac (From Toradol) Allergy Facial Verified 04/03/25 22:01 Swelling Review of Systems Review of Systems: ROS is otherwise negative unless mentioned in HPI. [facility] Past Medical History Medical History Type 1 diabetes mellitus with proteinuria Social History Social History Household Members: Significant Other Household Members Other:: Lives with Sister Housing: Apartment Do you presently have visiting nurse or other home services: No Alcohol intake: never Patient Tobacco Use Status: Never used Tobacco Smoked in Last 30 Days: No e-Cigarette/Vaping Use: Never Used Second Hand Smoke Exposure: No Use of substances other than those prescribed or required for medical reasons: No Substance Use Type: Marijuana Advance Directives: Yes Advance Directives on File: Yes Advance Directives Date on File: 05/31/24 Patient : No service: No Current occupational status: unemployed Physical Exam Exam: Exam: Nursing notes and vital signs reviewed. Constitutional: Well-appearing, NAD. Alert. Oriented X3. Eyes: EOMI. ENT: Pharynx normal. Neck: Normal inspection. Neck supple. CVS: Normal heart rate and rhythm. Pulses normal. Respiratory: No respiratory distress. Breath sounds normal. Abdomen: Soft and nontender. +BSx4. Skin: Skin warm and dry. Normal skin color. Extremities: No lower extremity edema. Neuro: Oriented X 3. No motor deficit. Vital Signs: Vital Signs: Last Vital Signs Temp 98.7 F 04/04/25 01:51 Pulse 88 04/04/25 01:51 Resp 17 04/04/25 01:51 BP 103/69 04/04/25 01:51 Pulse Ox 99 04/04/25 01:51 O2 Del Method Room Air 04/04/25 01:51 BMI result Body Mass Index 24.9 Medications Administered Discontinued Medications Generic Name Dose Route Start Last Admin Trade Name Mansoorq PRN Reason Stop Dose Admin Lactated Ringer's 1,000 mls @ 999 mls/hr 04/03/25 23:00 04/04/25 00:30 Lr IV 04/04/25 00:00 Infused .Q1H1M ONE Infusion Insulin Human Regular 5 unit 04/04/25 00:47 04/04/25 00:51 Insulin Regular, Human 100 Unit/Ml 10 Ml Vial IVPUSH 04/04/25 00:48 5 unit ONCE ONE Administration Medical Decision Making Medical Decision Making MDM Narrative: She overall appears well. Answering questions appropriately, mentating appropriately. Reports that she did take her insulin this morning, but felt some flank pain earlier, she thought this was related to possibly spilling glucose, because her glucose was high. Urinalysis with no signs of infection. She does not yet have a Dexcom to monitor her glucose continuously, but is getting 1 soon. Her lab work was overall reassuring, H&H appears to be stable. Her VBG showed a pH of 7.37, I have low clinical suspicion for DKA. Her gap is 14 as well. Glucose was initially 389, after fluids at 54. After dose of insulin noted to be improved at 203. Significantly improved. Urinalysis shows spilling of glucose but no evidence of infection at this time. She is tolerating p.o. at bedside. Requesting discharge to home. Provided return precautions to the ED, she is agreeable to plan of care. 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 Differential Diagnosis Differential Diagnoses: The differential diagnosis associated with the presentation includes DKA, hyperglycemia, underlying infection, cystitis Admission/Observation Consideration of admission/observation: Escalation of care including admission/observation considered (not indicated) Lab Data MDM Lab Attestation statement: I reviewed the patient's lab results. (overall reassuring) 04/03/25 22:19 04/03/25 22:19 Labs: Lab Results 04/03/25 04/03/25 04/03/25 Range/Units 22:06 22:19 23:21 WBC 7.4 (4.8-10.8) X10*3/uL RBC 4.17 L (4.20-5.50) X10*6/uL Hgb 10.1 L (12.0-16.0) g/dl Hct 33.5 L (37.0-47.0) % MCV 80.3 (80.0-98.0) fL MCH 24.2 L (27.0-33.0) pg MCHC 30.1 L (31.0-35.0) g/dl RDW 15.9 (11.0-16.0) % Plt Count 250 (160-400) X10*3/uL MPV 10.8 (9.4-12.3) fL Immature Gran % (Auto) Cancelled Neut % (Auto) Cancelled Lymph % (Auto) Cancelled [place] % (Auto) Cancelled Eos % (Auto) Cancelled Baso % (Auto) Cancelled Lymph # (Auto) Cancelled [place] # (Auto) Cancelled Eos # (Auto) Cancelled Baso # (Auto) Cancelled Abs Immat Gran (auto) Cancelled Absolute Neuts (auto) Cancelled Absolute Nucleated RBC 0.000 (0.0-0.012) X10*3/uL Nucleated RBC % (auto) 0.0 (0.0-0.2) /100WBC Neutrophils % (Manual) 64 (45-73) % Band Neutrophils % 0 L (3-5) % Lymphocytes % (Manual) 32 (20-40) % Monocytes % (Manual) 3 (2-11) % Basophils % (Manual) 1 (0-2) % Abs Neuts (Manual) 4.7 (2.0-8.3) X10*3/uL Lymphocytes # (Manual) 2.4 (1.2-4.9) X10*3/uL Monocytes # (Manual) 0.2 (0.1-1.2) X10*3/uL Basophils # (Manual) 0.1 (0.0-0.2) X10*3/uL Platelet Estimate NORMAL (NORMAL) Plt Morphology Comment NORMAL RBC Morphology NOTED [place] Cells 2+ (3-5) /OIF Smear Tech's Comments MANUAL DIFF Sodium 135 (135-145) mmol/L Potassium 5.0 (3.3-5.1) mmol/L Chloride 108 (96-108) mmol/L Carbon Dioxide 18 L (22-29) mmol/L Anion Gap 14 (12-20) BUN 10 (9-16) mg/dL Creatinine 0.70 (0.5-1.4) mg/dL Estim Creat Clear Calc 92.6 Estimated GFR > 60 POC Glucose 389 H* (60-115) mg/dL Random Glucose 393 H* (60-115) mg/dL Lactic Acid 1.2 (0.5-2.0) mmol/L Calcium 8.6 D (8.4-10.2) mg/dL Total Bilirubin 0.3 (0.0-1.0) mg/dL AST 27 (5-31) U/L ALT 12 (0-31) U/L Alkaline Phosphatase 97 (39-117) U/L Troponin I High Sens < 2.7 (<3.5-17.0) ng/L Total Protein 6.8 (6.5-8.0) g/dL Albumin 3.8 (3.5-5.0) g/dL Beta-Hydroxybutyrate 0.31 H (0.02-0.27) mmol/L Beta HCG, Quant < 2 mIU/mL Urine Color Urine Appearance Urine pH (5.0-9.0) Ur Specific [place] (1.005-1.025) Urine Protein (Neg-Trace) mg/dL Urine Glucose (UA) (Negative) mg/dL Urine Ketones (Negative) mg/dL Urine Blood (Negative) Urine Nitrite (Negative) Ur Leukocyte Esterase (Negative) Urine RBC (0-2) /HPF Urine WBC (0-5) /HPF Ur Squamous Epith Cells (0-2) /HPF Urine Bacteria (None Seen) Hyaline Casts (0-2) /LPF 04/04/25 04/04/25 Range/Units 00:11 00:30 WBC (4.8-10.8) X10*3/uL RBC (4.20-5.50) X10*6/uL Hgb (12.0-16.0) g/dl Hct (37.0-47.0) % MCV (80.0-98.0) fL MCH (27.0-33.0) pg MCHC (31.0-35.0) g/dl RDW (11.0-16.0) % Plt Count (160-400) X10*3/uL MPV (9.4-12.3) fL Immature Gran % (Auto) Neut % (Auto) Lymph % (Auto) [place] % (Auto) Eos % (Auto) Baso % (Auto) Lymph # (Auto) [place] # (Auto) Eos # (Auto) Baso # (Auto) Abs Immat Gran (auto) Absolute Neuts (auto) Absolute Nucleated RBC (0.0-0.012) X10*3/uL Nucleated RBC % (auto) (0.0-0.2) /100WBC Neutrophils % (Manual) (45-73) % Band Neutrophils % (3-5) % Lymphocytes % (Manual) (20-40) % Monocytes % (Manual) (2-11) % Basophils % (Manual) (0-2) % Abs Neuts (Manual) (2.0-8.3) X10*3/uL Lymphocytes # (Manual) (1.2-4.9) X10*3/uL Monocytes # (Manual) (0.1-1.2) X10*3/uL Basophils # (Manual) (0.0-0.2) X10*3/uL Platelet Estimate (NORMAL) Plt Morphology Comment RBC Morphology [place] Cells /OIF Smear Tech's Comments Sodium (135-145) mmol/L Potassium (3.3-5.1) mmol/L Chloride (96-108) mmol/L Carbon Dioxide (22-29) mmol/L Anion Gap (12-20) BUN (9-16) mg/dL Creatinine (0.5-1.4) mg/dL Estim Creat Clear Calc Estimated GFR POC Glucose 354 H* (60-115) mg/dL Random Glucose (60-115) mg/dL Lactic Acid (0.5-2.0) mmol/L Calcium (8.4-10.2) mg/dL Total Bilirubin (0.0-1.0) mg/dL AST (5-31) U/L ALT (0-31) U/L Alkaline Phosphatase (39-117) U/L Troponin I High Sens (<3.5-17.0) ng/L Total Protein (6.5-8.0) g/dL Albumin (3.5-5.0) g/dL Beta-Hydroxybutyrate (0.02-0.27) mmol/L Beta HCG, Quant mIU/mL Urine Color Yellow Urine Appearance Clear Urine pH 7.5 (5.0-9.0) Ur Specific [place] >= 1.030 H (1.005-1.025) Urine Protein Negative (Neg-Trace) mg/dL Urine Glucose (UA) >=1000 H (Negative) mg/dL Urine Ketones Negative (Negative) mg/dL Urine Blood Negative (Negative) Urine Nitrite Negative (Negative) Ur Leukocyte Esterase Negative (Negative) Urine RBC 0-2 (0-2) /HPF Urine WBC 0-5 (0-5) /HPF Ur Squamous Epith Cells 6-10 (0-2) /HPF Urine Bacteria Trace (None Seen) Hyaline Casts 0-2 (0-2) /LPF Independent Interpretation I performed an independent interpretation of an: EKG Interpretation: Rate: 109 Rhythm: ST [place]: -/3/9 Normal P waves. Normal AIMEE. Normal QRS complex. ST T wave : no st depressions, elevations qTC:439 prior studies: similar. The study has been interpreted contemporaneously by me. Independent Historian Clinical information obtained from an independent historian. History obtained from or confirmed by: EMS External Record Review External record reviewed: Inpatient record and Prior outpatient labs Chronic Conditions Patient?s care impacted by: Diabetes Social Determinants Patient?s care significantly limited by Social Determinants of Health including: Problems related to primary support group Discharge Plan Discharge Clinical Impression: Hyperglycemia due to type 1 diabetes mellitus Patient Disposition: Home, Self-Care Instructions: Diabetes Type 1: Management (ED) Additional Instructions: As we discussed, your testing today showed no evidence of DKA. However, the glucose was very high. 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 Please eat a carb-controlled diet. With any worsening complaints at any time, seek re-evaluation in the ED. Prescriptions: No Action insulin lispro [Humalog KwikPen Insulin] 100 unit/mL insulin pen 5 - 10 unit subcut TIDAC insulin glargine [Lantus Solostar U-100 Insulin] 100 unit/mL (3 mL) insulin pen 25 unit subcut DAILY Referrals: Physician,Unknown J [Primary Care Provider, Medical] Print Language: Yemeni
--- NOTE | 2025-04-04 02:06 | PC.NURSE ---
Poc report to provider [phone]
[2025-04-04 02:08] LABS: Glucose, Whole Blood 203 mg/dL (60-115)
[2025-04-04 02:36] VITALS: BP 103/69; PULSE 88; RESP 17; TEMP 37.1; O2SAT 99
--- NOTE | 2025-04-04 02:36 | PC.NURSE ---
Reviewed discharge instructions with pt , pt verbalized understanding, no sign of distress.
== END 2025-04-04 02:37 | disposition home or self-care (01) ==
PROVIDERS: Nurse Practitioner; Emergency Provider Emergency Medicine
DX: E10.65 Type 1 diabetes mellitus with hyperglycemia (principal); R10.A0 Flank pain, unspecified side; Z79.4 Long term (current) use of insulin
CPT/HCPCS: 36415; 80053; 81001; 82010; 82803; 82947; 83605; 84484; 84702; 85007; 85025; 85027; 93005; 96361; 96374; 99285; J7120

== ENCOUNTER → 2025-04-03 21:57 | Outpatient (BNV) | payer MEDICAID, SELFPAY | PROVIDERS: Emergency Provider Emergency Medicine; Visit Provider Internal Medicine | DX: R00.0 Tachycardia, unspecified (principal) | CPT/HCPCS: 93010 ==